=== PATIENT | female | born 1955 | race Caucasian/White ===

== ENCOUNTER → 2016-07-29 | Outpatient (CLI) | payer OTHER ==
[~2016-07-29] MED LIST: ALBU17IN INH; AMAN100T PO; AMAN10CA PO; ASPI81TA60 PO; AZEL0.055; BREO1INH INH; BREO1INH3 INH; CETI10TA PO; DEXI60CA PO; FERR325T PO; FLUTISP; GABA600T PO; LAMO200T PO; LISI-538 PO; LISI20TA PO; LORA10TA2 PO; MECL-68 PO; MIRA3350 PO; MONT10TA2 PO; OMEP40CA2 PO; PRAZ2CAP PO; REXU1TAB2 PO; SERT-141 PO; TYLE500T78 PO; VITMTA PO
[2016-07-29 16:30] LABS: BASO # 0.1 K/mm3 (0.0-0.2); BASO % 0.9 % (0.0-1.0); EOS # 0.2 K/mm3 (0.0-0.50); EOS % 2.1 % (0.0-3.0); LARGE UNSTAINED CELL # 0.1 K/mm3 (0.0-0.4); LARGE UNSTAINED CELL % 1.5 % (0.0-4.0); LYMPH # 1.4 K/mm3 (1.5-4.5); LYMPH % 17.5 % (24.0-44.0); MEAN CORPUSCULAR HEMOGLOBIN 29.1 pg (27.0-33.0); MEAN CORPUSCULAR HGB CONC 31.3 g/dl (32.0-36.5); MEAN CORPUSCULAR VOLUME 93.1 fl (80.0-96.0); MONO # 0.4 K/mm3 (0.0-0.8); MONO % 4.8 % (0.0-5.0); NEUTROPHILS # 5.5 K/mm3 (1.8-7.7); NEUTROPHILS % 73.1 % (36.0-66.0); PLATELET COUNT, AUTOMATED 216 k/mm3 (150-450); RED CELL DISTRIBUTION WIDTH 14.7 % (11.5-14.5); WHITE BLOOD COUNT 7.5 K/mm3 (4.0-10.0)
== END ==
LOC: M LAB 15:54
PROVIDERS: ATTEND Psychiatry & Neurology Psychiatry
DX: Z79.899 Other long term (current) drug therapy (principal)

== ENCOUNTER → 2016-08-07 | Outpatient (CLI) | payer OTHER ==
[2016-08-07 16:06] LABS: BASO # 0.1 K/mm3 (0.0-0.2); BASO % 0.9 % (0.0-1.0); EOS # 0.1 K/mm3 (0.0-0.50); EOS % 2.1 % (0.0-3.0); LYMPH % 12.5 % (24.0-44.0); MEAN CORPUSCULAR VOLUME 90.8 fl (80.0-96.0); MONO # 0.4 K/mm3 (0.0-0.8); MONO % 5.4 % (0.0-5.0); NEUTROPHILS # 5.3 K/mm3 (1.8-7.7); NEUTROPHILS % 77.5 % (36.0-66.0); RED CELL DISTRIBUTION WIDTH 15.3 % (11.5-14.5); WHITE BLOOD COUNT 6.9 K/mm3 (4.0-10.0)
== END ==
LOC: M LAB 15:19
PROVIDERS: ATTEND Psychiatry & Neurology Psychiatry
DX: Z51.81 Encounter for therapeutic drug level monitoring (principal); Z79.899 Other long term (current) drug therapy

== ENCOUNTER → 2016-08-08 | Outpatient (CLI) | payer OTHER ==
--- NOTE | 2016-08-21 00:58 | ECWPNPC ---
PATIENT NAME: DIYA QUINONEZ : 1955 GENDER: FEMALE VISIT DATE: 08/08/2016 DISCHARGE DATE: 08/08/16 1357 VISIT LOCKED DATE TIME: PHYSICIAN: LAURA ROGERS RESOURCE: LAURA ROGERS REASON FOR APPOINTMENT 1. POST TPI HISTORY OF PRESENT ILLNESS HISTORY OF PRESENT ILLNESS: HERE FOR POST PROCEDURE F/U .HAD TPI ON 07-18 OF LEFT THORACIC AND LEFT SHOULDER.REPORTS DECREASE IN PAIN POST PROCEDURE IN THAT AREA WHICH CONTINUES TODAY.RATING PAIN VAS 4/10 UPPER BACK.CHIEF AREA PAIN TODAY IS LBP R>L.HAD BILATERAL SIJ INJECTIONS 07-08-16 AND HAD IMPROVEMENT IN PAIN UP TO ABOUT 2 DAYS AGO. PAIN THE PATIENT DESCRIBES THE PAIN... FALL RISK SCREENING: SCREENING :NO FALLS IN THE PAST YEAR CURRENT MEDICATIONS TAKING TIZANIDINE HCL 2 MG TABLET 1 TABLET NEEDED ORALLY BEFORE BEDTIME MAY REPEAT IN 4 HRS MDD 2, NOTES: 07/17/2016 2100 TAKING MULTIVITAMINS TABLET 1 TAB ORALLY DAILY, NOTES: 0900 TAKING VENTOLIN HFA 108 (90 BASE) MCG/ACT AEROSOL SOLUTION 2 PUFFS INHALATION PRN, NOTES: DR. HAYDEN NONE RECENTY TAKING CALCIUM 600 + D 600-400 MG-UNIT TABLET 1 TABLET ORALLY ONCE A DAY, NOTES: 07/17/2016 0900 TAKING ASPIRIN EC LOW DOSE 81 MG TABLET DELAYED RELEASE 1 TABLET ORALLY ONCE A DAY, NOTES: 07/17/2016 0900 TAKING FLUTICASONE PROPIONATE 50 MCG/ACT SUSPENSION 1 SPRAY IN EACH NOSTRIL NASALLY ONCE A DAY NEEDED, NOTES: DR. HAYDEN 07/07/16 1000 TAKING DEXILANT 60 MG CAPSULE DELAYED RELEASE 1 CAPSULE ORALLY ONCE A DAY, NOTES: DR. OSCAR 07/17/2016 0900 TAKING BREO ELLIPTA 100-25 MCG/INH AEROSOL POWDER BREATH ACTIVATED 1 PUFF INHALATION ONCE A DAY, NOTES: 07/17/2016 0900 TAKING AZELASTINE HCL 0.1 % SOLUTION 1 SPRAY IN EACH NOSTRIL NASALLY ONCE A DAY, NOTES: DR. HAYDEN 07/08/16 0700 TAKING LITHIUM CARBONATE 150 MG CAPSULE 3 CAPSULES ORALLY AT BEDTIME, NOTES: 07/17/2016 2100 TAKING CLOZAPINE 100 MG TABLET 1 TABLET ORALLY ONCE A DAY AT BEDTIME, NOTES: DR. MILLER 07/17/2016 2100 TAKING LAMOTRIGINE 200 MG TABLET 1.5 TABLET ORALLY ONCE A DAY IN THE MORNING, NOTES: DR. MILLER 07/07/16 0930 TAKING AMANTADINE HCL 100 MG CAPSULE 2 CAPSULES ORALLY 2 CAPS IN THE AM, 1 IN THE EVENING, NOTES: 07/17/2016 0900 TAKING FERROUS SULFATE 325 MG CAPSULE 1 TABLET ORALLY TWICE DAILY, NOTES: PCP 07/17/2016 09 TAKING MECLIZINE HCL 25 MG TABLET 1 TABLET NEEDED ORALLY ONCE A DAY, NOTES: PCP 07/17/2016 09 TAKING CETIRIZINE HCL 10 MG TABLET 1 TABLET ORALLY ONCE A DAY, NOTES: DR. HAYDEN 07/17/16 0230 TAKING MONTELUKAST SODIUM 10 MG TABLET 1 TABLET IN THE EVENING ORALLY ONCE A DAY, NOTES: 07/17/2016 09 TAKING GABAPENTIN 300 MG CAPSULE 3 CAPSULE ORALLY ONCE A DAY AT HS, NOTES: 07/17/2016 2100 TAKING REXULTI 4 MG TABLET 1 TABLET ORALLY ONCE A DAY, NOTES: 07/17/2016 2100 TAKING LISINOPRIL-HYDROCHLOROTHIAZIDE 20-12.5 MG TABLET 1 TABLET ORALLY ONCE A DAY, NOTES: PCP 07/17/2016 09 MEDICATION LIST REVIEWED AND RECONCILED WITH THE PATIENT PAST MEDICAL HISTORY 2002 CHRONIC HEPATITIS C GENOTYPE 2A, VL 2.7MILLION , RVR ON TREATMENT UNDETECTABLE VL 4, END OF TX 03/03/2010 BIPOLAR DISORDER GERD GASTRITIS OBESITY CHOLELITHIASIS ASTHMA INSOMNIA SCOLIOSIS BREAST LUMPECTOMY/RIGHT BREAST 2009 DDD CERVICAL SPINE SPINAL FUSION 1973 SPINAL EXPLORATORY 1975 ANEMIA COLONOSCOPY 2016 EGD 2016 HIATAL HERNIA ALLERGIES N.K.D.A. SOCIAL HISTORY GENERAL: TOBACCO USE ARE YOU A:NONSMOKER LEARNING BARRIERS / SPECIAL NEEDS ORIENTED TO PLAN OF CARE: PATIENT, PAIN MANAGEMENT PATIENT, ORIENTED TO PLAN OF CARE: PATIENT, PAIN MANAGEMENT PATIENT. NEW PATIENT PAIN DIARY TODAY'S VISITNOTES FROM 0-10, WHAT LEVEL IS YOUR PAIN TODAY?0 PAIN CLINIC PFS, CLERGY, PUBLIC HEALTH REFERRALS PFS REFERRAL NEEDED?NO CLERGY REFERRAL NEEDED?NO PUBLIC HEALTH REFERRAL NEEDED?NO WAS THE PROVIDER NOTIFIED OF ANY PERTINENT INFO?NO PFS REFERRAL NEEDED?NO CLERGY REFERRAL NEEDED?NO PUBLIC HEALTH REFERRAL NEEDED?NO WAS THE PROVIDER NOTIFIED OF ANY PERTINENT INFO?NO REVIEW OF SYSTEMS CONSTITUTIONAL: ANY CHANGE IN YOUR MEDICAL CONDITION? NO . RECENT ILLNESS DENIES . CHILLS NO . FEVER NO . WEIGHT LOSS DENIES . INFECTION: DO YOU HAVE NEW INFECTIONS? NO . DO YOU HAVE HISTORY OF MRSA? NO . MUSCULOSKELETAL: ANY NEW PATTERNS OF PAIN OR NUMBNESS? YES NOTICED PAIN IN RIGHT SHOULDER AFTER TPI DONE ON 12/ PAIN HAS RETURNED IN LOW BACK . GASTROENTEROLOGY: ANY NEW CHANGE IN BOWEL CONTROL? NO . GENITOURINARY: ANY NEW CHANGE IN BLADDER CONTROL? NO . IS THERE A CHANCE YOU COULD BE ? NO . HEMATOLOGY/LYMPH: DO YOU TAKE ANY BLOOD THINNERS? (FOR EXAMPLE- COUMADIN, PLAVIX, AGGRENOX, PLATEL, PRADAXA, OR XARELTO) NO . WHEN WAS YOUR LAST DOSE? DATE: TIME: . NEUROLOGY: HAVE YOU FALLEN IN THE PAST 6 MONTHS? NO . ANY NEW EXTREMITY NUMBNESS OR WEAKNESS? NO . CARDIOLOGY: DO YOU HAVE A PACEMAKER OR DEFIBRILLATOR? NO . CHEST PAIN DENIES . SHORTNESS OF BREATH DENIES . RESPIRATORY: HAVE YOU BEEN SICK IN THE PAST WEEK? NO . FEVER NO . FLU LIKE SYMPTOMS? NO . COUGH NO, DENIES . SHORTNESS OF BREATH DENIES . INTEGUMENTARY: DO YOU HAVE ANY RASHES OR OPEN SORES? NO . ALLERGIC/IMMUNO: ARE YOU ALLERGIC TO SHELLFISH OR IV DYE? NO . ANY NEW ALLERGIES? NO . PSYCHIATRIC: DO YOU HAVE THOUGHTS OF HURTING YOURSELF OR SOMEONE ELSE? NO . ARE YOU ABUSED, NEGLECTED, OR IN AN UNSAFE ENVIRONMENT? NO . ENDOCRINOLOGY: ARE YOU DIABETIC? NO . OTHER: DO YOU NEED ANY PRESCRIPTIONS? NO . IF YES, PLEASE LIST: ____ . ANY NEW PROBLEMS WITH YOUR MEDICATIONS? NO . WHEN DID YOU LAST EAT? ____ . WHEN DID YOU LAST DRINK? ____ . WHAT DID YOU LAST DRINK? ____ . NAME OF PERSON DRIVING YOU HOME? ____ . DO YOU HAVE ANY OTHER QUESTIONS OR CONCERNS NO . REVIEWED BY: PROVIDER: LAURA EM . VITAL SIGNS WT 250 LBS, HT 64 IN, BMI 42.91 INDEX, BP 160/83 MM HG, HR 86 /MIN, RR 16 /MIN, TEMP 97.7 F, OXYGEN SAT % 97%, NA INITIALS SC13:19, REVIEWED BY: AD. EXAMINATION GENERAL EXAMINATION: LUNGS:LUNG SOUNDS ARE CLEAR. HEART:HEART RATE REGULAR. MUSCULOSKELETAL:*, MUSCLE STRENGTH TESTING 5/5 BILATERAL LOWER EXTREMITIES., PALPATION: POSITIVE FOR PAIN OVER L/S SPINE. POSITIVE FOR PAIN OVER L/S PARASPINALS.SPECIFIC POINT TENDERNESS OVER BILAT. SIJ.. DIAGNOSTIC: . ASSESSMENTS SACROILIITIS, NOT ELSEWHERE CLASSIFIED - M46.1 (PRIMARY) MYALGIA - M79.1 TREATMENT SACROILIITIS, NOT ELSEWHERE CLASSIFIED INJECTION ANESTHETIC SACROILIAC JOINT PREVENTIVE MEDICINE PAIN CLINIC TEACHING: PROCEDURE TEACHING PRINTED MATERIAL GIVEN TO AND EXPLAINED TO PATIENT ON SIJ INJECTION. PT VERBALIZED UNDERSTANDING. PROCEDURE CODES FA211 ESTABILISHED PATIENT [facility] FACILITY CHARGE FOLLOW UP 2WK POST (REASON: BILAT. SIJ) ELECTRONICALLY SIGNED BY MARIA ANTONIA BEAR ON 08/20/2016 AT 04:03 PM EST DISCLAIMER : THIS IS A VISIT SUMMARY EXTRACTED FROM THE [employer] CHART. IT IS NOT A COPY OF THE [employer] PROGRESS NOTE. PIERCE
== END ==
LOC: M PAIN 13:20
PROVIDERS: ATTEND Nurse Practitioner Family
DX: Z09 Encounter for follow-up examination after completed treatment for conditions other than malignant neoplasm (principal); M79.1 Myalgia; M54.5 Low back pain; B18.2 Chronic viral hepatitis C; F31.9 Bipolar disorder, unspecified; K21.9 Gastro-esophageal reflux disease without esophagitis; E66.9 Obesity, unspecified; Z68.41 Body mass index [BMI] 40.0-44.9, adult; K80.20 Calculus of gallbladder without cholecystitis without obstruction; J45.909 Unspecified asthma, uncomplicated; G47.00 Insomnia, unspecified; M41.9 Scoliosis, unspecified; M50.30 Other cervical disc degeneration, unspecified cervical region; D64.9 Anemia, unspecified; K44.9 Diaphragmatic hernia without obstruction or gangrene; Z98.1 Arthrodesis status; Z90.11 Acquired absence of right breast and nipple; Z79.82 Long term (current) use of aspirin

== ENCOUNTER 2016-08-17 16:10 | Emergency (ER) | payer OTHER ==
[2016-08-17] MEDS ORDERED: NORCO, ANEXSIA 5/325MG TABLET (HYDROcodone/ACETAMINOPHEN) As Ordered ONE (19:50)
--- NOTE | 2016-08-17 20:44 | EDDOCDS ---
Nurse's Notes [facility] Name: Cristina Marsh Age: 61 yrs Sex: Female : 1955 Arrival Date: 08/17/2016 Time: 16:10 Bed PD Private MD: Ayesha Jackman M. Diagnosis: Contusion of right front wall of thorax Presentation: 08/17 16:45 Presenting complaint: Patient states: fell during the night about three days ago, now a [facility] lot of pain underneath right breast with large black and blue bruise present which is so painful I can't even get a bra on, makes it hard to sleep. Adult Sepsis Screening: The patient does not have new or worsening altered mentation. Patient's respiratory rate is less than 22. Systolic blood pressure is greater than 100. Patient has a qSOFA score of 0- Negative Sepsis Screen. Suicide/Homicide risk assessment- The patient reports that he/she has a prior history of suicide attempt and/or organized plan. Status: Patient is not a clinical services consultant or dependent. Transition of care: patient was not received from another setting of care. 16:45 Acuity: GIOVANI Level 4 [facility] 16:45 Method Of Arrival: Walkin/Carried/Asstd [facility] Triage Assessment: 16:49 General: Appears in no apparent distress, uncomfortable, Behavior is appropriate for [facility] age, cooperative. Pain: Denies pain. Pain: Location: right lateral posterior chest and right lateral anterior chest Pain currently is 9 out of 10 on a pain scale. HIV screening NA for this visit Offered previously. Respiratory: Airway is patent Respiratory effort is even, unlabored, Respiratory pattern is regular, symmetrical. Derm: Skin is pink, warm & dry. Musculoskeletal: Range of motion intact in all extremities. Historical: - Allergies: no known allergies; - Home Meds: 1. amantadine HCl 100 mg Oral cap 1 cap once daily 2. aspirin 81 mg Oral tab 1 tab once daily 3. azelastine 137 mcg (0.1 %) nasal spra 2 sprays 2 times per day 4. Breo Ellipta 200-25 mcg/dose inhalation dsdv 1 puff once daily 5. cetirizine 10 mg oral tab 1 tab once daily 6. fluticasone 50 mcg/actuation nasal spsn 1 spray 2 times per day 7. gabapentin 300 mg Oral tab 4 cap nightly 8. lamotrigine 200 mg Oral tr24 1 tab twice a day 9. lisinopril 20 mg Oral tab 1 tab once daily 10. lisinopril-hydrochlorothiazide 20-12.5 mg oral tab 1 tab once daily 11. montelukast 10 mg oral tab 1 tab nightly 12. multivitamin Oral cap 1 tab daily 13. prazosin 2 mg Oral cap 1 cap nightly - PMHx: Anxiety; Bipolar disorder; Hypertension; Seasonal Allergies; Asthma; - PSHx: Tubal ligation; Sinus Surgery; Lumpectomy- Right; back surgery x2; right wrist surgery; - Social history: Smoking status: Patient states former smoker of tobacco. No barriers to communication noted. - Family history: Not pertinent. - : The pt / caregiver states he / she is not on anticoagulants. Home medication list is obtained from the patient. - Exposure Risk Screening:: None identified. Screenin:42 Screening information is obtained from the patient. Fall risk: No risks identified. cz Assistance ADL's: requires no assistance with activities of daily living. Abuse/DV Screen: The patient / caregiver reports he/she is:. Nutritional screening: No deficits noted. home support is adequate. Assessment: 20:42 Reassessment: Patient states feeling better. Patient states symptoms have improved. Vital Signs: 16:13 BP 144 / 72 RA Sitting (auto/lg); Pulse 95; Resp 18; Temp 97.6(O); Pulse Ox 97% ; vt4 Weight 113.4 kg (R); Height 5 ft. 4 in. (162.56 cm) (R); Pain 8/10; 20:42 BP 175 / 81; Pulse 76; Resp 16; Temp 99.3(TE); Pulse Ox 95% on R/A; Pain 7/10; sew 16:13 Body Mass Index 42.91 (113.40 kg, 162.56 cm) [facility] Vitals: 16:13 Log In Time: August 17, 2016 at 16:10. [facility] ED Course: 16:13 Patient visited by Orly Laurent. [facility] 16:13 Ayesha Jackman is Private Physician. mt4 16:13 Patient moved to Waiting [facility] 16:16 Patient moved to Pre E [facility] 16:47 Triage Initiated [facility] 19:28 Patient moved to Triage 3 3 19:34 Tommy Colon PA is PHCP. mo1 19:34 Saul Mcdowell DO is Attending Physician. mo1 19:36 Patient visited by Tommy Colon PA. mo1 19:51 Patient moved to TR4 sew 19:55 Patient moved to TR2 cz 20:27 Patient moved to PR1 / 25 sew 20:28 Patient moved to PD2 / 27 kb5 20:33 Ayesha Jackman is Referral Physician. mo1 20:42 Patient visited by Mone Roberts. sew 20:42 The patient / caregiver is instructed regarding the plan of care and ED course. cz 20:42 No IV's were initiated during this patient's visit. No procedures done that require cz assistance. 20:44 [facility] Payment Agreement was scanned into [employer] and attached to record. gjb Administered Medications: 19:52 Drug: HYDROcodone-acetaminophen 1 tabs [hydrocodone 5 mg-acetaminophen 325 mg tablet (1 cz tabs)] Route: PO; Order Results: There are currently no results for this order. Outcome: 20:33 Discharge ordered by Provider. mo1 20:42 Discharge Assessment: Patient awake, alert and oriented x 3. No cognitive and/or cz functional deficits noted. Patient verbalized understanding of disposition instructions. patient administered narcotics - yes. Pt provided with safe discharge. The following High Risk Discharge criteria are identified: None. Discharged to home ambulatory, with family. Condition: stable. Discharge instructions given to patient, Instructed on discharge instructions, follow up and referral plans. medication usage, Demonstrated understanding of instructions, medications, Pt was receptive of discharge instructions/ teaching. Prescriptions given X 1. No special radiology studies were completed. Property :Personal belongings accompany Pt. 20:44 Patient left the ED. cz Signatures: Edward Buckley, RN RN Kaiden Coombs, STOPE MINER STOPE MINER kb5 Orly Laurent mt4 Esme FloresRN RN [facility] Mone Roberts Michael, PA PA mo1 Alli Dewitt,RN RN Arlin Cuevas MTDD
--- NOTE | 2016-08-17 20:44 | EDDOCDS ---
Physician Documentation [facility] Name: Cristina Marsh Age: 61 yrs Sex: Female : 1955 Arrival Date: 08/17/2016 Time: 16:10 Bed PD Private MD: Ayesha Jackman M. Disposition: 08/17/16 20:33 Discharged to Home/Self Care. Impression: Contusion of right front wall of thorax. - Condition is Stable. - Discharge Instructions: Rib Contusion, Chest Wall Pain. - Prescriptions for [place] 5- 325 mg Oral Tablet - take 1 tablet by ORAL route every 6 hours As needed MDD: 4 tabs; 20 tablet. - Medication Reconciliation, Local Pharmacy Hours form. - Follow up: Ayesha Jackman; When: Call to arrange an appointment; Reason: Recheck today's complaints, Continuance of care. - Problem is new. - Symptoms are unchanged. Historical: - Allergies: no known allergies; - Home Meds: 1. amantadine HCl 100 mg Oral cap 1 cap once daily 2. aspirin 81 mg Oral tab 1 tab once daily 3. azelastine 137 mcg (0.1 %) nasal spra 2 sprays 2 times per day 4. Breo Ellipta 200-25 mcg/dose inhalation dsdv 1 puff once daily 5. cetirizine 10 mg oral tab 1 tab once daily 6. fluticasone 50 mcg/actuation nasal spsn 1 spray 2 times per day 7. gabapentin 300 mg Oral tab 4 cap nightly 8. lamotrigine 200 mg Oral tr24 1 tab twice a day 9. lisinopril 20 mg Oral tab 1 tab once daily 10. lisinopril-hydrochlorothiazide 20-12.5 mg oral tab 1 tab once daily 11. montelukast 10 mg oral tab 1 tab nightly 12. multivitamin Oral cap 1 tab daily 13. prazosin 2 mg Oral cap 1 cap nightly - PMHx: Anxiety; Bipolar disorder; Hypertension; Seasonal Allergies; Asthma; - PSHx: Tubal ligation; Sinus Surgery; Lumpectomy- Right; back surgery x2; right wrist surgery; - Social history: Smoking status: Patient states former smoker of tobacco. No barriers to communication noted. - Family history: Not pertinent. - : The pt / caregiver states he / she is not on anticoagulants. Home medication list is obtained from the patient. - Exposure Risk Screening:: None identified. Vital Signs: 08/17 16:13 BP 144 / 72 RA Sitting (auto/lg); Pulse 95; Resp 18; Temp 97.6(O); Pulse Ox 97% ; mt4 Weight 113.4 kg / 250 lbs (R); Height 5 ft. 4 in. (162.56 cm) (R); Pain 8/10; 20:42 BP 175 / 81; Pulse 76; Resp 16; Temp 99.3(TE); Pulse Ox 95% on R/A; Pain 7/10; sew 16:13 Body Mass Index 42.91 (113.40 kg, 162.56 cm) mt4 MDM: 19:45 HYDROcodone-acetaminophen 5 mg-325 mg 1 tabs PO once ordered. mo1 19:46 Rib Unilat W/PA Chest Only Ordered. EDMS 20:09 Financial registration complete. gjrodney 20:44 [facility] Payment Agreement was scanned into [employer] and attached to record. wil Administered Medications: 19:52 Drug: HYDROcodone-acetaminophen 1 tabs [hydrocodone 5 mg-acetaminophen 325 mg tablet (1 cz tabs)] Route: PO; Signatures: Dispatcher [employer] EDMS Edward Buckley RN RN cz Hafner, Jane, RN RN [facility] Tommy Colon PA PA mo1 Arlin Nieves The chart was reviewed and I authenticate all verbal orders and agree with the evaluation and treatment provided.Attachments: 20:44 [facility] Payment Agreement gjrodney MTDD
--- NOTE | 2016-08-18 20:59 | REP ---
PA chest with right rib series 08/17/2016 Indication: Trauma Comparison: PA and lateral chest 11/28 15 Findings: Cardiac silhouette is mildly enlarged. There is ectasia and tortuosity of thoracic aorta. There is small amount of atelectasis noted within the medial basilar segment of the right lower lobe. There is a moderate retrocardiac hiatal hernia containing small amount of air. Thoracic fixation rods are again identified for thoracic dextroscoliotic deformity. There is mild residual dextroscoliosis of thoracic spine again noted. There is no visualized acute right rib fracture. Old healed nondisplaced fracture is identified within the right 5th lateral rib, best seen on image 3 Impression: Mild cardiomegaly, tortuous thoracic aorta, not significantly changed Moderate retrocardiac hiatal hernia Atelectasis in medial basilar segment right lower lobe No acute right rib fracture. Mild deformity of the right fifth lateral rib consistent with old healed fracture Signed by Brittani Salinas MD 08/18/2016 08:51 P
--- NOTE | 2016-08-19 21:45 | EDDOCDS ---
Nurse's Notes [facility] Name: Cristina Marsh Age: 61 yrs Sex: Female : 1955 Arrival Date: 08/17/2016 Time: 16:10 Bed PD Private MD: Ayesha Jackman M. Diagnosis: Contusion of right front wall of thorax Presentation: 08/17 16:45 Presenting complaint: Patient states: fell during the night about three days ago, now a [facility] lot of pain underneath right breast with large black and blue bruise present which is so painful I can't even get a bra on, makes it hard to sleep. Adult Sepsis Screening: The patient does not have new or worsening altered mentation. Patient's respiratory rate is less than 22. Systolic blood pressure is greater than 100. Patient has a qSOFA score of 0- Negative Sepsis Screen. Suicide/Homicide risk assessment- The patient reports that he/she has a prior history of suicide attempt and/or organized plan. Status: Patient is not a media services director or dependent. Transition of care: patient was not received from another setting of care. 16:45 Acuity: GIOVANI Level 4 [facility] 16:45 Method Of Arrival: Walkin/Carried/Asstd [facility] Triage Assessment: 16:49 General: Appears in no apparent distress, uncomfortable, Behavior is appropriate for [facility] age, cooperative. Pain: Denies pain. Pain: Location: right lateral posterior chest and right lateral anterior chest Pain currently is 9 out of 10 on a pain scale. HIV screening NA for this visit Offered previously. Respiratory: Airway is patent Respiratory effort is even, unlabored, Respiratory pattern is regular, symmetrical. Derm: Skin is pink, warm & dry. Musculoskeletal: Range of motion intact in all extremities. Historical: - Allergies: no known allergies; - Home Meds: 1. amantadine HCl 100 mg Oral cap 1 cap once daily 2. aspirin 81 mg Oral tab 1 tab once daily 3. azelastine 137 mcg (0.1 %) nasal spra 2 sprays 2 times per day 4. Breo Ellipta 200-25 mcg/dose inhalation dsdv 1 puff once daily 5. cetirizine 10 mg oral tab 1 tab once daily 6. fluticasone 50 mcg/actuation nasal spsn 1 spray 2 times per day 7. gabapentin 300 mg Oral tab 4 cap nightly 8. lamotrigine 200 mg Oral tr24 1 tab twice a day 9. lisinopril 20 mg Oral tab 1 tab once daily 10. lisinopril-hydrochlorothiazide 20-12.5 mg oral tab 1 tab once daily 11. montelukast 10 mg oral tab 1 tab nightly 12. multivitamin Oral cap 1 tab daily 13. prazosin 2 mg Oral cap 1 cap nightly - PMHx: Anxiety; Bipolar disorder; Hypertension; Seasonal Allergies; Asthma; - PSHx: Tubal ligation; Sinus Surgery; Lumpectomy- Right; back surgery x2; right wrist surgery; - Social history: Smoking status: Patient states former smoker of tobacco. No barriers to communication noted. - Family history: Not pertinent. - : The pt / caregiver states he / she is not on anticoagulants. Home medication list is obtained from the patient. - Exposure Risk Screening:: None identified. Screenin:42 Screening information is obtained from the patient. Fall risk: No risks identified. cz Assistance ADL's: requires no assistance with activities of daily living. Abuse/DV Screen: The patient / caregiver reports he/she is:. Nutritional screening: No deficits noted. home support is adequate. Assessment: 20:42 Reassessment: Patient states feeling better. Patient states symptoms have improved. Vital Signs: 16:13 BP 144 / 72 RA Sitting (auto/lg); Pulse 95; Resp 18; Temp 97.6(O); Pulse Ox 97% ; mn4 Weight 113.4 kg (R); Height 5 ft. 4 in. (162.56 cm) (R); Pain 8/10; 20:42 BP 175 / 81; Pulse 76; Resp 16; Temp 99.3(TE); Pulse Ox 95% on R/A; Pain 7/10; sew 16:13 Body Mass Index 42.91 (113.40 kg, 162.56 cm) [facility] Vitals: 16:13 Log In Time: August 17, 2016 at 16:10. [facility] ED Course: 16:13 Patient visited by Orly Laurent. [facility] 16:13 Ayesha Jackman is Private Physician. mt4 16:13 Patient moved to Waiting [facility] 16:16 Patient moved to Pre E [facility] 16:47 Triage Initiated [facility] 19:28 Patient moved to Triage 3 3 19:34 Tommy Colon PA is PHCP. mo1 19:34 Saul Mcdowell DO is Attending Physician. mo1 19:36 Patient visited by Tommy Colon PA. mo1 19:51 Patient moved to TR4 sew 19:55 Patient moved to TR2 cz 20:27 Patient moved to PR1 / 25 sew 20:28 Patient moved to PD2 / 27 kb5 20:33 Ayesha Jackman is Referral Physician. mo1 20:42 Patient visited by Mone Roberts. sew 20:42 The patient / caregiver is instructed regarding the plan of care and ED course. cz 20:42 No IV's were initiated during this patient's visit. No procedures done that require cz assistance. 20:44 [facility] Payment Agreement was scanned into [employer] and attached to record. gjb 22:20 Patient name changed from Cristina\S\Shannan\S\Duenisch\S\ to Cristina\S\L\S\Duenisch. EDMS 08/18 16:09 T-Sheet-- Draft Copy was scanned into [employer] and attached to record. klr 21:42 Rib Unilat W/PA Chest Only Returned. EDMS Administered Medications: 08/17 19:52 Drug: HYDROcodone-acetaminophen 1 tabs [hydrocodone 5 mg-acetaminophen 325 mg tablet (1 cz tabs)] Route: PO; Order Results: Radiology Order: Rib Unilat W/PA Chest Only Test: Rib Unilat W/PA Chest Only REASON FOR EXAMINATION: Trauma; PA chest with right rib series 08/17/2016; ; Indication: Trauma; ; Comparison: PA and lateral chest 11/27 16; ; Findings: Cardiac silhouette is mildly enlarged. There is ectasia and; tortuosity of thoracic aorta. There is small amount of atelectasis noted within; the medial basilar segment of the right lower lobe. There is a moderate; retrocardiac hiatal hernia containing small amount of air.; ; ; ; Thoracic fixation rods are again identified for thoracic dextroscoliotic; deformity. There is mild residual dextroscoliosis of thoracic spine again; noted.; ; There is no visualized acute right rib fracture. Old healed nondisplaced; fracture is identified within the right 5th lateral rib, best seen on image 3; ; Impression:; ; Mild cardiomegaly, tortuous thoracic aorta, not significantly changed; Moderate retrocardiac hiatal hernia; ; Atelectasis in medial basilar segment right lower lobe; ; No acute right rib fracture. Mild deformity of the right fifth lateral rib; consistent with old healed fracture; ; ; Signed by; Brittani Salinas MD 08/18/2016 08:51 P; Outcome: 20:33 Discharge ordered by Provider. mo1 20:42 Discharge Assessment: Patient awake, alert and oriented x 3. No cognitive and/or cz functional deficits noted. Patient verbalized understanding of disposition instructions. patient administered narcotics - yes. Pt provided with safe discharge. The following High Risk Discharge criteria are identified: None. Discharged to home ambulatory, with family. Condition: stable. Discharge instructions given to patient, Instructed on discharge instructions, follow up and referral plans. medication usage, Demonstrated understanding of instructions, medications, Pt was receptive of discharge instructions/ teaching. Prescriptions given X 1. No special radiology studies were completed. Property :Personal belongings accompany Pt. 20:44 Patient left the ED. cz Signatures: Dispatcher [employer] EDMS Edward Buckley, RN RN cz Kaiden Stubbs, CIVIL ENGINEER CIVIL ENGINEER kb5 Mehran, Orly mt4 Esme FloresRN RN Mone Sanchez Michael, PA PA mo1 Alli Dewitt,RN RN [email or web address] Arlin Nieves Kathie klr Chart Complete MTDD
--- NOTE | 2016-08-19 21:45 | EDDOCDS ---
Physician Documentation [facility] Name: Cristina Marsh Age: 61 yrs Sex: Female : 1955 Arrival Date: 08/17/2016 Time: 16:10 Bed PD Private MD: Ayesha Jackman M. Disposition: 08/17/16 20:33 Discharged to Home/Self Care. Impression: Contusion of right front wall of thorax. - Condition is Stable. - Discharge Instructions: Rib Contusion, Chest Wall Pain. - Prescriptions for [place] 5- 325 mg Oral Tablet - take 1 tablet by ORAL route every 6 hours As needed MDD: 4 tabs; 20 tablet. - Medication Reconciliation, Local Pharmacy Hours form. - Follow up: Ayesha Jackman; When: Call to arrange an appointment; Reason: Recheck today's complaints, Continuance of care. - Problem is new. - Symptoms are unchanged. Historical: - Allergies: no known allergies; - Home Meds: 1. amantadine HCl 100 mg Oral cap 1 cap once daily 2. aspirin 81 mg Oral tab 1 tab once daily 3. azelastine 137 mcg (0.1 %) nasal spra 2 sprays 2 times per day 4. Breo Ellipta 200-25 mcg/dose inhalation dsdv 1 puff once daily 5. cetirizine 10 mg oral tab 1 tab once daily 6. fluticasone 50 mcg/actuation nasal spsn 1 spray 2 times per day 7. gabapentin 300 mg Oral tab 4 cap nightly 8. lamotrigine 200 mg Oral tr24 1 tab twice a day 9. lisinopril 20 mg Oral tab 1 tab once daily 10. lisinopril-hydrochlorothiazide 20-12.5 mg oral tab 1 tab once daily 11. montelukast 10 mg oral tab 1 tab nightly 12. multivitamin Oral cap 1 tab daily 13. prazosin 2 mg Oral cap 1 cap nightly - PMHx: Anxiety; Bipolar disorder; Hypertension; Seasonal Allergies; Asthma; - PSHx: Tubal ligation; Sinus Surgery; Lumpectomy- Right; back surgery x2; right wrist surgery; - Social history: Smoking status: Patient states former smoker of tobacco. No barriers to communication noted. - Family history: Not pertinent. - : The pt / caregiver states he / she is not on anticoagulants. Home medication list is obtained from the patient. - Exposure Risk Screening:: None identified. Vital Signs: 08/17 16:13 BP 144 / 72 RA Sitting (auto/lg); Pulse 95; Resp 18; Temp 97.6(O); Pulse Ox 97% ; mt4 Weight 113.4 kg / 250 lbs (R); Height 5 ft. 4 in. (162.56 cm) (R); Pain 8/10; 20:42 BP 175 / 81; Pulse 76; Resp 16; Temp 99.3(TE); Pulse Ox 95% on R/A; Pain 7/10; sew 16:13 Body Mass Index 42.91 (113.40 kg, 162.56 cm) mt4 MDM: 19:45 HYDROcodone-acetaminophen 5 mg-325 mg 1 tabs PO once ordered. mo1 19:46 Rib Unilat W/PA Chest Only Ordered. EDCT 20:09 Financial registration complete. [facility] :44 [facility] Payment Agreement was scanned into [employer] and attached to record. [facility] 08/18 16:09 T-Sheet-- Draft Copy was scanned into [employer] and attached to record. klr Administered Medications: 08/17 19:52 Drug: HYDROcodone-acetaminophen 1 tabs [hydrocodone 5 mg-acetaminophen 325 mg tablet (1 cz tabs)] Route: PO; Signatures: Dispatcher [employer] EDCT Edward Buckley RN RN cz Hafner, Jane, RN RN cj Tommy Colon PA PA mo1 Arlin Nieves Kathie klr The chart was reviewed and I authenticate all verbal orders and agree with the evaluation and treatment provided.Attachments: 20:44 [facility] Payment Agreement [facility] 08/18 16:09 T-Sheet-- Draft Copy klr Chart Complete MTDD
--- NOTE | 2016-08-19 21:45 | EDDOCDS ---
Physician Documentation [facility] Name: Cristina Marsh Age: 61 yrs Sex: Female : 1955 Arrival Date: 08/17/2016 Time: 16:10 Bed PD Private MD: Ayesha Jackman M. Disposition: 08/17/16 20:33 Discharged to Home/Self Care. Impression: Contusion of right front wall of thorax. - Condition is Stable. - Discharge Instructions: Rib Contusion, Chest Wall Pain. - Prescriptions for Bartlett 5- 325 mg Oral Tablet - take 1 tablet by ORAL route every 6 hours As needed MDD: 4 tabs; 20 tablet. - Medication Reconciliation, Local Pharmacy Hours form. - Follow up: Ayesha Jackman; When: Call to arrange an appointment; Reason: Recheck today's complaints, Continuance of care. - Problem is new. - Symptoms are unchanged. Historical: - Allergies: no known allergies; - Home Meds: 1. amantadine HCl 100 mg Oral cap 1 cap once daily 2. aspirin 81 mg Oral tab 1 tab once daily 3. azelastine 137 mcg (0.1 %) nasal spra 2 sprays 2 times per day 4. Breo Ellipta 200-25 mcg/dose inhalation dsdv 1 puff once daily 5. cetirizine 10 mg oral tab 1 tab once daily 6. fluticasone 50 mcg/actuation nasal spsn 1 spray 2 times per day 7. gabapentin 300 mg Oral tab 4 cap nightly 8. lamotrigine 200 mg Oral tr24 1 tab twice a day 9. lisinopril 20 mg Oral tab 1 tab once daily 10. lisinopril-hydrochlorothiazide 20-12.5 mg oral tab 1 tab once daily 11. montelukast 10 mg oral tab 1 tab nightly 12. multivitamin Oral cap 1 tab daily 13. prazosin 2 mg Oral cap 1 cap nightly - PMHx: Anxiety; Bipolar disorder; Hypertension; Seasonal Allergies; Asthma; - PSHx: Tubal ligation; Sinus Surgery; Lumpectomy- Right; back surgery x2; right wrist surgery; - Social history: Smoking status: Patient states former smoker of tobacco. No barriers to communication noted. - Family history: Not pertinent. - : The pt / caregiver states he / she is not on anticoagulants. Home medication list is obtained from the patient. - Exposure Risk Screening:: None identified. Vital Signs: 08/17 16:13 BP 144 / 72 RA Sitting (auto/lg); Pulse 95; Resp 18; Temp 97.6(O); Pulse Ox 97% ; mt4 Weight 113.4 kg / 250 lbs (R); Height 5 ft. 4 in. (162.56 cm) (R); Pain 8/10; 20:42 BP 175 / 81; Pulse 76; Resp 16; Temp 99.3(TE); Pulse Ox 95% on R/A; Pain 7/10; sew 16:13 Body Mass Index 42.91 (113.40 kg, 162.56 cm) mt4 MDM: 19:45 HYDROcodone-acetaminophen 5 mg-325 mg 1 tabs PO once ordered. mo1 19:46 Rib Unilat W/PA Chest Only Ordered. EDIL 20:09 Financial registration complete. [facility] :44 [facility] Payment Agreement was scanned into [employer] and attached to record. [facility] 08/18 16:09 T-Sheet-- Draft Copy was scanned into [employer] and attached to record. klr Administered Medications: 08/17 19:52 Drug: HYDROcodone-acetaminophen 1 tabs [hydrocodone 5 mg-acetaminophen 325 mg tablet (1 cz tabs)] Route: PO; Signatures: Dispatcher [employer] EDIL Edward Buckley RN RN cz Hafner, Jane, RN RN cj Tommy Colon PA PA mo1 Arlin Nieves Kathie klr The chart was reviewed and I authenticate all verbal orders and agree with the evaluation and treatment provided.Attachments: 20:44 [facility] Payment Agreement [facility] 08/18 16:09 T-Sheet-- Draft Copy klr Chart Complete MTDD
== END 2016-08-17 20:44 | disposition home or self-care (01) ==
LOC: M ED 16:10
DX: S20.219A Contusion of unspecified front wall of thorax, initial encounter (principal); R07.89 Other chest pain; W01.190A Fall on same level from slipping, tripping and stumbling with subsequent striking against furniture, initial encounter; Y92.013 Bedroom of single-family (private) house as the place of occurrence of the external cause; Y93.89 Activity, other specified; Y99.8 Other external cause status; I10 Essential (primary) hypertension; J45.909 Unspecified asthma, uncomplicated; F31.9 Bipolar disorder, unspecified; F41.9 Anxiety disorder, unspecified; Z79.899 Other long term (current) drug therapy; Z79.82 Long term (current) use of aspirin; Z79.51 Long term (current) use of inhaled steroids

== ENCOUNTER → 2016-08-20 | Outpatient (CLI) | payer OTHER ==
[2016-08-20 18:47] LABS: BASO % 0.4 % (0.0-1.0); EOS # 0.1 K/mm3 (0.0-0.50); EOS % 1.8 % (0.0-3.0); LARGE UNSTAINED CELL # 0.1 K/mm3 (0.0-0.4); LARGE UNSTAINED CELL % 1.5 % (0.0-4.0); LYMPH # 1.1 K/mm3 (1.5-4.5); LYMPH % 12.8 % (24.0-44.0); MEAN CORPUSCULAR HEMOGLOBIN 29.7 pg (27.0-33.0); MEAN CORPUSCULAR VOLUME 92.8 fl (80.0-96.0); MONO # 0.3 K/mm3 (0.0-0.8); MONO % 4.3 % (0.0-5.0); NEUTROPHILS # 6.1 K/mm3 (1.8-7.7); NEUTROPHILS % 79.2 % (36.0-66.0); PLATELET COUNT, AUTOMATED 255 k/mm3 (150-450); RED CELL DISTRIBUTION WIDTH 14.8 % (11.5-14.5); WHITE BLOOD COUNT 7.6 K/mm3 (4.0-10.0)
== END ==
LOC: M LAB 17:15
PROVIDERS: ATTEND Psychiatry & Neurology Psychiatry
DX: Z51.81 Encounter for therapeutic drug level monitoring (principal); Z79.899 Other long term (current) drug therapy

== ENCOUNTER → 2016-08-29 | Outpatient (CLI) | payer OTHER ==
[2016-08-29 17:20] LABS: BASO % 0.2 % (0.0-1.0); EOS # 0.3 K/mm3 (0.0-0.50); EOS % 3.7 % (0.0-3.0); LARGE UNSTAINED CELL # 0.1 K/mm3 (0.0-0.4); LARGE UNSTAINED CELL % 1.4 % (0.0-4.0); LYMPH # 1.1 K/mm3 (1.5-4.5); MEAN CORPUSCULAR HEMOGLOBIN 29.2 pg (27.0-33.0); MEAN CORPUSCULAR HGB CONC 31.8 g/dl (32.0-36.5); MEAN CORPUSCULAR VOLUME 91.7 fl (80.0-96.0); MONO # 0.3 K/mm3 (0.0-0.8); MONO % 4.1 % (0.0-5.0); NEUTROPHILS # 5.8 K/mm3 (1.8-7.7); NEUTROPHILS % 76.6 % (36.0-66.0); PLATELET COUNT, AUTOMATED 294 k/mm3 (150-450); RED CELL DISTRIBUTION WIDTH 13.4 % (11.5-14.5); WHITE BLOOD COUNT 7.6 K/mm3 (4.0-10.0)
== END ==
LOC: M LAB 16:19
PROVIDERS: ATTEND Psychiatry & Neurology Psychiatry
DX: Z51.81 Encounter for therapeutic drug level monitoring (principal); Z79.899 Other long term (current) drug therapy

== ENCOUNTER → 2016-09-06 | Outpatient (CLI) | payer OTHER ==
[2016-09-06 11:03] LABS: BASO % 0.5 % (0.0-1.0); EOS # 0.5 K/mm3 (0.0-0.50); EOS % 8.6 % (0.0-3.0); LARGE UNSTAINED CELL # 0.1 K/mm3 (0.0-0.4); LARGE UNSTAINED CELL % 1.9 % (0.0-4.0); LYMPH # 1.3 K/mm3 (1.5-4.5); LYMPH % 21.1 % (24.0-44.0); MEAN CORPUSCULAR HEMOGLOBIN 29.6 pg (27.0-33.0); MEAN CORPUSCULAR HGB CONC 32.1 g/dl (32.0-36.5); MEAN CORPUSCULAR VOLUME 92.3 fl (80.0-96.0); MONO # 0.4 K/mm3 (0.0-0.8); MONO % 6.9 % (0.0-5.0); NEUTROPHILS # 3.4 K/mm3 (1.8-7.7); PLATELET COUNT, AUTOMATED 252 k/mm3 (150-450); RED CELL DISTRIBUTION WIDTH 13.7 % (11.5-14.5); WHITE BLOOD COUNT 5.6 K/mm3 (4.0-10.0)
== END ==
LOC: M LAB 10:34
PROVIDERS: ATTEND Psychiatry & Neurology Psychiatry
DX: Z51.81 Encounter for therapeutic drug level monitoring (principal); Z79.899 Other long term (current) drug therapy

== ENCOUNTER 2016-09-16 19:07 | Emergency (ER) | payer OTHER ==
[2016-09-16 21:46] LABS: BASO % 0.3 % (0.0-1.0); EOS # 0.2 K/mm3 (0.0-0.50); LARGE UNSTAINED CELL # 0.1 K/mm3 (0.0-0.4); LARGE UNSTAINED CELL % 1.6 % (0.0-4.0); LYMPH # 1.1 K/mm3 (1.5-4.5); LYMPH % 13.8 % (24.0-44.0); MEAN CORPUSCULAR HEMOGLOBIN 30.2 pg (27.0-33.0); MEAN CORPUSCULAR HGB CONC 32.9 g/dl (32.0-36.5); MEAN CORPUSCULAR VOLUME 91.8 fl (80.0-96.0); MONO # 0.4 K/mm3 (0.0-0.8); MONO % 5.5 % (0.0-5.0); NEUTROPHILS # 5.6 K/mm3 (1.8-7.7); NEUTROPHILS % 76.8 % (36.0-66.0); PLATELET COUNT, AUTOMATED 293 k/mm3 (150-450); RED CELL DISTRIBUTION WIDTH 13.7 % (11.5-14.5); WHITE BLOOD COUNT 7.2 K/mm3 (4.0-10.0)
[2016-09-16 21:57] LABS: ALBUMIN/GLOBULIN RATIO 1.21 (1.00-1.93); ALKALINE PHOSPHATASE 88 U/L (45-117); ALT/SGPT 17 U/L (12-78); ANION GAP 9 MEQ/L (8-16); AST/SGOT 12 U/L (15-37); BILIRUBIN,DIRECT < 0.1 MG/DL (0.0-0.2); BILIRUBIN,TOTAL 0.3 MG/DL (0.2-1.0); BLOOD UREA NITROGEN 14 MG/DL (7-18); CALCIUM LEVEL 9.4 MG/DL (8.8-10.2); CARBON DIOXIDE LEVEL 27 MEQ/L (21-32); CHLORIDE LEVEL 106 MEQ/L (98-107); CREATININE FOR GFR 0.81 MG/DL (0.55-1.02); GLOMERULAR FILTRATION RATE > 60.0 (>45); GLUCOSE, FASTING 98 MG/DL (80-110); POTASSIUM SERUM 4.3 MEQ/L (3.5-5.1); SODIUM LEVEL 142 MEQ/L (136-145); TOTAL PROTEIN 7.3 GM/DL (6.4-8.2)
--- NOTE | 2016-09-16 22:10 | REPUSA ---
Clinical history: Cough. Comparison: None. Findings: Frontal and lateral views of the chest were obtained. The mediastinum and cardiac silhouett e are within normal limits. The lungs are clear. No pleural effusion or pneumothorax is seen. The oss eous structures and soft tissues are unremarkable. Spinal rods are in place. Impression: No acute disease.
[2016-09-16] MEDS ORDERED: LORazepam 1 MG TAB As Ordered ONE (23:08)
--- NOTE | 2016-09-16 23:14 | EDDOCDS ---
Physician Documentation [facility] Name: Cristina Marsh Age: 61 yrs Sex: Female : 1955 Arrival Date: 09/16/2016 Time: 19:07 Bed 30 Private MD: Ayesha Jackman M. Disposition: 09/16/16 22:52 Discharged to Home/Self Care. Impression: Insomnia. - Condition is Stable. - Discharge Instructions: Insomnia, Generalized Anxiety Disorder. - Prescriptions for Ativan 0.5 mg Oral Tablet - take 1 tablet by ORAL route every 8 hours As needed; 3 tablet. - Medication Reconciliation, Local Pharmacy Hours form. - Follow up: Ayesha Jackman; When: 1 - 2 days; Reason: Recheck today's complaints. - Problem is new. - Symptoms are unchanged. - Notes: You were seen in the ED for anxiety and insomnia. Bloodwork along with chest Xray and EKG of the heart showed no other acute findings. You may take the Ativan as needed for anxiety. No driving or operating machinery while on this medicine. Call your primary doctor and your mental health provider in the morning to arrange ongoing management of the anxiety and insomnia. Return to the ED for any chest pain, trouble breathing, lightheadedness, loss of consciousness or any other concerns. Historical: - Allergies: No known drug Allergies; - Home Meds: 1. amantadine HCl 100 mg Oral cap 1 cap once daily 2. aspirin 81 mg Oral tab 1 tab once daily 3. azelastine 137 mcg (0.1 %) nasal spra 2 sprays 2 times per day 4. Breo Ellipta 200-25 mcg/dose inhalation dsdv 1 puff once daily 5. cetirizine 10 mg oral tab 1 tab once daily 6. fluticasone 50 mcg/actuation nasal spsn 1 spray 2 times per day 7. gabapentin 300 mg Oral tab 4 cap nightly 8. lamotrigine 200 mg Oral tr24 1 tab twice a day 9. lisinopril 20 mg Oral tab 1 tab once daily 10. lisinopril-hydrochlorothiazide 20-12.5 mg oral tab 1 tab once daily 11. montelukast 10 mg oral tab 1 tab nightly 12. multivitamin Oral cap 1 tab daily 13. prazosin 2 mg Oral cap 1 cap nightly - PMHx: Anxiety; Asthma; Bipolar disorder; Hypertension; Seasonal Allergies; - PSHx: Tubal ligation; Sinus Surgery; Lumpectomy- Right; back surgery x2; right wrist surgery; - Social history: Smoking status: Patient states was never smoker of tobacco. No barriers to communication noted, The patient speaks fluent Slovak, Speaks appropriately for age. - Family history: Not pertinent. - : The pt / caregiver states he / she is not on anticoagulants. Home medication list is obtained from the patient. - Exposure Risk Screening:: None identified. Vital Signs: 09/16 19:09 BP 159 / 82; Pulse 84; Resp 18; Temp 98.0(O); Pulse Ox 99% on R/A; Weight 108.86 kg / jrd 240 lbs (R); Height 5 ft. 4 in. (162.56 cm) (R); Pain 6/10; 22:57 BP 140 / 91; Pulse 73; Resp 18; Temp 98.1; Pulse Ox 96% on R/A; Pain 0/10; slm 19:09 Body Mass Index 41.20 (108.86 kg, 162.56 cm) jrd MDM: 21:14 Consult PFS/PSA/Home Health Care Coordinator ordered. br1 21:15 Chest, 2 View (pa\E\lat) Ordered. EDMS 21:15 ECG WITH READING ER PHYS+CARDIAG ordered. EDMS 21:15 CBC with Diff Ordered. EDMS 21:15 BMP Ordered. EDMS 21:15 Liver Profile Ordered. EDMS 21:15 Troponin Ordered. EDMS 21:15 BNP Ordered. EDMS 21:55 Consult PFS/PSA/Home Health Care Coordinator complete. cl 21:58 CBC with Diff Reviewed. br1 21:58 BNP Reviewed. br1 22:00 Liver Profile Reviewed. br1 22:00 BMP Reviewed. br1 22:00 Troponin Reviewed. br1 22:44 Financial registration complete. zo 23:05 LORazepam 0.5 mg PO once; prn anxiety ordered. br1 23:13 [facility] Payment Agreement was scanned into [employer] and attached to record. zo Administered Medications: 23:13 Drug: LORazepam 0.5 mg [lorazepam 1 mg tablet (0.5 tabs)] Route: PO; slm Signatures: Dispatcher [employer] EDMS Antelmo Clifton, PSA PSA cl [place], MD MD br1 Zenon BarreraRN RN sarayb Emily Cook LPN LPN slm The chart was reviewed and I authenticate all verbal orders and agree with the evaluation and treatment provided.Attachments: 23:13 [facility] Payment Agreement zo PIER[place]
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
--- NOTE | 2016-09-18 08:20 | ECGEPIP ---
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
--- NOTE | 2016-09-19 00:14 | EDDOCDS ---
Physician Documentation [facility] Name: Cristina Marsh Age: 61 yrs Sex: Female : 1955 Arrival Date: 09/16/2016 Time: 19:07 Bed 30 Private MD: Ayesha Jackman M. Disposition: 09/16/16 22:52 Discharged to Home/Self Care. Impression: Insomnia. - Condition is Stable. - Discharge Instructions: Insomnia, Generalized Anxiety Disorder. - Prescriptions for Ativan 0.5 mg Oral Tablet - take 1 tablet by ORAL route every 8 hours As needed; 3 tablet. - Medication Reconciliation, Local Pharmacy Hours form. - Follow up: Ayesha Jackman; When: 1 - 2 days; Reason: Recheck today's complaints. - Problem is new. - Symptoms are unchanged. - Notes: You were seen in the ED for anxiety and insomnia. Bloodwork along with chest Xray and EKG of the heart showed no other acute findings. You may take the Ativan as needed for anxiety. No driving or operating machinery while on this medicine. Call your primary doctor and your mental health provider in the morning to arrange ongoing management of the anxiety and insomnia. Return to the ED for any chest pain, trouble breathing, lightheadedness, loss of consciousness or any other concerns. Historical: - Allergies: No known drug Allergies; - Home Meds: 1. amantadine HCl 100 mg Oral cap 1 cap once daily 2. aspirin 81 mg Oral tab 1 tab once daily 3. azelastine 137 mcg (0.1 %) nasal spra 2 sprays 2 times per day 4. Breo Ellipta 200-25 mcg/dose inhalation dsdv 1 puff once daily 5. cetirizine 10 mg oral tab 1 tab once daily 6. fluticasone 50 mcg/actuation nasal spsn 1 spray 2 times per day 7. gabapentin 300 mg Oral tab 4 cap nightly 8. lamotrigine 200 mg Oral tr24 1 tab twice a day 9. lisinopril 20 mg Oral tab 1 tab once daily 10. lisinopril-hydrochlorothiazide 20-12.5 mg oral tab 1 tab once daily 11. montelukast 10 mg oral tab 1 tab nightly 12. multivitamin Oral cap 1 tab daily 13. prazosin 2 mg Oral cap 1 cap nightly - PMHx: Anxiety; Asthma; Bipolar disorder; Hypertension; Seasonal Allergies; - PSHx: Tubal ligation; Sinus Surgery; Lumpectomy- Right; back surgery x2; right wrist surgery; - Social history: Smoking status: Patient states was never smoker of tobacco. No barriers to communication noted, The patient speaks fluent Setswana, Speaks appropriately for age. - Family history: Not pertinent. - : The pt / caregiver states he / she is not on anticoagulants. Home medication list is obtained from the patient. - Exposure Risk Screening:: None identified. Vital Signs: 09/16 19:09 BP 159 / 82; Pulse 84; Resp 18; Temp 98.0(O); Pulse Ox 99% on R/A; Weight 108.86 kg / jrd 240 lbs (R); Height 5 ft. 4 in. (162.56 cm) (R); Pain 6/10; 22:57 BP 140 / 91; Pulse 73; Resp 18; Temp 98.1; Pulse Ox 96% on R/A; Pain 0/10; slm 19:09 Body Mass Index 41.20 (108.86 kg, 162.56 cm) jrd MDM: 21:14 Consult PFS/PSA/Industrial Maintenance [employer] ordered. br1 21:15 Chest, 2 View (pa\E\lat) Ordered. EDMS 21:15 ECG WITH READING ER PHYS+CARDIAG ordered. EDMS 21:15 CBC with Diff Ordered. EDMS 21:15 BMP Ordered. EDMS 21:15 Liver Profile Ordered. EDMS 21:15 Troponin Ordered. EDMS 21:15 BNP Ordered. EDMS 21:55 Consult PFS/PSA/Industrial Maintenance Mill[employer] complete. cl 21:58 CBC with Diff Reviewed. br1 21:58 BNP Reviewed. br1 22:00 Liver Profile Reviewed. br1 22:00 BMP Reviewed. br1 22:00 Troponin Reviewed. br1 22:44 Financial registration complete. zo 23:05 LORazepam 0.5 mg PO once; prn anxiety ordered. br1 23:13 [facility] Payment Agreement was scanned into [employer] and attached to record. zo 09/17 09:59 T-Sheet-- Draft Copy was scanned into [employer] and attached to record. gb 10:00 ECG/EKG was scanned into [employer] and attached to record. gb 10:00 Radiology Report was scanned into [employer] and attached to record. gb Administered Medications: 09/16 23:13 Drug: LORazepam 0.5 mg [lorazepam 1 mg tablet (0.5 tabs)] Route: PO; slm Signatures: Dispatcher [employer] EDMS Antelmo Clifton, PSA PSA cl Bora, Kamala, Reg Reg gb Ilene Bhatt Brian, MD MD br1 Zenon Barrera, SIMÓN RN Emily Luo,MEDICAL PHOTOGRAPHER MEDICAL PHOTOGRAPHER slm The chart was reviewed and I authenticate all verbal orders and agree with the evaluation and treatment provided.Attachments: 23:13 [facility] Payment Agreement zo 09/17 09:59 T-Sheet-- Draft Copy gb 10:00 ECG/EKG Chart Complete MTDD
--- NOTE | 2016-09-19 00:14 | EDDOCDS ---
Physician Documentation [facility] Name: Cristina Marsh Age: 61 yrs Sex: Female : 1955 Arrival Date: 09/16/2016 Time: 19:07 Bed 30 Private MD: Ayesha Jackman M. Disposition: 09/16/16 22:52 Discharged to Home/Self Care. Impression: Insomnia. - Condition is Stable. - Discharge Instructions: Insomnia, Generalized Anxiety Disorder. - Prescriptions for Ativan 0.5 mg Oral Tablet - take 1 tablet by ORAL route every 8 hours As needed; 3 tablet. - Medication Reconciliation, Local Pharmacy Hours form. - Follow up: Ayesha Jackman; When: 1 - 2 days; Reason: Recheck today's complaints. - Problem is new. - Symptoms are unchanged. - Notes: You were seen in the ED for anxiety and insomnia. Bloodwork along with chest Xray and EKG of the heart showed no other acute findings. You may take the Ativan as needed for anxiety. No driving or operating machinery while on this medicine. Call your primary doctor and your mental health provider in the morning to arrange ongoing management of the anxiety and insomnia. Return to the ED for any chest pain, trouble breathing, lightheadedness, loss of consciousness or any other concerns. Historical: - Allergies: No known drug Allergies; - Home Meds: 1. amantadine HCl 100 mg Oral cap 1 cap once daily 2. aspirin 81 mg Oral tab 1 tab once daily 3. azelastine 137 mcg (0.1 %) nasal spra 2 sprays 2 times per day 4. Breo Ellipta 200-25 mcg/dose inhalation dsdv 1 puff once daily 5. cetirizine 10 mg oral tab 1 tab once daily 6. fluticasone 50 mcg/actuation nasal spsn 1 spray 2 times per day 7. gabapentin 300 mg Oral tab 4 cap nightly 8. lamotrigine 200 mg Oral tr24 1 tab twice a day 9. lisinopril 20 mg Oral tab 1 tab once daily 10. lisinopril-hydrochlorothiazide 20-12.5 mg oral tab 1 tab once daily 11. montelukast 10 mg oral tab 1 tab nightly 12. multivitamin Oral cap 1 tab daily 13. prazosin 2 mg Oral cap 1 cap nightly - PMHx: Anxiety; Asthma; Bipolar disorder; Hypertension; Seasonal Allergies; - PSHx: Tubal ligation; Sinus Surgery; Lumpectomy- Right; back surgery x2; right wrist surgery; - Social history: Smoking status: Patient states was never smoker of tobacco. No barriers to communication noted, The patient speaks fluent Luxembourgish, Speaks appropriately for age. - Family history: Not pertinent. - : The pt / caregiver states he / she is not on anticoagulants. Home medication list is obtained from the patient. - Exposure Risk Screening:: None identified. Vital Signs: 09/16 19:09 BP 159 / 82; Pulse 84; Resp 18; Temp 98.0(O); Pulse Ox 99% on R/A; Weight 108.86 kg / jrd 240 lbs (R); Height 5 ft. 4 in. (162.56 cm) (R); Pain 6/10; 22:57 BP 140 / 91; Pulse 73; Resp 18; Temp 98.1; Pulse Ox 96% on R/A; Pain 0/10; slm 19:09 Body Mass Index 41.20 (108.86 kg, 162.56 cm) jrd MDM: 21:14 Consult PFS/PSA/Relief Cook ordered. br1 21:15 Chest, 2 View (pa\E\lat) Ordered. EDMS 21:15 ECG WITH READING ER PHYS+CARDIAG ordered. EDMS 21:15 CBC with Diff Ordered. EDMS 21:15 BMP Ordered. EDMS 21:15 Liver Profile Ordered. EDMS 21:15 Troponin Ordered. EDMS 21:15 BNP Ordered. EDMS 21:55 Consult PFS/PSA/Relief Cook complete. cl 21:58 CBC with Diff Reviewed. br1 21:58 BNP Reviewed. br1 22:00 Liver Profile Reviewed. br1 22:00 BMP Reviewed. br1 22:00 Troponin Reviewed. br1 22:44 Financial registration complete. zo 23:05 LORazepam 0.5 mg PO once; prn anxiety ordered. br1 23:13 [facility] [place] Payment Agreement was scanned into [employer] and attached to record. zo 09/17 09:59 T-Sheet-- Draft Copy was scanned into [employer] and attached to record. gb 10:00 ECG/EKG was scanned into [employer] and attached to record. gb 10:00 Radiology Report was scanned into [employer] and attached to record. gb Administered Medications: 09/16 23:13 Drug: LORazepam 0.5 mg [lorazepam 1 mg tablet (0.5 tabs)] Route: PO; slm Signatures: Dispatcher [employer] EDMS Antelmo Clifton, PSA PSA cl Bora, Kamala, Reg Reg gb Ilene Bhatt Brian, MD MD br1 Zenon Barrera, SIMÓN RN Emily Luo,MINE INSPECTOR FEDERAL MINE INSPECTOR FEDERAL slm The chart was reviewed and I authenticate all verbal orders and agree with the evaluation and treatment provided.Attachments: 23:13 [facility] Payment Agreement zo 09/17 09:59 T-Sheet-- Draft Copy gb 10:00 ECG/EKG Chart Complete MTDD
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
== END 2016-09-16 23:14 | disposition home or self-care (01) ==
LOC: M ED 19:07
DX: G47.00 Insomnia, unspecified (principal); F41.9 Anxiety disorder, unspecified; J45.909 Unspecified asthma, uncomplicated; F31.9 Bipolar disorder, unspecified; I10 Essential (primary) hypertension; J30.2 Other seasonal allergic rhinitis; Z79.82 Long term (current) use of aspirin; Z79.899 Other long term (current) drug therapy

== ENCOUNTER → 2016-09-20 | Outpatient (CLI) | payer OTHER ==
[2016-09-20 14:16] LABS: BASO % 0.2 % (0.0-1.0); EOS # 0.2 K/mm3 (0.0-0.50); EOS % 3.1 % (0.0-3.0); LARGE UNSTAINED CELL # 0.1 K/mm3 (0.0-0.4); LARGE UNSTAINED CELL % 1.7 % (0.0-4.0); LYMPH # 0.9 K/mm3 (1.5-4.5); LYMPH % 15.5 % (24.0-44.0); MEAN CORPUSCULAR HEMOGLOBIN 29.3 pg (27.0-33.0); MEAN CORPUSCULAR HGB CONC 32.4 g/dl (32.0-36.5); MEAN CORPUSCULAR VOLUME 90.3 fl (80.0-96.0); MONO # 0.3 K/mm3 (0.0-0.8); MONO % 5.8 % (0.0-5.0); NEUTROPHILS # 4.4 K/mm3 (1.8-7.7); NEUTROPHILS % 73.8 % (36.0-66.0); PLATELET COUNT, AUTOMATED 257 k/mm3 (150-450); RED CELL DISTRIBUTION WIDTH 13.7 % (11.5-14.5); WHITE BLOOD COUNT 5.9 K/mm3 (4.0-10.0)
== END ==
LOC: M LAB 13:13
PROVIDERS: ATTEND Psychiatry & Neurology Psychiatry
DX: Z79.899 Other long term (current) drug therapy (principal)

== ENCOUNTER → 2016-09-26 | Outpatient (CLI) | payer OTHER ==
[~2016-09-26] MED LIST changes: +BUPIVACAINE HCL 0.25% 30 ML VIAL As Ordered ONE; +ISOVUE-M 300 61% 15ML VIAL (Q9967) As Ordered ONE; +LIDOCAINE 1% SDV INJ 30 ML VIAL As Ordered ONE; -SERT-141 PO; +SERT50TA PO; +TRIAMCINOLONE ACETONIDE SUSP 40 MG/ML VIAL (J3301) As Ordered ONE; +diazePAM 5 MG TAB As Ordered ONE; +oxyCODONE 5MG TAB As Ordered ONE
--- NOTE | 2016-09-26 12:14 | REP ---
SI joint series: Limited study, seven views. History: Bilateral SI joint injection for pain. 21 seconds of fluoroscopy time is reported. Findings: A sequence of seven fluoroscopically obtained last minute hold spot images of the SI joints document various needle positions and contrast injections associated with bilateral SI joint injection procedures. Signed by Toño Euceda MD 09/26/2016 01:31 P
--- NOTE | 2016-09-28 23:21 | ECWPNPC ---
PATIENT NAME: DIYA QUINONEZ : 1955 GENDER: FEMALE VISIT DATE: 09/26/2016 DISCHARGE DATE: 09/26/16 1210 VISIT LOCKED DATE TIME: PHYSICIAN: AMADOU RASHID RESOURCE: AMADOU RASHID REASON FOR APPOINTMENT 1. BILAT. SIJ HISTORY OF PRESENT ILLNESS HISTORY OF PRESENT ILLNESS: PAIN THE PATIENT DESCRIBES THE PAIN... FALL RISK SCREENING: SCREENING :NO FALLS IN THE PAST YEAR CURRENT MEDICATIONS TAKING TIZANIDINE HCL 2 MG TABLET 1 TABLET NEEDED ORALLY BEFORE BEDTIME MAY REPEAT IN 4 HRS MDD 2, NOTES: 09-25-162099 TAKING MULTIVITAMINS TABLET 1 TAB ORALLY DAILY, NOTES: 09-25-16799 TAKING VENTOLIN HFA 108 (90 BASE) MCG/ACT AEROSOL SOLUTION 2 PUFFS INHALATION PRN, NOTES: 09-25-16 TAKING CALCIUM 600 + D 600-400 MG-UNIT TABLET 1 TABLET ORALLY ONCE A DAY, NOTES: 09-25-16799 TAKING ASPIRIN EC LOW DOSE 81 MG TABLET DELAYED RELEASE 1 TABLET ORALLY ONCE A DAY, NOTES: 09-25-16799 TAKING FLUTICASONE PROPIONATE 50 MCG/ACT SUSPENSION 1 SPRAY IN EACH NOSTRIL NASALLY ONCE A DAY NEEDED, NOTES: 09-25-16799 TAKING DEXILANT 60 MG CAPSULE DELAYED RELEASE 1 CAPSULE ORALLY ONCE A DAY, NOTES: 09-25-16799 TAKING BREO ELLIPTA 100-25 MCG/INH AEROSOL POWDER BREATH ACTIVATED 1 PUFF INHALATION ONCE A DAY, NOTES: 09-25-16799 TAKING AZELASTINE HCL 0.1 % SOLUTION 1 SPRAY IN EACH NOSTRIL NASALLY ONCE A DAY, NOTES: 09-25-162099 TAKING LITHIUM CARBONATE 150 MG CAPSULE 3 CAPSULES ORALLY AT BEDTIME, NOTES: 09-25-162099 TAKING CLOZAPINE 100 MG TABLET 1 TABLET ORALLY ONCE A DAY AT BEDTIME, NOTES: 09-25-162099 TAKING LAMOTRIGINE 200 MG TABLET 1.5 TABLET ORALLY ONCE A DAY IN THE MORNING, NOTES: 09-25-16 08 TAKING AMANTADINE HCL 100 MG CAPSULE 2 CAPSULES ORALLY 2 CAPS IN THE AM, 1 IN THE EVENING, NOTES: 09-25-16 1400 TAKING FERROUS SULFATE 325 MG CAPSULE 1 TABLET ORALLY TWICE DAILY, NOTES: 09-25-16 08 TAKING MECLIZINE HCL 25 MG TABLET 1 TABLET NEEDED ORALLY ONCE A DAY, NOTES: 09-25-16799 TAKING CETIRIZINE HCL 10 MG TABLET 1 TABLET ORALLY ONCE A DAY, NOTES: 09-25-16799 TAKING MONTELUKAST SODIUM 10 MG TABLET 1 TABLET IN THE EVENING ORALLY ONCE A DAY, NOTES: 09-25-16799 TAKING GABAPENTIN 300 MG CAPSULE 3 CAPSULE ORALLY ONCE A DAY AT HS, NOTES: 09-25-16 2100 TAKING REXULTI 4 MG TABLET 1 TABLET ORALLY ONCE A DAY, NOTES: 09-25-16799 TAKING LISINOPRIL-HYDROCHLOROTHIAZIDE 20-12.5 MG TABLET 1 TABLET ORALLY ONCE A DAY, NOTES: 09-25-16799 DISCONTINUED NORCO 5-325 MG TABLET 1 TABLET ORALLY EVERY 6 HRS NEEDED MDD=4 MEDICATION LIST REVIEWED AND RECONCILED WITH THE PATIENT PAST MEDICAL HISTORY 2001 CHRONIC HEPATITIS C GENOTYPE 2A, VL 2.7MILLION , RVR ON TREATMENT UNDETECTABLE VL 4/, END OF TX 03/03/2010 BIPOLAR DISORDER GERD GASTRITIS OBESITY CHOLELITHIASIS ASTHMA INSOMNIA SCOLIOSIS BREAST LUMPECTOMY/RIGHT BREAST 2009 DDD CERVICAL SPINE SPINAL FUSION 1973 SPINAL EXPLORATORY 1975 ANEMIA COLONOSCOPY 2016 EGD 2016 HIATAL HERNIA ALLERGIES N.K.D.A. SOCIAL HISTORY GENERAL: TOBACCO USE ARE YOU A:NONSMOKER LEARNING BARRIERS / SPECIAL NEEDS ORIENTED TO PLAN OF CARE: PATIENT, PAIN MANAGEMENT PATIENT, ORIENTED TO PLAN OF CARE: PATIENT, PAIN MANAGEMENT PATIENT. NEW PATIENT PAIN DIARY TODAY'S VISITNOTES FROM 0-10, WHAT LEVEL IS YOUR PAIN TODAY?0 PAIN CLINIC PFS, CLERGY, PUBLIC HEALTH REFERRALS PFS REFERRAL NEEDED?NO CLERGY REFERRAL NEEDED?NO PUBLIC HEALTH REFERRAL NEEDED?NO WAS THE PROVIDER NOTIFIED OF ANY PERTINENT INFO?NO PFS REFERRAL NEEDED?NO CLERGY REFERRAL NEEDED?NO PUBLIC HEALTH REFERRAL NEEDED?NO WAS THE PROVIDER NOTIFIED OF ANY PERTINENT INFO?NO REVIEW OF SYSTEMS CONSTITUTIONAL: ANY CHANGE IN YOUR MEDICAL CONDITION? NO . CHILLS NO . FEVER NO . INFECTION: DO YOU HAVE NEW INFECTIONS? NO . DO YOU HAVE HISTORY OF MRSA? NO . MUSCULOSKELETAL: ANY NEW PATTERNS OF PAIN OR NUMBNESS? NO . GASTROENTEROLOGY: ANY NEW CHANGE IN BOWEL CONTROL? NO . GENITOURINARY: ANY NEW CHANGE IN BLADDER CONTROL? NO . IS THERE A CHANCE YOU COULD BE ? NO . HEMATOLOGY/LYMPH: DO YOU TAKE ANY BLOOD THINNERS? (FOR EXAMPLE- COUMADIN, PLAVIX, AGGRENOX, PLATEL, PRADAXA, OR XARELTO) NO . WHEN WAS YOUR LAST DOSE? DATE: TIME: . NEUROLOGY: HAVE YOU FALLEN IN THE PAST 6 MONTHS? NO . ANY NEW EXTREMITY NUMBNESS OR WEAKNESS? NO . CARDIOLOGY: DO YOU HAVE A PACEMAKER OR DEFIBRILLATOR? NO . RESPIRATORY: HAVE YOU BEEN SICK IN THE PAST WEEK? NO . FEVER NO . FLU LIKE SYMPTOMS? NO . COUGH NO . INTEGUMENTARY: DO YOU HAVE ANY RASHES OR OPEN SORES? NO . ALLERGIC/IMMUNO: ARE YOU ALLERGIC TO SHELLFISH OR IV DYE? NO . ANY NEW ALLERGIES? NO . PSYCHIATRIC: DO YOU HAVE THOUGHTS OF HURTING YOURSELF OR SOMEONE ELSE? NO . ARE YOU ABUSED, NEGLECTED, OR IN AN UNSAFE ENVIRONMENT? NO . ENDOCRINOLOGY: ARE YOU DIABETIC? NO . OTHER: DO YOU NEED ANY PRESCRIPTIONS? NO . IF YES, PLEASE LIST: ____ . ANY NEW PROBLEMS WITH YOUR MEDICATIONS? NO . WHEN DID YOU LAST EAT? 09-25-16 1900 . WHEN DID YOU LAST DRINK? 09-26-16 0730 . WHAT DID YOU LAST DRINK? WATER . NAME OF PERSON DRIVING YOU HOME? FABRICIO . DO YOU HAVE ANY OTHER QUESTIONS OR CONCERNS NO . REVIEWED BY: PROVIDER: . VITAL SIGNS WT 240.0 LBS, HT 64 IN, BMI 41.19 INDEX, BP 146/74 MM HG, HR 69 /MIN, RR 18 /MIN, TEMP 96.4 F, OXYGEN SAT % 94, NA INITIALS TL 1034, REVIEWED BY: CM. ASSESSMENTS SACROILIITIS, NOT ELSEWHERE CLASSIFIED - M46.1 (PRIMARY) PROCEDURES PN SI PRE PROCEDURE DIAGNOSIS SACROILIITIS, SACROILIAC JOINT DYSFUNCTION POST PROCEDURE DIAGNOSIS SACROILIITIS, SACROILIAC JOINT DYSFUNCTION PROCEDURE ., BILATERAL SACROILIAC JOINT BLOCK SURGEON DR. AMADOU RASHID GLOBAL CONSUMER SECTOR VICE PRESIDENT NONE ANESTHESIA LOCAL PRE PROCEDURE NOTE PATIENT WITH HISTORY OF CHRONIC LOW BACK PAIN. I EVALUATED THE PATIENT AND REVIEWED THE CHART. I WENT OVER THE RISKS, ALTERNATIVES, AND BENEFITS ASSOCIATED WITH THIS PROCEDURE. THE PATIENT WOULD LIKE TO PROCEED AND GAVE CONSENT TO PERFORM THE PROCEDURE. THE PATIENT DENIES UNEXPLAINABLE WEIGHT LOSS, FEVER, CHILLS, OR NEW CHANGES IN URINARY OR BOWEL CONTROL. DESCRIPTION OF PROCEDURE THE PATIENT WAS BROUGHT TO THE PROCEDURE ROOM AND PLACED IN THE PRONE POSITION. THE LUMBOSACRAL AREA WAS CLEANED WITH CHLORAPREP SOLUTION AND DRAPED ASEPTICALLY. THE PROCEDURE WAS DONE UNDER STERILE CONDITIONS. I CHECKED LATERALITY AND THE LEVEL WHERE THE PROCEDURE WAS GOING TO BE PERFORMED WITH THE PATIENT AND THE SUPPORTING STAFF AT THE MOMENT OF THE TIME OUT IN THE PROCEDURE ROOM. UNDER FLUOROSCOPIC GUIDANCE, TARGET POINT WAS SELECTED AT THE LOWER BORDER OF THE RIGHT AND LEFT SACROILIAC JOINT. TARGET POINT WAS SELECTED AFTER MEDIAL ROTATION AND TILT OF THE MAGNIFIER OF THE C-ARM. LIDOCAINE WAS USED TO NUMB THE SKIN AND SUBCUTANEOUS TISSUE BELOW IT. A SPINAL NEEDLE, 22-GAUGE, WAS ADVANCED UNDER FLUOROSCOPIC GUIDANCE AND FOLLOWING PATIENT FEEDBACK UNTIL THE TARGET AREA WAS TOUCHED. THE POSITION OF THE NEEDLE WAS VERIFIED WITH AP AND LATERAL VIEWS. AFTER PROPER POSITION OF THE NEEDLE WAS ACHIEVED, ISOVUE M DYE 30%, 0.25 ML, WAS INJECTED SHOWING SPREAD OF THE DYE. THEN, A SOLUTION OF 20 MG OF KENALOG WAS INJECTED IN RIGHT JOINT WITH 3 ML OF BUPIVACAINE 0.125%. THERE WAS NO EVIDENCE OF BLOOD, PARESTHESIA OR CEREBROSPINAL FLUID DURING THE PROCEDURE. THE PATIENT WAS SENT TO THE RECOVERY ROOM. THE PATIENT WAS MOVING THE EXTREMITIES AND DOING WELL. THERE WAS NO COMPLICATION DURING THE PROCEDURE. FLUOROSCOPY TIME WAS 21 SECONDS POST PROCEDURE NOTE THE PATIENT WILL BE SEEN IN A FOLLOW UP IN THE NEXT FEW WEEKS. INSTRUCTIONS WERE GIVEN, QUESTIONS WERE ANSWERED, AND THE PATIENT EXPRESSED UNDERSTANDING AND AGREED WITH THE PLAN. INSTRUCTIONS WERE GIVEN, QUESTIONS WERE ANSWERED, PATIENT REPORTS UNDERSTANDING AND AGREES WITH THE PLAN. I, BRITTNY CHANCE, DOCUMENTED THE ABOVE INFORMATION ACTING A SCRIBE FOR DR. RASHID. I HAVE REVIEWED THE ABOVE DOCUMENT, WRITTEN BY BRITTNY CHANCE SCRIBE AND I VERIFY THAT IT IS ACCURATE. DIAGNOSTIC IMAGING [facility] FLUORO GUIDANCE (PAIN)[id number] PROCEDURE CODES 01155 INJECT SACROILIAC JOINT 6045F RADXPS IN END [id number] PXD DISPOSITION & COMMUNICATION FOLLOW UP 3 WEEKS ELECTRONICALLY SIGNED BY AMADOU RASHID MD ON 09/28/2016 AT 04:12 PM EST DISCLAIMER : THIS IS A VISIT SUMMARY EXTRACTED FROM THE [employer] CHART. IT IS NOT A COPY OF THE [employer] PROGRESS NOTE. MTDD
== END ==
LOC: M PAIN 10:10
PROVIDERS: ATTEND Anesthesiology
DX: G89.29 Other chronic pain (principal); M46.1 Sacroiliitis, not elsewhere classified; M53.88 Other specified dorsopathies, sacral and sacrococcygeal region; F31.9 Bipolar disorder, unspecified; K21.9 Gastro-esophageal reflux disease without esophagitis; E66.9 Obesity, unspecified; Z68.41 Body mass index [BMI] 40.0-44.9, adult; J45.909 Unspecified asthma, uncomplicated; M41.9 Scoliosis, unspecified; D64.9 Anemia, unspecified; Z79.82 Long term (current) use of aspirin; Z79.51 Long term (current) use of inhaled steroids; Z79.899 Other long term (current) drug therapy; Z85.3 Personal history of malignant neoplasm of breast; Z86.19 Personal history of other infectious and parasitic diseases; Z98.1 Arthrodesis status
CPT/HCPCS: G0260; J3301; Q9967

== ENCOUNTER → 2016-09-27 | Outpatient (CLI) | payer OTHER ==
[~2016-09-27] MED LIST changes: -BUPIVACAINE HCL 0.25% 30 ML VIAL As Ordered ONE; -ISOVUE-M 300 61% 15ML VIAL (Q9967) As Ordered ONE; -LIDOCAINE 1% SDV INJ 30 ML VIAL As Ordered ONE; +SERT-141 PO; -SERT50TA PO; -TRIAMCINOLONE ACETONIDE SUSP 40 MG/ML VIAL (J3301) As Ordered ONE; -diazePAM 5 MG TAB As Ordered ONE; -oxyCODONE 5MG TAB As Ordered ONE
[2016-09-27 17:48] LABS: BASO % 0.1 % (0.0-1.0); EOS % 0.3 % (0.0-3.0); LARGE UNSTAINED CELL # 0.1 K/mm3 (0.0-0.4); LARGE UNSTAINED CELL % 1.2 % (0.0-4.0); LYMPH # 0.6 K/mm3 (1.5-4.5); LYMPH % 8.2 % (24.0-44.0); MEAN CORPUSCULAR HEMOGLOBIN 29.6 pg (27.0-33.0); MEAN CORPUSCULAR HGB CONC 32.5 g/dl (32.0-36.5); MEAN CORPUSCULAR VOLUME 91.1 fl (80.0-96.0); MONO # 0.4 K/mm3 (0.0-0.8); NEUTROPHILS # 5.9 K/mm3 (1.8-7.7); NEUTROPHILS % 85.3 % (36.0-66.0); PLATELET COUNT, AUTOMATED 258 k/mm3 (150-450); RED CELL DISTRIBUTION WIDTH 12.8 % (11.5-14.5); WHITE BLOOD COUNT 6.9 K/mm3 (4.0-10.0)
== END ==
LOC: M LAB 17:11
PROVIDERS: ATTEND Psychiatry & Neurology Psychiatry
DX: Z79.899 Other long term (current) drug therapy (principal)

== ENCOUNTER → 2016-10-03 | Outpatient (CLI) | payer OTHER ==
[~2016-10-03] MED LIST changes: -SERT-141 PO; +SERT50TA PO
[2016-10-03 16:20] LABS: BASO % 0.2 % (0.0-1.0); EOS # 0.1 K/mm3 (0.0-0.50); EOS % 1.4 % (0.0-3.0); LARGE UNSTAINED CELL # 0.1 K/mm3 (0.0-0.4); LARGE UNSTAINED CELL % 1.6 % (0.0-4.0); LYMPH # 1.3 K/mm3 (1.5-4.5); MEAN CORPUSCULAR HEMOGLOBIN 29.6 pg (27.0-33.0); MEAN CORPUSCULAR HGB CONC 32.7 g/dl (32.0-36.5); MEAN CORPUSCULAR VOLUME 90.7 fl (80.0-96.0); MONO # 0.4 K/mm3 (0.0-0.8); MONO % 5.4 % (0.0-5.0); NEUTROPHILS # 6.1 K/mm3 (1.8-7.7); NEUTROPHILS % 76.5 % (36.0-66.0); PLATELET COUNT, AUTOMATED 285 k/mm3 (150-450)
== END ==
LOC: M LAB 15:53
PROVIDERS: ATTEND Psychiatry & Neurology Psychiatry
DX: Z79.899 Other long term (current) drug therapy (principal)

== ENCOUNTER → 2016-10-14 | Outpatient (CLI) | payer OTHER ==
--- NOTE | 2016-10-14 14:23 | REP ---
PARTIAL LUMBAR SPINE, TWO VIEWS: HISTORY: Back pain. The patient is status post thoracolumbar posterior spinal fusion. The metal hardware is incompletely seen in the present examination. There is no acute fracture. The intervertebral discs are decreased in height consistent with disc degeneration. There are 4 mm of grade 1 spondylolisthesis of L5 on S1. There is scoliosis convex to the left. IMPRESSION: Degenerative change as described above. Signed by Kendrick Henry MD 10/14/2016 02:31 P
== END ==
LOC: M RAD 12:44
PROVIDERS: ATTEND Anesthesiology
DX: M43.16 Spondylolisthesis, lumbar region (principal); M51.37 Other intervertebral disc degeneration, lumbosacral region

== ENCOUNTER → 2016-10-14 | Outpatient (CLI) | payer OTHER ==
[2016-10-14 13:28] LABS: BASO % 0.2 % (0.0-1.0); EOS # 0.1 K/mm3 (0.0-0.50); EOS % 1.6 % (0.0-3.0); LARGE UNSTAINED CELL # 0.1 K/mm3 (0.0-0.4); LARGE UNSTAINED CELL % 1.3 % (0.0-4.0); LYMPH % 12.3 % (24.0-44.0); MEAN CORPUSCULAR HGB CONC 31.6 g/dl (32.0-36.5); MEAN CORPUSCULAR VOLUME 91.6 fl (80.0-96.0); MONO # 0.4 K/mm3 (0.0-0.8); MONO % 4.6 % (0.0-5.0); NEUTROPHILS # 6.6 K/mm3 (1.8-7.7); NEUTROPHILS % 80.1 % (36.0-66.0); PLATELET COUNT, AUTOMATED 257 k/mm3 (150-450); WHITE BLOOD COUNT 8.2 K/mm3 (4.0-10.0)
== END ==
LOC: M LAB 12:37
PROVIDERS: ATTEND Psychiatry & Neurology Psychiatry
DX: Z79.899 Other long term (current) drug therapy (principal)

== ENCOUNTER → 2016-10-23 | Outpatient (CLI) | payer OTHER ==
[2016-10-23 17:02] LABS: BASO % 0.2 % (0.0-1.0); EOS # 0.1 K/mm3 (0.0-0.50); EOS % 1.7 % (0.0-3.0); LARGE UNSTAINED CELL # 0.1 K/mm3 (0.0-0.4); LARGE UNSTAINED CELL % 1.8 % (0.0-4.0); LYMPH # 0.8 K/mm3 (1.5-4.5); MEAN CORPUSCULAR HGB CONC 31.7 g/dl (32.0-36.5); MEAN CORPUSCULAR VOLUME 91.6 fl (80.0-96.0); MONO # 0.3 K/mm3 (0.0-0.8); MONO % 5.7 % (0.0-5.0); NEUTROPHILS # 3.6 K/mm3 (1.8-7.7); NEUTROPHILS % 73.5 % (36.0-66.0); PLATELET COUNT, AUTOMATED 223 k/mm3 (150-450); RED CELL DISTRIBUTION WIDTH 13.6 % (11.5-14.5); WHITE BLOOD COUNT 4.9 K/mm3 (4.0-10.0)
== END ==
LOC: M LAB 15:16
PROVIDERS: ATTEND Psychiatry & Neurology Psychiatry
DX: Z79.899 Other long term (current) drug therapy (principal)

== ENCOUNTER → 2016-10-23 | Outpatient (CLI) | payer OTHER ==
--- NOTE | 2016-10-30 01:19 | ECWPNPC ---
PATIENT NAME: DIYA QUINONEZ : 1955 GENDER: FEMALE VISIT DATE: 10/23/2016 DISCHARGE DATE: 10/23/16 1501 VISIT LOCKED DATE TIME: PHYSICIAN: LAURA ROGERS RESOURCE: LAURA ROEGRS REASON FOR APPOINTMENT 1. POST SIJ HISTORY OF PRESENT ILLNESS HISTORY OF PRESENT ILLNESS: HERE FOR POST PROC. F/U.HAD BILAT. SIJ ON 09-26-16.REPORTS ABOUT 2 WEEKS IMPROVEMENT IN PAIN >50% FOR 2 WEEKS THEN PAIN HAS RETURNED TO BASELINE.PAIN IS AT BASELINE 7/10 VAS.PAIN IS LOCATED IN LOW BACK AND RADIATES INTO BILAT. POSTERIOR THIGH.DESCRIBES PAIN CONSTANT ACHING AND THROBBING.FEELS LIKE SHE HAS VERY HEAVY LEGS.ALSO BEING REFERRED TO NEUROLOGY FOR 2 WEEK HX OF SLURRED SPEECH AND DIFFICULTY REMEMBERING.HISTORY OF 4 MINI STROKES APROX. 4 YEARS AGO.FOLLOWING CLOSELY WITH PRIMARY CARE ADELIA DAVENPORT. PAIN THE PATIENT DESCRIBES THE PAIN... FALL RISK SCREENING: SCREENING :TWO OR MORE FALLS WITH INJURY IN THE PAST YEAR CURRENT MEDICATIONS TAKING TIZANIDINE HCL 2 MG TABLET 1 TABLET NEEDED ORALLY BEFORE BEDTIME MAY REPEAT IN 4 HRS MDD 2 TAKING MULTIVITAMINS TABLET 1 TAB ORALLY DAILY TAKING VENTOLIN HFA 108 (90 BASE) MCG/ACT AEROSOL SOLUTION 2 PUFFS INHALATION PRN TAKING CALCIUM 600 + D 600-400 MG-UNIT TABLET 1 TABLET ORALLY ONCE A DAY TAKING ASPIRIN EC LOW DOSE 81 MG TABLET DELAYED RELEASE 1 TABLET ORALLY ONCE A DAY TAKING FLUTICASONE PROPIONATE 50 MCG/ACT SUSPENSION 1 SPRAY IN EACH NOSTRIL NASALLY ONCE A DAY NEEDED TAKING DEXILANT 60 MG CAPSULE DELAYED RELEASE 1 CAPSULE ORALLY ONCE A DAY TAKING BREO ELLIPTA 100-25 MCG/INH AEROSOL POWDER BREATH ACTIVATED 1 PUFF INHALATION ONCE A DAY TAKING AZELASTINE HCL 0.1 % SOLUTION 1 SPRAY IN EACH NOSTRIL NASALLY ONCE A DAY TAKING LITHIUM CARBONATE 150 MG CAPSULE 3 CAPSULES ORALLY AT BEDTIME TAKING CLOZAPINE 100 MG TABLET 1 TABLET ORALLY ONCE A DAY AT BEDTIME TAKING LAMOTRIGINE 200 MG TABLET 1.5 TABLET ORALLY ONCE A DAY IN THE MORNING TAKING AMANTADINE HCL 100 MG CAPSULE 2 CAPSULES ORALLY 2 CAPS IN THE AM, 1 IN THE EVENING TAKING FERROUS SULFATE 325 MG CAPSULE 1 TABLET ORALLY TWICE DAILY TAKING MECLIZINE HCL 25 MG TABLET 1 TABLET NEEDED ORALLY ONCE A DAY TAKING CETIRIZINE HCL 10 MG TABLET 1 TABLET ORALLY ONCE A DAY TAKING MONTELUKAST SODIUM 10 MG TABLET 1 TABLET IN THE EVENING ORALLY ONCE A DAY TAKING GABAPENTIN 300 MG CAPSULE 3 CAPSULE ORALLY ONCE A DAY AT HS TAKING REXULTI 1 MG TABLET 1 TABLET ORALLY ONCE A DAY TAKING LISINOPRIL-HYDROCHLOROTHIAZIDE 20-12.5 MG TABLET 1 TABLET ORALLY ONCE A DAY NOT-TAKING TOBRAMYCIN 0.3 % SOLUTION 1 DROP INTO AFFECTED EYE OPHTHALMIC EVERY 4 HRS MEDICATION LIST REVIEWED AND RECONCILED WITH THE PATIENT PAST MEDICAL HISTORY 2001 CHRONIC HEPATITIS C GENOTYPE 2A, VL 2.7MILLION , RVR ON TREATMENT UNDETECTABLE VL 11/04, END OF TX 03/03/2010 BIPOLAR DISORDER GERD GASTRITIS OBESITY CHOLELITHIASIS ASTHMA INSOMNIA SCOLIOSIS BREAST LUMPECTOMY/RIGHT BREAST 2009 DDD CERVICAL SPINE SPINAL FUSION 1973 SPINAL EXPLORATORY 1975 ANEMIA COLONOSCOPY 2016 EGD 2016 HIATAL HERNIA ALLERGIES N.K.D.A. SURGICAL HISTORY FRACTURE RADIUS BREAST BIOPSY BENIGN DR OLMOS/ RIGHT BREAST/BENIGN 2009 EGD GASTRITIS 2007 BACK SURGERY FOR SCOLIOSIS/ ROWELL ZENAIDA , BLOOD TRANSFUSION 1975 PLACENTA PREVIA BLOOD TRANSFUSION COLONOSCOPY 05/04 DEVIATED SEPTUM REPAIR 09/07 CARDIAC CATHETERIZATION 2007 SOCIAL HISTORY GENERAL: TOBACCO USE ARE YOU A:NONSMOKER [employer]. LANGUAGE [place]. 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 NEW PATIENT PAIN DIARY TODAY'S VISITNOTES FROM 0-10, WHAT LEVEL IS YOUR PAIN TODAY?0 PAIN CLINIC PFS, CLERGY, PUBLIC HEALTH REFERRALS PFS REFERRAL NEEDED?NO CLERGY REFERRAL NEEDED?NO PUBLIC HEALTH REFERRAL NEEDED?NO WAS THE PROVIDER NOTIFIED OF ANY PERTINENT INFO?NO PFS REFERRAL NEEDED?NO CLERGY REFERRAL NEEDED?NO PUBLIC HEALTH REFERRAL NEEDED?NO WAS THE PROVIDER NOTIFIED OF ANY PERTINENT INFO?NO ADVANCED DIRECTIVES HEALTH CARE PROXY?NO INFORMATION GIVEN. HOSPITALIZATION/MAJOR DIAGNOSTIC PROCEDURE HOSPITALIZED X 2 FOR ANEMIA 2016 REVIEW OF SYSTEMS CONSTITUTIONAL: ANY CHANGE IN YOUR MEDICAL CONDITION? YES.SEE HPI . CHILLS NO . FEVER NO . INFECTION: DO YOU HAVE NEW INFECTIONS? NO . DO YOU HAVE HISTORY OF MRSA? NO . MUSCULOSKELETAL: ANY NEW PATTERNS OF PAIN OR NUMBNESS? YES . GASTROENTEROLOGY: ANY NEW CHANGE IN BOWEL CONTROL? NO . GENITOURINARY: ANY NEW CHANGE IN BLADDER CONTROL? NO . IS THERE A CHANCE YOU COULD BE ? NO . HEMATOLOGY/LYMPH: DO YOU TAKE ANY BLOOD THINNERS? (FOR EXAMPLE- COUMADIN, PLAVIX, AGGRENOX, PLATEL, PRADAXA, OR XARELTO) NO . WHEN WAS YOUR LAST DOSE? DATE: TIME: . NEUROLOGY: HAVE YOU FALLEN IN THE PAST 6 MONTHS? YES . ANY NEW EXTREMITY NUMBNESS OR WEAKNESS? NO . CARDIOLOGY: DO YOU HAVE A PACEMAKER OR DEFIBRILLATOR? NO . RESPIRATORY: HAVE YOU BEEN SICK IN THE PAST WEEK? NO . FEVER NO . FLU LIKE SYMPTOMS? NO . COUGH NO . INTEGUMENTARY: DO YOU HAVE ANY RASHES OR OPEN SORES? NO . ALLERGIC/IMMUNO: ARE YOU ALLERGIC TO SHELLFISH OR IV DYE? NO . ANY NEW ALLERGIES? NO . PSYCHIATRIC: DO YOU HAVE THOUGHTS OF HURTING YOURSELF OR SOMEONE ELSE? NO . ARE YOU ABUSED, NEGLECTED, OR IN AN UNSAFE ENVIRONMENT? NO . ENDOCRINOLOGY: ARE YOU DIABETIC? NO . OTHER: DO YOU NEED ANY PRESCRIPTIONS? YES, TIZANIDINE . IF YES, PLEASE LIST: ____ . ANY NEW PROBLEMS WITH YOUR MEDICATIONS? NO . WHEN DID YOU LAST EAT? ____ . WHEN DID YOU LAST DRINK? ____ . WHAT DID YOU LAST DRINK? ____ . NAME OF PERSON DRIVING YOU HOME? ____ . DO YOU HAVE ANY OTHER QUESTIONS OR CONCERNS NO . REVIEWED BY: PROVIDER: LARUA EM . VITAL SIGNS WT 254.0 LBS, HT 64 IN, BMI 43.59 INDEX, BP 166/83 MM HG, HR 85 /MIN, RR 18 /MIN, TEMP 98.6 F, OXYGEN SAT % 95%, NA INITIALS TL 1424, REVIEWED BY: LSPT WEIGHED ON [facility] WEUGHT SCALE- TL. EXAMINATION GENERAL EXAMINATION: LUNGS:LUNG SOUNDS ARE CLEAR. HEART:HEART RATE REGULAR. MUSCULOSKELETAL:*, MUSCLE STRENGTH TESTING 5/5 BILATERAL LOWER EXTREMITIES., PALPATION: POSITIVE FOR PAIN OVER L/S SPINE. POSITIVE FOR PAIN OVER L/S PARASPINALS.SPECIFIC POINT TENDERNESS OVER BILAT. SIJ.. DIAGNOSTIC: . ASSESSMENTS SACROILIITIS, NOT ELSEWHERE CLASSIFIED - M46.1 (PRIMARY) MYALGIA - M79.1 TREATMENT SACROILIITIS, NOT ELSEWHERE CLASSIFIED REFILL TIZANIDINE HCL TABLET, 2 MG, 1 TABLET NEEDED, ORALLY, BEFORE BEDTIME MAY REPEAT IN 4 HRS MDD 2, 30 DAY(S), 30, REFILLS 2 PROCEDURE CODES FA211 ESTABILISHED PATIENT [facility] CHARGE DISPOSITION & COMMUNICATION FOLLOW UP 2 MONTHS ELECTRONICALLY SIGNED BY MARIA ANTONIA BEAR ON 10/29/2016 AT 02:34 PM EDT DISCLAIMER : THIS IS A VISIT SUMMARY EXTRACTED FROM THE [employer] CHART. IT IS NOT A COPY OF THE [employer] PROGRESS NOTE. SUDARSHAND
== END | disposition home or self-care (01) ==
LOC: M PAIN 14:20
PROVIDERS: ATTEND Nurse Practitioner Family
DX: Z09 Encounter for follow-up examination after completed treatment for conditions other than malignant neoplasm (principal); G89.29 Other chronic pain; M46.1 Sacroiliitis, not elsewhere classified; M79.1 Myalgia; J45.909 Unspecified asthma, uncomplicated; B19.20 Unspecified viral hepatitis C without hepatic coma; F31.9 Bipolar disorder, unspecified; K21.9 Gastro-esophageal reflux disease without esophagitis; E66.9 Obesity, unspecified; D64.9 Anemia, unspecified; Z79.899 Other long term (current) drug therapy; Z79.82 Long term (current) use of aspirin

== ENCOUNTER → 2016-11-05 | Outpatient (CLI) | payer OTHER ==
[2016-11-05 14:55] LABS: BASO % 0.2 % (0.0-1.0); EOS # 0.1 K/mm3 (0.0-0.50); LARGE UNSTAINED CELL # 0.1 K/mm3 (0.0-0.4); LARGE UNSTAINED CELL % 1.4 % (0.0-4.0); LYMPH # 0.9 K/mm3 (1.5-4.5); LYMPH % 13.3 % (24.0-44.0); MEAN CORPUSCULAR HEMOGLOBIN 28.2 pg (27.0-33.0); MEAN CORPUSCULAR HGB CONC 31.2 g/dl (32.0-36.5); MEAN CORPUSCULAR VOLUME 90.5 fl (80.0-96.0); MONO # 0.3 K/mm3 (0.0-0.8); MONO % 4.8 % (0.0-5.0); NEUTROPHILS # 5.3 K/mm3 (1.8-7.7); NEUTROPHILS % 79.3 % (36.0-66.0); PLATELET COUNT, AUTOMATED 261 k/mm3 (150-450); RED CELL DISTRIBUTION WIDTH 13.5 % (11.5-14.5); WHITE BLOOD COUNT 6.6 K/mm3 (4.0-10.0)
== END ==
LOC: M LAB 14:19
PROVIDERS: ATTEND Psychiatry & Neurology Psychiatry
DX: Z79.899 Other long term (current) drug therapy (principal)

== ENCOUNTER → 2016-11-13 | Outpatient (CLI) | payer OTHER ==
[2016-11-13 16:17] LABS: BASO % 0.2 % (0.0-1.0); EOS # 0.2 K/mm3 (0.0-0.50); EOS % 2.3 % (0.0-3.0); LARGE UNSTAINED CELL # 0.1 K/mm3 (0.0-0.4); LARGE UNSTAINED CELL % 1.1 % (0.0-4.0); LYMPH # 1.2 K/mm3 (1.5-4.5); LYMPH % 16.3 % (24.0-44.0); MEAN CORPUSCULAR HEMOGLOBIN 28.7 pg (27.0-33.0); MEAN CORPUSCULAR VOLUME 89.5 fl (80.0-96.0); MONO # 0.4 K/mm3 (0.0-0.8); MONO % 5.4 % (0.0-5.0); NEUTROPHILS # 5.3 K/mm3 (1.8-7.7); NEUTROPHILS % 74.7 % (36.0-66.0); PLATELET COUNT, AUTOMATED 260 k/mm3 (150-450); RED CELL DISTRIBUTION WIDTH 13.9 % (11.5-14.5)
== END ==
LOC: M LAB 15:55
PROVIDERS: ATTEND Psychiatry & Neurology Psychiatry
DX: Z79.899 Other long term (current) drug therapy (principal)

== ENCOUNTER → 2016-11-19 | Outpatient (CLI) | payer OTHER ==
[2016-11-19 20:18] LABS: BASO % 0.2 % (0.0-1.0); EOS # 0.1 K/mm3 (0.0-0.50); EOS % 1.4 % (0.0-3.0); LARGE UNSTAINED CELL # 0.1 K/mm3 (0.0-0.4); LYMPH # 1.2 K/mm3 (1.5-4.5); LYMPH % 16.9 % (24.0-44.0); MEAN CORPUSCULAR HEMOGLOBIN 28.5 pg (27.0-33.0); MEAN CORPUSCULAR HGB CONC 31.3 g/dl (32.0-36.5); MEAN CORPUSCULAR VOLUME 91.1 fl (80.0-96.0); MONO # 0.3 K/mm3 (0.0-0.8); MONO % 4.7 % (0.0-5.0); NEUTROPHILS # 5.1 K/mm3 (1.8-7.7); NEUTROPHILS % 75.8 % (36.0-66.0); PLATELET COUNT, AUTOMATED 219 k/mm3 (150-450); RED CELL DISTRIBUTION WIDTH 14.1 % (11.5-14.5); WHITE BLOOD COUNT 6.7 K/mm3 (4.0-10.0)
== END ==
LOC: M LAB 17:34
PROVIDERS: ATTEND Psychiatry & Neurology Psychiatry
DX: Z79.899 Other long term (current) drug therapy (principal)

== ENCOUNTER → 2016-11-29 | Outpatient (CLI) | payer OTHER ==
[2016-11-29 15:33] LABS: BASO % 0.3 % (0.0-1.0); EOS # 0.1 K/mm3 (0.0-0.50); EOS % 2.1 % (0.0-3.0); LARGE UNSTAINED CELL # 0.1 K/mm3 (0.0-0.4); LYMPH # 0.9 K/mm3 (1.5-4.5); LYMPH % 13.5 % (24.0-44.0); MEAN CORPUSCULAR HEMOGLOBIN 28.8 pg (27.0-33.0); MEAN CORPUSCULAR HGB CONC 31.9 g/dl (32.0-36.5); MEAN CORPUSCULAR VOLUME 90.1 fl (80.0-96.0); MONO # 0.4 K/mm3 (0.0-0.8); MONO % 6.2 % (0.0-5.0); NEUTROPHILS # 4.7 K/mm3 (1.8-7.7); NEUTROPHILS % 76.9 % (36.0-66.0); PLATELET COUNT, AUTOMATED 232 k/mm3 (150-450); RED CELL DISTRIBUTION WIDTH 14.2 % (11.5-14.5); WHITE BLOOD COUNT 6.1 K/mm3 (4.0-10.0)
== END ==
LOC: M LAB 14:58
PROVIDERS: ATTEND Psychiatry & Neurology Psychiatry
DX: Z79.899 Other long term (current) drug therapy (principal)

== ENCOUNTER → 2016-12-02 | Outpatient (CLI) | payer OTHER ==
[~2016-12-02] MED LIST changes: +E-Z-GAS II EFFERVESCENT PACKET (SODIUM BICARB./CITRIC ACID/SIMETHICONE) As Ordered ONE; +E-Z-HD 98% w/w 340GM SUSP BTL As Ordered ONE; +E-Z-PAQUE 96% w/w SUSP 176GM BTL As Ordered ONE
--- NOTE | 2016-12-03 08:01 | REP ---
ESOPHAGRAM, AIR CONTRAST: The procedure was performed under the direct supervision of Dr. Boothe. The images were reviewed with Dr. Boothe. A single view PA chest x-ray submitted as a oil scout film. There is no change compared to a previous chest x-ray performed on 09/16/2016. Liquid barium and gas producing granules were given in the erect position as well as liquid barium in the prone oblique positions in order to perform a double contrast esophagram examination. The oral and pharyngeal stages of deglutition are unremarkable. Esophageal transport is prompt and efficient and there is no esophagitis, stricture or mucosal ring. There is a large fixed hiatal hernia present. There is gastroesophageal reflux demonstrated to the level of the thoracic inlet. IMPRESSION: There is a large fixed hiatal hernia present. There is gastroesophageal reflux demonstrated to the level of the thoracic inlet. 1 minute and 14 seconds of fluoroscopy time was utilized for this procedure. Reviewed by KATHRINE Vieira 12/04/2016 03:21 PEdited and Signed by Madi Boothe MD 12/04/2016 04:48 P
== END ==
LOC: M RAD 10:56
PROVIDERS: ATTEND Physician Assistant Medical
DX: K44.0 Diaphragmatic hernia with obstruction, without gangrene (principal); K21.0 Gastro-esophageal reflux disease with esophagitis; R13.10 Dysphagia, unspecified; R12 Heartburn

== ENCOUNTER → 2016-12-03 | Outpatient (CLI) | payer OTHER ==
[~2016-12-03] MED LIST changes: -E-Z-GAS II EFFERVESCENT PACKET (SODIUM BICARB./CITRIC ACID/SIMETHICONE) As Ordered ONE; -E-Z-HD 98% w/w 340GM SUSP BTL As Ordered ONE; -E-Z-PAQUE 96% w/w SUSP 176GM BTL As Ordered ONE
[2016-12-03 13:31] LABS: BASO % 0.4 % (0.0-1.0); EOS # 0.1 K/mm3 (0.0-0.50); EOS % 1.3 % (0.0-3.0); LARGE UNSTAINED CELL # 0.1 K/mm3 (0.0-0.4); LARGE UNSTAINED CELL % 1.3 % (0.0-4.0); LYMPH % 15.2 % (24.0-44.0); MEAN CORPUSCULAR HEMOGLOBIN 28.3 pg (27.0-33.0); MEAN CORPUSCULAR HGB CONC 30.8 g/dl (32.0-36.5); MONO # 0.3 K/mm3 (0.0-0.8); MONO % 5.2 % (0.0-5.0); NEUTROPHILS # 4.9 K/mm3 (1.8-7.7); NEUTROPHILS % 76.6 % (36.0-66.0); PLATELET COUNT, AUTOMATED 243 k/mm3 (150-450); RED CELL DISTRIBUTION WIDTH 14.5 % (11.5-14.5); WHITE BLOOD COUNT 6.4 K/mm3 (4.0-10.0)
== END ==
LOC: M LAB 12:11
PROVIDERS: ATTEND Psychiatry & Neurology Psychiatry
DX: Z79.899 Other long term (current) drug therapy (principal)

== ENCOUNTER → 2016-12-09 | Outpatient (CLI) | payer OTHER ==
--- NOTE | 2016-12-09 15:31 | REP ---
MRI BRAIN WITHOUT CONTRAST: 12/09/2016. 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 COMPARISON: CT 09/03/2015, MRI 05/13/2013, MRA 08/13/2013. TECHNIQUE: Standard noncontrast technique protocol with sagittal T1, axial T1, T2, FLAIR, gradient echo, diffusion-weighted images and ADC mapping sequences provided. FINDINGS: Pedicles are midline symmetric and not abnormally dilated. There are some punctate periventricular and subcortical white matter changes in both frontal lobes anteriorly and posteriorly and some on the periventricular changes about the atria of the lateral ventricles on both sides. There is no vascular territory infarct, hemorrhage, mass or mass effect. Diffusion weighted images and the ADC mapping sequence show no evidence of acute ischemia. Brainstem and cerebellum grossly intact. The seventh/eighth cranial nerve complexes are symmetric and normal. Some minor mucosal thickening in posterior inferior mastoid air cells on the left, a few on the right. This is unchanged. Brainstem and cerebellum grossly intact. No cerebellar atrophy. No posterior fossa hemorrhage of the cerebral hemispheres. There is only mild atrophy in the temporal lobes. Orbits and contents symmetric and normal. The corpus callosum, optic chiasm and pituitary are grossly intact. No cerebellar tonsillar ectopia. IMPRESSION: 1. There is no intracranial hemorrhage, acute infarct, mass, or edema. 2. Mild atrophy of the temporal lobes with some scattered small vessel white matter ischemic changes in the frontal lobes and posterior parietal lobes, all stable. 3. No hemorrhage, mass, edema or mass effect in the cerebral hemispheres, posterior fossa or midline structures. Signed by Kris Kulkarni MD 12/09/2016 05:24 P
--- NOTE | 2016-12-09 15:37 | REP ---
MRA BRAIN WITHOUT CONTRAST: 12/09/2016. Comparison: MRI brain today, MRA brain 08/13/2013, MRI brain 05/13/2013. 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 Technique: 3D oznq-cj-atxncy gradient echo images with MIP reformatting and rotational display of the reconstructed volume acquisitions with MIP techniques rotated about the longitudinal and horizontal axis of the brain. There is a fairly symmetric appearance of posterior cerebral arteries arising from the basilar tip. No basilar tip aneurysm or basilar artery aneurysm. Slightly dominant left vertebral artery contribution of the basilar artery. The right internal carotid through the skull base to the carotid siphon without stenosis or aneurysm. The intracavernous portion and supraclinoid carotid unremarkable. The A1 and M1 segments without stenosis or aneurysm. The vertebral artery branches grossly symmetric and intact. There is a posterior communicating artery arising from the internal carotid with junction of the posterior cerebral artery as anatomic variation. This is not a true origin as most of the blood supply of the PAN SHAKER on the right side is from the posterior cerebral. The left internal carotid from the neck through skull base to the cavernous sinus intact without stenosis or aneurysm. The cavernous portion supraclinoid, A1, M1 segment and the anterior and middle cerebral branches grossly intact. Impression: 1. Negative MRA brain for any aneurysm, vessel cutoff, stenosis or other acute finding. Stable examination. Nothing acute. Signed by Kris Kulkarni MD 12/09/2016 05:24 P
--- NOTE | 2016-12-09 15:52 | REP ---
MRA CAROTID WITHOUT CONTRAST: 12/09/2016. Technique: 2-D bozf-ro-rrtudd gradient echo images with MIP reformatting and rotational display of the volume reconstructions about the longitudinal axis of the spine. All source images are reviewed. Clinical history: Cerebral infarction due to thrombosis of right carotid suspected. Findings: Posterior circulation shows asymmetrically larger left than right vertebral artery contribution to the basilar artery. That portion of basilar artery included shows no stenosis. There is some stenosis of the distal right greater than left vertebral artery. Image artifact of the common carotid in the neck, but the distal common carotid and bulb into the proximal ICA on the right side showed no significant stenosis. There were a few scattered plaques in the mid portion of the internal carotid on the right without significant stenosis. The distal internal carotid to the carotid siphon shows scattered plaques. Skull base to intercavernous portion intact. Left internal carotid images are difficult to evaluate because of reconstruction issues related to motion. The proximal left ICA without significant stenosis. There is motion artifact in its proximal and midcourse and the mid to distal course was intact without stenosis or aneurysm. The skull base to intracavernous portion visible was unremarkable. Impression: 1. The motion artifact limits evaluation of the left internal carotid in its proximal to mid transition and in the right internal carotid in its mid course. I do not see significant stenosis at the origin of either vessel. 2. Asymmetrically slightly greater contribution left than right vertebral artery to the basilar artery without stenosis or aneurysm in the basilar artery with bilateral distal vertebral stenoses right greater than left. Remainder of the vertebral arteries intact. Signed by Kris Kulkarni MD 12/09/2016 05:27 P
== END ==
LOC: M RAD 13:13
PROVIDERS: ATTEND Psychiatry & Neurology Neurology
DX: I63.031 Cerebral infarction due to thrombosis of right carotid artery (principal); Z86.73 Personal history of transient ischemic attack (TIA), and cerebral infarction without residual deficits

== ENCOUNTER → 2016-12-12 | Outpatient (CLI) | payer OTHER ==
[2016-12-12 13:46] LABS: BASO % 0.3 % (0.0-1.0); EOS # 0.1 K/mm3 (0.0-0.50); EOS % 1.5 % (0.0-3.0); LARGE UNSTAINED CELL # 0.1 K/mm3 (0.0-0.4); LARGE UNSTAINED CELL % 1.4 % (0.0-4.0); LYMPH # 1.1 K/mm3 (1.5-4.5); MEAN CORPUSCULAR HEMOGLOBIN 28.1 pg (27.0-33.0); MEAN CORPUSCULAR HGB CONC 31.4 g/dl (32.0-36.5); MEAN CORPUSCULAR VOLUME 89.2 fl (80.0-96.0); MONO # 0.3 K/mm3 (0.0-0.8); MONO % 4.4 % (0.0-5.0); NEUTROPHILS # 5.3 K/mm3 (1.8-7.7); NEUTROPHILS % 77.3 % (36.0-66.0); PLATELET COUNT, AUTOMATED 285 k/mm3 (150-450); RED CELL DISTRIBUTION WIDTH 14.9 % (11.5-14.5); WHITE BLOOD COUNT 6.8 K/mm3 (4.0-10.0)
== END ==
LOC: M LAB 13:10
PROVIDERS: ATTEND Psychiatry & Neurology Psychiatry
DX: Z79.899 Other long term (current) drug therapy (principal)

== ENCOUNTER → 2016-12-19 | Outpatient (CLI) | payer OTHER ==
[2016-12-19 17:14] LABS: BASO % 0.2 % (0.0-1.0); EOS % 1.8 % (0.0-3.0); LARGE UNSTAINED CELL % 0.1 % (0.0-4.0); LYMPH # 0.1 K/mm3 (1.5-4.5); LYMPH % 4.7 % (24.0-44.0); MEAN CORPUSCULAR HEMOGLOBIN 28.4 pg (27.0-33.0); MEAN CORPUSCULAR HGB CONC 32.4 g/dl (32.0-36.5); MEAN CORPUSCULAR VOLUME 87.7 fl (80.0-96.0); MONO # 0.4 K/mm3 (0.0-0.8); MONO % 21.4 % (0.0-5.0); NEUTROPHILS # 1.3 K/mm3 (1.8-7.7); NEUTROPHILS % 71.6 % (36.0-66.0); PLATELET COUNT, AUTOMATED 264 k/mm3 (150-450); RED CELL DISTRIBUTION WIDTH 14.5 % (11.5-14.5)
== END ==
LOC: M LAB 15:54
PROVIDERS: ATTEND Psychiatry & Neurology Psychiatry
DX: Z79.899 Other long term (current) drug therapy (principal)

== ENCOUNTER → 2016-12-26 | Outpatient (CLI) | payer OTHER ==
[2016-12-26 15:18] LABS: BASO % 0.4 % (0.0-1.0); EOS # 0.2 K/mm3 (0.0-0.50); EOS % 2.1 % (0.0-3.0); LARGE UNSTAINED CELL # 0.1 K/mm3 (0.0-0.4); LARGE UNSTAINED CELL % 1.8 % (0.0-4.0); LYMPH # 1.2 K/mm3 (1.5-4.5); LYMPH % 16.4 % (24.0-44.0); MEAN CORPUSCULAR HEMOGLOBIN 27.9 pg (27.0-33.0); MEAN CORPUSCULAR HGB CONC 31.7 g/dl (32.0-36.5); MONO # 0.3 K/mm3 (0.0-0.8); MONO % 4.5 % (0.0-5.0); NEUTROPHILS # 5.4 K/mm3 (1.8-7.7); NEUTROPHILS % 74.8 % (36.0-66.0); PLATELET COUNT, AUTOMATED 269 k/mm3 (150-450); RED CELL DISTRIBUTION WIDTH 14.7 % (11.5-14.5); WHITE BLOOD COUNT 7.2 K/mm3 (4.0-10.0)
== END ==
LOC: M LAB 14:55
PROVIDERS: ATTEND Psychiatry & Neurology Psychiatry
DX: Z79.899 Other long term (current) drug therapy (principal)

== ENCOUNTER → 2016-12-27 | Outpatient (CLI) | payer OTHER ==
[2016-12-27 15:08] LABS: BASO % 0.5 % (0.0-1.0); EOS # 0.2 K/mm3 (0.0-0.50); LARGE UNSTAINED CELL # 0.1 K/mm3 (0.0-0.4); LARGE UNSTAINED CELL % 1.6 % (0.0-4.0); LYMPH # 1.7 K/mm3 (1.5-4.5); LYMPH % 21.6 % (24.0-44.0); MEAN CORPUSCULAR HEMOGLOBIN 27.8 pg (27.0-33.0); MEAN CORPUSCULAR HGB CONC 31.4 g/dl (32.0-36.5); MEAN CORPUSCULAR VOLUME 88.6 fl (80.0-96.0); MONO # 0.4 K/mm3 (0.0-0.8); MONO % 5.3 % (0.0-5.0); NEUTROPHILS # 5.3 K/mm3 (1.8-7.7); PLATELET COUNT, AUTOMATED 292 k/mm3 (150-450); RED CELL DISTRIBUTION WIDTH 14.8 % (11.5-14.5); WHITE BLOOD COUNT 7.7 K/mm3 (4.0-10.0)
== END ==
LOC: M LAB 14:29
PROVIDERS: ATTEND Psychiatry & Neurology Psychiatry
DX: Z79.899 Other long term (current) drug therapy (principal)

== ENCOUNTER → 2017-01-02 | Outpatient (CLI) | payer OTHER ==
[2017-01-02 15:30] LABS: BASO % 0.2 % (0.0-1.0); LARGE UNSTAINED CELL # 0.1 K/mm3 (0.0-0.4); LARGE UNSTAINED CELL % 0.9 % (0.0-4.0); LYMPH # 0.7 K/mm3 (1.5-4.5); LYMPH % 12.4 % (24.0-44.0); MEAN CORPUSCULAR HEMOGLOBIN 27.8 pg (27.0-33.0); MEAN CORPUSCULAR HGB CONC 31.6 g/dl (32.0-36.5); MEAN CORPUSCULAR VOLUME 88.2 fl (80.0-96.0); MONO # 0.2 K/mm3 (0.0-0.8); MONO % 4.4 % (0.0-5.0); NEUTROPHILS # 4.4 K/mm3 (1.8-7.7); PLATELET COUNT, AUTOMATED 253 k/mm3 (150-450); WHITE BLOOD COUNT 5.5 K/mm3 (4.0-10.0)
== END ==
LOC: M LAB 14:56
PROVIDERS: ATTEND Psychiatry & Neurology Psychiatry
DX: Z79.899 Other long term (current) drug therapy (principal)

== ENCOUNTER → 2017-01-08 | Outpatient (CLI) | payer OTHER ==
[2017-01-08 12:09] LABS: BASO % 0.4 % (0.0-1.0); EOS # 0.1 K/mm3 (0.0-0.50); EOS % 2.2 % (0.0-3.0); LARGE UNSTAINED CELL # 0.1 K/mm3 (0.0-0.4); LARGE UNSTAINED CELL % 2.2 % (0.0-4.0); LYMPH # 0.9 K/mm3 (1.5-4.5); LYMPH % 15.9 % (24.0-44.0); MEAN CORPUSCULAR HEMOGLOBIN 28.1 pg (27.0-33.0); MEAN CORPUSCULAR HGB CONC 31.4 g/dl (32.0-36.5); MEAN CORPUSCULAR VOLUME 89.4 fl (80.0-96.0); MONO # 0.4 K/mm3 (0.0-0.8); MONO % 5.9 % (0.0-5.0); NEUTROPHILS # 4.3 K/mm3 (1.8-7.7); NEUTROPHILS % 73.4 % (36.0-66.0); PLATELET COUNT, AUTOMATED 257 k/mm3 (150-450); RED CELL DISTRIBUTION WIDTH 14.8 % (11.5-14.5); WHITE BLOOD COUNT 5.8 K/mm3 (4.0-10.0)
== END ==
LOC: M LAB 11:25
PROVIDERS: ATTEND Psychiatry & Neurology Psychiatry
DX: Z79.899 Other long term (current) drug therapy (principal)

== ENCOUNTER → 2017-01-15 | Outpatient (CLI) | payer OTHER ==
[2017-01-15 15:42] LABS: BASO % 0.4 % (0.0-1.0); EOS # 0.1 K/mm3 (0.0-0.50); EOS % 2.6 % (0.0-3.0); LARGE UNSTAINED CELL % 0.7 % (0.0-4.0); LYMPH % 18.1 % (24.0-44.0); MEAN CORPUSCULAR HEMOGLOBIN 27.8 pg (27.0-33.0); MEAN CORPUSCULAR HGB CONC 31.5 g/dl (32.0-36.5); MEAN CORPUSCULAR VOLUME 88.3 fl (80.0-96.0); MONO # 0.2 K/mm3 (0.0-0.8); MONO % 4.3 % (0.0-5.0); NEUTROPHILS # 3.9 K/mm3 (1.8-7.7); NEUTROPHILS % 73.9 % (36.0-66.0); PLATELET COUNT, AUTOMATED 238 k/mm3 (150-450); RED CELL DISTRIBUTION WIDTH 14.6 % (11.5-14.5); WHITE BLOOD COUNT 5.3 K/mm3 (4.0-10.0)
== END ==
LOC: M LAB 15:11
PROVIDERS: ATTEND Psychiatry & Neurology Psychiatry
DX: Z79.899 Other long term (current) drug therapy (principal)

== ENCOUNTER → 2017-01-29 | Outpatient (CLI) | payer OTHER ==
[~2017-01-29] MED LIST changes: +CALC600T60 PO; +CLOZ100T2; -DEXI60CA PO; +DEXI60CA2 PO; +FERR1TAB8 PO; -FERR325T PO; +FLON1SPR; +GABA-283 PO; +LITH150C PO; +MAGN400C PO; +RANI150T PO; +TRAZ-136 PO
[2017-01-29 17:12] LABS: BASO % 0.5 % (0.0-1.0); EOS # 0.2 K/mm3 (0.0-0.50); EOS % 2.7 % (0.0-3.0); LARGE UNSTAINED CELL # 0.1 K/mm3 (0.0-0.4); LYMPH # 1.2 K/mm3 (1.5-4.5); LYMPH % 22.1 % (24.0-44.0); MEAN CORPUSCULAR HEMOGLOBIN 27.4 pg (27.0-33.0); MEAN CORPUSCULAR HGB CONC 30.6 g/dl (32.0-36.5); MEAN CORPUSCULAR VOLUME 89.5 fl (80.0-96.0); MONO # 0.3 K/mm3 (0.0-0.8); MONO % 5.2 % (0.0-5.0); NEUTROPHILS # 3.7 K/mm3 (1.8-7.7); NEUTROPHILS % 67.5 % (36.0-66.0); PLATELET COUNT, AUTOMATED 264 k/mm3 (150-450); WHITE BLOOD COUNT 5.5 K/mm3 (4.0-10.0)
== END ==
LOC: M LAB 16:04
PROVIDERS: ATTEND Psychiatry & Neurology Psychiatry
DX: Z79.899 Other long term (current) drug therapy (principal)

== ENCOUNTER → 2017-02-06 | Outpatient (CLI) | payer OTHER ==
[2017-02-06 17:07] LABS: BASO % 0.3 % (0.0-1.0); EOS # 0.1 K/mm3 (0.0-0.50); EOS % 1.5 % (0.0-3.0); LARGE UNSTAINED CELL # 0.1 K/mm3 (0.0-0.4); LARGE UNSTAINED CELL % 1.3 % (0.0-4.0); LYMPH # 0.9 K/mm3 (1.5-4.5); LYMPH % 16.2 % (24.0-44.0); MEAN CORPUSCULAR HEMOGLOBIN 27.6 pg (27.0-33.0); MEAN CORPUSCULAR HGB CONC 31.2 g/dl (32.0-36.5); MEAN CORPUSCULAR VOLUME 88.6 fl (80.0-96.0); MONO # 0.3 K/mm3 (0.0-0.8); MONO % 5.6 % (0.0-5.0); NEUTROPHILS # 3.7 K/mm3 (1.8-7.7); PLATELET COUNT, AUTOMATED 233 k/mm3 (150-450); RED CELL DISTRIBUTION WIDTH 14.8 % (11.5-14.5); WHITE BLOOD COUNT 4.9 K/mm3 (4.0-10.0)
== END ==
LOC: M LAB 16:11
PROVIDERS: ATTEND Psychiatry & Neurology Psychiatry
DX: Z79.899 Other long term (current) drug therapy (principal)

== ENCOUNTER → 2017-02-12 | Outpatient (CLI) | payer OTHER ==
[2017-02-12 14:39] LABS: BASO % 0.4 % (0.0-1.0); EOS # 0.1 K/mm3 (0.0-0.50); LARGE UNSTAINED CELL # 0.1 K/mm3 (0.0-0.4); LARGE UNSTAINED CELL % 1.9 % (0.0-4.0); MEAN CORPUSCULAR HEMOGLOBIN 27.5 pg (27.0-33.0); MEAN CORPUSCULAR HGB CONC 31.3 g/dl (32.0-36.5); MEAN CORPUSCULAR VOLUME 87.9 fl (80.0-96.0); MONO # 0.3 K/mm3 (0.0-0.8); MONO % 4.9 % (0.0-5.0); NEUTROPHILS # 3.8 K/mm3 (1.8-7.7); NEUTROPHILS % 72.9 % (36.0-66.0); PLATELET COUNT, AUTOMATED 238 k/mm3 (150-450); RED CELL DISTRIBUTION WIDTH 14.9 % (11.5-14.5); WHITE BLOOD COUNT 5.3 K/mm3 (4.0-10.0)
== END ==
LOC: M LAB 13:30
PROVIDERS: ATTEND Psychiatry & Neurology Psychiatry
DX: Z79.899 Other long term (current) drug therapy (principal)

== ENCOUNTER → 2017-02-20 | Outpatient (CLI) | payer OTHER ==
[2017-02-20 15:20] LABS: BASO % 0.2 % (0.0-1.0); EOS # 0.1 K/mm3 (0.0-0.50); EOS % 0.9 % (0.0-3.0); LARGE UNSTAINED CELL # 0.1 K/mm3 (0.0-0.4); LARGE UNSTAINED CELL % 1.1 % (0.0-4.0); LYMPH # 1.2 K/mm3 (1.5-4.5); LYMPH % 9.9 % (24.0-44.0); MEAN CORPUSCULAR HGB CONC 31.1 g/dl (32.0-36.5); MEAN CORPUSCULAR VOLUME 86.9 fl (80.0-96.0); MONO # 0.4 K/mm3 (0.0-0.8); MONO % 4.1 % (0.0-5.0); NEUTROPHILS # 8.8 K/mm3 (1.8-7.7); NEUTROPHILS % 83.8 % (36.0-66.0); PLATELET COUNT, AUTOMATED 283 k/mm3 (150-450); WHITE BLOOD COUNT 10.5 K/mm3 (4.0-10.0)
== END ==
LOC: M LAB 14:29
PROVIDERS: ATTEND Psychiatry & Neurology Psychiatry
DX: Z79.899 Other long term (current) drug therapy (principal)

== ENCOUNTER → 2017-02-27 | Outpatient (CLI) | payer OTHER ==
[2017-02-27 12:41] LABS: BASO % 0.3 % (0.0-1.0); EOS # 0.1 K/mm3 (0.0-0.50); EOS % 1.7 % (0.0-3.0); LYMPH # 1.2 K/mm3 (1.5-4.5); LYMPH % 15.4 % (24.0-44.0); MEAN CORPUSCULAR HEMOGLOBIN 28.3 pg (27.0-33.0); MEAN CORPUSCULAR HGB CONC 32.6 g/dl (32.0-36.5); MEAN CORPUSCULAR VOLUME 86.9 fl (80.0-96.0); MONO # 0.3 K/mm3 (0.0-0.8); NEUTROPHILS # 5.5 K/mm3 (1.8-7.7); NEUTROPHILS % 77.8 % (36.0-66.0); RED CELL DISTRIBUTION WIDTH 14.8 % (11.5-14.5); WHITE BLOOD COUNT 7.1 K/mm3 (4.0-10.0)
== END ==
LOC: M LAB 12:07
PROVIDERS: ATTEND Psychiatry & Neurology Psychiatry
DX: Z79.899 Other long term (current) drug therapy (principal)

== ENCOUNTER → 2017-03-11 | Outpatient (CLI) | payer OTHER ==
[2017-03-11 18:44] LABS: ALBUMIN 3.9 GM/DL (3.2-5.2); ALBUMIN/GLOBULIN RATIO 1.26 (1.00-1.93); ALKALINE PHOSPHATASE 72 U/L (45-117); ALT/SGPT 19 U/L (12-78); ANION GAP 7 MEQ/L (8-16); AST/SGOT 11 U/L (15-37); BILIRUBIN,TOTAL 0.3 MG/DL (0.2-1.0); BLOOD UREA NITROGEN 10 MG/DL (7-18); CALCIUM LEVEL 9.1 MG/DL (8.8-10.2); CARBON DIOXIDE LEVEL 28 MEQ/L (21-32); CHLORIDE LEVEL 108 MEQ/L (98-107); CREATININE FOR GFR 0.95 MG/DL (0.55-1.02); GLOMERULAR FILTRATION RATE > 60.0 (>45); GLUCOSE, FASTING 98 MG/DL (80-110); POTASSIUM SERUM 4.6 MEQ/L (3.5-5.1); SODIUM LEVEL 143 MEQ/L (136-145)
[2017-03-11 18:45] LABS: LITHIUM LEVEL 0.33 MEQ/L (0.60-1.20)
[2017-03-11 19:34] LABS: BASO % 0.5 % (0.0-1.0); LYMPH # 0.9 K/mm3 (1.5-4.5); LYMPH % 16.7 % (24.0-44.0); MEAN CORPUSCULAR HEMOGLOBIN 27.6 pg (27.0-33.0); MEAN CORPUSCULAR HGB CONC 31.4 g/dl (32.0-36.5); MEAN CORPUSCULAR VOLUME 87.8 fl (80.0-96.0); MONO # 0.2 K/mm3 (0.0-0.8); MONO % 4.6 % (0.0-5.0); NEUTROPHILS # 3.9 K/mm3 (1.8-7.7); NEUTROPHILS % 75.8 % (36.0-66.0); RED CELL DISTRIBUTION WIDTH 14.8 % (11.5-14.5); WHITE BLOOD COUNT 5.1 K/mm3 (4.0-10.0)
== END ==
LOC: M LAB 16:41
PROVIDERS: ATTEND Psychiatry & Neurology Psychiatry
DX: Z79.899 Other long term (current) drug therapy (principal)

== ENCOUNTER → 2017-03-19 | Outpatient (CLI) | payer OTHER ==
[2017-03-19 14:41] LABS: BASO % 0.3 % (0.0-1.0); EOS # 0.1 K/mm3 (0.0-0.50); LYMPH # 0.7 K/mm3 (1.5-4.5); LYMPH % 14.3 % (24.0-44.0); MEAN CORPUSCULAR HGB CONC 31.2 g/dl (32.0-36.5); MEAN CORPUSCULAR VOLUME 86.5 fl (80.0-96.0); MONO # 0.2 K/mm3 (0.0-0.8); MONO % 5.2 % (0.0-5.0); NEUTROPHILS # 3.5 K/mm3 (1.8-7.7); NEUTROPHILS % 77.2 % (36.0-66.0); RED CELL DISTRIBUTION WIDTH 14.5 % (11.5-14.5); WHITE BLOOD COUNT 4.5 K/mm3 (4.0-10.0)
== END ==
LOC: M LAB 13:40
PROVIDERS: ATTEND Psychiatry & Neurology Psychiatry
DX: Z79.899 Other long term (current) drug therapy (principal)

== ENCOUNTER → 2017-03-24 | Outpatient (CLI) | payer OTHER ==
[2017-03-24 14:59] LABS: BASO % 0.3 % (0.0-1.0); EOS # 0.1 K/mm3 (0.0-0.50); EOS % 2.1 % (0.0-3.0); LYMPH # 0.9 K/mm3 (1.5-4.5); LYMPH % 16.7 % (24.0-44.0); MEAN CORPUSCULAR HEMOGLOBIN 27.1 pg (27.0-33.0); MEAN CORPUSCULAR HGB CONC 31.7 g/dl (32.0-36.5); MEAN CORPUSCULAR VOLUME 85.4 fl (80.0-96.0); MONO # 0.3 K/mm3 (0.0-0.8); MONO % 5.5 % (0.0-5.0); NEUTROPHILS # 4.2 K/mm3 (1.8-7.7); NEUTROPHILS % 73.7 % (36.0-66.0); RED CELL DISTRIBUTION WIDTH 14.5 % (11.5-14.5); WHITE BLOOD COUNT 5.6 K/mm3 (4.0-10.0)
== END ==
LOC: M LAB 13:55
PROVIDERS: ATTEND Psychiatry & Neurology Psychiatry
DX: Z79.899 Other long term (current) drug therapy (principal)

== ENCOUNTER → 2017-04-03 | Outpatient (CLI) | payer OTHER ==
[2017-04-03 18:12] LABS: BASO % 0.4 % (0.0-1.0); EOS # 0.1 K/mm3 (0.0-0.50); EOS % 1.3 % (0.0-3.0); LYMPH % 18.3 % (24.0-44.0); MEAN CORPUSCULAR HEMOGLOBIN 26.8 pg (27.0-33.0); MEAN CORPUSCULAR HGB CONC 31.3 g/dl (32.0-36.5); MEAN CORPUSCULAR VOLUME 85.7 fl (80.0-96.0); MONO # 0.3 K/mm3 (0.0-0.8); MONO % 5.3 % (0.0-5.0); NEUTROPHILS # 3.9 K/mm3 (1.8-7.7); NEUTROPHILS % 72.7 % (36.0-66.0); RED CELL DISTRIBUTION WIDTH 14.8 % (11.5-14.5); WHITE BLOOD COUNT 5.4 K/mm3 (4.0-10.0)
== END ==
LOC: M LAB 16:27
PROVIDERS: ATTEND Psychiatry & Neurology Psychiatry
DX: Z79.899 Other long term (current) drug therapy (principal)

== ENCOUNTER → 2017-04-15 | Outpatient (CLI) | payer OTHER ==
[2017-04-15 14:31] LABS: BASO % 0.5 % (0.0-1.0); EOS # 0.1 K/mm3 (0.0-0.50); EOS % 2.6 % (0.0-3.0); LARGE UNSTAINED CELL # 0.1 K/mm3 (0.0-0.4); LARGE UNSTAINED CELL % 1.8 % (0.0-4.0); LYMPH % 24.7 % (24.0-44.0); MEAN CORPUSCULAR HEMOGLOBIN 26.1 pg (27.0-33.0); MEAN CORPUSCULAR HGB CONC 30.5 g/dl (32.0-36.5); MEAN CORPUSCULAR VOLUME 85.5 fl (80.0-96.0); MONO # 0.3 K/mm3 (0.0-0.8); MONO % 6.3 % (0.0-5.0); NEUTROPHILS # 2.6 K/mm3 (1.8-7.7); NEUTROPHILS % 64.1 % (36.0-66.0); PLATELET COUNT, AUTOMATED 220 k/mm3 (150-450); RED CELL DISTRIBUTION WIDTH 15.3 % (11.5-14.5)
== END ==
LOC: M LAB 13:57
PROVIDERS: ATTEND Psychiatry & Neurology Psychiatry
DX: Z79.899 Other long term (current) drug therapy (principal)

== ENCOUNTER 2017-04-22 20:20 | Emergency (ER) | payer OTHER ==
[~2017-04-22] VITALS: Ht 162.6 cm; Wt 109.1 kg
[~2017-04-22 20:20] MED LIST changes: -CALC600T60 PO; -CLOZ100T2; -FLON1SPR; -GABA-283 PO; -LITH150C PO; -MAGN400C PO; -RANI150T PO; -TRAZ-136 PO
[2017-04-22] MEDS ORDERED: CLOZ100T2 (20:31)
[2017-04-22] MEDS ORDERED: TRAZ-136 PO (20:31)
[2017-04-22] MEDS ORDERED: LITH150C PO (20:31)
--- NOTE | 2017-04-22 22:20 | REPUSA ---
CT of the head Clinical history: slurred speech. Comparison: 09/03/2015. Technique: Multiple axial CT images were obtained through the head without administration of contrast . Findings: The ventricles and sulci are symmetric bilaterally. There is no evidence of acute hemorrhag e or infarct. There is no midline shift, mass effect, or extra-axial fluid collection. The osseous st ructures are unremarkable. The visualized paranasal sinuses and mastoid air cells are clear. Impression: Negative study.
[2017-04-22 22:46] LABS: MEAN CORPUSCULAR HEMOGLOBIN 26.2 pg (27.0-33.0); MEAN CORPUSCULAR HGB CONC 30.3 g/dl (32.0-36.5); MEAN CORPUSCULAR VOLUME 86.5 fl (80.0-96.0); RED CELL DISTRIBUTION WIDTH 15.6 % (11.5-14.5); WHITE BLOOD COUNT 6.2 10^3/uL (4.0-10.0)
[2017-04-22 23:26] LABS: METHADONE URINE NEGATIVE (NEGATIVE)
[2017-04-22 23:29] LABS: ALBUMIN 3.7 GM/DL (3.2-5.2); ALBUMIN/GLOBULIN RATIO 1.16 (1.00-1.93); ALKALINE PHOSPHATASE 71 U/L (45-117); ALT/SGPT 20 U/L (12-78); ANION GAP 8 MEQ/L (8-16); AST/SGOT 18 U/L (15-37); BILIRUBIN,DIRECT < 0.1 MG/DL (0.0-0.2); BILIRUBIN,TOTAL 0.1 MG/DL (0.2-1.0); BLOOD UREA NITROGEN 12 MG/DL (7-18); CALCIUM LEVEL 9.2 MG/DL (8.8-10.2); CARBON DIOXIDE LEVEL 26 MEQ/L (21-32); CHLORIDE LEVEL 111 MEQ/L (98-107); CREATININE FOR GFR 0.68 MG/DL (0.55-1.02); GLOMERULAR FILTRATION RATE > 60.0 (>45); GLUCOSE, FASTING 107 MG/DL (80-110); POTASSIUM SERUM 4.1 MEQ/L (3.5-5.1); SODIUM LEVEL 145 MEQ/L (136-145); TOTAL PROTEIN 6.9 GM/DL (6.4-8.2)
[2017-04-22 23:31] LABS: LITHIUM LEVEL 0.31 MEQ/L (0.60-1.20)
[2017-04-22 23:43] VITALS: BP 137/71
--- NOTE | 2017-04-23 09:32 | ECGEPIP ---
Stationary ECG Study 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
[2017-05-28] MEDS ORDERED: MAGN400C PO (11:48)
[2017-05-28] MEDS ORDERED: CALC600T60 PO (11:48)
[2017-05-28] MEDS ORDERED: GABA-283 PO (11:48)
[2017-05-28] MEDS ORDERED: RANI150T PO (11:48)
== END 2017-04-22 23:58 | disposition home or self-care (01) ==
LOC: M ED 20:20
DX: R53.81 Other malaise (principal); R53.83 Other fatigue; B19.20 Unspecified viral hepatitis C without hepatic coma; Z79.51 Long term (current) use of inhaled steroids; Z79.899 Other long term (current) drug therapy; J30.89 Other allergic rhinitis; Z86.73 Personal history of transient ischemic attack (TIA), and cerebral infarction without residual deficits

== ENCOUNTER → 2017-04-25 | Outpatient (REF) | payer OTHER ==
[~2017-04-25] MED LIST changes: +CALC600T60 PO; +CLOZ100T2; +FLON1SPR; +GABA-283 PO; +LITH150C PO; +MAGN400C PO; +RANI150T PO; +TRAZ-136 PO
[2017-04-25 14:09] LABS: BASO % 0.3 % (0.0-1.0); EOS # 0.1 10^3/uL (0.0-0.50); EOS % 1.1 % (0.0-3.0); IMMATURE GRANULOCYTE % 0.2 % (0-0); LYMPH # 0.9 10^3/uL (1.5-4.5); LYMPH % 14.4 % (24.0-44.0); MEAN CORPUSCULAR HEMOGLOBIN 26.3 pg (27.0-33.0); MEAN CORPUSCULAR HGB CONC 30.6 g/dl (32.0-36.5); MEAN CORPUSCULAR VOLUME 86.1 fl (80.0-96.0); MONO # 0.5 10^3/uL (0.0-0.8); MONO % 8.3 % (0.0-5.0); NEUTROPHILS # 4.9 10^3/uL (1.8-7.7); NEUTROPHILS % 75.7 % (36.0-66.0); PLATELET COUNT, AUTOMATED 238 10^3/uL (150-450); RED CELL DISTRIBUTION WIDTH 15.9 % (11.5-14.5); WHITE BLOOD COUNT 6.5 10^3/uL (4.0-10.0)
== END ==
LOC: M SFHCPLAZ 12:34
PROVIDERS: ATTEND Nurse Practitioner Family
DX: D64.9 Anemia, unspecified (principal)

== ENCOUNTER → 2017-04-28 | Outpatient (CLI) | payer OTHER ==
[2017-04-28 18:32] LABS: BASO % 0.6 % (0.0-1.0); EOS # 0.1 10^3/uL (0.0-0.50); EOS % 2.1 % (0.0-3.0); IMMATURE GRANULOCYTE % 0.2 % (0-0); LYMPH # 1.2 10^3/uL (1.5-4.5); LYMPH % 24.2 % (24.0-44.0); MEAN CORPUSCULAR HEMOGLOBIN 25.8 pg (27.0-33.0); MEAN CORPUSCULAR HGB CONC 30.1 g/dl (32.0-36.5); MEAN CORPUSCULAR VOLUME 85.8 fl (80.0-96.0); MONO # 0.4 10^3/uL (0.0-0.8); MONO % 7.8 % (0.0-5.0); NEUTROPHILS # 3.3 10^3/uL (1.8-7.7); NEUTROPHILS % 65.1 % (36.0-66.0); PLATELET COUNT, AUTOMATED 274 10^3/uL (150-450); RED CELL DISTRIBUTION WIDTH 15.3 % (11.5-14.5); WHITE BLOOD COUNT 5.1 10^3/uL (4.0-10.0)
[2017-04-28 21:45] LABS: BASOPHILS 1 % (0-4); EOSINOPHILS 1 % (0-5)
== END ==
LOC: M LAB 17:33
PROVIDERS: ATTEND Psychiatry & Neurology Psychiatry
DX: Z79.899 Other long term (current) drug therapy (principal)

== ENCOUNTER 2017-05-05 15:45 | Emergency (ER) | payer OTHER ==
[~2017-05-05] VITALS: Ht 162.6 cm; Wt 109.1 kg
[~2017-05-05 15:45] MED LIST changes: -CALC600T60 PO; -FLON1SPR; -GABA-283 PO; -MAGN400C PO; -RANI150T PO
[2017-05-05] MEDS ORDERED: ASPIRIN 81 MG CHEW TABLET PO ONE (16:15)
--- NOTE | 2017-05-05 16:17 | ECGEPIP ---
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
[2017-05-05 16:39] LABS: BASO % 0.3 % (0.0-1.0); EOS # 0.2 10^3/uL (0.0-0.50); EOS % 1.9 % (0.0-3.0); IMMATURE GRANULOCYTE % 0.3 % (0-0); LYMPH # 0.5 10^3/uL (1.5-4.5); LYMPH % 6.5 % (24.0-44.0); MEAN CORPUSCULAR HEMOGLOBIN 25.5 pg (27.0-33.0); MEAN CORPUSCULAR HGB CONC 30.2 g/dl (32.0-36.5); MEAN CORPUSCULAR VOLUME 84.6 fl (80.0-96.0); MONO # 0.6 10^3/uL (0.0-0.8); MONO % 7.7 % (0.0-5.0); NEUTROPHILS # 6.6 10^3/uL (1.8-7.7); NEUTROPHILS % 83.3 % (36.0-66.0); PLATELET COUNT, AUTOMATED 269 10^3/uL (150-450); RED CELL DISTRIBUTION WIDTH 15.2 % (11.5-14.5); VENOUS BASE EXCESS 0.3 (-2.0-2.0); VENOUS O2 SATURATION 97.7 % (60.0-80.0); VENOUS PARTIAL PRESSURE CO2 35.7 mmHg (38.0-50.0); VENOUS PARTIAL PRESSURE O2 97.7 mmHg (30.0-50.0); VENOUS STANDARD HCO3 24.8 MEQ/L; VENOUS TOTAL CO2 25.2 MEQ/L (24.0-28.0); WHITE BLOOD COUNT 7.9 10^3/uL (4.0-10.0)
--- NOTE | 2017-05-05 16:59 | REP ---
Chest x-ray: Two views. History: Chest pain. Comparison study: September 16, 2016. Findings: Glover distraction rods are seen in the scoliotic thoracic spine as before. A large hiatal hernia is noted. The lungs are well inflated and otherwise clear. Pleural angles are sharp. No infiltrate is seen. Heart is not felt to be enlarged. Pulmonary vasculature is not increased. Impression: Scoliosis with operative fixation rods. Large hiatal hernia. Otherwise no acute disease. Signed by Toño Euceda MD 05/05/2017 07:48 P
[2017-05-05 17:07] LABS: ALBUMIN 3.7 GM/DL (3.2-5.2); ALBUMIN/GLOBULIN RATIO 1.16 (1.00-1.93); ALKALINE PHOSPHATASE 69 U/L (45-117); ALT/SGPT 17 U/L (12-78); ANION GAP 7 MEQ/L (8-16); AST/SGOT 9 U/L (15-37); BILIRUBIN,DIRECT 0.1 MG/DL (0.0-0.2); BILIRUBIN,TOTAL 0.3 MG/DL (0.2-1.0); BLOOD UREA NITROGEN 8 MG/DL (7-18); CALCIUM LEVEL 9.3 MG/DL (8.8-10.2); CARBON DIOXIDE LEVEL 28 MEQ/L (21-32); CHLORIDE LEVEL 106 MEQ/L (98-107); CREATININE FOR GFR 0.75 MG/DL (0.55-1.02); FREE T4 1.16 NG/DL (0.76-1.46); GLOMERULAR FILTRATION RATE > 60.0 (>45); GLUCOSE, FASTING 135 MG/DL (80-110); POTASSIUM SERUM 3.8 MEQ/L (3.5-5.1); SODIUM LEVEL 141 MEQ/L (136-145); TOTAL PROTEIN 6.9 GM/DL (6.4-8.2)
[2017-05-05 17:14] LABS: LITHIUM LEVEL 0.35 MEQ/L (0.60-1.20)
[2017-05-05] MEDS ORDERED: FLON1SPR (17:49)
[2017-05-05 17:56] VITALS: BP 154/72
[2017-05-28] MEDS ORDERED: GABA-283 PO (11:48)
[2017-05-28] MEDS ORDERED: CALC600T60 PO (11:48)
[2017-05-28] MEDS ORDERED: MAGN400C PO (11:48)
[2017-05-28] MEDS ORDERED: RANI150T PO (11:48)
== END 2017-05-05 18:02 | disposition home or self-care (01) ==
LOC: M ED 15:45
DX: J06.9 Acute upper respiratory infection, unspecified (principal); I10 Essential (primary) hypertension; J45.909 Unspecified asthma, uncomplicated; G47.33 Obstructive sleep apnea (adult) (pediatric); B19.20 Unspecified viral hepatitis C without hepatic coma; E78.5 Hyperlipidemia, unspecified; K22.2 Esophageal obstruction; F31.9 Bipolar disorder, unspecified; F41.9 Anxiety disorder, unspecified; Z79.899 Other long term (current) drug therapy; Z79.51 Long term (current) use of inhaled steroids; J30.89 Other allergic rhinitis; Z86.73 Personal history of transient ischemic attack (TIA), and cerebral infarction without residual deficits

== ENCOUNTER → 2017-05-09 | Outpatient (REF) | payer OTHER ==
[~2017-05-09] MED LIST changes: +CALC600T60 PO; +FLON1SPR; +GABA-283 PO; +MAGN400C PO; +RANI150T PO
[2017-05-09 14:25] LABS: BASO % 0.3 % (0.0-1.0); EOS # 0.1 10^3/uL (0.0-0.50); EOS % 1.6 % (0.0-3.0); IMMATURE GRANULOCYTE % 0.3 % (0-0); LYMPH # 1.2 10^3/uL (1.5-4.5); LYMPH % 17.4 % (24.0-44.0); MEAN CORPUSCULAR HEMOGLOBIN 25.6 pg (27.0-33.0); MEAN CORPUSCULAR HGB CONC 29.9 g/dl (32.0-36.5); MEAN CORPUSCULAR VOLUME 85.6 fl (80.0-96.0); MONO # 0.6 10^3/uL (0.0-0.8); MONO % 9.1 % (0.0-5.0); NEUTROPHILS # 4.8 10^3/uL (1.8-7.7); NEUTROPHILS % 71.3 % (36.0-66.0); PLATELET COUNT, AUTOMATED 301 10^3/uL (150-450); RED CELL DISTRIBUTION WIDTH 15.7 % (11.5-14.5); RETICULOCYTE % 2.1 % (0.5-1.5); WHITE BLOOD COUNT 6.8 10^3/uL (4.0-10.0)
[2017-05-09 14:47] LABS: FREE T4 1.69 NG/DL (0.76-1.46); PERCENT SATURATION 3.8 % (13.2-45.0)
== END ==
LOC: M SFHCPLAZ 10:37
PROVIDERS: ATTEND Nurse Practitioner Family
DX: D50.9 Iron deficiency anemia, unspecified (principal)

== ENCOUNTER 2017-05-14 10:37 | Emergency (ER) | payer OTHER ==
[~2017-05-14] VITALS: Ht 162.6 cm; Wt 104.1 kg
[~2017-05-14 10:37] MED LIST changes: -CALC600T60 PO; -GABA-283 PO; -MAGN400C PO; -RANI150T PO
[2017-05-14 11:46] LABS: BASO % 0.4 % (0.0-1.0); EOS # 0.2 10^3/uL (0.0-0.50); EOS % 1.8 % (0.0-3.0); IMMATURE GRANULOCYTE % 0.2 % (0-0); LYMPH # 1.4 10^3/uL (1.5-4.5); LYMPH % 17.1 % (24.0-44.0); MEAN CORPUSCULAR HEMOGLOBIN 25.2 pg (27.0-33.0); MEAN CORPUSCULAR HGB CONC 30.2 g/dl (32.0-36.5); MEAN CORPUSCULAR VOLUME 83.3 fl (80.0-96.0); MONO # 0.6 10^3/uL (0.0-0.8); MONO % 7.4 % (0.0-5.0); NEUTROPHILS % 73.1 % (36.0-66.0); PLATELET COUNT, AUTOMATED 362 10^3/uL (150-450); RED CELL DISTRIBUTION WIDTH 15.2 % (11.5-14.5); WHITE BLOOD COUNT 8.2 10^3/uL (4.0-10.0)
[2017-05-14 12:28] LABS: ALBUMIN 4.1 GM/DL (3.2-5.2); ALBUMIN/GLOBULIN RATIO 1.11 (1.00-1.93); ALKALINE PHOSPHATASE 67 U/L (45-117); ALT/SGPT 21 U/L (12-78); ANION GAP 5 MEQ/L (8-16); AST/SGOT 10 U/L (15-37); BILIRUBIN,DIRECT < 0.1 MG/DL (0.0-0.2); BILIRUBIN,TOTAL 0.4 MG/DL (0.2-1.0); BLOOD UREA NITROGEN 8 MG/DL (7-18); CALCIUM LEVEL 9.6 MG/DL (8.8-10.2); CARBON DIOXIDE LEVEL 30 MEQ/L (21-32); CHLORIDE LEVEL 102 MEQ/L (98-107); CREATININE FOR GFR 0.85 MG/DL (0.55-1.02); GLOMERULAR FILTRATION RATE > 60.0 (>45); GLUCOSE, FASTING 113 MG/DL (80-110); POTASSIUM SERUM 3.4 MEQ/L (3.5-5.1); SODIUM LEVEL 137 MEQ/L (136-145); TOTAL PROTEIN 7.8 GM/DL (6.4-8.2)
--- NOTE | 2017-05-14 12:30 | REP ---
Acute abdominal series series including PA chest and supine upright abdomen: PA chest: Comparison is 05/05/2017. There is scoliosis with Glover rods, unchanged. Lung ortiz are clear. Cardiac size is upper normal. There is a large fixed hiatal hernia. No free subdiaphragmatic air. Impression: No acute cardiopulmonary findings. No free subdiaphragmatic air. Hiatal hernia and scoliosis. Abdomen, supine upright views: The bowel gas pattern is normal. There is a pelvic calcification, likely a phlebolith. Skeletal structures and soft tissues otherwise unremarkable except for lumbar scoliosis convex left. Impression: Normal bowel gas pattern. Signed by Madi Hutchinson MD 05/14/2017 12:22 P
--- NOTE | 2017-05-14 12:36 | REP ---
LUMBAR SPINE, FIVE VIEWS: HISTORY: Back pain. COMPARISON: 10/14/2016. The patient is status post thoracolumbar posterior spinal fusion. Metal hardware is incompletely seen in the present examination. There is no acute fracture. The intervertebral discs are decreased in height consistent with disc degeneration. There is narrowing of the right L4-5 and L5-S1 facet joints. There are 4 mm of grade 1 spondylolisthesis of L5 on S1. There is scoliosis convex to the left. IMPRESSION: Degenerative change as described above. Signed by Kendrick Henry MD 05/14/2017 12:39 P
[2017-05-14 13:12] VITALS: BP 147/80
--- NOTE | 2017-05-14 13:31 | ECGEPIP ---
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
[2017-05-28] MEDS ORDERED: CALC600T60 PO (11:48)
[2017-05-28] MEDS ORDERED: MAGN400C PO (11:48)
[2017-05-28] MEDS ORDERED: RANI150T PO (11:48)
[2017-05-28] MEDS ORDERED: GABA-283 PO (11:48)
== END 2017-05-14 13:15 | disposition home or self-care (01) ==
LOC: M ED 10:37
DX: K21.9 Gastro-esophageal reflux disease without esophagitis (principal); K44.9 Diaphragmatic hernia without obstruction or gangrene; I10 Essential (primary) hypertension; E78.5 Hyperlipidemia, unspecified; B18.2 Chronic viral hepatitis C; Z79.51 Long term (current) use of inhaled steroids; Z79.899 Other long term (current) drug therapy; J30.89 Other allergic rhinitis; Z86.73 Personal history of transient ischemic attack (TIA), and cerebral infarction without residual deficits; Z87.891 Personal history of nicotine dependence

== ENCOUNTER → 2017-08-07 | Outpatient (CLI) | payer OTHER ==
[~2017-08-07] MED LIST changes: -ALBU17IN INH; -AMAN100T PO; -AMAN10CA PO; -ASPI81TA60 PO; -AZEL0.055; -BREO1INH INH; -BREO1INH3 INH; -CETI10TA PO; -CLOZ100T2; -DEXI60CA2 PO; -FERR1TAB8 PO; -FLON1SPR; -FLUTISP; -GABA600T PO; +GLUCAGON FOR INJ 1 MG VIAL (J1610) As Ordered; +ISOVUE-370 76% 100ML VIAL (Q9967) As Ordered; -LAMO200T PO; -LISI-538 PO; -LISI20TA PO; -LITH150C PO; -LORA10TA2 PO; -MECL-68 PO; -MIRA3350 PO; -MONT10TA2 PO; -OMEP40CA2 PO; -PRAZ2CAP PO; -REXU1TAB2 PO; -SERT50TA PO; -TRAZ-136 PO; -TYLE500T78 PO; -VITMTA PO; +VoLumen 0.1% SUSPENSION 450ML BOTTLE As Ordered
== END ==
LOC: M RAD 08:49
DX: D50.9 Iron deficiency anemia, unspecified (principal); K44.9 Diaphragmatic hernia without obstruction or gangrene; K57.30 Diverticulosis of large intestine without perforation or abscess without bleeding
CPT/HCPCS: Q9967

== ENCOUNTER → 2017-08-11 | Outpatient (REF) | payer OTHER ==
[2017-08-11 14:42] LABS: MALB URINE SIEMENS 13.6 MG/L; MAU/CREAT RATIO 9.7 MCG/MG (0.0-30.0)
[2017-08-11 15:46] LABS: ALBUMIN/GLOBULIN RATIO 1.54 (1.00-1.93); ALKALINE PHOSPHATASE 62 U/L (45-117); ALT/SGPT 18 U/L (12-78); ANION GAP 6 MEQ/L (8-16); AST/SGOT 13 U/L (7-37); BILIRUBIN,TOTAL 0.5 MG/DL (0.2-1.0); BLOOD UREA NITROGEN 7 MG/DL (7-18); CARBON DIOXIDE LEVEL 29 MEQ/L (21-32); CHLORIDE LEVEL 108 MEQ/L (98-107); CHOLESTEROL LEVEL 136 MG/DL (<200); CHOLESTEROL RISK RATIO 2.428 (<5); CREATININE FOR GFR 0.82 MG/DL (0.55-1.02); GLOMERULAR FILTRATION RATE > 60.0 (>45); GLUCOSE, FASTING 91 MG/DL (80-110); HDL CHOLESTEROL 56 MG/DL (>40); LDL CHOLESTEROL 54.6 MG/DL (<100); NON-HDL-C 80 MG/DL; POTASSIUM SERUM 4.4 MEQ/L (3.5-5.1); SODIUM LEVEL 143 MEQ/L (136-145); TOTAL PROTEIN 6.6 GM/DL (6.4-8.2); TRIGLYCERIDES LEVEL 127 MG/DL (<150)
[2017-08-11 15:56] LABS: LITHIUM LEVEL 0.68 MEQ/L (0.60-1.20)
== END ==
LOC: M SFHCPLAZ 10:31
DX: Z13.220 Encounter for screening for lipoid disorders (principal); G25.5 Other chorea; I10 Essential (primary) hypertension

== ENCOUNTER → 2017-09-01 | Outpatient (CLI) | payer OTHER ==
[2017-09-01 12:58] LABS: RHEUMATOID FACTOR QUANT < 10.0 IU/ML (0-15.0); TOTAL PROTEIN 7.2 GM/DL (6.4-8.2)
[2017-09-01 12:58] LABS: CPK CREATINE PHOSPHOKINASE 50 U/L (26-192)
[2017-09-01 13:00] LABS: FOLATE 9.1 NG/ML; VITAMIN B12 LEVEL 585 PG/ML
[2017-09-01 13:21] LABS: ERYTHROCYTE SEDIMENTATION RATE 12 mm/hr (0-30)
[2017-09-02 11:12] LABS: ALBUMIN % 60.4 % (55.8-66.1); ALPHA-1-GLOBULIN % 4.3 % (2.9-4.9); ALPHA-2-GLOBULINS % 11.3 % (7.1-11.8); BETA-1-GLOBULINS % 7.3 % (4.7-7.2)
[2017-09-02 11:13] LABS: ALBUMIN 4.35 GM/DL (3.29-5.55); ALPHA-1-GLOBULINS 0.31 GM/DL (0.17-0.41); ALPHA-2-GLOBULINS 0.81 GM/DL (0.42-0.99); BETA-1-GLOBULINS 0.53 GM/DL (0.28-0.60); BETA-2-GLOBULINS 0.32 GM/DL (0.19-0.55); BETA-2-GLOBULINS % 4.5 % (3.2-6.5); GAMMA GLOBULIN % 12.2 % (11.1-18.8); GAMMA GLOBULINS 0.88 GM/DL (0.65-1.58)
[2017-09-04 08:06] LABS: ANTINUCLEAR ANTIBODIES DIRECT Negative (Negative); CERULOPLASMIN 24.9 mg/dL (19.0-39.0); COPPER PLASMA 102 ug/dL (72-166); LEAD BLOOD ADULT <1 ug/dL (0-19); MERCURY LEVEL None Detected ug/L (0.0-14.9)
== END ==
LOC: M LAB 11:26
DX: G62.9 Polyneuropathy, unspecified (principal); G72.9 Myopathy, unspecified
CPT/HCPCS: 82525

== ENCOUNTER → 2017-09-22 | Outpatient (CLI) | payer OTHER | LOC: M PLARAD 07:33 | DX: M47.812 Spondylosis without myelopathy or radiculopathy, cervical region (principal); M47.813 Spondylosis without myelopathy or radiculopathy, cervicothoracic region | CPT/HCPCS: 72141 ==

== ENCOUNTER → 2017-09-24 | Outpatient (REF) | payer OTHER ==
[2017-09-24 16:04] LABS: HEMATOCRIT 26.8 % (36.0-47.0); HEMOGLOBIN 7.9 g/dl (12.0-16.0); MEAN CORPUSCULAR HEMOGLOBIN 24.6 pg (27.0-33.0); MEAN CORPUSCULAR HGB CONC 29.5 g/dl (32.0-36.5); MEAN CORPUSCULAR VOLUME 83.5 fl (80.0-96.0); PLATELET COUNT, AUTOMATED 313 10^3/uL (150-450); RED BLOOD COUNT 3.21 10^6/uL (4.00-5.40); RED CELL DISTRIBUTION WIDTH 15.8 % (11.5-14.5)
[2017-09-24 16:45] LABS: ALBUMIN 3.7 GM/DL (3.2-5.2); ALBUMIN/GLOBULIN RATIO 1.19 (1.00-1.93); ALKALINE PHOSPHATASE 60 U/L (45-117); ALT/SGPT 17 U/L (12-78); ANION GAP 6 MEQ/L (8-16); AST/SGOT 14 U/L (7-37); BILIRUBIN,TOTAL 0.3 MG/DL (0.2-1.0); BLOOD UREA NITROGEN 9 MG/DL (7-18); CALCIUM LEVEL 8.6 MG/DL (8.8-10.2); CARBON DIOXIDE LEVEL 30 MEQ/L (21-32); CHLORIDE LEVEL 108 MEQ/L (98-107); CREATININE FOR GFR 0.86 MG/DL (0.55-1.30); FREE T4 0.99 NG/DL (0.76-1.46); GLOMERULAR FILTRATION RATE > 60.0 (>45); GLUCOSE, FASTING 105 MG/DL (70-100); IRON (FE) 18 UG/DL (50-170); POTASSIUM SERUM 4.5 MEQ/L (3.5-5.1); SODIUM LEVEL 144 MEQ/L (136-145); THYROID STIMULATING HORMONE 0.928 uIU/ML (0.358-3.740); TOTAL PROTEIN 6.8 GM/DL (6.4-8.2)
== END ==
LOC: M SFHCPLAZ 14:10
DX: D50.9 Iron deficiency anemia, unspecified (principal); I10 Essential (primary) hypertension; Z86.19 Personal history of other infectious and parasitic diseases; L67.8 Other hair color and hair shaft abnormalities; L85.3 Xerosis cutis

== ENCOUNTER 2017-10-10 05:51 | Inpatient (IN) | payer OTHER ==
[2017-10-10] MEDS ORDERED: LIDOCAINE 1% MDV 20ML VIAL SQ (06:00)
[2017-10-10] MEDS: LR 1,000 ML IV ×3 (06:24→15:16)
[2017-10-10] MEDS ORDERED: LIDOCAINE 2% INJ 100 MG/5 ML SDV (FOR ANES.) As Ordered (07:02)
[2017-10-10] MEDS ORDERED: PROPOFOL 200 MG/20 ML VIAL As Ordered (07:02)
[2017-10-10] MEDS ORDERED: NEOSTIGMINE 10 MG/10 ML VIAL (J2710) As Ordered (07:02)
[2017-10-10] MEDS ORDERED: dexameTHASONE 4 MG/ML 1ML VIAL (J1100) As Ordered (07:02)
[2017-10-10] MEDS ORDERED: PHENYLephrine HCL 500 MCG/5 ML (100MCG/ML) SYRINGE (J2370) As Ordered (07:02)
[2017-10-10] MEDS ORDERED: fentaNYL 100 MCG/2 ML INJECTION (J3010) As Ordered (07:02)
[2017-10-10] MEDS ORDERED: HYDROmorphone HCL 2 MG/ML 1ML VIAL (J1170) As Ordered (07:02)
[2017-10-10] MEDS ORDERED: ONDANSETRON 4MG/2ML VIAL (J2405) As Ordered (07:02)
[2017-10-10] MEDS ORDERED: GLYCOPYRROLATE INJ 0.2 MG/ML 2 ML VIAL As Ordered (07:02)
[2017-10-10] MEDS ORDERED: ROCURONIUM BROMIDE 50 MG/5 ML VIAL As Ordered ×3 (07:02→10:50)
[2017-10-10] MEDS ORDERED: KETOROLAC 60 MG/2 ML VIAL (J1885) As Ordered (07:02)
[2017-10-10] MEDS ORDERED: MIDAZOLAM INJ 2 MG/2 ML VIAL (J2250) As Ordered (07:03)
[2017-10-10 07:46] LABS: HEMATOCRIT 25.4 % (36.0-47.0); HEMOGLOBIN 7.3 g/dl (12.0-16.0); MEAN CORPUSCULAR HGB CONC 28.7 g/dl (32.0-36.5); MEAN CORPUSCULAR VOLUME 79.9 fl (80.0-96.0); PLATELET COUNT, AUTOMATED 271 10^3/uL (150-450); RED BLOOD COUNT 3.18 10^6/uL (4.00-5.40); RED CELL DISTRIBUTION WIDTH 15.9 % (11.5-14.5); WHITE BLOOD COUNT 6.3 10^3/uL (4.0-10.0)
[2017-10-10] MEDS: BUPIVACAINE HCL 0.25% 30 ML VIAL As Ordered (08:21)
[2017-10-10] MEDS: AMANTADINE 100 MG CAP PO (09:00)
[2017-10-10] MEDS: lamoTRIgine 100MG TAB PO (09:00)
[2017-10-10] MEDS ORDERED: MEPERIDINE INJ 25 MG/ML VIAL (J2175) IV (12:15)
[2017-10-10] MEDS ORDERED: ONDANSETRON 4MG/2ML VIAL (J2405) IV (12:15)
[2017-10-10] MEDS ORDERED: ALBUTEROL 90 MCG/ACT 8GM HFA INHALER INH (12:15)
[2017-10-10] MEDS ORDERED: METOCLOPRAMIDE INJ 10MG/2ML VIAL (J2765) IV (12:15)
[2017-10-10] MEDS ORDERED: PERCOCET 5MG/325MG TAB PO (12:15)
[2017-10-10] MEDS: HYDROmorphone HCL 1 MG/ML SYRINGE (J1170) IV ×5 (12:19→13:09)
[2017-10-10] MEDS: METOCLOPRAMIDE INJ 10MG/2ML VIAL (J2765) IV (12:20)
[2017-10-10] MEDS: fentaNYL 100 MCG/2 ML INJECTION (J3010) IV ×4 (12:30→15:39)
[2017-10-10] MEDS ORDERED: HYDROmorphone HCL 1 MG/ML SYRINGE (J1170) As Ordered (12:34)
[2017-10-10] MEDS: PANTOPRAZOLE 40MG INJ (PROTONIX) (C9113) IV (15:16)
[2017-10-10] MEDS: KETOROLAC 30 MG/ML VIAL (J1885) IV ×2 (15:32→21:25)
[2017-10-10] MEDS: ONDANSETRON 4MG/2ML VIAL (J2405) IV (19:07)
[2017-10-10] MEDS ORDERED: LITHIUM CARBONATE 150 MG CAP PO (21:00)
[2017-10-10] MEDS: ENOXAPARIN 40 MG/0.4 ML SYRINGE (J1650) SC (21:25)
[2017-10-10] MEDS: GABAPENTIN 400 MG CAP PO (21:26)
[2017-10-10] MEDS: LITHIUM CARBONATE 300 MG **CR** TAB PO (21:26)
[2017-10-10] MEDS: traZODone 100 MG TAB PO (21:26)
[2017-10-11] MEDS: MORPHINE 4 MG/ML 1ML VIAL (J2270) IV ×2 (01:48→15:44)
[2017-10-11] MEDS: LR 1,000 ML IV ×2 (02:20→09:12)
[2017-10-11] MEDS: KETOROLAC 30 MG/ML VIAL (J1885) IV ×3 (04:55→20:17)
[2017-10-11 06:41] LABS: BASO % 0.1 % (0.0-1.0); EOS % 0.1 % (0.0-3.0); HEMATOCRIT 21.4 % (36.0-47.0); IMMATURE GRANULOCYTE % 1.1 % (0-3.0); LYMPH # 0.7 10^3/uL (1.5-4.5); LYMPH % 6.2 % (24.0-44.0); MEAN CORPUSCULAR HEMOGLOBIN 22.9 pg (27.0-33.0); MEAN CORPUSCULAR HGB CONC 28.5 g/dl (32.0-36.5); MEAN CORPUSCULAR VOLUME 80.5 fl (80.0-96.0); MONO # 0.9 10^3/uL (0.0-0.8); MONO % 7.7 % (0.0-5.0); NEUTROPHILS # 9.8 10^3/uL (1.8-7.7); NEUTROPHILS % 84.8 % (36.0-66.0); PLATELET COUNT, AUTOMATED 231 10^3/uL (150-450); RED BLOOD COUNT 2.66 10^6/uL (4.00-5.40); WHITE BLOOD COUNT 11.6 10^3/uL (4.0-10.0)
[2017-10-11 06:49] LABS: HEMOGLOBIN 6.1 g/dl (12.0-16.0)
[2017-10-11 07:02] LABS: ANION GAP 8 MEQ/L (8-16); BLOOD UREA NITROGEN 18 MG/DL (7-18); CALCIUM LEVEL 8.3 MG/DL (8.8-10.2); CARBON DIOXIDE LEVEL 27 MEQ/L (21-32); CHLORIDE LEVEL 105 MEQ/L (98-107); GLOMERULAR FILTRATION RATE > 60.0 (>45); GLUCOSE, FASTING 107 MG/DL (70-100); POTASSIUM SERUM 4.2 MEQ/L (3.5-5.1); SODIUM LEVEL 140 MEQ/L (136-145)
[2017-10-11] MEDS: lamoTRIgine 100MG TAB PO (09:12)
[2017-10-11] MEDS: AMANTADINE 100 MG CAP PO (09:12)
[2017-10-11] MEDS: PANTOPRAZOLE 40MG INJ (PROTONIX) (C9113) IV (09:12)
[2017-10-11] MEDS: SIMETHICONE 80 MG CHEW TAB PO ×4 (11:16→21:40)
[2017-10-11 14:18] LABS: IMMEDIATE SPIN CROSSMATCH 1 2
[2017-10-11] MEDS: ONDANSETRON 4MG/2ML VIAL (J2405) IV ×2 (14:52→20:17)
[2017-10-11] MEDS: traZODone 100 MG TAB PO (21:40)
[2017-10-11] MEDS: LITHIUM CARBONATE 300 MG **CR** TAB PO (21:40)
[2017-10-11] MEDS: GABAPENTIN 400 MG CAP PO (21:40)
[2017-10-11] MEDS: ENOXAPARIN 40 MG/0.4 ML SYRINGE (J1650) SC (21:41)
[2017-10-12] MEDS: MORPHINE 4 MG/ML 1ML VIAL (J2270) IV ×4 (00:17→17:17)
[2017-10-12 01:38] LABS: HEMATOCRIT 24.4 % (36.0-47.0); HEMOGLOBIN 7.5 g/dl (12.0-16.0); MEAN CORPUSCULAR HEMOGLOBIN 24.8 pg (27.0-33.0); MEAN CORPUSCULAR HGB CONC 30.7 g/dl (32.0-36.5); MEAN CORPUSCULAR VOLUME 80.8 fl (80.0-96.0); PLATELET COUNT, AUTOMATED 219 10^3/uL (150-450); RED BLOOD COUNT 3.02 10^6/uL (4.00-5.40); RED CELL DISTRIBUTION WIDTH 15.5 % (11.5-14.5); WHITE BLOOD COUNT 11.6 10^3/uL (4.0-10.0)
[2017-10-12 02:27] LABS: ALBUMIN/GLOBULIN RATIO 0.91 (1.00-1.93); ALKALINE PHOSPHATASE 48 U/L (45-117); ALT/SGPT 52 U/L (12-78); ANION GAP 5 MEQ/L (8-16); AST/SGOT 54 U/L (7-37); BILIRUBIN,TOTAL 0.5 MG/DL (0.2-1.0); BLOOD UREA NITROGEN 19 MG/DL (7-18); CALCIUM LEVEL 8.3 MG/DL (8.8-10.2); CARBON DIOXIDE LEVEL 29 MEQ/L (21-32); CHLORIDE LEVEL 101 MEQ/L (98-107); CK-MB VALUE MASS 1.5 NG/ML (0.0-3.6); CPK CREATINE PHOSPHOKINASE 85 U/L (26-192); CREATININE FOR GFR 1.02 MG/DL (0.55-1.30); GLOMERULAR FILTRATION RATE 58.5 (>45); GLUCOSE, FASTING 102 MG/DL (70-100); MAGNESIUM LEVEL 1.7 MG/DL (1.8-2.4); MB/CK RELATIVE INDEX 1.76 (< OR =4); POTASSIUM SERUM 3.9 MEQ/L (3.5-5.1); SODIUM LEVEL 135 MEQ/L (136-145); TOTAL PROTEIN 6.3 GM/DL (6.4-8.2)
[2017-10-12] MEDS: FUROSEMIDE 40 MG/4 ML VIAL (J1940) IV ×3 (02:31→17:18)
[2017-10-12 02:52] LABS: NT-PRO BNP 1000 PG/ML (<125)
[2017-10-12 03:10] LABS: CK-MB VALUE MASS 1.4 NG/ML (0.0-3.6); CPK CREATINE PHOSPHOKINASE 90 U/L (26-192); MB/CK RELATIVE INDEX 1.55 (< OR =4); TROPONIN I 0.66 NG/ML (< 0.10)
[2017-10-12] MEDS: MAGNESIUM OXIDE 400 MG TAB (MAG-OX) PO (03:11)
[2017-10-12] MEDS: METOPROLOL 5 MG/5 ML VIAL IV ×2 (03:31→03:50)
[2017-10-12 04:08] LABS: HEMATOCRIT 26.2 % (36.0-47.0); HEMOGLOBIN 8.1 g/dl (12.0-16.0); MEAN CORPUSCULAR HEMOGLOBIN 24.9 pg (27.0-33.0); MEAN CORPUSCULAR HGB CONC 30.9 g/dl (32.0-36.5); MEAN CORPUSCULAR VOLUME 80.6 fl (80.0-96.0); PLATELET COUNT, AUTOMATED 263 10^3/uL (150-450); RED BLOOD COUNT 3.25 10^6/uL (4.00-5.40); RED CELL DISTRIBUTION WIDTH 15.6 % (11.5-14.5); WHITE BLOOD COUNT 13.9 10^3/uL (4.0-10.0)
[2017-10-12] MEDS: DIGOXIN INJ 0.5 MG/2 ML AMP (J1160) IV (04:33)
[2017-10-12] MEDS: VERAPAMIL HCL 5 MG/2 ML VIAL IV ×2 (06:08→06:30)
[2017-10-12] MEDS: ONDANSETRON 4MG/2ML VIAL (J2405) IV ×2 (06:29→17:16)
[2017-10-12] MEDS: LEVALBUTEROL 1.25 MG/0.5 ML CONCENTRATE NEB INH ×4 (07:40→20:04)
[2017-10-12] MEDS: AMANTADINE 100 MG CAP PO (09:26)
[2017-10-12] MEDS: lamoTRIgine 100MG TAB PO (09:26)
[2017-10-12] MEDS: SIMETHICONE 80 MG CHEW TAB PO ×4 (09:26→21:03)
[2017-10-12] MEDS: PANTOPRAZOLE 40MG INJ (PROTONIX) (C9113) IV (09:27)
[2017-10-12] MEDS: KETOROLAC 30 MG/ML VIAL (J1885) IV (09:39)
[2017-10-12 13:23] LABS: ALBUMIN 3.1 GM/DL (3.2-5.2); ANION GAP 8 MEQ/L (8-16); BLOOD UREA NITROGEN 16 MG/DL (7-18); CARBON DIOXIDE LEVEL 28 MEQ/L (21-32); CHLORIDE LEVEL 101 MEQ/L (98-107); CREATININE FOR GFR 1.04 MG/DL (0.55-1.30); GLOMERULAR FILTRATION RATE 57.2 (>45); GLUCOSE, FASTING 116 MG/DL (70-100); PHOSPHORUS LEVEL 2.8 MG/DL (2.5-4.9); SODIUM LEVEL 137 MEQ/L (136-145); TROPONIN I 0.39 NG/ML (< 0.10)
[2017-10-12 13:29] LABS: LITHIUM LEVEL 0.63 MEQ/L (0.60-1.20)
[2017-10-12] MEDS: traZODone 100 MG TAB PO (21:03)
[2017-10-12] MEDS: GABAPENTIN 400 MG CAP PO (21:03)
[2017-10-12] MEDS: LITHIUM CARBONATE 300 MG **CR** TAB PO (21:03)
[2017-10-12] MEDS: ENOXAPARIN 40 MG/0.4 ML SYRINGE (J1650) SC (21:03)
[2017-10-13 05:05] LABS: MEAN CORPUSCULAR HEMOGLOBIN 24.9 pg (27.0-33.0); MEAN CORPUSCULAR HGB CONC 30.4 g/dl (32.0-36.5); MEAN CORPUSCULAR VOLUME 81.9 fl (80.0-96.0); PLATELET COUNT, AUTOMATED 234 10^3/uL (150-450); RED BLOOD COUNT 2.81 10^6/uL (4.00-5.40); RED CELL DISTRIBUTION WIDTH 15.8 % (11.5-14.5); WHITE BLOOD COUNT 7.8 10^3/uL (4.0-10.0)
[2017-10-13 05:34] LABS: ALBUMIN 2.7 GM/DL (3.2-5.2); ALBUMIN/GLOBULIN RATIO 0.77 (1.00-1.93); ALKALINE PHOSPHATASE 47 U/L (45-117); ALT/SGPT 56 U/L (12-78); ANION GAP 6 MEQ/L (8-16); AST/SGOT 43 U/L (7-37); BILIRUBIN,TOTAL 0.4 MG/DL (0.2-1.0); BLOOD UREA NITROGEN 11 MG/DL (7-18); CALCIUM LEVEL 8.3 MG/DL (8.8-10.2); CARBON DIOXIDE LEVEL 33 MEQ/L (21-32); CHLORIDE LEVEL 98 MEQ/L (98-107); CREATININE FOR GFR 0.78 MG/DL (0.55-1.30); GLOMERULAR FILTRATION RATE > 60.0 (>45); GLUCOSE, FASTING 108 MG/DL (70-100); POTASSIUM SERUM 3.5 MEQ/L (3.5-5.1); SODIUM LEVEL 137 MEQ/L (136-145); TOTAL PROTEIN 6.2 GM/DL (6.4-8.2); TROPONIN I 0.29 NG/ML (< 0.10)
[2017-10-13 05:44] LABS: DIGOXIN LEVEL 0.8 NG/ML (0.5-2.0)
[2017-10-13] MEDS: LEVALBUTEROL 1.25 MG/0.5 ML CONCENTRATE NEB INH ×4 (07:12→20:27)
[2017-10-13] MEDS: lamoTRIgine 100MG TAB PO (08:31)
[2017-10-13] MEDS: SIMETHICONE 80 MG CHEW TAB PO (08:31)
[2017-10-13] MEDS: FUROSEMIDE 40 MG/4 ML VIAL (J1940) IV ×2 (08:32→17:07)
[2017-10-13] MEDS: AMANTADINE 100 MG CAP PO (08:32)
[2017-10-13] MEDS: PANTOPRAZOLE 40MG INJ (PROTONIX) (C9113) IV (08:32)
[2017-10-13] MEDS ORDERED: ACETAMINOPHEN 325 MG/10.15 ML UDC PO (08:45)
[2017-10-13] MEDS: METOPROLOL TART 25 MG TABLET PO ×3 (11:08→23:58)
[2017-10-13] MEDS ORDERED: SLF 3 ML SYR IV (11:30)
[2017-10-13] MEDS: SLF 3 ML SYR IV ×2 (13:05→21:37)
[2017-10-13] MEDS: MORPHINE 4 MG/ML 1ML VIAL (J2270) IV (21:36)
[2017-10-13] MEDS: traZODone 100 MG TAB PO (21:36)
[2017-10-13] MEDS: GABAPENTIN 400 MG CAP PO (21:37)
[2017-10-13] MEDS: LITHIUM CARBONATE 300 MG **CR** TAB PO (21:37)
[2017-10-13] MEDS: ENOXAPARIN 40 MG/0.4 ML SYRINGE (J1650) SC (21:37)
[2017-10-14] MEDS: LEVALBUTEROL 1.25 MG/0.5 ML CONCENTRATE NEB INH ×6 (04:49→19:22)
[2017-10-14] MEDS: METOPROLOL TART 25 MG TABLET PO ×2 (04:54→12:31)
[2017-10-14] MEDS: SLF 3 ML SYR IV ×3 (04:55→21:52)
[2017-10-14 07:22] LABS: BASO % 0.3 % (0.0-1.0); EOS # 0.2 10^3/uL (0.0-0.50); EOS % 2.3 % (0.0-3.0); HEMATOCRIT 23.5 % (36.0-47.0); HEMOGLOBIN 7.1 g/dl (12.0-16.0); IMMATURE GRANULOCYTE % 0.5 % (0-3.0); LYMPH # 0.7 10^3/uL (1.5-4.5); LYMPH % 10.1 % (24.0-44.0); MEAN CORPUSCULAR HEMOGLOBIN 24.6 pg (27.0-33.0); MEAN CORPUSCULAR HGB CONC 30.2 g/dl (32.0-36.5); MEAN CORPUSCULAR VOLUME 81.3 fl (80.0-96.0); MONO # 0.6 10^3/uL (0.0-0.8); MONO % 8.6 % (0.0-5.0); NEUTROPHILS # 5.2 10^3/uL (1.8-7.7); NEUTROPHILS % 78.2 % (36.0-66.0); PLATELET COUNT, AUTOMATED 294 10^3/uL (150-450); RED BLOOD COUNT 2.89 10^6/uL (4.00-5.40); RED CELL DISTRIBUTION WIDTH 15.7 % (11.5-14.5); WHITE BLOOD COUNT 6.7 10^3/uL (4.0-10.0)
[2017-10-14 07:38] LABS: ANION GAP 4 MEQ/L (8-16); BLOOD UREA NITROGEN 8 MG/DL (7-18); CALCIUM LEVEL 8.7 MG/DL (8.8-10.2); CARBON DIOXIDE LEVEL 37 MEQ/L (21-32); CHLORIDE LEVEL 99 MEQ/L (98-107); CREATININE FOR GFR 0.65 MG/DL (0.55-1.30); GLOMERULAR FILTRATION RATE > 60.0 (>45); GLUCOSE, FASTING 92 MG/DL (70-100); POTASSIUM SERUM 3.6 MEQ/L (3.5-5.1); SODIUM LEVEL 140 MEQ/L (136-145)
[2017-10-14] MEDS: PANTOPRAZOLE 40MG TAB (PROTONIX) PO (08:06)
[2017-10-14] MEDS: AMANTADINE 100 MG CAP PO (08:06)
[2017-10-14] MEDS: FUROSEMIDE 40 MG/4 ML VIAL (J1940) IV ×2 (08:06→17:06)
[2017-10-14] MEDS: lamoTRIgine 100MG TAB PO (08:07)
[2017-10-14] MEDS: predniSONE 20 MG TAB PO (09:47)
[2017-10-14] MEDS: ONDANSETRON 4MG/2ML VIAL (J2405) IV (09:50)
[2017-10-14] MEDS: traZODone 100 MG TAB PO (21:52)
[2017-10-14] MEDS: LITHIUM CARBONATE 300 MG **CR** TAB PO (21:52)
[2017-10-14] MEDS: GABAPENTIN 400 MG CAP PO (21:52)
[2017-10-14] MEDS: ENOXAPARIN 40 MG/0.4 ML SYRINGE (J1650) SC (21:52)
[2017-10-14] MEDS: MORPHINE 4 MG/ML 1ML VIAL (J2270) IV (21:53)
[2017-10-15] MEDS: MORPHINE 4 MG/ML 1ML VIAL (J2270) IV ×2 (01:53→21:35)
[2017-10-15 05:46] LABS: EOS # 0.1 10^3/uL (0.0-0.50); EOS % 0.8 % (0.0-3.0); HEMATOCRIT 23.9 % (36.0-47.0); HEMOGLOBIN 7.1 g/dl (12.0-16.0); IMMATURE GRANULOCYTE % 0.4 % (0-3.0); LYMPH # 0.8 10^3/uL (1.5-4.5); LYMPH % 10.5 % (24.0-44.0); MEAN CORPUSCULAR HEMOGLOBIN 24.1 pg (27.0-33.0); MEAN CORPUSCULAR HGB CONC 29.7 g/dl (32.0-36.5); MONO # 0.8 10^3/uL (0.0-0.8); NEUTROPHILS % 78.3 % (36.0-66.0); PLATELET COUNT, AUTOMATED 347 10^3/uL (150-450); RED BLOOD COUNT 2.95 10^6/uL (4.00-5.40); RED CELL DISTRIBUTION WIDTH 15.7 % (11.5-14.5); WHITE BLOOD COUNT 7.6 10^3/uL (4.0-10.0)
[2017-10-15] MEDS: SLF 3 ML SYR IV ×3 (05:53→21:35)
[2017-10-15 06:07] LABS: ALBUMIN 2.7 GM/DL (3.2-5.2); ALBUMIN/GLOBULIN RATIO 0.75 (1.00-1.93); ALKALINE PHOSPHATASE 73 U/L (45-117); ALT/SGPT 38 U/L (12-78); ANION GAP 3 MEQ/L (8-16); AST/SGOT 18 U/L (7-37); BILIRUBIN,TOTAL 0.3 MG/DL (0.2-1.0); BLOOD UREA NITROGEN 8 MG/DL (7-18); CALCIUM LEVEL 8.6 MG/DL (8.8-10.2); CARBON DIOXIDE LEVEL 40 MEQ/L (21-32); CHLORIDE LEVEL 98 MEQ/L (98-107); CREATININE FOR GFR 0.67 MG/DL (0.55-1.30); GLOMERULAR FILTRATION RATE > 60.0 (>45); GLUCOSE, FASTING 111 MG/DL (70-100); POTASSIUM SERUM 3.4 MEQ/L (3.5-5.1); SODIUM LEVEL 141 MEQ/L (136-145); TOTAL PROTEIN 6.3 GM/DL (6.4-8.2)
[2017-10-15] MEDS: LEVALBUTEROL 1.25 MG/0.5 ML CONCENTRATE NEB INH ×4 (08:52→21:38)
[2017-10-15] MEDS: PANTOPRAZOLE 40MG TAB (PROTONIX) PO (09:29)
[2017-10-15] MEDS: lamoTRIgine 100MG TAB PO (09:29)
[2017-10-15] MEDS: AMANTADINE 100 MG CAP PO (09:30)
[2017-10-15] MEDS: predniSONE 20 MG TAB PO ×2 (09:30→17:05)
[2017-10-15] MEDS: FUROSEMIDE 40 MG/4 ML VIAL (J1940) IV (09:55)
[2017-10-15] MEDS ORDERED: VERAPAMIL HCL 5 MG/2 ML VIAL IV (10:55)
[2017-10-15] MEDS: METOPROLOL 5 MG/5 ML VIAL IV (11:04)
[2017-10-15] MEDS: KCL 10MEQ/100ML SWI (KRUN) 10 MEQ in APPROPRIATE DILUENT 1 EA IV ×2 (11:05→12:37)
[2017-10-15 11:27] LABS: CPK CREATINE PHOSPHOKINASE 60 U/L (26-192); MAGNESIUM LEVEL 2.1 MG/DL (1.8-2.4); TROPONIN I 0.09 NG/ML (< 0.10)
[2017-10-15 11:28] LABS: MB/CK RELATIVE INDEX 1.66 (< OR =4)
[2017-10-15] MEDS: POTASSIUM CHLORIDE 10 MEQ SR TABLET PO ×2 (12:59→17:05)
[2017-10-15] MEDS: VERAPAMIL 40 MG TAB PO ×2 (13:00→18:26)
[2017-10-15 14:52] LABS: CPK CREATINE PHOSPHOKINASE 63 U/L (26-192); MB/CK RELATIVE INDEX 1.58 (< OR =4); TROPONIN I 0.06 NG/ML (< 0.10)
[2017-10-15] MEDS ORDERED: VERAPAMIL 40 MG TAB PO (18:00)
[2017-10-15 19:17] LABS: TROPONIN I 0.04 NG/ML (< 0.10)
[2017-10-15] MEDS: traZODone 100 MG TAB PO (21:34)
[2017-10-15] MEDS: LITHIUM CARBONATE 300 MG **CR** TAB PO (21:34)
[2017-10-15] MEDS: GABAPENTIN 400 MG CAP PO (21:34)
[2017-10-15] MEDS: ENOXAPARIN 40 MG/0.4 ML SYRINGE (J1650) SC (21:35)
[2017-10-16] MEDS: VERAPAMIL 40 MG TAB PO ×5 (00:20→23:55)
[2017-10-16] MEDS: MORPHINE 4 MG/ML 1ML VIAL (J2270) IV ×2 (00:21→22:13)
[2017-10-16 05:42] LABS: HEMATOCRIT 24.6 % (36.0-47.0); HEMOGLOBIN 7.3 g/dl (12.0-16.0); IMMATURE GRANULOCYTE % 0.4 % (0-3.0); LYMPH # 0.6 10^3/uL (1.5-4.5); LYMPH % 7.4 % (24.0-44.0); MEAN CORPUSCULAR HEMOGLOBIN 24.1 pg (27.0-33.0); MEAN CORPUSCULAR HGB CONC 29.7 g/dl (32.0-36.5); MEAN CORPUSCULAR VOLUME 81.2 fl (80.0-96.0); MONO # 0.5 10^3/uL (0.0-0.8); MONO % 6.6 % (0.0-5.0); NEUTROPHILS # 6.4 10^3/uL (1.8-7.7); NEUTROPHILS % 85.6 % (36.0-66.0); PLATELET COUNT, AUTOMATED 400 10^3/uL (150-450); RED BLOOD COUNT 3.03 10^6/uL (4.00-5.40); RED CELL DISTRIBUTION WIDTH 15.9 % (11.5-14.5); WHITE BLOOD COUNT 7.5 10^3/uL (4.0-10.0)
[2017-10-16] MEDS: SLF 3 ML SYR IV ×3 (05:42→21:45)
[2017-10-16 06:02] LABS: ALBUMIN 2.8 GM/DL (3.2-5.2); ALBUMIN/GLOBULIN RATIO 0.78 (1.00-1.93); ALKALINE PHOSPHATASE 60 U/L (45-117); ALT/SGPT 33 U/L (12-78); ANION GAP 2 MEQ/L (8-16); AST/SGOT 12 U/L (7-37); BILIRUBIN,TOTAL 0.3 MG/DL (0.2-1.0); BLOOD UREA NITROGEN 13 MG/DL (7-18); CALCIUM LEVEL 9.1 MG/DL (8.8-10.2); CARBON DIOXIDE LEVEL 38 MEQ/L (21-32); CHLORIDE LEVEL 100 MEQ/L (98-107); CREATININE FOR GFR 0.68 MG/DL (0.55-1.30); GLOMERULAR FILTRATION RATE > 60.0 (>45); GLUCOSE, FASTING 113 MG/DL (70-100); POTASSIUM SERUM 4.8 MEQ/L (3.5-5.1); SODIUM LEVEL 140 MEQ/L (136-145); TOTAL PROTEIN 6.4 GM/DL (6.4-8.2)
[2017-10-16] MEDS: LEVALBUTEROL 1.25 MG/0.5 ML CONCENTRATE NEB INH ×4 (08:56→20:39)
[2017-10-16] MEDS: PANTOPRAZOLE 40MG TAB (PROTONIX) PO (09:45)
[2017-10-16] MEDS: predniSONE 20 MG TAB PO (09:46)
[2017-10-16] MEDS: lamoTRIgine 100MG TAB PO (09:46)
[2017-10-16] MEDS: AMANTADINE 100 MG CAP PO (09:47)
[2017-10-16] MEDS: LITHIUM CARBONATE 300 MG **CR** TAB PO (21:44)
[2017-10-16] MEDS: traZODone 100 MG TAB PO (21:44)
[2017-10-16] MEDS: GABAPENTIN 400 MG CAP PO (21:44)
[2017-10-16] MEDS: ENOXAPARIN 40 MG/0.4 ML SYRINGE (J1650) SC (21:45)
[2017-10-17] MEDS: MORPHINE 4 MG/ML 1ML VIAL (J2270) IV (00:35)
[2017-10-17] MEDS: VERAPAMIL 40 MG TAB PO ×3 (05:56→18:11)
[2017-10-17] MEDS: SLF 3 ML SYR IV ×3 (05:56→21:30)
[2017-10-17 06:22] LABS: BASO % 0.1 % (0.0-1.0); EOS # 0.1 10^3/uL (0.0-0.50); EOS % 0.9 % (0.0-3.0); HEMATOCRIT 24.2 % (36.0-47.0); HEMOGLOBIN 7.2 g/dl (12.0-16.0); IMMATURE GRANULOCYTE % 0.3 % (0-3.0); LYMPH # 1.1 10^3/uL (1.5-4.5); LYMPH % 12.7 % (24.0-44.0); MEAN CORPUSCULAR HEMOGLOBIN 24.4 pg (27.0-33.0); MEAN CORPUSCULAR HGB CONC 29.8 g/dl (32.0-36.5); MONO # 0.9 10^3/uL (0.0-0.8); MONO % 9.9 % (0.0-5.0); NEUTROPHILS # 6.8 10^3/uL (1.8-7.7); NEUTROPHILS % 76.1 % (36.0-66.0); PLATELET COUNT, AUTOMATED 387 10^3/uL (150-450); RED BLOOD COUNT 2.95 10^6/uL (4.00-5.40); RED CELL DISTRIBUTION WIDTH 16.3 % (11.5-14.5); WHITE BLOOD COUNT 8.9 10^3/uL (4.0-10.0)
[2017-10-17 06:42] LABS: ALBUMIN 2.8 GM/DL (3.2-5.2); ALBUMIN/GLOBULIN RATIO 0.88 (1.00-1.93); ALKALINE PHOSPHATASE 54 U/L (45-117); ALT/SGPT 27 U/L (12-78); ANION GAP 5 MEQ/L (8-16); AST/SGOT 12 U/L (7-37); BILIRUBIN,TOTAL 0.3 MG/DL (0.2-1.0); BLOOD UREA NITROGEN 15 MG/DL (7-18); CALCIUM LEVEL 8.6 MG/DL (8.8-10.2); CARBON DIOXIDE LEVEL 35 MEQ/L (21-32); CHLORIDE LEVEL 100 MEQ/L (98-107); CREATININE FOR GFR 0.72 MG/DL (0.55-1.30); GLOMERULAR FILTRATION RATE > 60.0 (>45); GLUCOSE, FASTING 96 MG/DL (70-100); POTASSIUM SERUM 3.8 MEQ/L (3.5-5.1); SODIUM LEVEL 140 MEQ/L (136-145)
[2017-10-17] MEDS: LEVALBUTEROL 1.25 MG/0.5 ML CONCENTRATE NEB INH ×4 (08:22→20:00)
[2017-10-17] MEDS: AMANTADINE 100 MG CAP PO (09:28)
[2017-10-17] MEDS: PANTOPRAZOLE 40MG TAB (PROTONIX) PO (09:28)
[2017-10-17] MEDS: lamoTRIgine 100MG TAB PO (09:28)
[2017-10-17] MEDS: predniSONE 20 MG TAB PO (09:28)
[2017-10-17] MEDS: GABAPENTIN 400 MG CAP PO (20:50)
[2017-10-17] MEDS: traZODone 100 MG TAB PO (20:50)
[2017-10-17] MEDS: LITHIUM CARBONATE 300 MG **CR** TAB PO (20:50)
[2017-10-17] MEDS: ENOXAPARIN 40 MG/0.4 ML SYRINGE (J1650) SC (20:51)
[2017-10-17] MEDS: ACETAMINOPHEN/CODEINE 12.5 ML UDC PO (20:51)
[2017-10-18] MEDS: VERAPAMIL 40 MG TAB PO ×2 (00:54→05:15)
[2017-10-18] MEDS: ACETAMINOPHEN/CODEINE 12.5 ML UDC PO ×2 (00:55→05:16)
[2017-10-18] MEDS: SLF 3 ML SYR IV ×2 (06:01→14:00)
[2017-10-18 06:27] LABS: BASO % 0.1 % (0.0-1.0); EOS # 0.1 10^3/uL (0.0-0.50); EOS % 0.9 % (0.0-3.0); HEMATOCRIT 25.7 % (36.0-47.0); HEMOGLOBIN 7.5 g/dl (12.0-16.0); IMMATURE GRANULOCYTE % 0.3 % (0-3.0); LYMPH # 1.4 10^3/uL (1.5-4.5); LYMPH % 15.5 % (24.0-44.0); MEAN CORPUSCULAR HGB CONC 29.2 g/dl (32.0-36.5); MEAN CORPUSCULAR VOLUME 82.4 fl (80.0-96.0); MONO # 0.8 10^3/uL (0.0-0.8); MONO % 9.1 % (0.0-5.0); NEUTROPHILS # 6.8 10^3/uL (1.8-7.7); NEUTROPHILS % 74.1 % (36.0-66.0); PLATELET COUNT, AUTOMATED 428 10^3/uL (150-450); RED BLOOD COUNT 3.12 10^6/uL (4.00-5.40); RED CELL DISTRIBUTION WIDTH 16.3 % (11.5-14.5); WHITE BLOOD COUNT 9.2 10^3/uL (4.0-10.0)
[2017-10-18 06:45] LABS: ALBUMIN 2.9 GM/DL (3.2-5.2); ALBUMIN/GLOBULIN RATIO 0.88 (1.00-1.93); ALKALINE PHOSPHATASE 46 U/L (45-117); ALT/SGPT 23 U/L (12-78); ANION GAP 5 MEQ/L (8-16); AST/SGOT 13 U/L (7-37); BILIRUBIN,TOTAL 0.3 MG/DL (0.2-1.0); BLOOD UREA NITROGEN 13 MG/DL (7-18); CALCIUM LEVEL 8.6 MG/DL (8.8-10.2); CARBON DIOXIDE LEVEL 36 MEQ/L (21-32); CHLORIDE LEVEL 101 MEQ/L (98-107); CREATININE FOR GFR 0.75 MG/DL (0.55-1.30); GLOMERULAR FILTRATION RATE > 60.0 (>45); GLUCOSE, FASTING 96 MG/DL (70-100); POTASSIUM SERUM 3.7 MEQ/L (3.5-5.1); SODIUM LEVEL 142 MEQ/L (136-145); TOTAL PROTEIN 6.2 GM/DL (6.4-8.2)
[2017-10-18] MEDS: LEVALBUTEROL 1.25 MG/0.5 ML CONCENTRATE NEB INH ×3 (07:32→15:12)
[2017-10-18] MEDS: AMANTADINE 100 MG CAP PO (09:23)
[2017-10-18] MEDS: PANTOPRAZOLE 40MG TAB (PROTONIX) PO (09:23)
[2017-10-18] MEDS: lamoTRIgine 100MG TAB PO (09:23)
[2017-10-18] MEDS: predniSONE 20 MG TAB PO (09:23)
[2017-10-18] MEDS: methylPREDNISolone 80MG/ML SUSP 1ML VIAL (J1040) IM (11:53)
[2017-10-18] MEDS: VERAPAMIL 120 MG SR TAB PO (11:54)
== END 2017-10-18 16:55 | disposition home or self-care (01) | DRG 222 ==
LOC: M OR 05:51 → M PCU 10-12 02:53 → M MS5PR 13:53
PROC: 0WUF4JZ Supplement Abdominal Wall with Synthetic Substitute, Percutaneous Endoscopic Approach (ICD-10-PCS; principal; 2017-10-10 07:30)
PROC: 0DV44ZZ Restriction of Esophagogastric Junction, Percutaneous Endoscopic Approach (ICD-10-PCS; 2017-10-10 07:30)
DX: K44.0 Diaphragmatic hernia with obstruction, without gangrene (principal); E66.9 Obesity, unspecified; I48.0 Paroxysmal atrial fibrillation; J45.901 Unspecified asthma with (acute) exacerbation; K21.9 Gastro-esophageal reflux disease without esophagitis; I10 Essential (primary) hypertension; R13.10 Dysphagia, unspecified; D62 Acute posthemorrhagic anemia; F31.9 Bipolar disorder, unspecified; F41.9 Anxiety disorder, unspecified; M54.40 Lumbago with sciatica, unspecified side; D50.9 Iron deficiency anemia, unspecified; Z98.1 Arthrodesis status; Z87.891 Personal history of nicotine dependence; Z79.82 Long term (current) use of aspirin; Z79.899 Other long term (current) drug therapy; Z86.73 Personal history of transient ischemic attack (TIA), and cerebral infarction without residual deficits; J98.11 Atelectasis

== ENCOUNTER → 2017-11-10 | Outpatient (REF) | payer OTHER | LOC: M SFHCPLAZ 15:31 | DX: D64.9 Anemia, unspecified (principal); I10 Essential (primary) hypertension ==

== ENCOUNTER → 2017-11-17 | Outpatient (CLI) | payer OTHER | LOC: M SMT 08:45 | DX: I31.3 Pericardial effusion (noninflammatory) (principal) | CPT/HCPCS: 71046 ==

== ENCOUNTER → 2017-11-28 | Outpatient (CLI) | payer OTHER ==
[2017-11-28 15:08] LABS: BASO % 0.6 % (0.0-1.0); EOS # 0.2 10^3/uL (0.0-0.50); HEMATOCRIT 42.2 % (36.0-47.0); HEMOGLOBIN 13.6 g/dl (12.0-15.5); IMMATURE GRANULOCYTE % 0.2 % (0-3.0); LYMPH # 1.3 10^3/uL (1.5-4.5); LYMPH % 20.1 % (24.0-44.0); MEAN CORPUSCULAR HGB CONC 32.2 g/dl (32.0-36.5); MEAN CORPUSCULAR VOLUME 83.7 fl (80.0-96.0); MONO # 0.5 10^3/uL (0.0-0.8); MONO % 7.2 % (0.0-5.0); NEUTROPHILS # 4.3 10^3/uL (1.8-7.7); NEUTROPHILS % 68.9 % (36.0-66.0); PLATELET COUNT, AUTOMATED 257 10^3/uL (150-450); RED BLOOD COUNT 5.04 10^6/uL (4.00-5.40); RED CELL DISTRIBUTION WIDTH 17.8 % (11.5-14.5); WHITE BLOOD COUNT 6.3 10^3/uL (4.0-10.0)
[2017-11-28 15:33] LABS: ALT/SGPT 16 U/L (12-78); ANION GAP 6 MEQ/L (8-16); AST/SGOT 14 U/L (7-37); BLOOD UREA NITROGEN 8 MG/DL (7-18); CALCIUM LEVEL 9.7 MG/DL (8.8-10.2); CARBON DIOXIDE LEVEL 32 MEQ/L (21-32); CHLORIDE LEVEL 105 MEQ/L (98-107); CREATININE FOR GFR 0.78 MG/DL (0.55-1.30); GLOMERULAR FILTRATION RATE > 60.0 (>45); GLUCOSE, FASTING 103 MG/DL (70-100); POTASSIUM SERUM 4.3 MEQ/L (3.5-5.1); SODIUM LEVEL 143 MEQ/L (136-145)
[2017-11-28 15:34] LABS: ALBUMIN 4.1 GM/DL (3.2-5.2); ALBUMIN/GLOBULIN RATIO 1.03 (1.00-1.93); ALKALINE PHOSPHATASE 69 U/L (45-117); BILIRUBIN,TOTAL 0.4 MG/DL (0.2-1.0); MAGNESIUM LEVEL 2.2 MG/DL (1.8-2.4); TOTAL PROTEIN 8.1 GM/DL (6.4-8.2)
== END ==
LOC: M LAB 14:42
DX: I48.0 Paroxysmal atrial fibrillation (principal)
CPT/HCPCS: 83735

== ENCOUNTER → 2017-11-28 | Outpatient (CLI) | payer OTHER ==
[2017-11-28 15:08] LABS: BASO % 0.5 % (0.0-1.0); EOS # 0.2 10^3/uL (0.0-0.50); EOS % 2.8 % (0.0-3.0); HEMATOCRIT 42.2 % (36.0-47.0); HEMOGLOBIN 13.4 g/dl (12.0-15.5); IMMATURE GRANULOCYTE % 0.2 % (0-3.0); LYMPH # 1.3 10^3/uL (1.5-4.5); LYMPH % 20.4 % (24.0-44.0); MEAN CORPUSCULAR HEMOGLOBIN 26.7 pg (27.0-33.0); MEAN CORPUSCULAR HGB CONC 31.8 g/dl (32.0-36.5); MEAN CORPUSCULAR VOLUME 84.1 fl (80.0-96.0); MONO # 0.5 10^3/uL (0.0-0.8); NEUTROPHILS # 4.4 10^3/uL (1.8-7.7); NEUTROPHILS % 69.1 % (36.0-66.0); PLATELET COUNT, AUTOMATED 251 10^3/uL (150-450); RED BLOOD COUNT 5.02 10^6/uL (4.00-5.40); RED CELL DISTRIBUTION WIDTH 17.9 % (11.5-14.5); RETIC HEMOGLOBIN EQUIVALENT 35.4 pg (24-36); RETICULOCYTE # 24.1 10^9/L (17-77); RETICULOCYTE % 0.5 % (0.5-1.5); WHITE BLOOD COUNT 6.4 10^3/uL (4.0-10.0)
[2017-11-28 15:44] LABS: ALBUMIN 4.1 GM/DL (3.2-5.2); ALBUMIN/GLOBULIN RATIO 1.11 (1.00-1.93); ALKALINE PHOSPHATASE 65 U/L (45-117); ALT/SGPT 16 U/L (12-78); ANION GAP 6 MEQ/L (8-16); AST/SGOT 14 U/L (7-37); BILIRUBIN,TOTAL 0.4 MG/DL (0.2-1.0); BLOOD UREA NITROGEN 9 MG/DL (7-18); CALCIUM LEVEL 9.6 MG/DL (8.8-10.2); CARBON DIOXIDE LEVEL 32 MEQ/L (21-32); CHLORIDE LEVEL 104 MEQ/L (98-107); DIGOXIN LEVEL 0.7 NG/ML (0.5-2.0); GLOMERULAR FILTRATION RATE > 60.0 (>45); GLUCOSE, FASTING 101 MG/DL (70-100); POTASSIUM SERUM 4.3 MEQ/L (3.5-5.1); SODIUM LEVEL 142 MEQ/L (136-145); TOTAL PROTEIN 7.8 GM/DL (6.4-8.2)
== END ==
LOC: M LAB 14:34
DX: D64.9 Anemia, unspecified (principal); I10 Essential (primary) hypertension; I48.0 Paroxysmal atrial fibrillation
CPT/HCPCS: 80162

== ENCOUNTER 2017-12-22 18:33 | Emergency (ER) | payer OTHER ==
[2017-12-22 21:57] LABS: BASO % 0.5 % (0.0-1.0); EOS # 0.1 10^3/uL (0.0-0.50); EOS % 1.9 % (0.0-3.0); HEMATOCRIT 40.3 % (36.0-47.0); HEMOGLOBIN 13.4 g/dl (12.0-15.5); LYMPH # 1.7 10^3/uL (1.5-4.5); LYMPH % 28.7 % (24.0-44.0); MEAN CORPUSCULAR HEMOGLOBIN 28.3 pg (27.0-33.0); MEAN CORPUSCULAR HGB CONC 33.3 g/dl (32.0-36.5); MEAN CORPUSCULAR VOLUME 85.2 fl (80.0-96.0); MONO # 0.5 10^3/uL (0.0-0.8); MONO % 8.8 % (0.0-5.0); NEUTROPHILS # 3.5 10^3/uL (1.8-7.7); NEUTROPHILS % 60.1 % (36.0-66.0); PLATELET COUNT, AUTOMATED 236 10^3/uL (150-450); RED BLOOD COUNT 4.73 10^6/uL (4.00-5.40); RED CELL DISTRIBUTION WIDTH 17.6 % (11.5-14.5); WHITE BLOOD COUNT 5.8 10^3/uL (4.0-10.0)
[2017-12-22] MEDS: NS 1,000 ML IV (21:59)
[2017-12-22] MEDS: KETOROLAC 30 MG/ML VIAL (J1885) IV (21:59)
[2017-12-22] MEDS: diphenhydrAMINE INJ 50MG/ML VIAL (J1200) IV (21:59)
[2017-12-22] MEDS: PROMETHAZINE 25 MG TAB PO (21:59)
[2017-12-22 22:11] LABS: ANION GAP 7 MEQ/L (8-16); BLOOD UREA NITROGEN 10 MG/DL (7-18); CALCIUM LEVEL 9.5 MG/DL (8.8-10.2); CARBON DIOXIDE LEVEL 32 MEQ/L (21-32); CHLORIDE LEVEL 101 MEQ/L (98-107); CREATININE FOR GFR 0.92 MG/DL (0.55-1.30); GLOMERULAR FILTRATION RATE > 60.0 (>45); GLUCOSE, FASTING 99 MG/DL (70-100); POTASSIUM SERUM 3.4 MEQ/L (3.5-5.1); SODIUM LEVEL 140 MEQ/L (136-145)
[2017-12-22] MEDS: dexameTHASONE 4 MG/ML 1ML VIAL (J1100) PO (23:08)
== END 2017-12-23 00:15 | disposition home or self-care (01) ==
LOC: M ED 12-23 00:15
DX: J06.9 Acute upper respiratory infection, unspecified (principal); R51 Headache; I48.91 Unspecified atrial fibrillation; I10 Essential (primary) hypertension; J45.909 Unspecified asthma, uncomplicated; B19.20 Unspecified viral hepatitis C without hepatic coma; G47.9 Sleep disorder, unspecified; Z86.73 Personal history of transient ischemic attack (TIA), and cerebral infarction without residual deficits; Z79.899 Other long term (current) drug therapy
CPT/HCPCS: J1200

== ENCOUNTER → 2017-12-24 | Outpatient (REF) | payer OTHER ==
[2017-12-25 11:00] LABS: ANION GAP 8 MEQ/L (8-16); BLOOD UREA NITROGEN 10 MG/DL (7-18); CALCIUM LEVEL 9.3 MG/DL (8.8-10.2); CARBON DIOXIDE LEVEL 33 MEQ/L (21-32); CHLORIDE LEVEL 100 MEQ/L (98-107); CREATININE FOR GFR 1.18 MG/DL (0.55-1.30); GLOMERULAR FILTRATION RATE 49.4 (>45); GLUCOSE, FASTING 97 MG/DL (70-100); POTASSIUM SERUM 3.7 MEQ/L (3.5-5.1); SODIUM LEVEL 141 MEQ/L (136-145)
== END ==
LOC: M LAB REF 15:47
DX: E87.6 Hypokalemia (principal)

== ENCOUNTER → 2018-02-02 | Outpatient (REF) | payer OTHER | LOC: M SFHCPLAZ 16:23 | DX: Z53.8 Procedure and treatment not carried out for other reasons (principal) ==

== ENCOUNTER 2018-04-05 13:29 | Inpatient (IN) | payer OTHER ==
[2018-04-05 14:01] LABS: BASO % 0.1 % (0.0-1.0); HEMATOCRIT 42.1 % (36.0-47.0); IMMATURE GRANULOCYTE % 0.5 % (0-3.0); LYMPH # 0.6 10^3/uL (1.5-4.5); LYMPH % 3.6 % (24.0-44.0); MEAN CORPUSCULAR HGB CONC 33.3 g/dl (32.0-36.5); MEAN CORPUSCULAR VOLUME 93.3 fl (80.0-96.0); MONO # 0.9 10^3/uL (0.0-0.8); MONO % 5.6 % (0.0-5.0); NEUTROPHILS # 14.4 10^3/uL (1.8-7.7); NEUTROPHILS % 90.2 % (36.0-66.0); PLATELET COUNT, AUTOMATED 198 10^3/uL (150-450); RED BLOOD COUNT 4.51 10^6/uL (4.00-5.40); RED CELL DISTRIBUTION WIDTH 13.2 % (11.5-14.5)
[2018-04-05 14:11] LABS: INR 0.93; PROTHROMBIN TIME 12.6 SECONDS (12.1-14.4)
[2018-04-05 14:12] LABS: PARTIAL THROMBOPLASTIN TIME 27.5 SECONDS (25.4-37.6)
[2018-04-05 14:14] LABS: OSMOLALITY SERUM 295 MOSM/KG (280-301)
[2018-04-05 14:18] LABS: ABG BASE EXCESS -0.7 (-2.0-2.0); ABG HCO3 24.7 MEQ/L (22.0-26.0); ABG O2 SATURATION 94.8 % (95.0-99.0); ABG PARTIAL PRESSURE CO2 43.3 mmHg (35.0-45.0); ABG PARTIAL PRESSURE O2 69.8 mmHg (75.0-100.0); ABG STANDARD HCO3 23.9 MEQ/L (22.0-26.0); ABG pH (ARTERIAL) 7.374 UNITS (7.350-7.450)
[2018-04-05 14:21] LABS: AMMONIA 18 uMOL/L (<32)
[2018-04-05 14:23] LABS: ALBUMIN 4.8 GM/DL (3.2-5.2); ALBUMIN/GLOBULIN RATIO 1.78 (1.00-1.93); ALKALINE PHOSPHATASE 70 U/L (45-117); ALT/SGPT 20 U/L (12-78); ANION GAP 13 MEQ/L (8-16); AST/SGOT 23 U/L (7-37); BILIRUBIN,DIRECT 0.2 MG/DL (0.0-0.2); BILIRUBIN,TOTAL 0.6 MG/DL (0.2-1.0); BLOOD UREA NITROGEN 13 MG/DL (7-18); CALCIUM LEVEL 8.8 MG/DL (8.8-10.2); CARBON DIOXIDE LEVEL 23 MEQ/L (21-32); CHLORIDE LEVEL 107 MEQ/L (98-107); CPK CREATINE PHOSPHOKINASE 375 U/L (26-192); CREATININE FOR GFR 0.72 MG/DL (0.55-1.30); ETHYL ALCOHOL (ETHANOL) 0.003 % (0.000-0.010); GLOMERULAR FILTRATION RATE > 60.0 (>45); GLUCOSE, FASTING 138 MG/DL (70-100); MAGNESIUM LEVEL 1.9 MG/DL (1.8-2.4); POTASSIUM SERUM 3.8 MEQ/L (3.5-5.1); SALICYLATE LEVEL < 1.7 MG/DL (5.0-30.0); SODIUM LEVEL 143 MEQ/L (136-145); TOTAL PROTEIN 7.5 GM/DL (6.4-8.2); TROPONIN I < 0.02 NG/ML (< 0.10)
[2018-04-05] MEDS: NS 1,000 ML IV ×4 (14:30→19:45)
[2018-04-05 14:32] LABS: LACTIC ACID SEPSIS PROTOCOL 4.5 MMOL/L (0.4-2.0)
[2018-04-05 14:37] LABS: CK-MB VALUE MASS 5.1 NG/ML (<3.6); DIGOXIN LEVEL 0.2 NG/ML (0.5-2.0); MB/CK RELATIVE INDEX 1.36 (< OR =4)
[2018-04-05 14:43] LABS: ACETAMINOPHEN LEVEL < 2.0 UG/ML (10.0-30.0)
[2018-04-05 15:06] LABS: AMORPHOUS SEDIMENT RFX SMALL (NEGATIVE); AMPHETAMINES LEVEL URINE NEGATIVE (NEGATIVE); BARBITURATES URINE NEGATIVE (NEGATIVE); BENZODIAZEPINES URINE NEGATIVE (NEGATIVE); CANNABINOIDS URINE NEGATIVE (NEGATIVE); COCAINE METABOLITE URINE NEGATIVE (NEGATIVE); KETONE, URINE AUTO RFX NEGATIVE (NEGATIVE); LEUKOCYTE ESTERASE UR AUTO RFX NEGATIVE (NEGATIVE); METHADONE URINE NEGATIVE (NEGATIVE); MUCUS, URINE RFX SMALL (NEGATIVE); NITRITE, URINE AUTO RFX NEGATIVE (NEGATIVE); OPIATES URINE NEGATIVE (NEGATIVE); PHENCYCLIDINE URINE NEGATIVE (NEGATIVE); RBC, URINE AUTO RFX 1 /HPF (0-3); SPECIFIC GRAVITY UR AUTO RFX 1.013 (1.002-1.035); SQUAM EPITHELIAL CELL UR AURFX 0 /HPF (0-6); WBC, URINE AUTO RFX 2 /HPF (0-3)
[2018-04-05] MEDS: PIPERACILLIN/TAZOBACTAM SOD 3.375 GM in D5W MINI-BAG PLUS 50 ML IV (16:52)
[2018-04-05] MEDS: VANCOMYCIN HCL 1,000 MG, VIAL MATE ADAPTER 1 EACH in D5W 250 ML IV ×3 (16:57→23:45)
[2018-04-05 18:13] LABS: LITHIUM LEVEL < 0.20 MEQ/L (0.60-1.20)
[2018-04-05 19:58] LABS: LACTIC ACID SEPSIS PROTOCOL 2.4 MMOL/L (0.4-2.0)
[2018-04-05] MEDS ORDERED: VANCOMYCIN HCL 1,000 MG in IV FLUID PLACE HOLDER 1 EA IV (20:30)
[2018-04-05] MEDS: PANTOPRAZOLE 40MG INJ (PROTONIX) (C9113) IV (21:54)
[2018-04-05 22:05] LABS: CPK CREATINE PHOSPHOKINASE 946 U/L (26-192)
[2018-04-06] MEDS: PIPERACILLIN/TAZOBACTAM SOD 3.375 GM in D5W MINI-BAG PLUS 50 ML IV ×3 (01:37→17:08)
[2018-04-06] MEDS: ONDANSETRON 4MG/2ML VIAL (J2405) IV (01:56)
[2018-04-06 04:45] LABS: BASO % 0.1 % (0.0-1.0); HEMATOCRIT 32.9 % (36.0-47.0); IMMATURE GRANULOCYTE % 0.7 % (0-3.0); LYMPH # 0.7 10^3/uL (1.5-4.5); LYMPH % 5.9 % (24.0-44.0); MEAN CORPUSCULAR HEMOGLOBIN 31.5 pg (27.0-33.0); MEAN CORPUSCULAR VOLUME 92.4 fl (80.0-96.0); MONO # 0.8 10^3/uL (0.0-0.8); MONO % 6.8 % (0.0-5.0); NEUTROPHILS # 10.6 10^3/uL (1.8-7.7); NEUTROPHILS % 86.5 % (36.0-66.0); PLATELET COUNT, AUTOMATED 194 10^3/uL (150-450); RED BLOOD COUNT 3.56 10^6/uL (4.00-5.40); RED CELL DISTRIBUTION WIDTH 13.4 % (11.5-14.5); WHITE BLOOD COUNT 12.3 10^3/uL (4.0-10.0)
[2018-04-06 04:57] LABS: ANION GAP 11 MEQ/L (8-16); BLOOD UREA NITROGEN 15 MG/DL (7-18); CALCIUM LEVEL 7.9 MG/DL (8.8-10.2); CARBON DIOXIDE LEVEL 21 MEQ/L (21-32); CHLORIDE LEVEL 111 MEQ/L (98-107); CREATININE FOR GFR 0.85 MG/DL (0.55-1.30); GLOMERULAR FILTRATION RATE > 60.0 (>45); GLUCOSE, FASTING 125 MG/DL (70-100); HEMOGLOBIN 11.2 g/dl (12.0-15.5); POTASSIUM SERUM 3.6 MEQ/L (3.5-5.1); SODIUM LEVEL 143 MEQ/L (136-145)
[2018-04-06] MEDS: NS 1,000 ML IV ×2 (04:59→09:55)
[2018-04-06] MEDS: PANTOPRAZOLE 40MG INJ (PROTONIX) (C9113) IV ×2 (09:24→21:00)
[2018-04-06] MEDS: VANCOMYCIN HCL 1,000 MG, VIAL MATE ADAPTER 1 EACH in D5W 250 ML IV (12:05)
[2018-04-06 17:38] LABS: KETONE, URINE AUTO RFX NEGATIVE (NEGATIVE); MUCUS, URINE RFX SMALL (NEGATIVE); NITRITE, URINE AUTO RFX NEGATIVE (NEGATIVE); RBC, URINE AUTO RFX 7 /HPF (0-3); SPECIFIC GRAVITY UR AUTO RFX 1.008 (1.002-1.035); SQUAM EPITHELIAL CELL UR AURFX 0 /HPF (0-6); WBC, URINE AUTO RFX 4 /HPF (0-3)
[2018-04-06 17:40] LABS: LEUKOCYTE ESTERASE UR AUTO RFX TRACE (NEGATIVE)
[2018-04-06] MEDS: KCL 20MEQ IN 0.45NS 1000ML 1,000 ML IV (18:30)
[2018-04-06] MEDS: ACETAMINOPHEN TAB 650MG DOSE (2X325MG) PO (21:07)
[2018-04-07 00:14] LABS: VANCOMYCIN LEVEL TROUGH 8.9 UG/ML (10.0-20.0)
[2018-04-07] MEDS: PIPERACILLIN/TAZOBACTAM SOD 3.375 GM in D5W MINI-BAG PLUS 50 ML IV ×3 (01:23→17:26)
[2018-04-07] MEDS: KCL 20MEQ IN 0.45NS 1000ML 1,000 ML IV ×2 (01:23→09:26)
[2018-04-07 05:23] LABS: BASO % 0.1 % (0.0-1.0); EOS % 0.5 % (0.0-3.0); HEMATOCRIT 31.1 % (36.0-47.0); HEMOGLOBIN 10.2 g/dl (12.0-15.5); IMMATURE GRANULOCYTE % 0.4 % (0-3.0); LYMPH # 0.7 10^3/uL (1.5-4.5); LYMPH % 9.1 % (24.0-44.0); MEAN CORPUSCULAR HEMOGLOBIN 31.3 pg (27.0-33.0); MEAN CORPUSCULAR HGB CONC 32.8 g/dl (32.0-36.5); MEAN CORPUSCULAR VOLUME 95.4 fl (80.0-96.0); MONO # 0.5 10^3/uL (0.0-0.8); MONO % 6.1 % (0.0-5.0); NEUTROPHILS # 6.2 10^3/uL (1.8-7.7); NEUTROPHILS % 83.8 % (36.0-66.0); PLATELET COUNT, AUTOMATED 124 10^3/uL (150-450); RED BLOOD COUNT 3.26 10^6/uL (4.00-5.40); RED CELL DISTRIBUTION WIDTH 13.8 % (11.5-14.5); WHITE BLOOD COUNT 7.4 10^3/uL (4.0-10.0)
[2018-04-07 06:02] LABS: ANION GAP 6 MEQ/L (8-16); BLOOD UREA NITROGEN 8 MG/DL (7-18); CARBON DIOXIDE LEVEL 25 MEQ/L (21-32); CHLORIDE LEVEL 112 MEQ/L (98-107); CPK CREATINE PHOSPHOKINASE 1224 U/L (26-192); CREATININE FOR GFR 0.63 MG/DL (0.55-1.30); GLOMERULAR FILTRATION RATE > 60.0 (>45); GLUCOSE, FASTING 102 MG/DL (70-100); POTASSIUM SERUM 3.9 MEQ/L (3.5-5.1); SODIUM LEVEL 143 MEQ/L (136-145)
[2018-04-07] MEDS: VANCOMYCIN HCL 1,000 MG, VIAL MATE ADAPTER 1 EACH in D5W 250 ML IV ×4 (08:03→23:51)
[2018-04-07] MEDS: LURASIDONE 20 MG TAB (LATUDA) PO (08:03)
[2018-04-07] MEDS: PANTOPRAZOLE 40MG INJ (PROTONIX) (C9113) IV ×2 (09:27→20:13)
[2018-04-07] MEDS: NS 0.45% 1,000 ML IV ×2 (12:21→20:14)
[2018-04-07] MEDS: ACETAMINOPHEN TAB 650MG DOSE (2X325MG) PO ×2 (12:22→20:14)
[2018-04-07] MEDS: MECLIZINE 12.5 MG TAB PO (12:22)
[2018-04-07 15:55] LABS: LITHIUM LEVEL < 0.20 MEQ/L (0.60-1.20)
[2018-04-07 20:06] LABS: VANCOMYCIN LEVEL TROUGH 6.3 UG/ML (10.0-20.0)
[2018-04-07] MEDS: ONDANSETRON 4MG/2ML VIAL (J2405) IV (20:13)
[2018-04-08] MEDS: PIPERACILLIN/TAZOBACTAM SOD 3.375 GM in D5W MINI-BAG PLUS 50 ML IV ×2 (01:00→09:15)
[2018-04-08] MEDS: NS 0.45% 1,000 ML IV ×4 (04:12→22:15)
[2018-04-08 04:55] LABS: BASO % 0.2 % (0.0-1.0); EOS # 0.2 10^3/uL (0.0-0.50); EOS % 3.2 % (0.0-3.0); HEMATOCRIT 30.4 % (36.0-47.0); IMMATURE GRANULOCYTE % 0.4 % (0-3.0); LYMPH # 0.8 10^3/uL (1.5-4.5); LYMPH % 16.5 % (24.0-44.0); MEAN CORPUSCULAR HEMOGLOBIN 31.2 pg (27.0-33.0); MEAN CORPUSCULAR HGB CONC 32.9 g/dl (32.0-36.5); MEAN CORPUSCULAR VOLUME 94.7 fl (80.0-96.0); MONO # 0.3 10^3/uL (0.0-0.8); MONO % 6.2 % (0.0-5.0); NEUTROPHILS # 3.7 10^3/uL (1.8-7.7); NEUTROPHILS % 73.5 % (36.0-66.0); PLATELET COUNT, AUTOMATED 133 10^3/uL (150-450); RED BLOOD COUNT 3.21 10^6/uL (4.00-5.40); RED CELL DISTRIBUTION WIDTH 13.1 % (11.5-14.5)
[2018-04-08] MEDS: ACETAMINOPHEN TAB 650MG DOSE (2X325MG) PO ×3 (04:59→21:00)
[2018-04-08 05:33] LABS: ANION GAP 6 MEQ/L (8-16); BLOOD UREA NITROGEN 8 MG/DL (7-18); CALCIUM LEVEL 8.4 MG/DL (8.8-10.2); CARBON DIOXIDE LEVEL 25 MEQ/L (21-32); CHLORIDE LEVEL 114 MEQ/L (98-107); CPK CREATINE PHOSPHOKINASE 2271 U/L (26-192); CREATININE FOR GFR 0.56 MG/DL (0.55-1.30); GLOMERULAR FILTRATION RATE > 60.0 (>45); GLUCOSE, FASTING 88 MG/DL (70-100); POTASSIUM SERUM 4.1 MEQ/L (3.5-5.1); SODIUM LEVEL 145 MEQ/L (136-145)
[2018-04-08] MEDS: LURASIDONE 20 MG TAB (LATUDA) PO (08:00)
[2018-04-08] MEDS: VANCOMYCIN HCL 1,000 MG, VIAL MATE ADAPTER 1 EACH in D5W 250 ML IV (08:13)
[2018-04-08] MEDS: PANTOPRAZOLE 40MG INJ (PROTONIX) (C9113) IV (09:14)
[2018-04-08] MEDS: MECLIZINE 12.5 MG TAB PO (09:14)
[2018-04-08] MEDS ORDERED: IPRATROPIUM 0.5MG/ALBUTEROL 2.5MG INH SOL UD 3ML (DUONEB)(J7620) NEB (09:45)
[2018-04-08] MEDS: ADVAIR HFA 115/21MCG INHALER INH ×2 (11:33→21:00)
[2018-04-08] MEDS: IPRATROPIUM 0.5MG/ALBUTEROL 2.5MG INH SOL UD 3ML (DUONEB)(J7620) NEB ×3 (11:33→21:32)
[2018-04-08] MEDS: AZELASTINE 137MCG NASAL SPY 30 ML (ASTELIN) (12:36)
[2018-04-08] MEDS: FUROSEMIDE 20 MG/2 ML VIAL (J1940) IV (13:31)
[2018-04-08] MEDS: AMPICILLIN SOD/SULBACTAM SOD 1.5 GM in D5W MINI-BAG PLUS 50 ML IV ×2 (13:37→20:58)
[2018-04-08] MEDS: LIDOCAINE 5% (LIDODERM) PATCH TD (14:52)
[2018-04-08] MEDS: **NOTE PATIENT COMMENT** MISC XX (21:00)
[2018-04-09] MEDS: AMPICILLIN SOD/SULBACTAM SOD 1.5 GM in D5W MINI-BAG PLUS 50 ML IV ×4 (02:48→20:26)
[2018-04-09] MEDS: ACETAMINOPHEN TAB 650MG DOSE (2X325MG) PO ×3 (02:49→21:48)
[2018-04-09] MEDS: NS 0.45% 1,000 ML IV ×2 (05:56→08:48)
[2018-04-09 06:35] LABS: BASO % 0.3 % (0.0-1.0); EOS # 0.2 10^3/uL (0.0-0.50); EOS % 4.5 % (0.0-3.0); HEMATOCRIT 28.9 % (36.0-47.0); HEMOGLOBIN 9.7 g/dl (12.0-15.5); IMMATURE GRANULOCYTE % 0.5 % (0-3.0); LYMPH # 0.7 10^3/uL (1.5-4.5); LYMPH % 19.5 % (24.0-44.0); MEAN CORPUSCULAR HEMOGLOBIN 31.2 pg (27.0-33.0); MEAN CORPUSCULAR HGB CONC 33.6 g/dl (32.0-36.5); MEAN CORPUSCULAR VOLUME 92.9 fl (80.0-96.0); MONO # 0.3 10^3/uL (0.0-0.8); MONO % 7.7 % (0.0-5.0); NEUTROPHILS # 2.5 10^3/uL (1.8-7.7); NEUTROPHILS % 67.5 % (36.0-66.0); PLATELET COUNT, AUTOMATED 161 10^3/uL (150-450); RED BLOOD COUNT 3.11 10^6/uL (4.00-5.40); WHITE BLOOD COUNT 3.8 10^3/uL (4.0-10.0)
[2018-04-09 07:25] LABS: ANION GAP 6 MEQ/L (8-16); BLOOD UREA NITROGEN 8 MG/DL (7-18); CALCIUM LEVEL 8.3 MG/DL (8.8-10.2); CARBON DIOXIDE LEVEL 28 MEQ/L (21-32); CHLORIDE LEVEL 110 MEQ/L (98-107); CPK CREATINE PHOSPHOKINASE 2549 U/L (26-192); CREATININE FOR GFR 0.51 MG/DL (0.55-1.30); GLOMERULAR FILTRATION RATE > 60.0 (>45); GLUCOSE, FASTING 83 MG/DL (70-100); POTASSIUM SERUM 3.6 MEQ/L (3.5-5.1); SODIUM LEVEL 144 MEQ/L (136-145)
[2018-04-09] MEDS: ADVAIR HFA 115/21MCG INHALER INH ×2 (07:33→20:32)
[2018-04-09] MEDS: IPRATROPIUM 0.5MG/ALBUTEROL 2.5MG INH SOL UD 3ML (DUONEB)(J7620) NEB ×4 (07:33→20:00)
[2018-04-09] MEDS: PANTOPRAZOLE 40MG TAB (PROTONIX) PO (08:47)
[2018-04-09] MEDS: AZELASTINE 137MCG NASAL SPY 30 ML (ASTELIN) (08:47)
[2018-04-09] MEDS: MECLIZINE 12.5 MG TAB PO (08:47)
[2018-04-09] MEDS: LIDOCAINE 5% (LIDODERM) PATCH TD (08:48)
[2018-04-09] MEDS: POTASSIUM CHLORIDE 10 MEQ SR TABLET PO ×2 (10:48→20:25)
[2018-04-09] MEDS: predniSONE 20 MG TAB PO (10:48)
[2018-04-09] MEDS: FUROSEMIDE 20 MG/2 ML VIAL (J1940) IV (10:49)
[2018-04-09] MEDS: **NOTE PATIENT COMMENT** MISC XX (21:00)
[2018-04-10] MEDS: AMPICILLIN SOD/SULBACTAM SOD 1.5 GM in D5W MINI-BAG PLUS 50 ML IV ×2 (02:23→08:09)
[2018-04-10] MEDS: ACETAMINOPHEN TAB 650MG DOSE (2X325MG) PO ×2 (03:23→21:05)
[2018-04-10 06:58] LABS: BASO % 0.2 % (0.0-1.0); EOS # 0.1 10^3/uL (0.0-0.50); EOS % 2.7 % (0.0-3.0); HEMATOCRIT 29.9 % (36.0-47.0); HEMOGLOBIN 10.1 g/dl (12.0-15.5); IMMATURE GRANULOCYTE % 0.4 % (0-3.0); LYMPH % 22.7 % (24.0-44.0); MEAN CORPUSCULAR HEMOGLOBIN 31.5 pg (27.0-33.0); MEAN CORPUSCULAR HGB CONC 33.8 g/dl (32.0-36.5); MEAN CORPUSCULAR VOLUME 93.1 fl (80.0-96.0); MONO # 0.4 10^3/uL (0.0-0.8); MONO % 8.8 % (0.0-5.0); NEUTROPHILS # 2.9 10^3/uL (1.8-7.7); NEUTROPHILS % 65.2 % (36.0-66.0); PLATELET COUNT, AUTOMATED 189 10^3/uL (150-450); RED BLOOD COUNT 3.21 10^6/uL (4.00-5.40); RED CELL DISTRIBUTION WIDTH 12.9 % (11.5-14.5); WHITE BLOOD COUNT 4.5 10^3/uL (4.0-10.0)
[2018-04-10 07:42] LABS: ANION GAP 4 MEQ/L (8-16); BLOOD UREA NITROGEN 11 MG/DL (7-18); CALCIUM LEVEL 8.7 MG/DL (8.8-10.2); CARBON DIOXIDE LEVEL 30 MEQ/L (21-32); CHLORIDE LEVEL 108 MEQ/L (98-107); CPK CREATINE PHOSPHOKINASE 1819 U/L (26-192); CREATININE FOR GFR 0.57 MG/DL (0.55-1.30); GLOMERULAR FILTRATION RATE > 60.0 (>45); GLUCOSE, FASTING 85 MG/DL (70-100); POTASSIUM SERUM 3.8 MEQ/L (3.5-5.1); SODIUM LEVEL 142 MEQ/L (136-145)
[2018-04-10] MEDS: IPRATROPIUM 0.5MG/ALBUTEROL 2.5MG INH SOL UD 3ML (DUONEB)(J7620) NEB ×4 (07:45→20:00)
[2018-04-10] MEDS: ADVAIR HFA 115/21MCG INHALER INH ×2 (07:45→20:28)
[2018-04-10] MEDS: predniSONE 20 MG TAB PO (08:09)
[2018-04-10] MEDS: MECLIZINE 12.5 MG TAB PO (08:09)
[2018-04-10] MEDS: PANTOPRAZOLE 40MG TAB (PROTONIX) PO (08:09)
[2018-04-10] MEDS: POTASSIUM CHLORIDE 10 MEQ SR TABLET PO ×2 (08:09→21:05)
[2018-04-10] MEDS: LIDOCAINE 5% (LIDODERM) PATCH TD ×2 (08:10→14:53)
[2018-04-10] MEDS: AZELASTINE 137MCG NASAL SPY 30 ML (ASTELIN) (08:10)
[2018-04-10] MEDS: AUGMENTIN 875 MG TAB PO (21:04)
[2018-04-10] MEDS: **NOTE PATIENT COMMENT** MISC XX (21:06)
[2018-04-11] MEDS: ACETAMINOPHEN TAB 650MG DOSE (2X325MG) PO ×2 (05:57→21:08)
[2018-04-11] MEDS: IPRATROPIUM 0.5MG/ALBUTEROL 2.5MG INH SOL UD 3ML (DUONEB)(J7620) NEB ×4 (08:00→20:00)
[2018-04-11] MEDS: ADVAIR HFA 115/21MCG INHALER INH ×2 (08:15→21:28)
[2018-04-11] MEDS: PANTOPRAZOLE 40MG TAB (PROTONIX) PO (09:39)
[2018-04-11] MEDS: POTASSIUM CHLORIDE 10 MEQ SR TABLET PO ×2 (09:39→21:09)
[2018-04-11] MEDS: AUGMENTIN 875 MG TAB PO ×2 (09:39→21:08)
[2018-04-11] MEDS: predniSONE 20 MG TAB PO (09:39)
[2018-04-11] MEDS: MECLIZINE 12.5 MG TAB PO (09:39)
[2018-04-11] MEDS: LIDOCAINE 5% (LIDODERM) PATCH TD (09:40)
[2018-04-11] MEDS: AZELASTINE 137MCG NASAL SPY 30 ML (ASTELIN) (09:40)
[2018-04-11] MEDS: **NOTE PATIENT COMMENT** MISC XX (21:09)
[2018-04-11] MEDS: rOPINIRole 0.25 MG TAB(REQUIP) PO (21:09)
[2018-04-12 06:17] LABS: BASO % 0.4 % (0.0-1.0); EOS # 0.2 10^3/uL (0.0-0.50); HEMATOCRIT 32.8 % (36.0-47.0); IMMATURE GRANULOCYTE % 0.8 % (0-3.0); LYMPH # 1.5 10^3/uL (1.5-4.5); LYMPH % 29.4 % (24.0-44.0); MEAN CORPUSCULAR HEMOGLOBIN 31.3 pg (27.0-33.0); MEAN CORPUSCULAR HGB CONC 33.5 g/dl (32.0-36.5); MEAN CORPUSCULAR VOLUME 93.2 fl (80.0-96.0); MONO # 0.6 10^3/uL (0.0-0.8); MONO % 11.7 % (0.0-5.0); NEUTROPHILS # 2.7 10^3/uL (1.8-7.7); NEUTROPHILS % 54.7 % (36.0-66.0); PLATELET COUNT, AUTOMATED 230 10^3/uL (150-450); RED BLOOD COUNT 3.52 10^6/uL (4.00-5.40)
[2018-04-12 06:45] LABS: ALBUMIN 3.2 GM/DL (3.2-5.2); ALBUMIN/GLOBULIN RATIO 1.07 (1.00-1.93); ALKALINE PHOSPHATASE 55 U/L (45-117); ALT/SGPT 39 U/L (12-78); ANION GAP 7 MEQ/L (8-16); AST/SGOT 34 U/L (7-37); BILIRUBIN,TOTAL 0.4 MG/DL (0.2-1.0); BLOOD UREA NITROGEN 16 MG/DL (7-18); CALCIUM LEVEL 8.8 MG/DL (8.8-10.2); CARBON DIOXIDE LEVEL 29 MEQ/L (21-32); CHLORIDE LEVEL 107 MEQ/L (98-107); CPK CREATINE PHOSPHOKINASE 215 U/L (26-192); CREATININE FOR GFR 0.57 MG/DL (0.55-1.30); GLOMERULAR FILTRATION RATE > 60.0 (>45); GLUCOSE, FASTING 81 MG/DL (70-100); POTASSIUM SERUM 4.3 MEQ/L (3.5-5.1); SODIUM LEVEL 143 MEQ/L (136-145); TOTAL PROTEIN 6.2 GM/DL (6.4-8.2)
[2018-04-12] MEDS: IPRATROPIUM 0.5MG/ALBUTEROL 2.5MG INH SOL UD 3ML (DUONEB)(J7620) NEB ×4 (08:00→21:04)
[2018-04-12] MEDS: AUGMENTIN 875 MG TAB PO ×2 (08:05→20:23)
[2018-04-12] MEDS: predniSONE 20 MG TAB PO (08:06)
[2018-04-12] MEDS: LIDOCAINE 5% (LIDODERM) PATCH TD (08:06)
[2018-04-12] MEDS: MECLIZINE 12.5 MG TAB PO (08:06)
[2018-04-12] MEDS: PANTOPRAZOLE 40MG TAB (PROTONIX) PO (08:06)
[2018-04-12] MEDS: AZELASTINE 137MCG NASAL SPY 30 ML (ASTELIN) (08:06)
[2018-04-12] MEDS: POTASSIUM CHLORIDE 10 MEQ SR TABLET PO ×2 (08:07→20:23)
[2018-04-12] MEDS: ADVAIR HFA 115/21MCG INHALER INH ×2 (09:00→21:05)
[2018-04-12] MEDS: rOPINIRole 0.25 MG TAB(REQUIP) PO (20:24)
[2018-04-12] MEDS: **NOTE PATIENT COMMENT** MISC XX (20:24)
[2018-04-12] MEDS: ACETAMINOPHEN TAB 650MG DOSE (2X325MG) PO (23:59)
[2018-04-13 06:26] LABS: BASO % 0.5 % (0.0-1.0); EOS # 0.1 10^3/uL (0.0-0.50); EOS % 2.3 % (0.0-3.0); HEMATOCRIT 33.3 % (36.0-47.0); HEMOGLOBIN 11.1 g/dl (12.0-15.5); IMMATURE GRANULOCYTE % 0.9 % (0-3.0); LYMPH # 1.8 10^3/uL (1.5-4.5); LYMPH % 31.3 % (24.0-44.0); MEAN CORPUSCULAR HEMOGLOBIN 30.9 pg (27.0-33.0); MEAN CORPUSCULAR HGB CONC 33.3 g/dl (32.0-36.5); MEAN CORPUSCULAR VOLUME 92.8 fl (80.0-96.0); MONO # 0.6 10^3/uL (0.0-0.8); MONO % 10.2 % (0.0-5.0); NEUTROPHILS # 3.1 10^3/uL (1.8-7.7); NEUTROPHILS % 54.8 % (36.0-66.0); PLATELET COUNT, AUTOMATED 267 10^3/uL (150-450); RED BLOOD COUNT 3.59 10^6/uL (4.00-5.40); RED CELL DISTRIBUTION WIDTH 13.3 % (11.5-14.5); WHITE BLOOD COUNT 5.7 10^3/uL (4.0-10.0)
[2018-04-13 06:48] LABS: ALBUMIN 3.1 GM/DL (3.2-5.2); ALBUMIN/GLOBULIN RATIO 0.89 (1.00-1.93); ALKALINE PHOSPHATASE 54 U/L (45-117); ALT/SGPT 43 U/L (12-78); ANION GAP 10 MEQ/L (8-16); AST/SGOT 28 U/L (7-37); BILIRUBIN,TOTAL 0.3 MG/DL (0.2-1.0); BLOOD UREA NITROGEN 17 MG/DL (7-18); CARBON DIOXIDE LEVEL 26 MEQ/L (21-32); CHLORIDE LEVEL 107 MEQ/L (98-107); CPK CREATINE PHOSPHOKINASE 96 U/L (26-192); GLOMERULAR FILTRATION RATE > 60.0 (>45); GLUCOSE, FASTING 77 MG/DL (70-100); POTASSIUM SERUM 4.2 MEQ/L (3.5-5.1); SODIUM LEVEL 143 MEQ/L (136-145); TOTAL PROTEIN 6.6 GM/DL (6.4-8.2)
[2018-04-13] MEDS: ADVAIR HFA 115/21MCG INHALER INH ×2 (07:24→19:59)
[2018-04-13] MEDS: IPRATROPIUM 0.5MG/ALBUTEROL 2.5MG INH SOL UD 3ML (DUONEB)(J7620) NEB ×4 (07:24→19:58)
[2018-04-13] MEDS: POTASSIUM CHLORIDE 10 MEQ SR TABLET PO ×2 (08:01→21:42)
[2018-04-13] MEDS: AUGMENTIN 875 MG TAB PO ×2 (08:01→21:41)
[2018-04-13] MEDS: predniSONE 20 MG TAB PO (08:01)
[2018-04-13] MEDS: LIDOCAINE 5% (LIDODERM) PATCH TD (08:01)
[2018-04-13] MEDS: AZELASTINE 137MCG NASAL SPY 30 ML (ASTELIN) (08:02)
[2018-04-13] MEDS: PANTOPRAZOLE 40MG TAB (PROTONIX) PO (08:02)
[2018-04-13] MEDS: MECLIZINE 12.5 MG TAB PO (08:02)
[2018-04-13] MEDS: ACETAMINOPHEN TAB 650MG DOSE (2X325MG) PO ×2 (08:02→22:41)
[2018-04-13] MEDS: rOPINIRole 0.25 MG TAB(REQUIP) PO (21:41)
[2018-04-13] MEDS: **NOTE PATIENT COMMENT** MISC XX (21:42)
[2018-04-14] MEDS: traMADol 50 MG TAB PO ×2 (00:07→23:33)
[2018-04-14 06:11] LABS: BASO % 0.4 % (0.0-1.0); EOS # 0.2 10^3/uL (0.0-0.50); EOS % 2.8 % (0.0-3.0); HEMATOCRIT 36.9 % (36.0-47.0); HEMOGLOBIN 11.6 g/dl (12.0-15.5); IMMATURE GRANULOCYTE % 0.8 % (0-3.0); LYMPH # 1.8 10^3/uL (1.5-4.5); LYMPH % 34.3 % (24.0-44.0); MEAN CORPUSCULAR HEMOGLOBIN 30.9 pg (27.0-33.0); MEAN CORPUSCULAR HGB CONC 31.4 g/dl (32.0-36.5); MEAN CORPUSCULAR VOLUME 98.1 fl (80.0-96.0); MONO # 0.6 10^3/uL (0.0-0.8); MONO % 11.1 % (0.0-5.0); NEUTROPHILS # 2.7 10^3/uL (1.8-7.7); NEUTROPHILS % 50.6 % (36.0-66.0); PLATELET COUNT, AUTOMATED 273 10^3/uL (150-450); RED BLOOD COUNT 3.76 10^6/uL (4.00-5.40); RED CELL DISTRIBUTION WIDTH 13.2 % (11.5-14.5); WHITE BLOOD COUNT 5.3 10^3/uL (4.0-10.0)
[2018-04-14 06:27] LABS: ALBUMIN 3.2 GM/DL (3.2-5.2); ALBUMIN/GLOBULIN RATIO 1.03 (1.00-1.93); ALKALINE PHOSPHATASE 60 U/L (45-117); ALT/SGPT 47 U/L (12-78); ANION GAP 5 MEQ/L (8-16); AST/SGOT 34 U/L (7-37); BILIRUBIN,TOTAL 0.4 MG/DL (0.2-1.0); BLOOD UREA NITROGEN 16 MG/DL (7-18); CALCIUM LEVEL 8.3 MG/DL (8.8-10.2); CARBON DIOXIDE LEVEL 29 MEQ/L (21-32); CHLORIDE LEVEL 106 MEQ/L (98-107); CPK CREATINE PHOSPHOKINASE 43 U/L (26-192); CREATININE FOR GFR 0.65 MG/DL (0.55-1.30); GLOMERULAR FILTRATION RATE > 60.0 (>45); GLUCOSE, FASTING 80 MG/DL (70-100); POTASSIUM SERUM 4.5 MEQ/L (3.5-5.1); SODIUM LEVEL 140 MEQ/L (136-145); TOTAL PROTEIN 6.3 GM/DL (6.4-8.2)
[2018-04-14] MEDS: IPRATROPIUM 0.5MG/ALBUTEROL 2.5MG INH SOL UD 3ML (DUONEB)(J7620) NEB ×4 (07:51→20:00)
[2018-04-14] MEDS: ADVAIR HFA 115/21MCG INHALER INH ×2 (07:51→20:10)
[2018-04-14] MEDS: POTASSIUM CHLORIDE 10 MEQ SR TABLET PO ×2 (08:06→20:52)
[2018-04-14] MEDS: LIDOCAINE 5% (LIDODERM) PATCH TD (08:06)
[2018-04-14] MEDS: PANTOPRAZOLE 40MG TAB (PROTONIX) PO (08:06)
[2018-04-14] MEDS: predniSONE 20 MG TAB PO (08:06)
[2018-04-14] MEDS: AUGMENTIN 875 MG TAB PO ×2 (08:06→20:52)
[2018-04-14] MEDS: MECLIZINE 12.5 MG TAB PO (08:06)
[2018-04-14] MEDS: ACETAMINOPHEN TAB 650MG DOSE (2X325MG) PO (08:07)
[2018-04-14] MEDS: AZELASTINE 137MCG NASAL SPY 30 ML (ASTELIN) (08:07)
[2018-04-14] MEDS: GABAPENTIN 300 MG CAP PO ×2 (10:00→20:52)
[2018-04-14] MEDS ORDERED: MIRALAX *UNIT DOSE* 17GM PACKET PO (10:15)
[2018-04-14] MEDS: DOCUSATE SODIUM 100 MG CAP PO ×2 (10:37→20:53)
[2018-04-14] MEDS: rOPINIRole 0.25 MG TAB(REQUIP) PO (20:52)
[2018-04-14] MEDS: **NOTE PATIENT COMMENT** MISC XX (20:53)
[2018-04-15] MEDS: IPRATROPIUM 0.5MG/ALBUTEROL 2.5MG INH SOL UD 3ML (DUONEB)(J7620) NEB ×2 (08:00→11:27)
[2018-04-15] MEDS: ADVAIR HFA 115/21MCG INHALER INH (08:13)
[2018-04-15] MEDS: POTASSIUM CHLORIDE 10 MEQ SR TABLET PO (09:00)
[2018-04-15] MEDS: GABAPENTIN 300 MG CAP PO (09:44)
[2018-04-15] MEDS: PANTOPRAZOLE 40MG TAB (PROTONIX) PO (09:44)
[2018-04-15] MEDS: predniSONE 20 MG TAB PO (09:44)
[2018-04-15] MEDS: MECLIZINE 12.5 MG TAB PO (09:44)
[2018-04-15] MEDS: AUGMENTIN 875 MG TAB PO (09:44)
[2018-04-15] MEDS: LIDOCAINE 5% (LIDODERM) PATCH TD (09:44)
[2018-04-15] MEDS: AZELASTINE 137MCG NASAL SPY 30 ML (ASTELIN) (09:44)
[2018-04-15] MEDS: DOCUSATE SODIUM 100 MG CAP PO (09:44)
== END 2018-04-15 15:30 | disposition home or self-care (01) | DRG 720 ==
LOC: M MSPAV 04-08 14:24 → M ED 13:29 → M ED INP 19:34 → M ICU 20:57
DX: A41.9 Sepsis, unspecified organism (principal); J69.0 Pneumonitis due to inhalation of food and vomit; G93.40 Encephalopathy, unspecified; E87.2 Acidosis; M62.82 Rhabdomyolysis; E66.01 Morbid (severe) obesity due to excess calories; F07.81 Postconcussional syndrome; I48.2 Chronic atrial fibrillation; J44.9 Chronic obstructive pulmonary disease, unspecified; F31.9 Bipolar disorder, unspecified; J30.9 Allergic rhinitis, unspecified; R68.0 Hypothermia, not associated with low environmental temperature; R41.82 Altered mental status, unspecified; B18.2 Chronic viral hepatitis C; Z86.73 Personal history of transient ischemic attack (TIA), and cerebral infarction without residual deficits; Z87.891 Personal history of nicotine dependence; J45.909 Unspecified asthma, uncomplicated; Z79.899 Other long term (current) drug therapy; D50.0 Iron deficiency anemia secondary to blood loss (chronic); R26.81 Unsteadiness on feet; S00.83XA Contusion of other part of head, initial encounter; W19.XXXA Unspecified fall, initial encounter; Y92.009 Unspecified place in unspecified non-institutional (private) residence as the place of occurrence of the external cause; Z68.35 Body mass index [BMI] 35.0-35.9, adult

== ENCOUNTER → 2018-05-05 | Outpatient (CLI) | payer OTHER | LOC: M RAD 07:59 | DX: E88.09 Other disorders of plasma-protein metabolism, not elsewhere classified (principal); K76.0 Fatty (change of) liver, not elsewhere classified | CPT/HCPCS: 76705 ==

== ENCOUNTER → 2018-05-21 | Outpatient (CLI) | payer OTHER | LOC: M RAD 15:17 | DX: J90 Pleural effusion, not elsewhere classified (principal) | CPT/HCPCS: 71046 ==

== ENCOUNTER → 2018-05-21 | Outpatient (REF) | payer OTHER ==
[2018-05-21 12:25] LABS: RETIC HEMOGLOBIN EQUIVALENT 36.2 pg (24-36); RETICULOCYTE # 42.4 10^9/L (17-77)
[2018-05-21 12:41] LABS: FERRITIN 22 NG/ML (8-252); IRON (FE) 77 UG/DL (50-170); PERCENT SATURATION 18.6 % (13.2-45.0); TOTAL IRON BINDING CAPACITY 414 UG/DL (250-450)
[2018-05-21 12:45] LABS: FOLATE 8.6 NG/ML
[2018-05-22 08:14] LABS: TRANSFERRIN 316 mg/dL (200-370)
== END ==
LOC: M SFHCPLAZ 09:28
DX: D53.9 Nutritional anemia, unspecified (principal)
CPT/HCPCS: 82746

== ENCOUNTER → 2018-05-21 | Outpatient (CLI) | payer OTHER ==
[2018-05-21 15:38] LABS: SLIDE REVIEW Report; SOURCE PERIPHERAL SMEAR
== END ==
LOC: M LAB 15:01
DX: J90 Pleural effusion, not elsewhere classified (principal); D72.821 Monocytosis (symptomatic)

== ENCOUNTER → 2018-07-09 | Outpatient (REF) | payer OTHER ==
[2018-07-09 12:05] LABS: HEMATOCRIT 40.2 % (36.0-47.0); HEMOGLOBIN 13.4 g/dl (12.0-15.5); MEAN CORPUSCULAR HEMOGLOBIN 29.8 pg (27.0-33.0); MEAN CORPUSCULAR HGB CONC 33.3 g/dl (32.0-36.5); MEAN CORPUSCULAR VOLUME 89.5 fl (80.0-96.0); PLATELET COUNT, AUTOMATED 304 10^3/uL (150-450); RED BLOOD COUNT 4.49 10^6/uL (4.00-5.40); RED CELL DISTRIBUTION WIDTH 12.5 % (11.5-14.5)
[2018-07-09 12:29] LABS: ALBUMIN 3.9 GM/DL (3.2-5.2); ALBUMIN/GLOBULIN RATIO 1.05 (1.00-1.93); ALKALINE PHOSPHATASE 86 U/L (45-117); ALT/SGPT 26 U/L (12-78); ANION GAP 5 MEQ/L (8-16); AST/SGOT 18 U/L (7-37); BILIRUBIN,TOTAL 0.4 MG/DL (0.2-1.0); BLOOD UREA NITROGEN 14 MG/DL (7-18); CALCIUM LEVEL 8.9 MG/DL (8.8-10.2); CARBON DIOXIDE LEVEL 32 MEQ/L (21-32); CHLORIDE LEVEL 102 MEQ/L (98-107); CREATININE FOR GFR 0.73 MG/DL (0.55-1.30); GLOMERULAR FILTRATION RATE > 60.0 (>45); GLUCOSE, FASTING 120 MG/DL (70-100); POTASSIUM SERUM 4.4 MEQ/L (3.5-5.1); SODIUM LEVEL 139 MEQ/L (136-145); TOTAL PROTEIN 7.6 GM/DL (6.4-8.2)
== END ==
LOC: M SFHCPLAZ 09:43
DX: D64.9 Anemia, unspecified (principal); I10 Essential (primary) hypertension; K76.0 Fatty (change of) liver, not elsewhere classified
CPT/HCPCS: 80053

== ENCOUNTER → 2018-09-07 | Outpatient (CLI) | payer OTHER ==
[~2018-09-07] MED LIST changes: +ALBU17IN INH; +AMAN100T PO; +AMAN10CA PO; +AMOX875T2 PO; +ASPI1TAB PO; +ASPI81TA60 PO; +AZEL0.055; +AZEL1SPR3; +BENA25CA4 PO; +BREO1INH INH; +BREO1INH3 INH; +CALC600T60 PO; +CALCTAB29 PO; +CETI10CH PO; +CETI10TA PO; +CLOZ100T2; +DEXI60CA2 PO; +DIGO0.12 PO; +ELIQ5TAB PO; +FERR1TAB8 PO; +FLON1SPR; +FLUTISP; +FURO20TA2 PO; +GABA-843 PO; +GABA-845 PO; +GABA600T4 PO; -GLUCAGON FOR INJ 1 MG VIAL (J1610) As Ordered; +IRON325T7 PO; -ISOVUE-370 76% 100ML VIAL (Q9967) As Ordered; +LAMO200T2 PO; +LAMO200T54 PO; +LATU20TA PO; +LISI-538 PO; +LISI10TA4 PO; +LISI20TA PO; +LITH150C PO; +LITH1TAB PO; +LORA-243 PO; +MAGN400C PO; +MAGN400T2 PO; +MECL-68 PO; +MELA3TAB24 PO; +METO1TAB87 PO; +METO25TA4 PO; +MIRA0.5T PO; +MIRA3350 PO; +MONT10TA2 PO; +MULT1TAB10 PO; +OMEP40CA2 PO; +PANT40TA3 PO; +PRAZ2CAP PO; +RANI150T PO; +REGL10TA6 PO; +REQU1TAB14 PO; +REXU1TAB2 PO; +SERT50TA PO; +SUCR10SS PO; +TRAZ-163 PO; +TYLE500T78 PO; +VENTAER INH; +VERA120C3 PO; +VERA12TASA PO; +VERA1TAB10 PO; +VITMTA PO; -VoLumen 0.1% SUSPENSION 450ML BOTTLE As Ordered; +ZOLP5TAB PO
--- NOTE | 2018-09-07 08:43 | REP ---
Abdominal right upper quadrant ultrasound including Doppler assessment of the portal vein: A recanalized umbilical vein was identified on a prior study of 05/05/2018, suggestive of portal hypertension. Portal vein Doppler assessment: Recanalization of the umbilical vein is again identified, as previously. The peak flow velocity in the main portal vein is 14, 0.8 millimeters per second. This is slightly above the maximal normal flow rate of 31.8 cm/sec. No vascular flow in the portal vein is antegrade. Abdominal right upper quadrant ultrasound: There is no cholelithiasis, gallbladder wall thickening or pericholecystic fluid. There is no intrahepatic or extrahepatic biliary duct dilatation. The common biliary duct measures 4.8 mm diameter. The hepatic parenchyma is slightly echogenic compatible with hepato steatosis. No hepatic masses or cysts are identified. The pancreas is obscured by bowel gas. The spleen measures at 10.7 x 7.0 x 10.8 cm and is normal size by splenic measurements. The splenic index is 590 (normal 120 - 480). No focal splenic lesions are identified. The right kidney measures 10.0 x 5.5 x 4.9 cm. Left kidney measures 829 x 5.7 x 4.8 cm. The left kidney is atrophic size. No solid or cystic renal masses are identified. There is no hydronephrosis. No renal calculi are identified. The abdominal aorta is unremarkable. Impression: Hepato steatosis. No focal hepatic masses. Spleen is normal size. Atrophic left kidney. Electronically Signed by Madi Hutchinson MD 09/07/2018 08:34 A
== END ==
LOC: M RAD 06:41
PROVIDERS: ATTEND Physician Assistant Medical
DX: R16.1 Splenomegaly, not elsewhere classified (principal); K76.1 Chronic passive congestion of liver; N26.1 Atrophy of kidney (terminal)

== ENCOUNTER 2018-09-11 12:22 | Day surgery (SDC) | payer OTHER ==
[~2018-09-11] VITALS: Ht 162.6 cm; Wt 102.0 kg
[2018-09-11] MEDS ORDERED: NS 1,000 ML IV ONE (13:45)
[2018-09-11] MEDS ORDERED: PROPOFOL 200 MG/20 ML VIAL As Ordered ONE ×3 (15:15→15:27)
[2018-09-11] MEDS ORDERED: LIDOCAINE 2% INJ 100 MG/5 ML SDV (FOR ANES.) As Ordered ONE (15:16)
--- NOTE | 2018-09-11 15:38 | ROOR ---
Patient Name: Cristina Marsh Procedure Date: 09/11/2018 3:14 PM Date of : 1955 Age: 63 Room: [facility] Gender: Female Note Status: Finalized Procedure: Upper GI endoscopy Indications: Abnormal CT of the GI tract Providers: Kamlesh CHOPRA MD Referring MD: Ayesha Jackman NP Requesting Provider: Medicines: Monitored Anesthesia Care Complications: No immediate complications. Procedure: Pre-Anesthesia Assessment: - The heart rate, respiratory rate, oxygen saturations, blood pressure, adequacy of pulmonary ventilation, and response to care were monitored throughout the procedure. The Endoscope was introduced through the mouth, and advanced to the second part of duodenum. The upper GI endoscopy was accomplished without difficulty. The patient tolerated the procedure well. Findings: The examined esophagus was normal. A medium-sized hiatal hernia was present. Evidence of a Phong fundoplication was found in the cardia. The wrap appeared loose with inflamed prolapsing fold. This was biopsied with a cold forceps for histology. The exam of the stomach was otherwise normal. The examined duodenum was normal. Impression: - Normal esophagus. - Medium-sized hiatal hernia. - A Phong fundoplication was found. The wrap appears loose and asymmetric with prolapsing inflamed mucosal fold up into the hiatal hernia. Biopsied. - Normal examined duodenum. Recommendation: - Continue present medications. - Telephone endoscopist for pathology results in 2 weeks. - Observe patient's clinical course. - If symptomatic with pain or severe reflux symptoms, consideration will be given to repair the Hiatal hernia/wrap. Kamlesh Chopra MD Kamlesh CHOPRA MD 09/11/2018 3:38:45 PM This report has been signed electronically. Number of Addenda: 0 Note Initiated On: 09/11/2018 3:14 PM Estimated Blood Loss: Estimated blood loss: none.
[2018-09-11 16:03] VITALS: BP 154/89
== END 2018-09-11 16:05 | disposition home or self-care (01) ==
LOC: M OPP 12:22
PROVIDERS: ATTEND Internal Medicine Gastroenterology
DX: K44.9 Diaphragmatic hernia without obstruction or gangrene (principal); Z98.890 Other specified postprocedural states; R93.3 Abnormal findings on diagnostic imaging of other parts of digestive tract; G47.30 Sleep apnea, unspecified; J45.909 Unspecified asthma, uncomplicated; I48.91 Unspecified atrial fibrillation; Z79.82 Long term (current) use of aspirin; Z79.899 Other long term (current) drug therapy; Z86.69 Personal history of other diseases of the nervous system and sense organs; Z86.19 Personal history of other infectious and parasitic diseases

== ENCOUNTER → 2018-12-10 | Outpatient (CLI) | payer OTHER ==
[~2018-12-10] MED LIST changes: +AMAN100C20 PO; -AMAN10CA PO; -ASPI1TAB PO; +ASPI81TA26 PO; +E-Z-GAS II EFFERVESCENT PACKET (SODIUM BICARB./CITRIC ACID/SIMETHICONE) As Ordered ONE; +E-Z-HD 98% w/w 340GM SUSP BTL As Ordered ONE; +E-Z-PAQUE 96% w/w SUSP 176GM BTL As Ordered ONE; +FERR325T82 PO; +FLUT50SP12; -FLUTISP; -IRON325T7 PO; +SERT-141 PO; -SERT50TA PO; +VERA120T4 PO; -VERA1TAB10 PO
--- NOTE | 2018-12-10 20:38 | REP ---
Examination Requested: Upper G.I. Series With KUB Reason For Exam: Diaphragmatic hernia without obstruction or gangrene Upper GI Air Contrast The procedure was performed by KATHRINE Haley, under the direct supervision of Dr. Euceda. The images were reviewed with Dr. Euceda. The rotor assembler film shows no organomegaly or pathological masses. The intestinal gas pattern appears normal. There is metal hardware noted, in the abdominal cavity, from a previous Glover alexey surgery. Liquid barium and gas producing crystals were given in the erect position as well as liquid barium in the prone oblique position in order to perform a double contrast upper GI examination. The oral and pharyngeal stages of deglutition demonstrated laryngeal penetration. Esophageal transport is efficient and there is no esophagitis, stricture, or mucosal ring noted. Tertiary contractions were noted throughout the course of the exam. There is a small fixed hiatal hernia. Gastroesophageal reflux was not noted throughout the course of this exam. The stomach whitlock are normally outlined. The rugal folds are smooth and regular. There is no gastritis, neoplasm, ulcer disease noted. The duodenal whitlock are normally outlined. The mucosal folds are smooth and regular. There is no duodenitis, peptic ulcer disease, or neoplasm noted. The visualized portion of the proximal small bowel appears normal in course and caliber. Impression; 1. Laryngeal penetration 2. Small fixed hiatal hernia is noted 3. Tertiary contractions 0.5 minutes of fluoroscopy time was utilized for this procedure. Reviewed by KATHRINE Puri 12/10/2018 03:38 P Electronically Signed by Toño Euceda MD 12/10/2018 08:29 P
== END ==
LOC: M RAD 09:13
PROVIDERS: ATTEND Surgery
DX: K44.9 Diaphragmatic hernia without obstruction or gangrene (principal); K22.9 Disease of esophagus, unspecified

== ENCOUNTER → 2018-12-14 | Outpatient (REF) | payer OTHER ==
[~2018-12-14] MED LIST changes: -E-Z-GAS II EFFERVESCENT PACKET (SODIUM BICARB./CITRIC ACID/SIMETHICONE) As Ordered ONE; -E-Z-HD 98% w/w 340GM SUSP BTL As Ordered ONE; -E-Z-PAQUE 96% w/w SUSP 176GM BTL As Ordered ONE
[2018-12-14 12:02] LABS: HEMATOCRIT 43.4 % (36.0-47.0); HEMOGLOBIN 14.1 g/dl (12.0-15.5); MEAN CORPUSCULAR HEMOGLOBIN 30.3 pg (27.0-33.0); MEAN CORPUSCULAR HGB CONC 32.5 g/dl (32.0-36.5); MEAN CORPUSCULAR VOLUME 93.3 fl (80.0-96.0); PLATELET COUNT, AUTOMATED 212 10^3/uL (150-450); RED BLOOD COUNT 4.65 10^6/uL (4.00-5.40); WHITE BLOOD COUNT 5.3 10^3/uL (4.0-10.0)
[2018-12-14 12:31] LABS: ALBUMIN 4.1 GM/DL (3.2-5.2); ALT/SGPT 17 U/L (12-78); BILIRUBIN,TOTAL 0.4 MG/DL (0.2-1.0); BLOOD UREA NITROGEN 16 MG/DL (7-18); CALCIUM LEVEL 9.4 MG/DL (8.8-10.2); CARBON DIOXIDE LEVEL 30 MEQ/L (21-32); CHLORIDE LEVEL 105 MEQ/L (98-107); CHOLESTEROL LEVEL 163 MG/DL (<200); CHOLESTEROL RISK RATIO 2.629 (<5); CREATININE FOR GFR 0.83 MG/DL (0.55-1.30); GLOMERULAR FILTRATION RATE > 60.0 (>45); GLUCOSE, FASTING 96 MG/DL (70-100); HDL CHOLESTEROL 62 MG/DL (>40); LDL CHOLESTEROL 83 MG/DL (<100); NON-HDL-C 101 MG/DL; POTASSIUM SERUM 5.1 MEQ/L (3.5-5.1); SODIUM LEVEL 140 MEQ/L (136-145); TOTAL PROTEIN 7.2 GM/DL (6.4-8.2); TRIGLYCERIDES LEVEL 89 MG/DL (<150)
[2018-12-14 12:53] LABS: CREATININE, URINE 29.2 MG/DL; MALB URINE SIEMENS < 5.0 MG/L; MAU/CREAT RATIO 17.1 MCG/MG (0.0-30.0)
== END ==
LOC: M SFHCPLAZ 08:17
PROVIDERS: ATTEND Nurse Practitioner Family
DX: Z13.220 Encounter for screening for lipoid disorders (principal); I10 Essential (primary) hypertension; K76.0 Fatty (change of) liver, not elsewhere classified; D64.9 Anemia, unspecified

== ENCOUNTER → 2019-01-15 | Outpatient (CLI) | payer OTHER ==
--- NOTE | 2019-01-15 16:09 | REP ---
MRI thoracic spine without contrast: History: Spinal fusion 1972. Post thoracic fusion. Back pain. Disc degeneration. No comparison thoracic spine study. Comparison chest x-ray May 21, 2018. Technique: Sagittal and axial T1 and T2-weighted scans are acquired in the usual fashion with and without fat saturation. Sequences include spin echo, turbo spin-echo, and STIR imaging sequences. MRI findings: There is metallic field susceptibility artifact emanating from posterior element fusion hardware throughout the thoracic spine from approximately T3 to the upper lumbar spine. There is no visible thoracic cord compression. There is some evidence of dorsal indentation of the spinal canal at the T1-2 level due to ligamentum flavum hypertrophy on the right. Normal cord signal intensity course and caliber are seen. There is substantial dextroconvex scoliotic curve noted in the thoracic spine. No thoracic disc protrusion is appreciated. There is mild bulging of the T1-2 and T2-3 discs. Impression: Dextroconvex thoracic scoliosis. Scoliosis fixation rods in the dorsal aspect of the thoracic spine. No cord compressive lesion. Diffuse disc bulging in the upper thoracic spine as above. Right-sided ligamentum flavum hypertrophy at T2-T3. Electronically Signed by Toño Euceda MD 01/15/2019 05:44 P
--- NOTE | 2019-01-15 16:12 | REP ---
MRI lumbar spine without contrast: History: Back pain. Disc degeneration. No comparison lumbar spine study. Technique: Sagittal and axial T1 and T2-weighted scans are acquired in the usual fashion with and without fat saturation. Sequences include spin echo, turbo spin-echo, and STIR imaging sequences. MRI findings: Magnetic field susceptibility artifact is seen in the dorsal extraspinal soft tissues from scoliosis fixation hardware. This extends down to the L1-2 region. There is a significant levoconvex curvature in the lumbar spine. No fracture or collapse is seen. There is degenerative disc disease at L1-2 with some reactive marrow edema at the superior endplate of L1. There is minimal diffuse disc bulging at L1-2. No canal stenosis is seen. No neural foraminal encroachment is appreciated. At L2-L3, there is degenerative disc narrowing and some reactive marrow changes. There is diffuse bulging of the posterior disc margin indenting the ventral margin of the thecal sac. Canal size is borderline. There is mild ligamentum flavum hypertrophy. No neural foraminal narrowing is appreciated. At L3-L4, there is diffuse disc bulging indenting the ventral margin of the thecal sac. Ligamentum flavum and facet hypertrophy are observed. Canal size is borderline. No neural foraminal encroachment. At L4-5, mild diffuse disc bulging is present. No neural foraminal encroachment is seen. There is ligamentum flavum hypertrophy. Mild central canal stenosis due to ligamentum flavum and facet hypertrophy is present at L4-5. At L5-S1, there is facet osteoarthritic hypertrophy bilaterally. No disc protrusion or foraminal narrowing is seen. Impression: Mild central canal stenosis at the L4-5 level. Degenerative disc and facet changes. Scoliosis surgery hardware in the upper lumbar and lower thoracic spine. Electronically Signed by Toño Euceda MD 01/15/2019 05:44 P
--- NOTE | 2019-01-15 16:20 | REP ---
MRI cervical spine without contrast: History: Disc degeneration. Back pain. Comparison MR cervical spine study September 22, 2017. Technique: Sagittal and axial T1 and T2-weighted scans are acquired in the usual fashion with and without fat saturation. Sequences include spin echo, turbo spin-echo, and STIR imaging sequences. MRI findings: Cervical vertebral body heights are preserved. There is a levoconvex curvature in the cervical spine. Alignment is otherwise normal. Cervical cord is normal in coarse, caliber and signal intensity on T1 and T2-weighted scans. Craniocervical junction is unremarkable. Axial and sagittal images at the C2-3 level show no abnormality. At C3-4, there is minimal left-sided uncovertebral spurring. No central canal stenosis or disc protrusion. At C4-5, there is mild central canal stenosis due to ligamentum flavum hypertrophy bilaterally and diffuse disc bulging ventrally effacing the subarachnoid space. No focal disc herniation is seen. Minimal uncovertebral spurring is present bilaterally. At C5-6, there is mild diffuse disc bulging. Minimal uncovertebral spurring is seen. No central canal stenosis is seen. At C6-7 there is diffuse disc bulging and mild uncovertebral spurring bilaterally. There is borderline canal size at C6-7. At C7-T1, there is bilateral uncovertebral spurring and minimal central disc bulging. No cord compression. Impression: Degenerative spondylosis changes as noted above. Central canal stenosis at the C4-5 due to diffuse disc bulging and bilateral dorsal lateral ligamentum flavum hypertrophy. Electronically Signed by Toño Euceda MD 01/15/2019 05:45 P
== END ==
LOC: M PLARAD 12:56
PROVIDERS: ATTEND Physician Assistant
DX: Z98.1 Arthrodesis status (principal); M41.04 Infantile idiopathic scoliosis, thoracic region; M51.24 Other intervertebral disc displacement, thoracic region; M25.78 Osteophyte, vertebrae; M50.221 Other cervical disc displacement at C4-C5 level; M51.36 Other intervertebral disc degeneration, lumbar region

== ENCOUNTER → 2019-02-11 | Outpatient (CLI) | payer OTHER ==
--- NOTE | 2019-02-11 16:00 | REPMRS ---
Patient History The patient states she has not had a clinical breast exam in over a year. Patient is postmenopausal. No known family history of cancer. Benign excisional biopsy of the right breast. No Hormone Replacement Therapy 3D TOMOSYNTHESIS WAS PERFORMED. [facility] lifetime risk for breast cancer is 6.9%. Digital Woman Screen Mammo: February 11, 2019 - Exam #: [id number] Bilateral CC and MLO view(s) were taken. Technologist: Trina Thorpe, Technologist Prior study comparison: June 12, 2016, digital woman screen mammo performed at [facility]. January 09, 2012, digital woman screen mammo performed at [facility]. FINDINGS: There are scattered fibroglandular densities. There has been no change in the appearance of the mammogram from the prior studies. There is a mild amount of residual fibroglandular tissue which is fairly symmetric. There is no interval development of dominant mass, architectural distortion, or clustered microcalcification suggestive of malignancy. Assessment: BI-RADS/ACR category 1 mammogram. Negative Mammogram. Recommendation Routine screening mammogram in 1 year (for women over age 40). This mammogram was interpreted with the aid of an FDA-approved computer-aided dectection system. Electronically Signed By: Madi Boothe MD 02/11/19 1600
== END ==
LOC: M WHC 13:37
PROVIDERS: ATTEND Nurse Practitioner Family
DX: Z12.31 Encounter for screening mammogram for malignant neoplasm of breast (principal); Z78.0 Asymptomatic menopausal state

== ENCOUNTER → 2019-02-19 | Outpatient (CLI) | payer OTHER ==
--- NOTE | 2019-02-19 12:35 | REPVR ---
EXAM: MR Head Without Contrast EXAM DATE/TIME: 02/19/2019 11:06 AM CLINICAL HISTORY: 63 years old, female; Altered mental status/memory loss; Confusion or disorientation; Patient HX: HX CVA, confusion slurred speech that has subsided; Additional info: Cerbral vascular disease TECHNIQUE: Imaging protocol: MR of the head without contrast. COMPARISON: MRI-Brain without Contrast 04/10/2018 11:39 AM FINDINGS: Brain: There are scattered nonspecific foci of high signal abnormality in the paz radiata and centrum semiovale. These are best seen on the flair images. These foci may represent areas of gliosis, demyelination, and/or chronic ischemic change. Ventricles: Normal. No ventriculomegaly. Bones/joints: Unremarkable. Soft tissues: Normal. Sinuses: Normal as visualized. No acute sinusitis. Mastoid air cells: There is mild bilateral mastoid disease. Orbits: Unremarkable. IMPRESSION: There are scattered nonspecific foci of high signal abnormality in the paz radiata and centrum semiovale, similar to prior study. These are best seen on the flair images. These foci may represent areas of gliosis, demyelination, and/or chronic ischemic change. Electronically signed by: Vickey Bruner On 02/19/2019 12:35:15 PM
== END ==
LOC: M PLARAD 08:55
PROVIDERS: ATTEND Physician Assistant Medical
DX: I67.89 Other cerebrovascular disease (principal); R51 Headache; R47.89 Other speech disturbances

== ENCOUNTER → 2019-04-19 | Outpatient (CLI) | payer OTHER ==
[~2019-04-19] MED LIST changes: -DIGO0.12 PO; +DIGO0.123 PO; -LAMO200T2 PO; +LAMO200T3 PO; -LISI20TA PO; +LISI20TA19 PO; -MECL-68 PO; +MECL1TAB31 PO; -OMEP40CA2 PO; +OMEP40CA97 PO; -TRAZ-163 PO; +TRAZ-257 PO
--- NOTE | 2019-05-02 23:59 | ECWPNPC ---
PATIENT NAME: DIYA QUINONEZ : 1955 GENDER: FEMALE VISIT DATE: 04/19/2019 DISCHARGE DATE: 04/19/19 1417 VISIT LOCKED DATE TIME: PHYSICIAN: AMADOU RASHID MD RESOURCE: AMADOU RASHID MD REASON FOR APPOINTMENT 1. LOW BACK AND LEG PAIN-PREVIOUS PATIENT 2015 HISTORY OF PRESENT ILLNESS PAIN SCREENING: PATIENT HAS A COMPLAINT OF ACUTE OR CHRONIC PAIN :YES 64 YEAR OLD FEMALE PATIENT WITH A HISTORY OF CHRONIC LOW BACK AND LEG PAIN. THE PATIENT DESCRIBES THE PAIN ACHING, BURNING, STABBING, THROBBING AND CONTINUOUS WITH A PAIN SCORE OF 7-10/10 DEPENDING ON PHYSICAL ACTIVITY. PATIENT STATES THE PAIN STARTS IN THE LOWER BACK AND RADIATES DOWN BOTH LEGS BUT MAINLY THE RIGHT LEG. THE PATIENT SAYS SHE HAS BEEN SUFFERING FROM THIS PAIN FOR SEVERAL YEARS. PATIENT USING ELIQUIS DUE TO A HEART CONDITION, BUT WAS INFORMED THAT THIS MEDICATION CAN BE STOPPED IF NEEDED. PATIENT DENIES UNEXPLAINABLE WEIGHT LOSS, FEVER, CHILLS, NEW CHANGES ON HER URINARY OR BOWEL CONTROL. FALL RISK SCREENING: SCREENING :NO FALLS REPORTED IN THE LAST YEAR CURRENT MEDICATIONS TAKING CALCIUM 600 + D 600-400 MG-UNIT TABLET 1 TABLET ORALLY ONCE A DAY TAKING MULTIVITAMINS TABLET 1 TAB ORALLY DAILY TAKING MIRALAX - PACKET 1 PACKET MIXED WITH 8 OUNCES OF FLUID ORALLY ONCE A DAY, NEEDED TAKING PRAMIPEXOLE DIHYDROCHLORIDE 0.25 MG TABLET 1 TABLET BEFORE BEDTIME ORALLY ONCE A DAY, NOTES: CAMILLA MARKSMICHELLESHARI TAKING ZOLPIDEM TARTRATE 10 MG TABLET 1 TABLET AT BEDTIME NEEDED ORALLY ONCE A DAY TAKING ELIQUIS 5 MG TABLET ORALLY BID, NOTES: CARDIOLOGY TAKING VERAPAMIL HCL 120 MG TABLET 1 TABLET ORALLY ONCE A DAY TAKING METOPROLOL TARTRATE 25 MG TABLET 1 TABLET WITH FOOD ORALLY TWICE A DAY TAKING DIGOXIN 125 MCG TABLET 1 TABLET ORALLY ONCE A DAY TAKING DEXILANT 60 MG CAPSULE DELAYED RELEASE 1 CAPSULE ORALLY ONCE A DAY TAKING LAMOTRIGINE 200 MG TABLET DISINTEGRATING 1 TABLET ON THE TONGUE AND ALLOW TO DISSOLVE ORALLY ONCE A DAY, NOTES: CAMILLAErik NELSON TAKING LATUDA 40 MG TABLET 1 TABLET ORALLY BID, NOTES: CAMILLA SANTYSHARI TAKING GABAPENTIN 300 MG CAPSULE 1 CAP ORALLY THREE TIMES DAILY TAKING REQUIP 0.25 MG TABLET 1 TABLET 1 TO 3 HOURS BEFORE BEDTIME ORALLY ONCE A DAY NOT-TAKING PANTOPRAZOLE SODIUM 40 MG TABLET DELAYED RELEASE 1 TABLET ORALLY TWICE DAILY NOT-TAKING SUCRALFATE 1 GM TABLET 1 TABLET AT BEDTIME ON AN EMPTY STOMACH BEFORE MEALS ORALLY BEFORE MEALS AND AT BEDTIME NOT-TAKING MECLIZINE HCL 25 MG TABLET 1 TABLET NEEDED ORALLY ONCE A DAY PRN, NOTES: CAMILLA NELSON NOT-TAKING CETIRIZINE HCL 10 MG TABLET 1 TABLET ORALLY ONCE A DAY NOT-TAKING MAGNESIUM OXIDE 400 MG TABLET 1 TABLET ORALLY ONCE A DAY MEDICATION LIST REVIEWED AND RECONCILED WITH THE PATIENT PAST MEDICAL HISTORY 2001 CHRONIC HEPATITIS C GENOTYPE 2A, VL 2.7MILLION , RVR ON TREATMENT UNDETECTABLE VL 11/04, END OF TX 03/03/2010 BIPOLAR DISORDER GERD GASTRITIS OBESITY ASTHMA INSOMNIA SCOLIOSIS BREAST LUMPECTOMY/RIGHT BREAST 2009 DDD CERVICAL SPINE SPINAL FUSION 1973 SPINAL EXPLORATORY 1975 ANEMIA COLONOSCOPY 2015 EGD 2015 HIATAL HERNIA PAROXYSMAL AFIB FATTY LIVER: BY U/S 05/05/2018 TRANSESOPHAGEAL ECHO 07/2018: TRICUSPID, MITRAL AND AORTIC VALVE NORMAL IN THICKNESS AND EXCURSION, MILD MITRAL INSUFFICIENCY, TRACE AORTIC INSUFFICIENCY, INTERATRIAL SEPTUM INTACT, EF NORMAL TRANSTHROACIC ECHO: NORMAL LV DIMENSION AND WALL THICKNESS. NORMAL LV WALL MOTION AND WALL THICKENING. NORMAL SYSTOLIC FUNCTION, EF 70%. NORMAL DIASTOLIC FUNCTION ALLERGIES ENVIRONMENTAL SURGICAL HISTORY FRACTURE RADIUS BREAST BIOPSY BENIGN DR OLMOS/ RIGHT BREAST/BENIGN 2008 EGD GASTRITIS 2007 BACK SURGERY FOR SCOLIOSIS/ ROWELL ZENAIDA , BLOOD TRANSFUSION 1974 PLACENTA PREVIA BLOOD TRANSFUSION COLONOSCOPY 05/04 DEVIATED SEPTUM REPAIR 09/07 CARDIAC CATHETERIZATION 2007 HERNIA SX- [facility] FAMILY HISTORY FATHER: , FATHER COMMITTED SUICIDE; MENTAL HEALTH PROBLEMS, HTN MOTHER: , MURDERED BY HER FATHER WHEN SHE WAS 18 SIBLINGS: BROTHER OF A PE; SISTER IN AN MVA 4 SON(S) , 1 DAUGHTER(S) - HEALTHY. DENIES KNOWN FAMILY HISTORY OF COLON OR BREAST CANCER.SISTER HAS HEART DISEASE. SOCIAL HISTORY GENERAL: TOBACCO USE ARE YOU A:FORMER SMOKER HOW LONG HAS IT BEEN SINCE YOU LAST SMOKED?> 10 YEARS HIV / HEP-C SCREENING HIV TEST OFFERED TO PATIENT:NO DENIED 06/19/2016 HEP-C TEST OFFERED TO PATIENT:YES HAD A HISTORY OF HEP. C DATE OFFERED:06/19/2016 TEST ACCEPTED:NO REASON:OTHER (DOCUMENT IN NOTE) OTHERS AT HOME: CHILD. EDUCATION LEVEL OF EDUCATION:FINISHED HIGH SCHOOL LANGUAGE LANGUAGES SPOKEN:[place]BE[place] DOMESTIC VIOLENCE DO YOU FEEL SAFE IN YOUR ENVIRONMENT?YES NEW PATIENT PAIN DIARY PATIENT DESCRIBES PAIN :ACHING, BURNING, HAVE IT ALL THE TIME, SHARP FROM 0-10, WHAT LEVEL IS YOUR PAIN TODAY?7 ALLEVIATING FACTORS SITTING, HEATING PAD, HOT SHOWER BMI CARE GOAL FOLLOW-UP ABOVE NORMAL BMI FOLLOW-UPDIETARY MANAGEMENT EDUCATION, GUIDANCE, AND COUNSELING, GIVING ENCOURAGEMENT TO EXERCISE RECREATIONAL DRUG USE DRUG USE?NO EXERCISE: NONE. LEARNING BARRIERS / SPECIAL NEEDS CHANGE FROM LAST VISIT?NO BARRIERS TO LEARNING?NO HEARING IMPAIRED?YES HEARING AIDES VISION IMPAIRED?YES COGNITIVELY IMPAIRED?NO :HEARING AIDES :CORRECTIVE LENSES READINESS TO LEARN?YES LEARNING PREFERENCES?YES :HANDOUTS LEARNING CAPABILITIES PRESENT?YES EMOTIONAL BARRIERS?NO SPECIAL DEVICES?NO BARGE ENGINEER NEEDED?NO PAIN CLINIC PFS, CLERGY, PUBLIC HEALTH REFERRALS HAS THE PATIENT BEEN EDUCATED REGARDING HIS/HER PLAN OF CARE?YES HAS THE PATIENT BEEN EDUCATED REGARDING PAIN, THE RISK FOR PAIN, THE IMPORTANCE OF EFFECTIVE PAIN MANAGEMENT, AND THE PAIN ASSESSMENT PROCESS?YES LATEX QUESTIONNAIRE LATEX ALLERGY : HAVE YOU EVER DEVELOPED ANY TYPE OF REACTION AFTER HANDLING LATEX PRODUCTS SUCH RUBBER GLOVES, CONDOMS, DIAPHRAGMS, BALLOONS, SOCKS, OR UNDERWEAR?NO LATEX ALLERGY : HAVE YOU EVER DEVELOPED ANY TYPE OF REACTION DURING OR AFTER DENTAL APPOINTMENT, VAGINAL/RECTAL EXAMINATION, SURGICAL PROCEDURE, OR ANY OTHER EXPOSURE?NO LATEX RISK : HAVE YOU EVER HAD ANY DIFFICULTY BREATHING OR HIVES AFTER EATING OR HANDLING ANY FRUITS, OR VEGETABLES; SUCH KIWI, BANANAS, STONE FRUITS, OR CHESTNUTSNO LATEX RISK : DO YOU HAVE A PREVIOUS PERSONAL HISTORY OF MORE THAN NINE SURGERIES, SPINA BIFIDA, OR REPEATED CATHERIZATIONS? YES - PLEASE INDICATE : > 9 SURGERIES LATEX RISK : ARE YOU FREQUENTLY EXPOSED TO LATEX PRODUCTS IN YOUR OCCUPATION?NO DATE ASKED : 12/14/2018 CAFFEINE CAFFEINE USE?YES HOW OFTEN AND HOW MUCH? DAILY CUP OF COFFEE ADVANCE DIRECTIVE ADVANCE DIRECTIVE DISCUSSED WITH PATIENT:YES PT HAS NO ADVANCED DIRECTIVES, GIVEN INFORMATION. 04/19/19 [facility]. MARITAL STATUS: , SINGLE. ALCOHOL SCREENING DID YOU HAVE A DRINK CONTAINING ALCOHOL IN THE PAST YEAR?YES HOW OFTEN DID YOU HAVE SIX OR MORE DRINKS ON ONE OCCASION IN THE PAST YEAR?NEVER (0 POINTS) HOW MANY DRINKS DID YOU HAVE ON A TYPICAL DAY WHEN YOU WERE DRINKING IN THE PAST YEAR?1 OR 2 (0 POINTS) HOW OFTEN DID YOU HAVE A DRINK CONTAINING ALCOHOL IN THE PAST YEAR?MONTHLY OR LESS (1 POINT) POINTS1 INTERPRETATIONNEGATIVE OCCUPATION: DISABLED. SEXUAL HX HAD SEX IN THE LAST 12 MONTHS (VAGINAL, ORAL, OR ANAL)?NO HAVE YOU EVER HAD AN STD?NO REVIEWED WITH PATIENT 04/19/19 LAS. HOSPITALIZATION/MAJOR DIAGNOSTIC PROCEDURE HOSPITALIZED X 2 FOR ANEMIA 2015 A-FIB 1 WEEK POST HERNIA SX 04-1 TILL 11/05/2017 REVIEW OF SYSTEMS REVIEWED BY: PROVIDER: AMADOU RASHID MD . CONSTITUTIONAL: ANY CHANGE IN YOUR MEDICAL CONDITION? NO . CHILLS NO . FEVER NO . INFECTION: DO YOU HAVE NEW INFECTIONS? NO . DO YOU HAVE HISTORY OF MRSA? NO . MUSCULOSKELETAL: ANY NEW PATTERNS OF PAIN OR NUMBNESS? NO . SYTEMIC LUPUS NO . GASTROENTEROLOGY: ANY NEW CHANGE IN BOWEL CONTROL? NO . BARRETTS ESOPHAGUS NO . CIRRHOSIS NO . HEPATITIS YES HISTORY OF HEPATITIS, TREATED WITH MEDICATION, NOW UNDETECTABLE . LIVER FAILURE NO . ACID REFLUX YES . UNEXPLAINED WEIGHT LOSS NO . GENITOURINARY: ANY NEW CHANGE IN BLADDER CONTROL? NO . IS THERE A CHANCE YOU COULD BE ? NO . HEMATOLOGY/LYMPH: DO YOU TAKE ANY BLOOD THINNERS? (FOR EXAMPLE- COUMADIN, PLAVIX, AGGRENOX, PLATEL, PRADAXA, OR XARELTO) YES, ELIQUIS . WHEN WAS YOUR LAST DOSE? DATE: TIME: . LOW PLATELET COUNT NO . SICKLE CELL DISEASE NO . VON WILLIEBRANDS NO . FACTOR V LEIDEN NO . THALLASEMIA NO . ANEMIA YES HISTORY OF ANEMIA, NOW RESOLVED . EASY BRUISING NO . NEUROLOGY: HAVE YOU FALLEN IN THE PAST 12 MONTHS? NO NO RECENT FALLS, SEES A NEUROLOGIST FOR DIZZINESS . ANY NEW EXTREMITY NUMBNESS OR WEAKNESS? NO . HEAD INJURY YES HAS HAD CONCUSSION . DEMENTIA NO . CEREBRAL PALSY NO . MULTIPLE SCLEROSIS NO . DIZZINESS WHEN WALKING AT TIMES, SENSATION OF IMBALANCE . HEADACHE NO . STROKES HAS HAD A TIA . VERTIGO NO . CARDIOLOGY: DO YOU HAVE A PACEMAKER OR DEFIBRILLATOR? NO . ANGINA NO . HEART ATTACK NO . HEART SURGERY NO . CONGESTIVE HEART FAILURE/FLUID OVERLOAD NO . CHEST PAIN NO . HIGH BLOOD PRESSURE ON MEDICATION(S) . IRREGULAR HEART BEAT DEVELOPED AFIB AFTER SURGERY . RESPIRATORY: HAVE YOU BEEN SICK IN THE PAST WEEK? NO . FEVER NO . FLU LIKE SYMPTOMS? NO . CPAP YES . BYPAP NO . ASTHMA YES . EMPHYSEMA NO . CHRONIC LUNG DISEASES NO . SHORTNESS OF BREATH ON EXERTION NO . COUGH NO . SNORING YES . INTEGUMENTARY: DO YOU HAVE ANY RASHES OR OPEN SORES? NO . ALLERGIC/IMMUNO: ARE YOU ALLERGIC TO IV DYE? NO . ANY NEW ALLERGIES? NO . PSYCHIATRIC: DO YOU HAVE THOUGHTS OF HURTING YOURSELF OR SOMEONE ELSE? NO . ARE YOU ABUSED, NEGLECTED, OR IN AN UNSAFE ENVIRONMENT? NO . ENDOCRINOLOGY: ARE YOU DIABETIC? NO . THYROID DISORDER NO . OTHER: DO YOU NEED ANY PRESCRIPTIONS? NO . IF YES, PLEASE LIST: ____ . ANY NEW PROBLEMS WITH YOUR MEDICATIONS? NO . WHEN DID YOU LAST EAT? ____ . WHEN DID YOU LAST DRINK? ____ . WHAT DID YOU LAST DRINK? ____ . NAME OF PERSON DRIVING YOU HOME? ____ . DO YOU HAVE ANY OTHER QUESTIONS OR CONCERNS PT WOULD LIKE TO DISCUSS POSSIBILITY OF DIFFERENT MEDICATIONS OR INJECTIONS, STATES HER PAIN IS CONSTANT AND INCREASING IN SEVERITY. . VITAL SIGNS WT 230.6 LBS, HT 64 IN, BMI 39.58 INDEX, BP 151/71 MM HG, HR 69 /MIN, RR 18 /MIN, TEMP 97.1 F, OXYGEN SAT % 95%, SAFE IN ENV? (Y/N) YES, NA INITIALS AW 1317, REVIEWED BY: DEBBY. EXAMINATION GENERAL EXAMINATION: PATIENT IS ALERT O X 3 AND COOPERATIVE. LUNGS CLEAR, TO AUSCULTATION. HEART: NO MURMURS OR GALLOPS; FACIAL CRANIAL NERVES ARE GROSSLY NORMAL. GOOD SYMMETRY OF FACIAL MUSCLE MOVEMENT. NORMAL VISUAL SCHAFER. ANTALGIC WALK. RIGHT LEG WEAKER AT EXTENSION AND FLEXION. STRAIGHT LEG RAISE OF THE RIGHT LEG IS POSITIVE AT 45 DEGREES FOR RADICULOPATHY. XRAY THORACIC SPINE DONE 05/31/2016 IS IN PATIENTS CHART. ASSESSMENTS LOW BACK PAIN - M54.5 (PRIMARY) OTHER CHRONIC PAIN - G89.29 INTERVERTEBRAL DISC DISORDERS WITH RADICULOPATHY, LUMBAR REGION - M51.16 TREATMENT LOW BACK PAIN CLINICAL NOTES: WE DISCUSSED SEVERAL ISSUES WITH MS. QUINONEZ'S PAIN MANAGEMENT CASE. PATIENT STATES SHE HAD AN MRI OF THE LUMBAR SPINE DONE 2018, WHICH WE WILL REQUEST A COPY FOR REVIEW. ONCE I RECEIVE MRI AND HAVE REVIEWED THE RESULTS, WE CAN CONSIDER INTERVENTIONS SUCH AN EPIDURALS, PATIENT HAS CLINICAL SIGNS OF RADICULOPATHY, BUT I WILL NEED TO SEE THE MRI COPY FIRST. I WILL REQUEST CLEARANCE FROM PRIMARY CARE PHYSICIAN TO STOP ELOQUIS FOR ANY FUTURE PROCEDURES THAT MAY BE DONE. PATIENT WILL FOLLOW UP WITH ME IN A FEW WEEKS TO REVIEW MRI AND DISCUSS OPTIONS. INSTRUCTIONS WERE GIVEN, QUESTIONS WERE ANSWERED, PATIENT REPORTS UNDERSTANDING AND AGREES WITH THE PLAN. I, MANNY CHANG, DOCUMENTED THE ABOVE INFORMATION ACTING A SCRIBE FOR DR. RASHID. I HAVE REVIEWED THE ABOVE DOCUMENT, WRITTEN BY MANNY CHANG SCRIBE AND I VERIFY THAT IT IS ACCURATE. [facility]-: THANK YOU FOR YOUR KIND REFERRAL OF MS. QUINONEZ. IF YOU WANT TO DISCUSS HER CASE WITH ME PLEASE CALL ME AT THE PAIN CENTER AT [phone]. SINCERELY, AMADOU RASHID MD PAIN MEDICINE . PROCEDURE CODES FA211 ESTABILISHED PATIENT [facility] FACILITY CHARGE [id number] CURRENT MEDS W/DOSAGES DOCUMENTED [id number] PAIN ASSESS POS TOOL F/U PLAN DOC DISPOSITION & COMMUNICATION FOLLOW UP REASON: AFTER RECEIVE COPY MRI ELECTRONICALLY SIGNED BY AMADOU RASHID MD, MD ON 05/02/2019 AT 04:35 PM EDT DISCLAIMER : THIS IS A VISIT SUMMARY EXTRACTED FROM THE [employer] CHART. IT IS NOT A COPY OF THE [employer] PROGRESS NOTE. PIERCE
== END ==
LOC: M PAIN 13:00
PROVIDERS: ATTEND Anesthesiology
DX: M54.5 Low back pain (principal); G89.29 Other chronic pain; M51.16 Intervertebral disc disorders with radiculopathy, lumbar region; Z86.59 Personal history of other mental and behavioral disorders; K21.9 Gastro-esophageal reflux disease without esophagitis; J45.909 Unspecified asthma, uncomplicated; G47.00 Insomnia, unspecified; Z87.891 Personal history of nicotine dependence; Z86.19 Personal history of other infectious and parasitic diseases; Z79.01 Long term (current) use of anticoagulants; Z79.899 Other long term (current) drug therapy

== ENCOUNTER → 2019-09-13 | Outpatient (CLI) | payer OTHER ==
[~2019-09-13] MED LIST changes: -MONT10TA2 PO; +MONT10TA4 PO; -SUCR10SS PO; +SUCR1ORA2 PO
[2019-09-13 15:38] LABS: HEMATOCRIT 42.6 % (36.0-47.0); MEAN CORPUSCULAR HEMOGLOBIN 31.3 pg (27.0-33.0); MEAN CORPUSCULAR HGB CONC 32.9 g/dl (32.0-36.5); MEAN CORPUSCULAR VOLUME 95.3 fl (80.0-96.0); PLATELET COUNT, AUTOMATED 258 10^3/uL (150-450); RED BLOOD COUNT 4.47 10^6/uL (4.00-5.40); WHITE BLOOD COUNT 8.4 10^3/uL (4.0-10.0)
[2019-09-13 15:49] LABS: INR 1.24; PROTHROMBIN TIME 15.3 SECONDS (11.8-14.0)
[2019-09-13 16:00] LABS: HEMOGLOBIN A1c 4.9 %
[2019-09-13 16:17] LABS: ALT/SGPT 19 U/L (12-78); BILIRUBIN,TOTAL 0.4 MG/DL (0.2-1.0); BLOOD UREA NITROGEN 10 MG/DL (7-18); CALCIUM LEVEL 9.3 MG/DL (8.8-10.2); CARBON DIOXIDE LEVEL 27 MEQ/L (21-32); CHLORIDE LEVEL 105 MEQ/L (98-107); CHOLESTEROL LEVEL 158 MG/DL (<200); CHOLESTEROL RISK RATIO 2.872 (<5); CREATININE FOR GFR 0.97 MG/DL (0.55-1.30); FERRITIN 29 NG/ML (8-252); FOLATE 9.9 NG/ML (>5.4); GLOMERULAR FILTRATION RATE > 60.0 (>45); GLUCOSE, FASTING 83 MG/DL (70-100); HDL CHOLESTEROL 55 MG/DL (>40); LDL CHOLESTEROL 73 MG/DL (<100); NON-HDL-C 103 MG/DL; POTASSIUM SERUM 4.7 MEQ/L (3.5-5.1); SODIUM LEVEL 138 MEQ/L (136-145); TOTAL 25(OH) VITAMIN D 30.2 NG/ML (30.0-100.0); TOTAL PROTEIN 7.4 GM/DL (6.4-8.2); TRIGLYCERIDES LEVEL 151 MG/DL (<150); VITAMIN B12 LEVEL 784 PG/ML (247-911)
== END ==
LOC: M LAB 13:40
PROVIDERS: ATTEND Surgery
DX: Z71.89 Other specified counseling (principal)

== ENCOUNTER → 2019-09-13 | Outpatient (CLI) | payer OTHER ==
[2019-09-13 15:38] LABS: HEMATOCRIT 42.1 % (36.0-47.0); MEAN CORPUSCULAR HEMOGLOBIN 31.8 pg (27.0-33.0); MEAN CORPUSCULAR HGB CONC 33.3 g/dl (32.0-36.5); MEAN CORPUSCULAR VOLUME 95.7 fl (80.0-96.0); PLATELET COUNT, AUTOMATED 252 10^3/uL (150-450); WHITE BLOOD COUNT 8.5 10^3/uL (4.0-10.0)
[2019-09-13 16:00] LABS: HEMOGLOBIN A1c 4.9 %
[2019-09-13 16:10] LABS: ALT/SGPT 20 U/L (12-78); BILIRUBIN,TOTAL 0.4 MG/DL (0.2-1.0); BLOOD UREA NITROGEN 10 MG/DL (7-18); CALCIUM LEVEL 9.1 MG/DL (8.8-10.2); CARBON DIOXIDE LEVEL 28 MEQ/L (21-32); CHLORIDE LEVEL 106 MEQ/L (98-107); CHOLESTEROL LEVEL 154 MG/DL (<200); CREATININE FOR GFR 0.94 MG/DL (0.55-1.30); GLOMERULAR FILTRATION RATE > 60.0 (>45); GLUCOSE, FASTING 85 MG/DL (70-100); HDL CHOLESTEROL 56 MG/DL (>40); LDL CHOLESTEROL 67 MG/DL (<100); LITHIUM LEVEL 0.88 MEQ/L (0.60-1.20); NON-HDL-C 98 MG/DL; PHOSPHORUS LEVEL 3.3 MG/DL (2.5-4.9); POTASSIUM SERUM 4.7 MEQ/L (3.5-5.1); SODIUM LEVEL 138 MEQ/L (136-145); TOTAL PROTEIN 7.5 GM/DL (6.4-8.2); TRIGLYCERIDES LEVEL 155 MG/DL (<150)
[2019-09-13 16:14] LABS: TOTAL 25(OH) VITAMIN D 32.3 NG/ML (30.0-100.0)
== END ==
LOC: M LAB 13:45
PROVIDERS: ATTEND Nurse Practitioner Psychiatric/Mental Health
DX: F31.9 Bipolar disorder, unspecified (principal)

== ENCOUNTER → 2019-09-14 | Outpatient (REF) | payer OTHER | LOC: M LAB 13:35 | PROVIDERS: ATTEND Surgery | DX: Z71.89 Other specified counseling (principal) ==

== ENCOUNTER → 2019-10-08 | Outpatient (CLI) | payer OTHER ==
--- NOTE | 2019-10-22 04:23 | ECWPNPC ---
PATIENT NAME: DIYA QUINONEZ : 1955 GENDER: FEMALE VISIT DATE: 10/08/2019 DISCHARGE DATE: 10/08/19 1259 VISIT LOCKED DATE TIME: PHYSICIAN: AMADOU RASHID MD RESOURCE: AMADOU RASHID MD REASON FOR APPOINTMENT 1. PER DR. Sims HISTORY OF PRESENT ILLNESS HISTORY OF PRESENT ILLNESS: PAIN THE PATIENT DESCRIBES THE PAIN... 64 YEAR OLD FEMALE PATIENT WITH A HISTORY OF CHRONIC LOW BACK AND BILATERAL LEG PAIN. THE PATIENT DESCRIBES THE PAIN ACHING, BURNING, SORE, SHARP, SHOOTING, NUMBNESS, AND CONTINUOUS WITH A PAIN SCORE OF 6-9/10 DEPENDING ON PHYSICAL ACTIVITY. THE PATIENT STATES HER PAIN BEGINS IN HER LOW BACK AND RADIATES DOWN MAINLY HER RIGHT LEG. THE PATIENT HAS BEEN SUFFERING FROM HER PAIN FOR MANY YEARS. THE PATIENT HAS A HISTORY OF BACK SURGERY FOR SCOLIOSIS, BUT HER PAIN PERSISTS. PATIENT DENIES UNEXPLAINABLE WEIGHT LOSS, FEVER, CHILLS, NEW CHANGES ON HER URINARY OR BOWEL CONTROL. FALL RISK SCREENING: SCREENING :NO FALLS REPORTED IN THE LAST YEAR CURRENT MEDICATIONS TAKING VERAPAMIL HCL 120 MG TABLET 1 TABLET ORALLY ONCE A DAY TAKING METOPROLOL TARTRATE 25 MG TABLET 1 TABLET WITH FOOD ORALLY TWICE A DAY TAKING DEXILANT 60 MG CAPSULE DELAYED RELEASE 1 CAPSULE ORALLY ONCE A DAY TAKING DIGOXIN 125 MCG TABLET 1 TABLET ORALLY ONCE A DAY TAKING ELIQUIS 5 MG TABLET ORALLY BID, NOTES: CARDIOLOGY TAKING CALCIUM 600 + D 600-400 MG-UNIT TABLET 1 TABLET ORALLY ONCE A DAY TAKING MULTIVITAMINS TABLET 1 TAB ORALLY DAILY TAKING MIRALAX - PACKET 1 PACKET MIXED WITH 8 OUNCES OF FLUID ORALLY ONCE A DAY, NEEDED TAKING LAMOTRIGINE 200 MG TABLET DISINTEGRATING 1 TABLET ON THE TONGUE AND ALLOW TO DISSOLVE ORALLY ONCE A DAY, NOTES: CAMILLA NELSON TAKING LATUDA 40 MG TABLET 1 TABLET ORALLY BID, NOTES: CAMILLA NELSON TAKING LITHIUM CARBONATE 300 MG CAPSULE TAKE ONE CAPSULE BY MOUTH EVERY MORNING 2 EVERY NIGHT ORAL TAKING REQUIP 0.25 MG TABLET 1 TABLET 1 TO 3 HOURS BEFORE BEDTIME ORALLY ONCE A DAY TAKING GABAPENTIN 300 MG CAPSULE 1 CAP ORALLY THREE TIMES DAILY NOT-TAKING REQUIP 0.25 MG TABLET 1 TABLET 1 TO 3 HOURS BEFORE BEDTIME ORALLY ONCE A DAY, NOTES: DUPLICATE NOT-TAKING PRAMIPEXOLE DIHYDROCHLORIDE 0.25 MG TABLET 1 TABLET BEFORE BEDTIME ORALLY ONCE A DAY, NOTES: CAMILLA NELSON MEDICATION LIST REVIEWED AND RECONCILED WITH THE PATIENT PAST MEDICAL HISTORY 2001 CHRONIC HEPATITIS C GENOTYPE 2A, VL 2.7MILLION , RVR ON TREATMENT UNDETECTABLE VL 11/04, END OF TX 03/03/2010 BIPOLAR DISORDER GERD GASTRITIS OBESITY ASTHMA INSOMNIA SCOLIOSIS BREAST LUMPECTOMY/RIGHT BREAST 2009 DDD CERVICAL SPINE SPINAL FUSION 1973 SPINAL EXPLORATORY 1975 ANEMIA COLONOSCOPY 2015 EGD 2016 HIATAL HERNIA PAROXYSMAL AFIB FATTY LIVER: BY U/S 05/05/2018 TRANSESOPHAGEAL ECHO 07/2018: TRICUSPID, MITRAL AND AORTIC VALVE NORMAL IN THICKNESS AND EXCURSION, MILD MITRAL INSUFFICIENCY, TRACE AORTIC INSUFFICIENCY, INTERATRIAL SEPTUM INTACT, EF NORMAL TRANSTHROACIC ECHO: NORMAL LV DIMENSION AND WALL THICKNESS. NORMAL LV WALL MOTION AND WALL THICKENING. NORMAL SYSTOLIC FUNCTION, EF 70%. NORMAL DIASTOLIC FUNCTION FIBROMYALGIA ALLERGIES ENVIRONMENTAL SURGICAL HISTORY FRACTURE RADIUS BREAST BIOPSY BENIGN DR OLMOS/ RIGHT BREAST/BENIGN 2009 EGD GASTRITIS 2007 BACK SURGERY FOR SCOLIOSIS/ ROWELL ZENAIDA , BLOOD TRANSFUSION 1974 PLACENTA PREVIA BLOOD TRANSFUSION COLONOSCOPY 05/04 DEVIATED SEPTUM REPAIR 09/07 CARDIAC CATHETERIZATION 2008 HERNIA SX- [facility] [place] FAMILY HISTORY FATHER: , FATHER COMMITTED SUICIDE; MENTAL HEALTH PROBLEMS, HTN MOTHER: , MURDERED BY HER FATHER WHEN SHE WAS 18 SIBLINGS: BROTHER OF A PE; SISTER IN AN MVA 4 SON(S) , 1 DAUGHTER(S) - HEALTHY. DENIES KNOWN FAMILY HISTORY OF COLON OR BREAST CANCER.SISTER HAS HEART DISEASE. SOCIAL HISTORY GENERAL: TOBACCO USE ARE YOU A:FORMER SMOKER HOW LONG HAS IT BEEN SINCE YOU LAST SMOKED?> 10 YEARS HIV / HEP-C SCREENING HIV TEST OFFERED TO PATIENT:NO DENIED 06/19/2016 HEP-C TEST OFFERED TO PATIENT:YES HAD A HISTORY OF HEP. C DATE OFFERED:06/19/2016 TEST ACCEPTED:NO REASON:OTHER (DOCUMENT IN NOTE) OTHERS AT HOME: CHILD. EDUCATION LEVEL OF EDUCATION:FINISHED HIGH SCHOOL LANGUAGE LANGUAGES SPOKEN:[place] DOMESTIC VIOLENCE DO YOU FEEL SAFE IN YOUR ENVIRONMENT?YES NEW PATIENT PAIN DIARY PATIENT DESCRIBES PAIN :ACHING, BURNING, HAVE IT ALL THE TIME, SHARP FROM 0-10, WHAT LEVEL IS YOUR PAIN TODAY?7 ALLEVIATING FACTORS SITTING, HEATING PAD, HOT SHOWER BMI CARE GOAL FOLLOW-UP ABOVE NORMAL BMI FOLLOW-UPDIETARY MANAGEMENT EDUCATION, GUIDANCE, AND COUNSELING, GIVING ENCOURAGEMENT TO EXERCISE RECREATIONAL DRUG USE DRUG USE?NO EXERCISE: NONE. LEARNING BARRIERS / SPECIAL NEEDS CHANGE FROM LAST VISIT?NO BARRIERS TO LEARNING?NO HEARING IMPAIRED?YES HEARING AIDES VISION IMPAIRED?YES COGNITIVELY IMPAIRED?NO :HEARING AIDES :CORRECTIVE LENSES READINESS TO LEARN?YES LEARNING PREFERENCES?YES :HANDOUTS LEARNING CAPABILITIES PRESENT?YES EMOTIONAL BARRIERS?NO SPECIAL DEVICES?NO VICE PRESIDENT PRECISION MARKET INSIGHTS NEEDED?NO PAIN CLINIC PFS, CLERGY, PUBLIC HEALTH REFERRALS HAS THE PATIENT BEEN EDUCATED REGARDING HIS/HER PLAN OF CARE?YES HAS THE PATIENT BEEN EDUCATED REGARDING PAIN, THE RISK FOR PAIN, THE IMPORTANCE OF EFFECTIVE PAIN MANAGEMENT, AND THE PAIN ASSESSMENT PROCESS?YES LATEX QUESTIONNAIRE LATEX ALLERGY : HAVE YOU EVER DEVELOPED ANY TYPE OF REACTION AFTER HANDLING LATEX PRODUCTS SUCH RUBBER GLOVES, CONDOMS, DIAPHRAGMS, BALLOONS, SOCKS, OR UNDERWEAR?NO LATEX ALLERGY : HAVE YOU EVER DEVELOPED ANY TYPE OF REACTION DURING OR AFTER DENTAL APPOINTMENT, VAGINAL/RECTAL EXAMINATION, SURGICAL PROCEDURE, OR ANY OTHER EXPOSURE?NO LATEX RISK : HAVE YOU EVER HAD ANY DIFFICULTY BREATHING OR HIVES AFTER EATING OR HANDLING ANY FRUITS, OR VEGETABLES; SUCH KIWI, BANANAS, STONE FRUITS, OR CHESTNUTSNO LATEX RISK : DO YOU HAVE A PREVIOUS PERSONAL HISTORY OF MORE THAN NINE SURGERIES, SPINA BIFIDA, OR REPEATED CATHERIZATIONS? YES - PLEASE INDICATE : > 9 SURGERIES LATEX RISK : ARE YOU FREQUENTLY EXPOSED TO LATEX PRODUCTS IN YOUR OCCUPATION?NO DATE ASKED : 12/14/2018 CAFFEINE CAFFEINE USE?YES HOW OFTEN AND HOW MUCH? DAILY CUP OF COFFEE ADVANCE DIRECTIVE ADVANCE DIRECTIVE DISCUSSED WITH PATIENT:YES PT HAS NO ADVANCED DIRECTIVES, GIVEN INFORMATION. MUSLIM YARSANI. MARITAL STATUS: , SINGLE. ALCOHOL SCREENING DID YOU HAVE A DRINK CONTAINING ALCOHOL IN THE PAST YEAR?YES HOW OFTEN DID YOU HAVE SIX OR MORE DRINKS ON ONE OCCASION IN THE PAST YEAR?NEVER (0 POINTS) HOW MANY DRINKS DID YOU HAVE ON A TYPICAL DAY WHEN YOU WERE DRINKING IN THE PAST YEAR?1 OR 2 (0 POINTS) HOW OFTEN DID YOU HAVE A DRINK CONTAINING ALCOHOL IN THE PAST YEAR?MONTHLY OR LESS (1 POINT) POINTS1 INTERPRETATIONNEGATIVE OCCUPATION: DISABLED. SEXUAL HX HAD SEX IN THE LAST 12 MONTHS (VAGINAL, ORAL, OR ANAL)?NO HAVE YOU EVER HAD AN STD?NO HOSPITALIZATION/MAJOR DIAGNOSTIC PROCEDURE HOSPITALIZED X 2 FOR ANEMIA 2015 A-FIB 1 WEEK POST HERNIA SX 04- TILL 11/05/2017 REVIEW OF SYSTEMS REVIEWED BY: PROVIDER: AMADOU RASHID MD . CONSTITUTIONAL: ANY CHANGE IN YOUR MEDICAL CONDITION? YES, FIBROMYALGIA . CHILLS NO . FEVER NO . INFECTION: DO YOU HAVE NEW INFECTIONS? NO . DO YOU HAVE HISTORY OF MRSA? NO . MUSCULOSKELETAL: ANY NEW PATTERNS OF PAIN OR NUMBNESS? NO . GASTROENTEROLOGY: ANY NEW CHANGE IN BOWEL CONTROL? NO . GENITOURINARY: ANY NEW CHANGE IN BLADDER CONTROL? NO . IS THERE A CHANCE YOU COULD BE ? NO . HEMATOLOGY/LYMPH: DO YOU TAKE ANY BLOOD THINNERS? (FOR EXAMPLE- COUMADIN, PLAVIX, AGGRENOX, PLATEL, PRADAXA, OR XARELTO) YES, ELIQUIS . WHEN WAS YOUR LAST DOSE? DATE: 10/04/2019TIME: 2129 . NEUROLOGY: HAVE YOU FALLEN IN THE PAST 12 MONTHS? NO . ANY NEW EXTREMITY NUMBNESS OR WEAKNESS? YES, STATES PAIN, NUMBNESS, AND WEAKNESS TO BILATERAL LEGS, FEET, AND TOES: RIGHT>LEFT . CARDIOLOGY: DO YOU HAVE A PACEMAKER OR DEFIBRILLATOR? NO . RESPIRATORY: HAVE YOU BEEN SICK IN THE PAST WEEK? NO . FEVER NO . FLU LIKE SYMPTOMS? NO . COUGH NO . INTEGUMENTARY: DO YOU HAVE ANY RASHES OR OPEN SORES? NO . ALLERGIC/IMMUNO: ARE YOU ALLERGIC TO IV DYE? NO . ANY NEW ALLERGIES? NO . PSYCHIATRIC: DO YOU HAVE THOUGHTS OF HURTING YOURSELF OR SOMEONE ELSE? NO . ARE YOU ABUSED, NEGLECTED, OR IN AN UNSAFE ENVIRONMENT? NO . ENDOCRINOLOGY: ARE YOU DIABETIC? NO . OTHER: DO YOU NEED ANY PRESCRIPTIONS? YES . IF YES, PLEASE LIST: ____WOULD LIKE SOMETHING FOR PAIN . ANY NEW PROBLEMS WITH YOUR MEDICATIONS? NO . WHEN DID YOU LAST EAT? ____ . WHEN DID YOU LAST DRINK? ____ . WHAT DID YOU LAST DRINK? ____ . NAME OF PERSON DRIVING YOU HOME? ____ . DO YOU HAVE ANY OTHER QUESTIONS OR CONCERNS NO . VITAL SIGNS WT 224.1 LBS, HT 64 IN, BMI 38.46 INDEX, BP 165/70 MM HG, HR 54 /MIN, RR 18 /MIN, TEMP 97.6 F, OXYGEN SAT % 94%, SAFE IN ENV? (Y/N) YES, NA INITIALS AW 1132, REVIEWED BY: JS. EXAMINATION GENERAL EXAMINATION: PATIENT IS ALERT O X 3 AND COOPERATIVE. ANTALGIC WALK. PATIENT IS LIMPING FROM THE RIGHT LEG, WHICH IS WEAKER AT EXTENSION AND FLEXION. TENDERNESS OVER THE PARASPINAL MUSCLE GROUP OF THE LOW BACK. STRAIGHT LEG RAISE OF THE RIGHT LEG IS POSITIVE AT 20 DEGREES FOR RADICULOPATHY. MRI OF THE LUMBAR SPINE DONE ON 01/15/2019 SHOWS SPINAL STENOSIS AND MULTIPLE BULGING DISC AT L4-L5 AND L5-S1. 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 TREATMENT SPINAL STENOSIS OF LUMBAR REGION, UNSPECIFIED WHETHER NEUROGENIC CLAUDICATION PRESENT CLINICAL NOTES: WE DISCUSSED SEVERAL ISSUES WITH MS. MALDONADO'S PAIN MANAGEMENT CASE. I WILL REQUEST FOR A MEDICATION CLEARANCE FROM THE PATIENT'S PRIMARY CARE PROVIDER FOR THE PATIENT TO STOP ELIQUIS RIGHT BEFORE THE PROCEDURE. WE HAVE SENT A REQUEST TO THE PATIENT'S PRIMARY CARE IN THE PAST, BUT HAVE YET TO RECEIVE A RESPONSE, THEREFORE I WILL SEND THE REQUEST AGAIN. THE PATIENT WILL FOLLOW UP WITH THE NURSE PRACTITIONER IN SEVERAL WEEKS. I ADVISED THE PATIENT TO CALL OUR CLINIC TO ENSURE WE RECEIVED A CLEARANCE FROM HER PRIMARY CARE BEFORE BEING SEEN AGAIN. ONCE WE RECEIVE THE CLEARANCE, I WILL REQUEST AUTHORIZATION FOR A CAUDAL EPIDURAL. INSTRUCTIONS WERE GIVEN, QUESTIONS WERE ANSWERED, PATIENT REPORTS UNDERSTANDING AND AGREES WITH THE PLAN. I, TAWANDA NIELSON, DOCUMENTED THE ABOVE INFORMATION ACTING A SCRIBE FOR DR. RASHID. I HAVE REVIEWED THE ABOVE DOCUMENT, WRITTEN BY TAWANDA CALZADA AND I VERIFY THAT IT IS ACCURATE. . PROCEDURE CODES G8427 CURRENT MEDS W/DOSAGES DOCUMENTED G8730 PAIN ASSESS POS TOOL F/U PLAN DOC DISPOSITION & COMMUNICATION ELECTRONICALLY SIGNED BY AMADOU RASHID MD, MD ON 10/21/2019 AT 10:02 AM EDT DISCLAIMER : THIS IS A VISIT SUMMARY EXTRACTED FROM THE Section 101 CHART. IT IS NOT A COPY OF THE Section 101 PROGRESS NOTE. MTDD
== END ==
LOC: M PAIN 11:30
PROVIDERS: ATTEND Anesthesiology
DX: M48.061 Spinal stenosis, lumbar region without neurogenic claudication (principal); M51.16 Intervertebral disc disorders with radiculopathy, lumbar region; M96.1 Postlaminectomy syndrome, not elsewhere classified

== ENCOUNTER → 2019-10-25 | Outpatient (CLI) | payer OTHER | LOC: M LAB 14:55 | PROVIDERS: ATTEND Surgery | DX: Z71.89 Other specified counseling (principal) ==

== ENCOUNTER → 2019-11-30 | Outpatient (CLI) | payer OTHER ==
--- NOTE | 2019-12-02 01:25 | ECWPNPC ---
PATIENT NAME: DIYA QUINONEZ : 1955 GENDER: FEMALE VISIT DATE: 11/30/2019 DISCHARGE DATE: 11/30/19 1142 VISIT LOCKED DATE TIME: PHYSICIAN: LAURA ROGERS RESOURCE: LAURA ROGERS REASON FOR APPOINTMENT 1. ELIQUIS CLEARANCE FOR INJECTIONS - PAT COMPLETED HISTORY OF PRESENT ILLNESS HISTORY OF PRESENT ILLNESS: PATIENT IS AGREEABLE TO TELEPHONE VISIT. THIS IS A FOLLOW-UP OF CHRONIC LOW BACK PAIN AND BILATERAL LEG PAIN. DESCRIBES LOW BACK PAIN ACHING AND BURNING. PAIN IS AGGRAVATED BY STANDING OR DOING ACTIVITIES. PAIN IS RELIEVED AT REST AND WITH HEAT. PATIENT WOULD LIKE TO MOVE FORWARD WITH PROCEDURE THAT WE PROJECTED AT LAST VISIT. SHE HAS BEEN GIVEN THE OKAY BY AND TO CALL TO STOP ELOQUIS 3 DAYS PREPROCEDURE. SHE IS AWARE OF THE POTENTIAL RISKS ASSOCIATED WITH LUMBAR EPIDURAL STEROID INJECTION. RATING PAIN VAS 7/10. PAIN THE PATIENT DESCRIBES THE PAIN... FALL RISK SCREENING: SCREENING :NO FALLS REPORTED IN THE LAST YEAR CURRENT MEDICATIONS TAKING METOPROLOL TARTRATE 25 MG TABLET 1 TABLET WITH FOOD ORALLY TWICE A DAY TAKING ELIQUIS 5 MG TABLET ORALLY BID, NOTES: CARDIOLOGY TAKING DIGOXIN 125 MCG TABLET 1 TABLET ORALLY ONCE A DAY TAKING DEXILANT 60 MG CAPSULE DELAYED RELEASE 1 CAPSULE ORALLY ONCE A DAY TAKING VERAPAMIL HCL 120 MG TABLET 1 TABLET ORALLY ONCE A DAY TAKING CALCIUM 600 + D 600-400 MG-UNIT TABLET 1 TABLET ORALLY ONCE A DAY TAKING MULTIVITAMINS TABLET 1 TAB ORALLY DAILY TAKING MIRALAX - PACKET 1 PACKET MIXED WITH 8 OUNCES OF FLUID ORALLY ONCE A DAY, NEEDED TAKING LAMOTRIGINE 200 MG TABLET DISINTEGRATING 1 TABLET ON THE TONGUE AND ALLOW TO DISSOLVE ORALLY ONCE A DAY, NOTES: CAMILLA NELSON TAKING LATUDA 40 MG TABLET 1 TABLET ORALLY ONCE A DAY, NOTES: CAMILLA NELSON TAKING LITHIUM CARBONATE 300 MG CAPSULE 2 EVERY NIGHT ORAL DAILY TAKING REQUIP 0.25 MG TABLET 1 TABLET ORALLY BID TAKING TRAZODONE HCL 50 MG TABLET 1 TABLET AT BEDTIME NEEDED ORALLY ONCE A DAY TAKING BENZTROPINE MESYLATE 0.5 MG TABLET 1 TABLET AT BEDTIME ORALLY TWICE A DAY NOT-TAKING PRAMIPEXOLE DIHYDROCHLORIDE 0.25 MG TABLET 1 TABLET BEFORE BEDTIME ORALLY ONCE A DAY, NOTES: CAMILLA NELSON MEDICATION LIST REVIEWED AND RECONCILED WITH THE PATIENT PAST MEDICAL HISTORY 2001 CHRONIC HEPATITIS C GENOTYPE 2A, VL 2.7MILLION , RVR ON TREATMENT UNDETECTABLE VL 11/04, END OF TX 03/03/2010 BIPOLAR DISORDER, INSOMNIA GERD GASTRITIS OBESITY ASTHMA SCOLIOSIS BREAST LUMPECTOMY/RIGHT BREAST 2009 DDD CERVICAL SPINE SPINAL FUSION 1973 SPINAL EXPLORATORY 1974 ANEMIA COLONOSCOPY 2015 EGD 2015 HIATAL HERNIA PAROXYSMAL AFIB - SATURNINO BERGER FATTY LIVER: BY U/S 05/05/2018 TRANSESOPHAGEAL ECHO 07/2018: TRICUSPID, MITRAL AND AORTIC VALVE NORMAL IN THICKNESS AND EXCURSION, MILD MITRAL INSUFFICIENCY, TRACE AORTIC INSUFFICIENCY, INTERATRIAL SEPTUM INTACT, EF NORMAL TRANSTHROACIC ECHO: NORMAL LV DIMENSION AND WALL THICKNESS. NORMAL LV WALL MOTION AND WALL THICKENING. NORMAL SYSTOLIC FUNCTION, EF 70%. NORMAL DIASTOLIC FUNCTION FIBROMYALGIA FORMER SMOKER, QUIT IN 1986 ALLERGIES ENVIRONMENTAL SURGICAL HISTORY FRACTURE RADIUS BREAST BIOPSY BENIGN DR OLMOS/ RIGHT BREAST/BENIGN 2009 EGD GASTRITIS 2007 BACK SURGERY FOR SCOLIOSIS/ ROWELL ZENAIDA , BLOOD TRANSFUSION 1974 PLACENTA PREVIA BLOOD TRANSFUSION COLONOSCOPY 05/04 DEVIATED SEPTUM REPAIR 09/07 CARDIAC CATHETERIZATION 2007 HIATAL HERNIA REPAIR 09/2017 TUBAL LIGATION FAMILY HISTORY FATHER: , FATHER COMMITTED SUICIDE; MENTAL HEALTH PROBLEMS, HTN MOTHER: , MURDERED BY HER FATHER WHEN SHE WAS 18 SIBLINGS: BROTHER OF A PE; SISTER IN AN MVA 4 SON(S) , 1 DAUGHTER(S) - HEALTHY. DENIES KNOWN FAMILY HISTORY OF COLON OR BREAST CANCER.SISTER HAS HEART DISEASE. SOCIAL HISTORY GENERAL: TOBACCO USE ARE YOU A:FORMER SMOKER HOW LONG HAS IT BEEN SINCE YOU LAST SMOKED?> 10 YEARS LATEX QUESTIONNAIRE LATEX ALLERGY : HAVE YOU EVER DEVELOPED ANY TYPE OF REACTION AFTER HANDLING LATEX PRODUCTS SUCH RUBBER GLOVES, CONDOMS, DIAPHRAGMS, BALLOONS, SOCKS, OR UNDERWEAR?NO LATEX ALLERGY : HAVE YOU EVER DEVELOPED ANY TYPE OF REACTION DURING OR AFTER DENTAL APPOINTMENT, VAGINAL/RECTAL EXAMINATION, SURGICAL PROCEDURE, OR ANY OTHER EXPOSURE?NO LATEX RISK : HAVE YOU EVER HAD ANY DIFFICULTY BREATHING OR HIVES AFTER EATING OR HANDLING ANY FRUITS, OR VEGETABLES; SUCH KIWI, BANANAS, STONE FRUITS, OR CHESTNUTSNO LATEX RISK : DO YOU HAVE A PREVIOUS PERSONAL HISTORY OF MORE THAN NINE SURGERIES, SPINA BIFIDA, OR REPEATED CATHERIZATIONS? YES - PLEASE INDICATE : > 9 SURGERIES LATEX RISK : ARE YOU FREQUENTLY EXPOSED TO LATEX PRODUCTS IN YOUR OCCUPATION?NO DATE ASKED : 11/29/2019 BMI CARE GOAL FOLLOW-UP ABOVE NORMAL BMI FOLLOW-UPDIETARY MANAGEMENT EDUCATION, GUIDANCE, AND COUNSELING, GIVING ENCOURAGEMENT TO EXERCISE ALCOHOL SCREENING DID YOU HAVE A DRINK CONTAINING ALCOHOL IN THE PAST YEAR?YES HOW OFTEN DID YOU HAVE SIX OR MORE DRINKS ON ONE OCCASION IN THE PAST YEAR?NEVER (0 POINTS) HOW MANY DRINKS DID YOU HAVE ON A TYPICAL DAY WHEN YOU WERE DRINKING IN THE PAST YEAR?1 OR 2 (0 POINTS) HOW OFTEN DID YOU HAVE A DRINK CONTAINING ALCOHOL IN THE PAST YEAR?MONTHLY OR LESS (1 POINT) POINTS1 INTERPRETATIONNEGATIVE RECREATIONAL DRUG USE DRUG USE?NO CAFFEINE CAFFEINE USE?YES HOW OFTEN AND HOW MUCH? DAILY CUP OF COFFEE SEXUAL HX HAD SEX IN THE LAST 12 MONTHS (VAGINAL, ORAL, OR ANAL)?NO HAVE YOU EVER HAD AN STD?NO HIV / HEP-C SCREENING HIV TEST OFFERED TO PATIENT:NO DENIED 06/19/2016 HEP-C TEST OFFERED TO PATIENT:YES HAD A HISTORY OF HEP. C DATE OFFERED:06/19/2016 TEST ACCEPTED:NO REASON:OTHER (DOCUMENT IN NOTE) HINDUISM YAZIDISM. LANGUAGE LANGUAGES SPOKEN:TAMAZIGHT EDUCATION LEVEL OF EDUCATION:FINISHED HIGH SCHOOL LEARNING BARRIERS / SPECIAL NEEDS CHANGE FROM LAST VISIT?NO BARRIERS TO LEARNING?NO HEARING IMPAIRED?YES HEARING AIDES VISION IMPAIRED?YES COGNITIVELY IMPAIRED?NO :HEARING AIDES :CORRECTIVE LENSES READINESS TO LEARN?YES LEARNING PREFERENCES?YES :HANDOUTS LEARNING CAPABILITIES PRESENT?YES EMOTIONAL BARRIERS?NO SPECIAL DEVICES?NO UPSETTER HELPER NEEDED?NO DOMESTIC VIOLENCE DO YOU FEEL SAFE IN YOUR ENVIRONMENT?YES OCCUPATION: DISABLED. DIET: REGULAR. EXERCISE: NONE. MARITAL STATUS: , SINGLE. OTHERS AT HOME: CHILD. NEW PATIENT PAIN DIARY TODAY'S VISITNOTES 11/29/2019 PATIENT DESCRIBES PAIN :ACHING, BURNING, HAVE IT ALL THE TIME, SHARP FROM 0-10, WHAT LEVEL IS YOUR PAIN TODAY?7 PRECIPITATING FACTORS STANDING, WALKING, ACTIVITY ALLEVIATING FACTORS SITTING, HEATING PAD, HOT SHOWER IMPACT ON FUNCTION DIFFICULTY WITH DAILY ACTIVITIES. PAIN CLINIC PFS, CLERGY, PUBLIC HEALTH REFERRALS HAS THE PATIENT BEEN EDUCATED REGARDING HIS/HER PLAN OF CARE?YES HAS THE PATIENT BEEN EDUCATED REGARDING PAIN, THE RISK FOR PAIN, THE IMPORTANCE OF EFFECTIVE PAIN MANAGEMENT, AND THE PAIN ASSESSMENT PROCESS?YES ADVANCE DIRECTIVE ADVANCE DIRECTIVE DISCUSSED WITH PATIENT:YES PT HAS NO ADVANCED DIRECTIVES, DECLINES INFORMATION ON HCP AT THIS TIME. HOSPITALIZATION/MAJOR DIAGNOSTIC PROCEDURE HOSPITALIZED X 2 FOR ANEMIA 2016 A-FIB 1 WEEK POST HERNIA SX 04-1 TILL 11/05/2017 REVIEW OF SYSTEMS REVIEWED BY: PROVIDER: LAURA EM . CONSTITUTIONAL: ANY CHANGE IN YOUR MEDICAL CONDITION? NO . CHILLS NO . FEVER NO . INFECTION: DO YOU HAVE NEW INFECTIONS? NO . DO YOU HAVE HISTORY OF MRSA? NO . MUSCULOSKELETAL: ANY NEW PATTERNS OF PAIN OR NUMBNESS? NO . GASTROENTEROLOGY: ANY NEW CHANGE IN BOWEL CONTROL? NO . GENITOURINARY: ANY NEW CHANGE IN BLADDER CONTROL? NO . IS THERE A CHANCE YOU COULD BE ? NO . HEMATOLOGY/LYMPH: DO YOU TAKE ANY BLOOD THINNERS? (FOR EXAMPLE- COUMADIN, PLAVIX, AGGRENOX, PLATEL, PRADAXA, OR XARELTO) YES, ELIQUIS . WHEN WAS YOUR LAST DOSE? DATE: 11/29/2019TIME: 0900 . NEUROLOGY: HAVE YOU FALLEN IN THE PAST 12 MONTHS? YES, STATES FALL RELATED TO DIZZINESS AND LOSING HER BALANCE AND FALLING FORWARD. STATES SHE HIT HEAD BUT DID NOT GO TO THE ED . ANY NEW EXTREMITY NUMBNESS OR WEAKNESS? NO . CARDIOLOGY: DO YOU HAVE A PACEMAKER OR DEFIBRILLATOR? NO . RESPIRATORY: HAVE YOU BEEN SICK IN THE PAST WEEK? NO . FEVER NO . FLU LIKE SYMPTOMS? NO . COUGH NO . INTEGUMENTARY: DO YOU HAVE ANY RASHES OR OPEN SORES? NO . ALLERGIC/IMMUNO: ARE YOU ALLERGIC TO IV DYE? NO . ANY NEW ALLERGIES? NO . PSYCHIATRIC: DO YOU HAVE THOUGHTS OF HURTING YOURSELF OR SOMEONE ELSE? NO . ARE YOU ABUSED, NEGLECTED, OR IN AN UNSAFE ENVIRONMENT? NO . ENDOCRINOLOGY: ARE YOU DIABETIC? NO . OTHER: DO YOU NEED ANY PRESCRIPTIONS? NO . IF YES, PLEASE LIST: ____ . ANY NEW PROBLEMS WITH YOUR MEDICATIONS? NO . WHEN DID YOU LAST EAT? ____ . WHEN DID YOU LAST DRINK? ____ . WHAT DID YOU LAST DRINK? ____ . NAME OF PERSON DRIVING YOU HOME? ____ . DO YOU HAVE ANY OTHER QUESTIONS OR CONCERNS YES, WOULD LIKE TO DISCUSS INJECTION THERAPY NOW THAT SHE HAS THE CLEARANCE TO HOLD HER ELIQUIS . 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 TREATMENT SPINAL STENOSIS OF LUMBAR REGION, UNSPECIFIED WHETHER NEUROGENIC CLAUDICATION PRESENT NOTES: NURSE WILL CALL WITH PRE TREATMENT INSTRUCTIONS-HOLD ELOQUIS X3 DAYS SCHEDULE PROCEDURE DAY 4 CAUDAL EPIDURAL,CAUDAL EPIDURAL STEROID INJECTION MATERIAL WAS PUBLISHED TO PORTAL TOTAL TIME SPENT DURING TELEPHONE VISIT WAS APPROXIMATELY 12 MINUTES. OTHERS NOTES: NO VITALS OBTAINED DUE TO PHONE VISIT. PRE-SCREENING COMPLETED 11/29/2019 1530 JS. PREVENTIVE MEDICINE PAIN CLINIC TEACHING: PROCEDURE TEACHING PRE-PROCEDURE INSTRUCTIONS REVIEWED WITH PT VIA PHONE AND MAILED TO PT. VERBALIZED UNDERSTANDING. DISPOSITION & COMMUNICATION FOLLOW UP POST (REASON: CAUDAL EPIDURAL) ELECTRONICALLY SIGNED BY MARIA ANTONIA GALEANA ON 12/01/2019 AT 02:21 PM EDT DISCLAIMER : THIS IS A VISIT SUMMARY EXTRACTED FROM THE [employer] CHART. IT IS NOT A COPY OF THE [employer] PROGRESS NOTE. PIERCE
== END ==
LOC: M PAIN 10:15
PROVIDERS: ATTEND Nurse Practitioner Family
DX: M48.061 Spinal stenosis, lumbar region without neurogenic claudication (principal); M51.16 Intervertebral disc disorders with radiculopathy, lumbar region; M96.1 Postlaminectomy syndrome, not elsewhere classified; Z79.899 Other long term (current) drug therapy; Z87.891 Personal history of nicotine dependence

== ENCOUNTER → 2020-03-30 | Outpatient (CLI) | payer MEDICARE, OTHER ==
[~2020-03-30] MED LIST changes: -LISI20TA19 PO; +LISI20TA35 PO; +PANT40TA29 PO; -PANT40TA3 PO
[2020-03-30 13:09] LABS: HEMOGLOBIN 13.4 g/dl (12.0-15.5); MEAN CORPUSCULAR HEMOGLOBIN 31.2 pg (27.0-33.0); MEAN CORPUSCULAR HGB CONC 31.9 g/dl (32.0-36.5); MEAN CORPUSCULAR VOLUME 97.7 fl (80.0-96.0); PLATELET COUNT, AUTOMATED 225 10^3/uL (150-450); WHITE BLOOD COUNT 6.3 10^3/uL (4.0-10.0)
[2020-03-30 13:26] LABS: ALBUMIN 3.7 GM/DL (3.2-5.2); ALT/SGPT 18 U/L (12-78); BILIRUBIN,TOTAL 0.4 MG/DL (0.2-1.0); BLOOD UREA NITROGEN 9 MG/DL (7-18); CALCIUM LEVEL 9.3 MG/DL (8.8-10.2); CARBON DIOXIDE LEVEL 32 MEQ/L (21-32); CHLORIDE LEVEL 105 MEQ/L (98-107); GLOMERULAR FILTRATION RATE > 60.0 (>45); GLUCOSE, FASTING 99 MG/DL (70-100); POTASSIUM SERUM 4.7 MEQ/L (3.5-5.1); RHEUMATOID FACTOR QUANT < 10.0 IU/ML (<15.0); SODIUM LEVEL 141 MEQ/L (136-145); TOTAL PROTEIN 7.1 GM/DL (6.4-8.2)
[2020-03-30 13:32] LABS: APPEARANCE, URINE CLEAR (CLEAR); BACTERIA, URINE AUTO 1+ (NEGATIVE); BILIRUBIN, URINE AUTO NEGATIVE (NEGATIVE); BLOOD, URINE BLOOD NEGATIVE (NEGATIVE); COLOR, URINE STRAW (YELLOW); GLUCOSE, URINE (UA) AUTO NEGATIVE (NEGATIVE); KETONE, URINE AUTO NEGATIVE (NEGATIVE); LEUKOCYTE ESTERASE, URINE AUTO 1+ (NEGATIVE); NITRITE, URINE AUTO NEGATIVE (NEGATIVE); PROTEIN, URINE AUTO NEGATIVE (NEGATIVE); RBC, URINE AUTO 2 /HPF (0-3); SPECIFIC GRAVITY URINE AUTO 1.002 (1.002-1.035); SQUAMOUS EPITHELIAL CELL UR AU 1 /HPF (0-6); UROBILINOGEN, URINE AUTO 0.2 mg/dL (0.0-2.0); WBC, URINE AUTO 3 /HPF (0-3)
[2020-03-30 13:54] LABS: ERYTHROCYTE SEDIMENTATION RATE 12 mm/hr (0-30)
== END ==
LOC: M PLALAB 09:05
PROVIDERS: ATTEND Family Medicine
DX: R35.0 Frequency of micturition (principal); M25.539 Pain in unspecified wrist; Z79.899 Other long term (current) drug therapy
CPT/HCPCS: 36415; 80053; 81001; 83036; 85027; 85652; 86140; 86200; 86431; 87086; G0463

== ENCOUNTER → 2020-07-06 | Outpatient (CLI) | payer MEDICARE ==
[~2020-07-06] MED LIST changes: +GABA-282 PO; -GABA-843 PO; -LISI-538 PO; +LISI10TA22 PO; -LISI10TA4 PO; +LISI20TA33 PO; +MONT10TA10 PO; -MONT10TA4 PO
[2020-07-06 13:23] LABS: BASO % 0.5 % (0.0-1.0); EOS # 0.1 10^3/uL (0.0-0.5); EOS % 1.5 % (0.0-3.0); HEMATOCRIT 43.7 % (36.0-47.0); HEMOGLOBIN 14.3 g/dl (12.0-15.5); LYMPH # 1.6 10^3/uL (1.5-5.0); LYMPH % 24.9 % (24.0-44.0); MEAN CORPUSCULAR HGB CONC 32.7 g/dl (32.0-36.5); MEAN CORPUSCULAR VOLUME 94.6 fl (80.0-96.0); MONO # 0.5 10^3/uL (0.0-0.8); MONO % 7.2 % (0.0-5.0); NEUTROPHILS # 4.3 10^3/uL (1.5-8.5); NEUTROPHILS % 65.6 % (36.0-66.0); PLATELET COUNT, AUTOMATED 219 10^3/uL (150-450); RED BLOOD COUNT 4.62 10^6/uL (4.00-5.40); WHITE BLOOD COUNT 6.5 10^3/uL (4.0-10.0)
[2020-07-06 14:02] LABS: HEMOGLOBIN A1c 4.9 %
[2020-07-06 14:03] LABS: CALCIUM LEVEL 9.5 MG/DL (8.8-10.2); CHOLESTEROL LEVEL 166 MG/DL (<200); CHOLESTEROL RISK RATIO 2.305 (<5); FREE T4 1.18 NG/DL (0.76-1.46); HDL CHOLESTEROL 72 MG/DL (>40); LDL CHOLESTEROL 76 MG/DL (<100); LITHIUM LEVEL 0.43 MEQ/L (0.60-1.20); NON-HDL-C 94 MG/DL; TRIGLYCERIDES LEVEL 90 MG/DL (<150)
[2020-07-06 14:05] LABS: FOLATE 12.6 NG/ML (>5.4)
== END ==
LOC: M LAB 12:24
PROVIDERS: ATTEND Psychiatry & Neurology Child & Adolescent Psychiatry
DX: F31.9 Bipolar disorder, unspecified (principal); R41.9 Unspecified symptoms and signs involving cognitive functions and awareness; Z79.899 Other long term (current) drug therapy

== ENCOUNTER → 2020-10-06 | Outpatient (REF) | payer MEDICARE | LOC: M SFHCPLAZ 13:47 | PROVIDERS: ATTEND Family Medicine | DX: Z12.4 Encounter for screening for malignant neoplasm of cervix (principal) | CPT/HCPCS: 87624; G0123 ==

== ENCOUNTER → 2021-01-18 | Outpatient (CLI) | payer MEDICARE ==
[~2021-01-18] MED LIST changes: +GABA-283 PO; -GABA-845 PO; +OMEP40CA4 PO; -OMEP40CA97 PO
--- NOTE | 2021-01-18 15:50 | REP ---
INDICATION: PAIN COMPARISON: None. TECHNIQUE: Six views right knee. FINDINGS: There is no evidence of acute fracture, dislocation, or intrinsic bone disease.There is mild medial joint space narrowing. There is mild chondrocalcinosis. There is mild spurring of the femoral condyles. There is mild to moderate suprapatellar effusion. There is mild patellofemoral compartment narrowing. IMPRESSION: No fracture or dislocation. Mild degenerative changes. Mild to moderate joint effusion. <Electronically signed by Madi Boothe > 01/18/21 1996
== END ==
LOC: M WUC 15:24
PROVIDERS: ATTEND Physician Assistant
DX: M25.561 Pain in right knee (principal); M17.11 Unilateral primary osteoarthritis, right knee

== ENCOUNTER → 2021-01-22 | Outpatient (CLI) | payer MEDICARE ==
--- NOTE | 2021-01-24 01:41 | ECWPNPC ---
PATIENT NAME: DIYA QUINONEZ : 1955 GENDER: FEMALE VISIT DATE: 01/22/2021 DISCHARGE DATE: 01/22/21924 VISIT LOCKED DATE TIME: PHYSICIAN: LAURA ROGERS PHYSICIAN PAGER NO: ACTIVE RESOURCE: LAURA ROGERS REASON FOR APPOINTMENT 1. NPC/LOW BACK PAIN HISTORY OF PRESENT ILLNESS GENERAL: 65-YEAR-OLD FEMALE KNOWN TO OUR PRACTICE RETURNS FOR FOLLOW-UP WITH LAST VISIT BEING IN SEPTEMBER 2019. HISTORY OF CHRONIC LOW BACK PAIN AND BILATERAL LEG PAIN AND PARESTHESIA RIGHT GREATER THAN LEFT. HISTORY OF ROWELL ZENAIDA PLACEMENT SEVERAL YEARS AGO FOR SCOLIOSIS. PAIN HAS PROGRESSED OVER THE PAST YEAR. FINDS IT VERY DIFFICULT TO WALK ANY DISTANCE WITHOUT HAVING SEVERE LOW BACK AND LEG PAIN. SHE IS ON A BLOOD THINNER. DENIES RECENT INJURY. DENIES RECENT ILLNESS OR SUDDEN WEIGHT LOSS. DENIES BOWEL OR BLADDER INCONTINENCE. DENIES SADDLE PARESTHESIAS. - - -. FALL RISK SCREENING: SCREENING FALL 2 TIMES THIS YEAR , PATIENT STATED THAT SHE DID NOT GO THE ER, NO MAJOR INJURIES. PAIN SCREENING: PATIENT HAS A COMPLAINT OF ACUTE OR CHRONIC PAIN :YES LOCATION OF PAIN:LOW BACK, LEG(S) INTENSITY OF PAIN (SCALE OF 1 TO 10):7 WHAT DOES YOUR PAIN FEEL LIKE:ACHING, BURNING, STABBING, TENDER, THROBBING, SORE, SHOOTING DURATION:CONTINOUS, CONSTANT, ALL DAY PAIN IS INCREASED BY:ACTIVITIES PAIN IS DECREASED BY:OTHERS " TIRED EVERYTHING " HEAT AND ICE NURSING NOTE: - - -. PAIN CENTER INTAKE QUESTIONS: DO YOU HAVE A HISTORY OF MRSA? :NO DO YOU TAKE A BLOOD THINNERS? :YES ELIQUIS 5 MG DO YOU HAVE ANY BLEEDING DISORDERS? :NO ANY NEW NUMBNESS OR WEAKNESS IN YOUR LEGS OR ARMS? :YES PAIN IN BOTH LEGS, BUT MOSTLY ON THE RIGTH LEG ANY PACEMAKER,DEFIBRILLATOR, OR DORSAL COLUMN STIMULATOR? :NO DO YOU HAVE ANY RASHES OR OPEN SORES? :NO ARE YOU ALLERGIC TO IV DYE? :NO ARE YOU DIABETIC? :NO ANY NEW PROBLEMS WITH YOUR MEDICATIONS? :NO HAVE YOU RECEIVED A VACCINE IN THE PAST 30 DAYS? :NO MODERNA 1ST : 10/06/2020, 2ND : DO YOU PLAN TO RECEIVE A VACCINE IN THE NEXT 21 DAYS? :NO DO YOU NEED ANY PRESCRIPTION? :NO DO YOU TAKE ANY IMMUNOSUPPRESSIVE MEDICATIONS? :NO IS THERE A CHANCE YOU COULD BE ? :NO ARE YOU BREAST FEEDING? :NO CURRENT MEDICATIONS TAKING LAMOTRIGINE 200 MG TABLET DISINTEGRATING 1 TABLET ON THE TONGUE AND ALLOW TO DISSOLVE ORALLY ONCE A DAY, NOTES: CAMILLA NELSON TAKING LATUDA 60 MG TABLET 1 TABLET ORALLY ONCE A DAY, NOTES: CAMILLA NELSON TAKING DEXILANT 60 MG CAPSULE DELAYED RELEASE 1 CAPSULE ORALLY ONCE A DAY TAKING METOPROLOL TARTRATE 25 MG TABLET 1 TABLET WITH FOOD ORALLY TWICE A DAY TAKING LITHIUM CARBONATE 300 MG CAPSULE 2 EVERY NIGHT ORAL DAILY TAKING ELIQUIS 5 MG TABLET ORALLY BID, NOTES: CARDIOLOGY TAKING ROPINIROLE HCL 1 MG TABLET 1 TABLET 1 TO 3 HOURS BEFORE BEDTIME ORALLY TWICE A DAY TAKING TRAZODONE HCL 100 MG TABLET 1 TABLET AT BEDTIME NEEDED ORALLY ONCE A DAY TAKING CALCIUM 600 + D 600-400 MG-UNIT TABLET 1 TABLET ORALLY ONCE A DAY TAKING MULTIVITAMINS TABLET 1 TAB ORALLY DAILY TAKING MIRALAX - PACKET 1 PACKET MIXED WITH 8 OUNCES OF FLUID ORALLY ONCE A DAY, NEEDED TAKING VENTOLIN HFA 108 (90 BASE) MCG/ACT AEROSOL SOLUTION 1 PUFF NEEDED INHALATION EVERY 4 HRS TAKING GABAPENTIN 400 MG CAPSULE 1 TABLET ORALLY THREE TIMES A DAY TAKING FAMOTIDINE 20 MG TABLET 1 TABLET AT BEDTIME NEEDED ORALLY ONCE A DAY TAKING BENZTROPINE MESYLATE 0.5 MG TABLET 1 TABLET AT BEDTIME ORALLY TWICE A DAY NOT-TAKING REQUIP 0.25 MG TABLET 1 TABLET ORALLY BID MEDICATION LIST REVIEWED AND RECONCILED WITH THE PATIENT PAST MEDICAL HISTORY 2001 CHRONIC HEPATITIS C GENOTYPE 2A, VL 2.7MILLION , RVR ON TREATMENT UNDETECTABLE VL 11/04, END OF TX 03/03/2010 BIPOLAR DISORDER, INSOMNIA - [facility] GERD, GASTRITIS, HIATAL HERNIA - DR. OSCAR OBESITY ASTHMA, ALLERGIC RHINITIS - ADVANCED ALLERGY SCOLIOSIS BREAST LUMPECTOMY/RIGHT BREAST 2009 DDD CERVICAL SPINE SPINAL FUSION 1973 SPINAL EXPLORATORY 1975 ANEMIA PAROXYSMAL AFIB - CANNY FATTY LIVER: BY U/S 05/05/2018 TRANSESOPHAGEAL ECHO 07/2018: TRICUSPID, MITRAL AND AORTIC VALVE NORMAL IN THICKNESS AND EXCURSION, MILD MITRAL INSUFFICIENCY, TRACE AORTIC INSUFFICIENCY, INTERATRIAL SEPTUM INTACT, EF NORMAL TRANSTHROACIC ECHO: NORMAL LV DIMENSION AND WALL THICKNESS. NORMAL LV WALL MOTION AND WALL THICKENING. NORMAL SYSTOLIC FUNCTION, EF 70%. NORMAL DIASTOLIC FUNCTION FIBROMYALGIA FORMER SMOKER, QUIT IN 1986 HX CONCUSSION 2018 AFTER A SEIZURE HX TIAS, BALANCE PROBLEMS, FREQUENT FALLS, MCI, RLS - [place] [facility] - ON CPAP, PER NEURO CHRONIC BACK PAIN LEG PAIN ALLERGIES ENVIRONMENTAL: RUNNING NOISE, WATERY EYES SURGICAL HISTORY BACK SURGERY FOR SCOLIOSIS/ ROWELL ZENAIDA , BLOOD TRANSFUSION 1974 TUBAL LIGATION EGD GASTRITIS 2007 CARDIAC CATHETERIZATION 2007 COLONOSCOPY 04/[address] OLMOS/ RIGHT BREAST/BENIGN 2008 DEVIATED SEPTUM REPAIR 08/2010 HIATAL HERNIA REPAIR 09/2017 COLONOSCOPY - DIVERTICULOSIS, IH, OTHERWISE NORMAL 05/2017 RIGHT WRIST REPAIR 2002 FAMILY HISTORY FATHER: 54 YRS, FATHER COMMITTED SUICIDE; MENTAL HEALTH PROBLEMS, HTN MOTHER: 41 YRS, MURDERED BY HER FATHER WHEN SHE WAS 18 SIBLINGS: ALIVE, BROTHER OF A PE; SISTER IN AN MVA SON(S): ALIVE 2 BROTHER(S) , 3 SISTER(S) - HEALTHY. 4 SON(S) , 1 DAUGHTER(S) - HEALTHY. DENIES KNOWN FAMILY HISTORY OF COLON OR BREAST CANCER.SISTER HAS HEART DISEASE-HEART ATTACK, ONE SISTER HAD CAR ACCIDENT. SOCIAL HISTORY GENERAL: TOBACCO USE ARE YOU A:FORMER SMOKER QUIT 1986 HOW LONG HAS IT BEEN SINCE YOU LAST SMOKED?> 10 YEARS LATEX QUESTIONNAIRE LATEX ALLERGY : HAVE YOU EVER DEVELOPED ANY TYPE OF REACTION AFTER HANDLING LATEX PRODUCTS SUCH RUBBER GLOVES, CONDOMS, DIAPHRAGMS, BALLOONS, SOCKS, OR UNDERWEAR?NO LATEX ALLERGY : HAVE YOU EVER DEVELOPED ANY TYPE OF REACTION DURING OR AFTER DENTAL APPOINTMENT, VAGINAL/RECTAL EXAMINATION, SURGICAL PROCEDURE, OR ANY OTHER EXPOSURE?NO LATEX RISK : HAVE YOU EVER HAD ANY DIFFICULTY BREATHING OR HIVES AFTER EATING OR HANDLING ANY FRUITS, OR VEGETABLES; SUCH KIWI, BANANAS, STONE FRUITS, OR CHESTNUTSNO LATEX RISK : DO YOU HAVE A PREVIOUS PERSONAL HISTORY OF MORE THAN NINE SURGERIES, SPINA BIFIDA, OR REPEATED CATHERIZATIONS? YES - PLEASE INDICATE : > 9 SURGERIES LATEX RISK : ARE YOU FREQUENTLY EXPOSED TO LATEX PRODUCTS IN YOUR OCCUPATION?NO DATE ASKED : 01/22/2021 ALCOHOL USE: YES, VERY RARELY. BMI CARE GOAL FOLLOW-UP ABOVE NORMAL BMI FOLLOW-UPDIETARY MANAGEMENT EDUCATION, GUIDANCE, AND COUNSELING, GIVING ENCOURAGEMENT TO EXERCISE ALCOHOL SCREENING DID YOU HAVE A DRINK CONTAINING ALCOHOL IN THE PAST YEAR?YES HOW OFTEN DID YOU HAVE SIX OR MORE DRINKS ON ONE OCCASION IN THE PAST YEAR?NEVER (0 POINTS) HOW MANY DRINKS DID YOU HAVE ON A TYPICAL DAY WHEN YOU WERE DRINKING IN THE PAST YEAR?1 OR 2 (0 POINTS) HOW OFTEN DID YOU HAVE A DRINK CONTAINING ALCOHOL IN THE PAST YEAR?MONTHLY OR LESS (1 POINT) POINTS1 INTERPRETATIONNEGATIVE RECREATIONAL DRUG USE DRUG USE?NO CAFFEINE CAFFEINE USE?YES HOW OFTEN AND HOW MUCH? DAILY CUP OF COFFEE SEXUAL HX HAD SEX IN THE LAST 12 MONTHS (VAGINAL, ORAL, OR ANAL)?NO HAVE YOU EVER HAD AN STD?NO HIV / HEP-C SCREENING HIV TEST OFFERED TO PATIENT:NO DENIED 06/19/2016 HEP-C TEST OFFERED TO PATIENT:YES HAD A HISTORY OF HEP. C DATE OFFERED:06/19/2016 TEST ACCEPTED:NO REASON:OTHER (DOCUMENT IN NOTE) MU-ISM JAIN. 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 DIET: REGULAR. EXERCISE: NONE. MARITAL STATUS: , SINGLE. OTHERS AT HOME: CHILD. TODAY'S VISITNOTES 11/29/2019 PATIENT DESCRIBES PAIN :ACHING, BURNING, HAVE IT ALL THE TIME, SHARP FROM 0-10, WHAT LEVEL IS YOUR PAIN TODAY?7 PRECIPITATING FACTORS STANDING, WALKING, ACTIVITY ALLEVIATING FACTORS SITTING, HEATING PAD, HOT SHOWER IMPACT ON FUNCTION DIFFICULTY WITH DAILY ACTIVITIES. - HAS THE PATIENT BEEN EDUCATED REGARDING HIS/HER PLAN OF CARE?YES HAS THE PATIENT BEEN EDUCATED REGARDING PAIN, THE RISK FOR PAIN, THE IMPORTANCE OF EFFECTIVE PAIN MANAGEMENT, AND THE PAIN ASSESSMENT PROCESS?YES ADVANCE DIRECTIVE ADVANCE DIRECTIVE DISCUSSED WITH PATIENT:YES PT HAS NO ADVANCED DIRECTIVES, DECLINES INFORMATION ON HCP AT THIS TIME. HOSPITALIZATION/MAJOR DIAGNOSTIC PROCEDURE HOSPITALIZED X 2 FOR ANEMIA 2015 A-FIB 1 WEEK POST HERNIA SX 04-1 TILL 11/05/2017 WENT TO [facility] CARE FOR RIGHT KNEE PAIN 01/19/2021 REVIEW OF SYSTEMS CONSTITUTIONAL: ANY RECENT FEVER NO . CHILLS NO . WEIGHT CHANGE OF UNKNOWN REASONS NO . GASTROENTEROLOGY: NEW UNEXPLAINABLE CHANGES IN BOWEL CONTROL NO . CONSTIPATION NO . GENITOURINARY: ANY NEW CHANGE IN BLADDER CONTROL? NO . NEUROLOGY: NEW ONSET DIZZINESS OR NEUROLOGICAL CHANGES NOT MENTIONED NO . NEW NUMBNESS OR PAIN PATTERNS NOT MENTIONED AND PERTINENT TO TODAY'S VISIT NO . CARDIOLOGY: NEW CHEST PRESSURE NO . PATIENT DENIES NO . RESPIRATORY: UNEXPLAINABLE COUGH NO . NEW SHORTNESS OF BREATH NO . VITAL SIGNS WT 268 LBS, HT 64 IN, BMI 46.00 INDEX, BP 167/70 MM HG, HR 73 /MIN, RR 18 /MIN, TEMP 98.2 F, OXYGEN SAT % 94%, SAFE IN ENV? (Y/N) YESTCHAPARRO BALDWIN. EXAMINATION GENERAL EXAMINATION: GENERALALERT, ORIENTED, NO ACUTE DISTRESS. WALKS WITH A SLIGHT ANTALGIC GAIT WITH ASSIST OF A CANE. PSYCHAPPROPRIATE MOOD AND AFFECT . FACE:UNREMARKABLE. NECK:NO LYMPHADENOPATHY, SUPPLE. LUNGS:CLEAR TO AUSCULTATION BILATERALLY, NO WHEEZES, RHONCHI, RALES. HEART:NO MURMURS, REGULAR RATE AND RHYTHM. MUSCULOSKELETAL:WEAKNESS NOTED OVER LOWER EXTREMITIES RIGHT GREATER THAN LEFT.. LUMBAR:WELL-HEALED SURGICAL SCAR LOWER THORACIC/LUMBOSACRAL. TENDERNESS NOTED WITH PALPATION OVER THE LS AXIS AND LUMBAR PARASPINALS. SPECIFIC POINT TENDERNESS NOTED OVER BILATERAL SACROILIAC JOINTS. NEUROLOGIC EXAM:PARESTHESIAS TO LIGHT TOUCH OVER LOWER EXTREMITIES RIGHT GREATER THAN LEFT.. DIAGNOSTIC TESTS REVIEWEDMRI L/S,THORACI,CERVICAL 2019. 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 INTERVERTEBRAL DISC DISORDERS WITH RADICULOPATHY, LUMBAR REGION MEDICATION: VALIUM TAB 5MG ORALLY (DIAZEPAM) (ORDERED FOR 02/05/2021) MEDICATION: OXYCODONE HCL TAB 5MG ORALLY (ORDERED FOR 02/05/2021) SALINE LOCK (ORDERED FOR 02/05/2021) NOTES: CAUDAL EPIDURAL STERIOD INJECTION/MED HOLD/ELIQUIS. PROCEDURE CODES FA211 ESTABILISHED PATIENT [facility] FACILITY CHARGE DISPOSITION & COMMUNICATION FOLLOW UP POST (REASON: CAUDAL EPIDURAL STERIOD INJECTION/MED HOLD/ELIQUIS) ELECTRONICALLY SIGNED BY MARIA ANTONIA GALEANA ON 01/23/2021 AT 10:06 AM EDT DISCLAIMER : THIS IS A VISIT SUMMARY EXTRACTED FROM THE [employer] CHART. IT IS NOT A COPY OF THE [employer] PROGRESS NOTE. PIERCE
== END ==
LOC: M PAIN 08:30
PROVIDERS: ATTEND Nurse Practitioner Family
DX: M96.1 Postlaminectomy syndrome, not elsewhere classified (principal); M51.16 Intervertebral disc disorders with radiculopathy, lumbar region; G62.9 Polyneuropathy, unspecified; F31.9 Bipolar disorder, unspecified; G47.00 Insomnia, unspecified; K21.9 Gastro-esophageal reflux disease without esophagitis; E66.9 Obesity, unspecified; J45.909 Unspecified asthma, uncomplicated; I48.0 Paroxysmal atrial fibrillation; K76.0 Fatty (change of) liver, not elsewhere classified; M79.7 Fibromyalgia; G47.33 Obstructive sleep apnea (adult) (pediatric); Z87.891 Personal history of nicotine dependence; Z79.899 Other long term (current) drug therapy

== ENCOUNTER → 2021-01-23 | Outpatient (CLI) | payer MEDICARE, MEDICAID ==
--- NOTE | 2021-01-23 11:10 | REP ---
INDICATION: TOMMY SCR MAMMO/Z12.31. COMPARISON: Multiple TECHNIQUE: Digital screening mammography was carried out bilaterally in the CC and MLO projections using both 2D and 3D modalities and compared to the prior exams. By history, the patient has no complaints of a palpable breast abnormality or other significant breast complaints. FINDINGS: The breasts are unchanged in size and shape. Scattered dense heterogenous fibroglandular elements are again seen bilaterally. In the right breast upper outer quadrant but close to the 10 o'clock position there is a potential tiny greg density. This is seen best on DBT imaging. There is no internal architectural distortion. There are no suspicious calcifications. There is no skin thickening or nipple retraction. No other suspicious features are seen in either breast. The Volpara volumetric breast density pattern is b. IMPRESSION: BIRADS/ACR category 0 mammogram. In the right breast, as described above, there is a potential greg density for which diagnostic digital magnified spot compression views are recommended in the CC and MLO projections. DBT spot views should be obtained. Diagnostic focused ultrasonography may also be necessary. This patient's Tyrer-Cuzick lifetime breast cancer risk assessment score is 6.4%. This mammogram was interpreted with the aid of an FDA-approved computer-aided detection system. The patient states she had a clinical breast exam in over a year. The patient letter being requested is M0. RECOMMENDATION: As above <Electronically signed by Bi Diaz > 01/23/21 1101
--- NOTE | 2021-01-23 13:15 | DEXAMM ---
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 COMPARISON: Comparison study April 21, 2009.. TECHNIQUE: Bone density was measured using dual-energy x-ray absorptionmetry (DEXA). FINDINGS: AP SPINE L1-L4 BMD 1.158 g/cm2 Young Adult T-Score -0.3 Age Matched Z-Score 1.3. LT FEMUR, TOTAL BMD 0.812 g/cm2 Young Adult T-Score -1.5 Age Matched Z-Score -0.3. LT NECK BMD 0.789 g/cm2 Young Adult T-Score -1.8 Age Matched Z-Score -0.3. RT FEMUR, TOTAL BMD 0.737 g/cm2 Young Adult T-Score -2.1 Age Matched Z-Score -0.9. RT NECK BMD 0.720 g/cm2 Young Adult T-Score -2.3 Age Matched Z-Score -0.8. There is a levoconvex curve in the lumbar spine. IMPRESSION: There is normal bone density of the spine. There is low bone density of the left hip. There is low bone density of the right hip. The density of the spine has increased 10.2% since the initial exam on April 21, 2009. The density of the left hip has decreased 12.9% since initial exam on April 21, 2009. The density of the right hip has decreased 18.4% since the initial exam on April 21, 2009. FOLLOW-UP: Recommendation for the next bone density exam: 2 years. <Electronically signed by Chavez Euceda > 01/23/21 6530
== END ==
LOC: M WHC 10:02
PROVIDERS: ATTEND Family Medicine
DX: Z12.31 Encounter for screening mammogram for malignant neoplasm of breast (principal); M81.0 Age-related osteoporosis without current pathological fracture

== ENCOUNTER → 2021-02-15 | Outpatient (CLI) | payer MEDICARE, MEDICAID | LOC: M LABSMTC 13:16 | PROVIDERS: ATTEND Anesthesiology | DX: Z20.822 Contact with and (suspected) exposure to COVID-19 (principal) ==

== ENCOUNTER → 2021-02-20 | Outpatient (CLI) | payer MEDICARE ==
[~2021-02-20] MED LIST changes: +ISOVUE-M 300 61% 15ML VIAL As Ordered ONE; +LIDOCAINE 1% SDV 30ML VIAL As Ordered ONE; +diazePAM 5MG TABLET As Ordered ONE; +methylPREDNISolone SUSP 40MG/ML 1ML VIAL (DEPO MEDROL) As Ordered ONE; +oxyCODONE 5MG TAB As Ordered ONE
--- NOTE | 2021-02-20 16:21 | REP ---
INDICATION: CAUDEAL OR LUMBER EPIDURAL. COMPARISON: None. TECHNIQUE: Three views. 40.4 seconds of fluoroscopy time is reported. FINDINGS: A sequence of 3 last image hold fluoroscopically obtained spot radiograph(s) of the lumbar spine document(s) needle position(s) and contrast injection associated with injection procedure. IMPRESSION: Procedural imaging. <Electronically signed by Chavez Euceda > 02/20/21 [id number]
--- NOTE | 2021-02-23 01:51 | ECWPNPC ---
PATIENT NAME: DIYA QUINONEZ : 1955 GENDER: FEMALE VISIT DATE: 02/20/2021 DISCHARGE DATE: 02/20/21 1524 VISIT LOCKED DATE TIME: PHYSICIAN: AMADOU RASHID MD PHYSICIAN PAGER NO: ACTIVE RESOURCE: AMADOU RSAHID MD REASON FOR APPOINTMENT 1. CAUDAL EPIDURAL STERIOD INJECTION HISTORY OF PRESENT ILLNESS GENERAL: -. FALL RISK SCREENING: SCREENING : ONE FALL REPORTED IN THE LAST YEAR WITHOUT INJURY. PAIN SCREENING: PATIENT HAS A COMPLAINT OF ACUTE OR CHRONIC PAIN :YES LOCATION OF PAIN:LOW BACK, LEG(S) INTENSITY OF PAIN (SCALE OF 1 TO 10):7 WHAT DOES YOUR PAIN FEEL LIKE:ACHING, BURNING, SHARP, STABBING, THROBBING, SORE, SHOOTING DURATION:CONTINOUS, CONSTANT PAIN IS INCREASED BY:ACTIVITIES PAIN IS DECREASED BY: NOTHING PLAN/GOALS/TREATMENT/INTERVENTION/FOLLOW UP:SEE PLAN NURSING NOTE: -. PAIN CENTER INTAKE QUESTIONS: DO YOU HAVE A HISTORY OF MRSA? :NO DO YOU TAKE A BLOOD THINNERS? :YES HANNAHQUTHOMAS LD: 02/17 DO YOU HAVE ANY BLEEDING DISORDERS? :NO ANY NEW NUMBNESS OR WEAKNESS IN YOUR LEGS OR ARMS? :NO ANY PACEMAKER,DEFIBRILLATOR, OR DORSAL COLUMN STIMULATOR? :NO DO YOU HAVE ANY RASHES OR OPEN SORES? :NO ARE YOU ALLERGIC TO IV DYE? :NO ARE YOU DIABETIC? :NO ANY NEW PROBLEMS WITH YOUR MEDICATIONS? :NO HAVE YOU RECEIVED A VACCINE IN THE PAST 30 DAYS? :NO DO YOU PLAN TO RECEIVE A VACCINE IN THE NEXT 21 DAYS? :NO DO YOU TAKE ANY IMMUNOSUPPRESSIVE MEDICATIONS? :NO ANY HISTORY OF SEIZURES? :NO ANY HISTORY OF CARDIAC ISSUES OR EVENTS? :YES A-FIB CARDIAC ABLATION DONE, ON ELEIQUIS DO YOU HAVE ANY KIDNEY OR LIVER DISEASE? :NO DO YOU HAVE SLEEP APNEA? :YES DO YOU WEAR A CPAP?YES ANY RECENT HEAD INJURY? :NO DO YOU HAVE ANY NEW INFECTIONS? :NO IS THERE A CHANCE YOU COULD BE ? :NO ARE YOU BREAST FEEDING? :NO WHEN DID YOU LAST EAT? : 02/19/21 2200 WHEN DID YOU LAST DRINK? : 02/20/21 0900 WHAT DID YOU LAST DRINK? : SIPS OF WATER NAME OF PERSON DRIVING YOU HOME? : FRIEND DO YOU HAVE ANY OTHER QUESTIONS OR CONCERNS? : NO CURRENT MEDICATIONS TAKING LAMOTRIGINE 200 MG TABLET DISINTEGRATING 1 TABLET ON THE TONGUE AND ALLOW TO DISSOLVE ORALLY ONCE A DAY, NOTES: CAMILLA NELSON TAKING LATUDA 60 MG TABLET 1 TABLET ORALLY ONCE A DAY, NOTES: CAMILLA NELSON TAKING DEXILANT 60 MG CAPSULE DELAYED RELEASE 1 CAPSULE ORALLY ONCE A DAY TAKING METOPROLOL TARTRATE 25 MG TABLET 1 TABLET WITH FOOD ORALLY TWICE A DAY, NOTES: 02/20/21829 TAKING LITHIUM CARBONATE 300 MG CAPSULE 2 EVERY NIGHT ORAL DAILY TAKING ELIQUIS 5 MG TABLET ORALLY BID, NOTES: CARDIOLOGY 02/17 TAKING ROPINIROLE HCL 1 MG TABLET 1 TABLET 1 TO 3 HOURS BEFORE BEDTIME ORALLY TWICE A DAY TAKING TRAZODONE HCL 100 MG TABLET 1 TABLET AT BEDTIME NEEDED ORALLY ONCE A DAY TAKING CALCIUM 600 + D 600-400 MG-UNIT TABLET 1 TABLET ORALLY ONCE A DAY TAKING MULTIVITAMINS TABLET 1 TAB ORALLY DAILY TAKING MIRALAX - PACKET 1 PACKET MIXED WITH 8 OUNCES OF FLUID ORALLY ONCE A DAY, NEEDED TAKING VENTOLIN HFA 108 (90 BASE) MCG/ACT AEROSOL SOLUTION 1 PUFF NEEDED INHALATION EVERY 4 HRS TAKING GABAPENTIN 400 MG CAPSULE 1 TABLET ORALLY THREE TIMES A DAY, NOTES: 02/20/21829 TAKING FAMOTIDINE 20 MG TABLET 1 TABLET AT BEDTIME NEEDED ORALLY ONCE A DAY TAKING BENZTROPINE MESYLATE 0.5 MG TABLET 1 TABLET AT BEDTIME ORALLY TWICE A DAY TAKING DONEPEZIL HCL 10 MG TABLET 1 TABLET ORALLY ONCE A DAY, NOTES: 02/20/21829 NOT-TAKING REQUIP 0.25 MG TABLET 1 TABLET ORALLY BID MEDICATION LIST REVIEWED AND RECONCILED WITH THE PATIENT PAST MEDICAL HISTORY 2001 CHRONIC HEPATITIS C GENOTYPE 2A, VL 2.7MILLION , RVR ON TREATMENT UNDETECTABLE VL 11/04, END OF TX 03/03/2010 BIPOLAR DISORDER, INSOMNIA - [facility] GERD, GASTRITIS, HIATAL HERNIA - DR. OSCAR OBESITY ASTHMA, ALLERGIC RHINITIS - ADVANCED ALLERGY SCOLIOSIS BREAST LUMPECTOMY/RIGHT BREAST 2009 DDD CERVICAL SPINE SPINAL FUSION 1973 SPINAL EXPLORATORY 1975 ANEMIA PAROXYSMAL AFIB - CANNY FATTY LIVER: BY U/S 05/05/2018 TRANSESOPHAGEAL ECHO 07/2018: TRICUSPID, MITRAL AND AORTIC VALVE NORMAL IN THICKNESS AND EXCURSION, MILD MITRAL INSUFFICIENCY, TRACE AORTIC INSUFFICIENCY, INTERATRIAL SEPTUM INTACT, EF NORMAL TRANSTHROACIC ECHO: NORMAL LV DIMENSION AND WALL THICKNESS. NORMAL LV WALL MOTION AND WALL THICKENING. NORMAL SYSTOLIC FUNCTION, EF 70%. NORMAL DIASTOLIC FUNCTION FIBROMYALGIA FORMER SMOKER, QUIT IN 1986 HX CONCUSSION 2018 AFTER A SEIZURE HX TIAS, BALANCE PROBLEMS, FREQUENT FALLS, MCI, RLS - [facility] NEURO ROXY - ON CPAP, PER NEURO CHRONIC BACK PAIN LEG PAIN OSTEOPENIA - DEXA 12/2020 FRAX 5.4/0.5% ALLERGIES ENVIRONMENTAL: RUNNING NOISE, WATERY EYES SOCIAL HISTORY GENERAL: TOBACCO USE ARE YOU A:FORMER SMOKER QUIT 1986 HOW LONG HAS IT BEEN SINCE YOU LAST SMOKED?> 10 YEARS LATEX QUESTIONNAIRE LATEX ALLERGY : HAVE YOU EVER DEVELOPED ANY TYPE OF REACTION AFTER HANDLING LATEX PRODUCTS SUCH RUBBER GLOVES, CONDOMS, DIAPHRAGMS, BALLOONS, SOCKS, OR UNDERWEAR?NO LATEX ALLERGY : HAVE YOU EVER DEVELOPED ANY TYPE OF REACTION DURING OR AFTER DENTAL APPOINTMENT, VAGINAL/RECTAL EXAMINATION, SURGICAL PROCEDURE, OR ANY OTHER EXPOSURE?NO DATE ASKED : 01/22/2021 LATEX RISK : HAVE YOU EVER HAD ANY DIFFICULTY BREATHING OR HIVES AFTER EATING OR HANDLING ANY FRUITS, OR VEGETABLES; SUCH KIWI, BANANAS, STONE FRUITS, OR CHESTNUTSNO LATEX RISK : DO YOU HAVE A PREVIOUS PERSONAL HISTORY OF MORE THAN NINE SURGERIES, SPINA BIFIDA, OR REPEATED CATHERIZATIONS? YES - PLEASE INDICATE : > 9 SURGERIES LATEX RISK : ARE YOU FREQUENTLY EXPOSED TO LATEX PRODUCTS IN YOUR OCCUPATION?NO ALCOHOL USE: YES, VERY RARELY. BMI CARE GOAL FOLLOW-UP ABOVE NORMAL BMI FOLLOW-UPDIETARY MANAGEMENT EDUCATION, GUIDANCE, AND COUNSELING, GIVING ENCOURAGEMENT TO EXERCISE ALCOHOL SCREENING DID YOU HAVE A DRINK CONTAINING ALCOHOL IN THE PAST YEAR?YES HOW OFTEN DID YOU HAVE SIX OR MORE DRINKS ON ONE OCCASION IN THE PAST YEAR?NEVER (0 POINTS) HOW MANY DRINKS DID YOU HAVE ON A TYPICAL DAY WHEN YOU WERE DRINKING IN THE PAST YEAR?1 OR 2 (0 POINTS) HOW OFTEN DID YOU HAVE A DRINK CONTAINING ALCOHOL IN THE PAST YEAR?MONTHLY OR LESS (1 POINT) POINTS1 INTERPRETATIONNEGATIVE RECREATIONAL DRUG USE DRUG USE?NO CAFFEINE CAFFEINE USE?YES HOW OFTEN AND HOW MUCH? DAILY CUP OF COFFEE SEXUAL HX HAD SEX IN THE LAST 12 MONTHS (VAGINAL, ORAL, OR ANAL)?NO HAVE YOU EVER HAD AN STD?NO HIV / HEP-C SCREENING HIV TEST OFFERED TO PATIENT:NO DENIED 06/19/2016 HEP-C TEST OFFERED TO PATIENT:YES HAD A HISTORY OF HEP. C DATE OFFERED:06/19/2016 TEST ACCEPTED:NO REASON:OTHER (DOCUMENT IN NOTE) SABIANIST EPISCOPALIAN. LANGUAGE LANGUAGES SPOKEN:BARBADIAN EDUCATION LEVEL OF EDUCATION:FINISHED HIGH SCHOOL LEARNING BARRIERS / SPECIAL NEEDS CHANGE FROM LAST VISIT?NO BARRIERS TO LEARNING?NO HEARING IMPAIRED?YES HEARING AIDES VISION IMPAIRED?YES COGNITIVELY IMPAIRED?NO :HEARING AIDES :CORRECTIVE LENSES READINESS TO LEARN?YES LEARNING PREFERENCES?YES :HANDOUTS LEARNING CAPABILITIES PRESENT?YES EMOTIONAL BARRIERS?NO SPECIAL DEVICES?YES C PAP :CANE ORACLE DEVELOPER NEEDED?NO DOMESTIC VIOLENCE DO YOU FEEL SAFE IN YOUR ENVIRONMENT?YES OCCUPATION: DISABLED. DIET: REGULAR. EXERCISE: NONE. MARITAL STATUS: , SINGLE. OTHERS AT HOME: CHILD. TODAY'S VISITNOTES 11/29/2019 PATIENT DESCRIBES PAIN :ACHING, BURNING, HAVE IT ALL THE TIME, SHARP FROM 0-10, WHAT LEVEL IS YOUR PAIN TODAY?7 PRECIPITATING FACTORS STANDING, WALKING, ACTIVITY ALLEVIATING FACTORS SITTING, HEATING PAD, HOT SHOWER IMPACT ON FUNCTION DIFFICULTY WITH DAILY ACTIVITIES. - HAS THE PATIENT BEEN EDUCATED REGARDING HIS/HER PLAN OF CARE?YES HAS THE PATIENT BEEN EDUCATED REGARDING PAIN, THE RISK FOR PAIN, THE IMPORTANCE OF EFFECTIVE PAIN MANAGEMENT, AND THE PAIN ASSESSMENT PROCESS?YES ADVANCE DIRECTIVE ADVANCE DIRECTIVE DISCUSSED WITH PATIENT:YES PT HAS NO ADVANCED DIRECTIVES, DECLINES INFORMATION ON HCP AT THIS TIME. VITAL SIGNS WT 266.6 LBS, HT 64 IN, BMI 45.76 INDEX, BP 141/77 MM HG, HR 65 /MIN, RR 18 /MIN, TEMP 96.0 F, OXYGEN SAT % 93%, NA INITIALS AW 1136, REVIEWED BY: Benigno CHONG WARP PICKER. EXAMINATION GENERAL: THE PATIENT IS ALERT, ORIENTED TIMES THREE AND COOPERATIVE. LUNGS ARE CLEAR TO AUSCULTATION. HEART SHOWS REGULAR RHYTHM, NO MURMURS AND NO GALLOPS. ASSESSMENTS LUMBAR POST-LAMINECTOMY SYNDROME - M96.1 (PRIMARY) TREATMENT LUMBAR POST-LAMINECTOMY SYNDROME COMPLETION OF PROCEDURAL VISIT WHEN MEETS CRITERIAALEXANDRE BRADY 02/20/2021 3:26:55 PM > CRITERIA MET OTHERS NOTES: PAT DONE 02/15/21 EM. PROCEDURES PAIN NURSING RECORD PROCEDURE IN ROOM 1426, PHYSICIAN IN ROOM 1432, START 1445, FINISH 1449, PHYSICIAN OUT OF ROOM 1451, OUT OF ROOM 1459, ECG NORMAL SINUS, PATIENT SHIELDED YES, SAFETY STRAP YES, PREP MARILUDINE E. ANDERSON RN, DRESSING TEGADERM LOC: 1. ALERT, ORIENTED ALEXANDRE BRADY 02/20/2021 2:29:21 PM > RESP: 1. REGULAR, NO DYSPNEA ALEXANDRE BRADY 02/20/2021 2:29:25 PM > COLOR: 1. PINK ALEXANDRE BRADY 02/20/2021 2:29:29 PM > SKIN: 1. WARM, DRY ALEXANDRE BRADY 02/20/2021 2:29:34 PM > POSITION: 1. PRONE ALEXANDRE BRADY 02/20/2021 2:29:40 PM > VITALS: 1355 P74 0298 BP 151/68 R18 AW 1405 [id number] 78 97% ON RA 18 RESP 1420 168/75 96% ON RA 18 RESP 1435 142/54 88 97% ON RA 18 RESP 1450 136/54 78 97% ON RA 18 RESP POST VITAL 1505 136/54 78 97% ON RA 18 RESP NOTES Thomas BRADY RN COMPLETION OF PROCEDURE APPOINTMENT: POST PAIN 6, DRESSING SITE DRY AND INTACT, IV DISCONTINUED, SITE CLEAR, CATHETER INTACT, GAIT STEADY, TEACHING COMPLETED, PATIENT ACKNOWLEDGES UNDERSTANDING YES, PROCEDURE APPOINTMENT COMPLETED AT 1527 PRE PROCEDURE DIAGNOSIS LUMBAR DISC DISORDER WITH RADICULOPATHY POST PROCEDURE DIAGNOSIS LUMBAR DISC DISORDER WITH RADICULOPATHY PROCEDURE LUMBAR EPIDURAL STEROID INJECTION UNDER FLUOROSCOPIC GUIDANCE SURGEON DR. AMADOU RASHID MARKETING PROJECT MANAGER NONE ANESTHESIA LOCAL PRE PROCEDURE NOTE THE PATIENT HAS A HISTORY OF CHRONIC LOW BACK PAIN. I EVALUATED THE PATIENT AND REVIEWED THE CHART. I WENT OVER THE RISKS, ALTERNATIVES, AND BENEFITS ASSOCIATED WITH THIS PROCEDURE. THE PATIENT WOULD LIKE TO PROCEED AND GIVE CONSENT TO PERFORMED THE PROCEDURE. THE PATIENT DENIES UNEXPLAINABLE WEIGHT LOSS, FEVER, CHILLS, OR NEW CHANGES IN URINARY OR BOWEL CONTROL. THE PATIENT IS COVID-19 NEGATIVE. THE PATIENT HAS A SACRALIZATION OF L5. COUNTING FROM THE TOP, I WILL DO L4-L5 DESCRIPTION OF PROCEDURE THE PATIENT WAS BROUGHT TO THE PROCEDURE ROOM AND PLACED IN THE PRONE POSITION. THE LUMBOSACRAL AREA WAS CLEANED WITH BETADINE SOLUTION AND DRAPED ASEPTICALLY. THE PROCEDURE WAS DONE UNDER STERILE CONDITIONS. A TIMEOUT WAS PERFORMED WHERE THE CONSENTED SITE WAS VERIFIED WITH EVERYONE IN THE ROOM. UNDER FLUOROSCOPIC GUIDANCE, THE TARGET POINT WAS SELECTED AT THE INTERLAMINAR LEVEL OF L4-L5. I CONFIRMED AGAIN THE SITE OF TARGET. LIDOCAINE WAS USED TO NUMB THE SKIN AND THE SUBCUTANEOUS TISSUE BELOW IT. EPIDURAL TUOHY NEEDLE, 17-GAUGE, WAS ADVANCED UNDER FLUOROSCOPIC GUIDANCE AND FOLLOWING PATIENT FEEDBACK UNTIL THE EPIDURAL SPACE WAS REACHED 9 CM DEEP INTO THE SKIN BY THE LOSS OF RESISTANCE TECHNIQUE. ISOVUE-M DYE 30%, 0.25 ML, WAS INJECTED SHOWING ADEQUATE SPREAD OF THE DYE. THEN, A SOLUTION OF 3 ML OF NORMAL SALINE WITH DEPO-MEDROL 40 MG WAS INJECTED SLOWLY FOLLOWING PATIENT FEEDBACK. THE MEDICATIONS WERE VERIFIED WITH THE NURSE. THERE WAS NO EVIDENCE OF BLOOD, PARESTHESIA OR CEREBROSPINAL FLUID DURING THE PROCEDURE. THE PATIENT WAS SENT TO THE RECOVERY ROOM. THE PATIENT WAS MOVING THE EXTREMITIES AND DOING WELL. THERE WERE NO COMPLICATIONS DURING THE PROCEDURE. ESTIMATED BLOOD LOSS WAS LESS THAN 5 ML. FLUOROSCOPY TIME WAS 40 SECONDS POST PROCEDURE NOTE DEPENDING ON THE RESULTS, CONSIDER A RIGHT L3-L4, L4-L5, L5-S1 TRANSFORAMINAL EPIDURAL STEROID INJECTION. THE PATIENT WILL BE SEEN IN A FOLLOW UP IN THE NEXT FEW WEEKS. I AM LOOKING FOR LONG LASTING RELIEF FOR THE PATIENT WITH THIS INTERVENTION. INSTRUCTIONS WERE GIVEN, QUESTIONS WERE ANSWERED, AND THE PATIENT EXPRESSED UNDERSTANDING AND AGREES WITH THE PLAN. I, FRANCIE DILLON, DOCUMENTED THE ABOVE INFORMATION ACTING A SCRIBE FOR DR. RASHID. I HAVE REVIEWED THE ABOVE DOCUMENT, WRITTEN BY FRANCIE DILLON, SUPERVISOR METAL FURNITURE FABRICATION, AND I VERIFY THAT IT IS [facility]NOST[facility] FLUORO GUIDE SPINE INJECTION (PAIN)[id number] PROCEDURE CODES 68382 LUMBAR/SACRAL W/ IMAGING DISPOSITION & COMMUNICATION FOLLOW UP FOLLOW UP WITH RESPIRATORY THERAPY AIDE (REASON: POST LUMBAR EPIDURAL STEROID INJECTION) ELECTRONICALLY SIGNED BY AMADOU RASHID MD, MD ON 02/22/2021 AT 11:20 AM EDT DISCLAIMER : THIS IS A VISIT SUMMARY EXTRACTED FROM THE [employer] CHART. IT IS NOT A COPY OF THE [employer] PROGRESS NOTE. PIERCE
== END ==
LOC: M PAIN 11:20
PROVIDERS: ATTEND Anesthesiology
DX: M96.1 Postlaminectomy syndrome, not elsewhere classified (principal); F31.9 Bipolar disorder, unspecified; K21.9 Gastro-esophageal reflux disease without esophagitis; K44.9 Diaphragmatic hernia without obstruction or gangrene; E66.9 Obesity, unspecified; J45.909 Unspecified asthma, uncomplicated; M50.30 Other cervical disc degeneration, unspecified cervical region; D64.9 Anemia, unspecified; I48.0 Paroxysmal atrial fibrillation; K76.0 Fatty (change of) liver, not elsewhere classified; M79.7 Fibromyalgia; G47.33 Obstructive sleep apnea (adult) (pediatric); Z87.891 Personal history of nicotine dependence; Z79.01 Long term (current) use of anticoagulants; Z79.899 Other long term (current) drug therapy
CPT/HCPCS: 62323; J1030; Q9967

== ENCOUNTER → 2021-02-22 | Outpatient (CLI) | payer MEDICARE, MEDICAID ==
[~2021-02-22] MED LIST changes: -ISOVUE-M 300 61% 15ML VIAL As Ordered ONE; -LIDOCAINE 1% SDV 30ML VIAL As Ordered ONE; -diazePAM 5MG TABLET As Ordered ONE; -methylPREDNISolone SUSP 40MG/ML 1ML VIAL (DEPO MEDROL) As Ordered ONE; -oxyCODONE 5MG TAB As Ordered ONE
--- NOTE | 2021-02-22 10:13 | REP ---
INDICATION: ADDITIONAL VIEW RT BREAST. COMPARISON: Multiple. Latest prior screening examination 01/23/2021 showed a tiny potential greg density in the right breast TECHNIQUE: Diagnostic digital magnified and DBT spot compression views of the right breast were obtained in the CC and MLO projections along with diagnostic ultrasonography. FINDINGS: The small nodular greg density seen on the screening examination near the 11 o'clock position persists on the diagnostic spot-compression views. Diagnostic ultrasonography of this region shows an 8 mm sized hypoechoic nodule. Shear wave elastography was performed on this and shows mid range kPa values. IMPRESSION: BIRADS/ACR category 4 mammogram and right breast ultrasound with solid-appearing greg nodular density in the upper outer quadrant as described above and for which biopsy is recommended. The patient letter being requested is M4. RECOMMENDATION: As above. <Electronically signed by Bi Diaz > 02/22/21 [id number]
== END ==
LOC: M WHC 08:10
PROVIDERS: ATTEND Family Medicine
DX: N63.11 Unspecified lump in the right breast, upper outer quadrant (principal)
CPT/HCPCS: 76642; 77065; G0279

== ENCOUNTER → 2021-04-03 | Outpatient (CLI) | payer MEDICAID, MEDICARE ==
[~2021-04-03] MED LIST changes: +TRAZ-252 PO
[2021-04-03 15:00] VITALS: BP 144/88
--- NOTE | 2021-04-03 17:03 | REP ---
INDICATION: ABNORMAL RIGHT MAMMOGRAM. COMPARISON: None. TECHNIQUE: The procedure was performed under the direct supervision of Dr. Boothe. The patient has a history of an 8 mm hypoechoic nodule in the 11 o'clock position of the right breast seen on a previous ultrasound dated 02/22/2021. The risks and benefits of the procedure were explained to the patient and informed consent was obtained. The right breast nodule was localized using ultrasound guidance. The skin was prepped and draped in a sterile fashion. Eight 1% Xylocaine was used as a local anesthetic. Using ultrasound guidance a 14-gauge coaxial needle biopsy system was inserted and6 core biopsy samples were obtained. A marker clip (HydroMARK shape 3) was placed at the biopsy site The patient tolerated the procedure well and there were no immediate complications. After the appropriate amount of monitored convalescence, the patient was discharged from the department. EBL: Less than 1 cc FINDINGS: None IMPRESSION: (HydroMARK shape 3) <Electronically signed by William Hammond > 04/03/21 9038 <Electronically signed by Madi Boothe > 04/03/21 [id number]
--- NOTE | 2021-04-04 15:57 | REP ---
INDICATION: ABNORMAL R MAMMOGRAM, FOR POST CLIP PLACEMENT. COMPARISON: 02/22/2021, 01/23/2021, 02/11/2019. TECHNIQUE: Cc, MLO and mL views of the right breast are performed status post ultrasound-guided biopsy of a subcentimeter hypoechoic nodule, as identified on the ultrasound of 02/22/2021. FINDINGS: The biopsy clip is approximately 3.5 cm behind the nipple. The nodule that was biopsied today using ultrasound guidance therefore does not correspond to the smoothly marginated subcentimeter nodule seen more laterally on the mammograms of 01/23/2021 and 02/22/2021. However, comparing to the prior study of 02/11/2019, that nodule has remained stable for 2 years and is considered benign. IMPRESSION: Ultrasound-guided biopsy of right breast nodule as discussed above. The biopsy clip is approximately 3.5 cm behind the nipple. The nodule that was biopsied today using ultrasound guidance therefore does not correspond to the smoothly marginated subcentimeter nodule seen more laterally on the mammograms of 01/23/2021 and 02/22/2021. However, comparing to the prior study of 02/11/2019, that nodule has remained stable for 2 years and is considered benign. RECOMMENDATION: Clinical follow-up. <Electronically signed by Madi Boothe > 04/03/21 2232
== END ==
LOC: M WHCPRO 06:48
PROVIDERS: ATTEND Surgery
DX: N63.12 Unspecified lump in the right breast, upper inner quadrant (principal); D24.1 Benign neoplasm of right breast

== ENCOUNTER → 2021-04-12 | Outpatient (CLI) | payer MEDICARE, MEDICAID ==
[~2021-04-12] MED LIST changes: -VERA120T4 PO; +VERA120T77 PO
[2021-04-12 14:39] VITALS: BP 142/88
--- NOTE | 2021-04-12 16:58 | REP ---
INDICATION: R92.8 ABN R BREAST MAMMO/STEREO BX CK CLIP PLACEMENT. COMPARISON: None. TECHNIQUE: This procedure is performed by Felicita Fischer [facility], under the direct supervision of Dr. Boothe. The risks and benefits of the procedure were explained to the patient and informed consent was obtained both verbally and written. Directly prior to the start of the procedure, a formal timeout was done in the procedure room. The cranial caudal approach was utilized on the prone table. The right breast nodule was localized using mammographic guidance. The skin was prepped and draped in a sterile fashion. Three ml of buffered lidocaine 1% lidocaine 10 mg/ml was used as a local anesthetic. FINDINGS: A 10 gauge vacuum assisted mammotome biopsy device was inserted and advanced into the breast lesion and 6 core biopsy samples were obtained. A shape 1 marker clip was placed at the biopsy site. The patient tolerated the procedure well and there were no immediate complications. After the appropriate amount of monitored convalescence the patient was discharged from the department. IMPRESSION: Stereotactic guided right breast biopsy with micro clip placement. <Electronically signed by Felicita Fischer > 04/12/21 1516 <Electronically signed by Madi Boothe > 04/12/21 [id number]
--- NOTE | 2021-04-12 17:00 | REP ---
INDICATION: R92.8 ABN R BREAST MAMMO/STEREO BX CK CLIP PLACEMENT. COMPARISON: 01/23/2021, 02/22/2021, 04/03/2021. TECHNIQUE: MLO, mL and CC views right breast following stereotactic biopsy of a subcentimeter nodule in the outer aspect. FINDINGS: Biopsy clip is seen at the site of the nodule in the outer right breast. IMPRESSION: Successful stereotactic biopsy of subcentimeter nodule lateral right breast. RECOMMENDATION: Clinical follow-up. <Electronically signed by Madi Boothe > 04/12/21 6721
== END ==
LOC: M WHCPRO 07:04
PROVIDERS: ATTEND Surgery
DX: D24.1 Benign neoplasm of right breast (principal)

== ENCOUNTER → 2021-09-05 | Outpatient (CLI) | payer MEDICAID, MEDICARE ==
[~2021-09-05] MED LIST changes: -MONT10TA10 PO; +MONT10TA97 PO; +VERA120T67 PO; +VERA120T71 PO; -VERA120T77 PO; -VERA12TASA PO
[2021-09-05 16:55] LABS: GLOMERULAR FILTRATION RATE 59.1 (>45); POTASSIUM SERUM 4.5 MEQ/L (3.5-5.1)
== END ==
LOC: M RAD 15:25
PROVIDERS: ATTEND Physician Assistant
DX: R06.02 Shortness of breath (principal)

== ENCOUNTER → 2021-09-27 | Outpatient (CLI) | payer MEDICARE | LOC: M PAIN 11:15 | PROVIDERS: ATTEND Anesthesiology | DX: M51.16 Intervertebral disc disorders with radiculopathy, lumbar region (principal); F31.9 Bipolar disorder, unspecified; K21.9 Gastro-esophageal reflux disease without esophagitis; K44.9 Diaphragmatic hernia without obstruction or gangrene; K29.70 Gastritis, unspecified, without bleeding; E66.9 Obesity, unspecified; J45.909 Unspecified asthma, uncomplicated; D64.9 Anemia, unspecified; I48.0 Paroxysmal atrial fibrillation; K76.0 Fatty (change of) liver, not elsewhere classified; M79.7 Fibromyalgia; G47.33 Obstructive sleep apnea (adult) (pediatric); M85.80 Other specified disorders of bone density and structure, unspecified site; Z86.73 Personal history of transient ischemic attack (TIA), and cerebral infarction without residual deficits; Z87.891 Personal history of nicotine dependence; Z79.01 Long term (current) use of anticoagulants; Z79.899 Other long term (current) drug therapy; Z98.1 Arthrodesis status; Z68.42 Body mass index [BMI] 45.0-49.9, adult ==

== ENCOUNTER → 2021-10-26 | Outpatient (CLI) | payer MEDICAID, MEDICARE | LOC: M WHC 08:44 | PROVIDERS: ATTEND Surgery | DX: R92.8 Other abnormal and inconclusive findings on diagnostic imaging of breast (principal) | CPT/HCPCS: 76642; 77065; G0279 ==

== ENCOUNTER → 2021-11-16 | Outpatient (CLI) | payer MEDICARE | LOC: M PLARAD 08:23 | PROVIDERS: ATTEND Anesthesiology | DX: M51.16 Intervertebral disc disorders with radiculopathy, lumbar region (principal) ==

== ENCOUNTER → 2022-02-28 | Outpatient (CLI) | payer MEDICARE | LOC: M LABSMTC 10:57 | PROVIDERS: ATTEND Anesthesiology | DX: Z20.822 Contact with and (suspected) exposure to COVID-19 (principal) ==

== ENCOUNTER → 2022-03-05 | Outpatient (CLI) | payer MEDICARE ==
[~2022-03-05] MED LIST changes: +BUPIVACAINE HCL 0.25% 30ML VIAL As Ordered ONE; +ISOVUE-M 300 61% 15ML VIAL As Ordered ONE; +LIDOCAINE 1% SDV 30ML VIAL As Ordered ONE; +dexameTHASONE 10MG/1ML VIAL PRES.FREE (J1100 PER 1MG) As Ordered ONE; +diazePAM 5MG TABLET As Ordered ONE; +oxyCODONE 5MG TAB As Ordered ONE
== END ==
LOC: M PAIN 12:30
PROVIDERS: ATTEND Anesthesiology
DX: M51.16 Intervertebral disc disorders with radiculopathy, lumbar region (principal); B18.2 Chronic viral hepatitis C; F31.9 Bipolar disorder, unspecified; G47.00 Insomnia, unspecified; K44.9 Diaphragmatic hernia without obstruction or gangrene; J45.909 Unspecified asthma, uncomplicated; K29.70 Gastritis, unspecified, without bleeding; K21.9 Gastro-esophageal reflux disease without esophagitis; E66.9 Obesity, unspecified; M41.9 Scoliosis, unspecified; M50.30 Other cervical disc degeneration, unspecified cervical region; Z98.1 Arthrodesis status; D64.9 Anemia, unspecified; I48.0 Paroxysmal atrial fibrillation; K76.0 Fatty (change of) liver, not elsewhere classified; M79.7 Fibromyalgia; Z86.73 Personal history of transient ischemic attack (TIA), and cerebral infarction without residual deficits; G47.33 Obstructive sleep apnea (adult) (pediatric); M85.80 Other specified disorders of bone density and structure, unspecified site; Z79.01 Long term (current) use of anticoagulants; Z79.899 Other long term (current) drug therapy; Z87.891 Personal history of nicotine dependence
CPT/HCPCS: 64483; 64484; J1100; Q9967

== ENCOUNTER → 2022-05-15 | Outpatient (CLI) | payer MEDICARE, OTHER ==
[~2022-05-15] MED LIST changes: -BUPIVACAINE HCL 0.25% 30ML VIAL As Ordered ONE; -CLOZ100T2; +CLOZ100T5; -ISOVUE-M 300 61% 15ML VIAL As Ordered ONE; -LIDOCAINE 1% SDV 30ML VIAL As Ordered ONE; -dexameTHASONE 10MG/1ML VIAL PRES.FREE (J1100 PER 1MG) As Ordered ONE; -diazePAM 5MG TABLET As Ordered ONE; -oxyCODONE 5MG TAB As Ordered ONE
== END ==
LOC: M PAIN 10:00
PROVIDERS: ATTEND Anesthesiology
DX: M51.16 Intervertebral disc disorders with radiculopathy, lumbar region (principal); M47.816 Spondylosis without myelopathy or radiculopathy, lumbar region; G89.29 Other chronic pain; K21.9 Gastro-esophageal reflux disease without esophagitis; J45.909 Unspecified asthma, uncomplicated; M79.7 Fibromyalgia; G47.33 Obstructive sleep apnea (adult) (pediatric); Z86.59 Personal history of other mental and behavioral disorders; Z87.891 Personal history of nicotine dependence; E66.01 Morbid (severe) obesity due to excess calories; Z68.42 Body mass index [BMI] 45.0-49.9, adult; Z79.01 Long term (current) use of anticoagulants; Z79.899 Other long term (current) drug therapy

== ENCOUNTER 2022-06-06 11:00 | Outpatient (RCR) | payer MEDICARE, OTHER | END 2022-06-26 23:59 | disposition home or self-care (01) | LOC: M PT 11:00 | PROVIDERS: ATTEND Anesthesiology | DX: M51.16 Intervertebral disc disorders with radiculopathy, lumbar region (principal) ==

== ENCOUNTER → 2022-07-02 | Outpatient (CLI) | payer MEDICARE, OTHER ==
[2022-07-02 12:26] LABS: HEMOGLOBIN A1c 4.6 % (4.0-6.0)
[2022-07-02 12:42] LABS: CHOLESTEROL RISK RATIO 2.94 (<5); FERRITIN 29.8 NG/ML (7.3-270.7); HDL CHOLESTEROL 56.3 MG/DL (>40); LDL CHOLESTEROL 86.7 MG/DL (<100); THYROID STIMULATING HORMONE 2.072 uIU/ML (0.55-4.78)
== END ==
LOC: M LAB 09:43
PROVIDERS: ATTEND Physician Assistant
DX: I10 Essential (primary) hypertension (principal)

== ENCOUNTER → 2022-07-02 | Outpatient (CLI) | payer MEDICARE, OTHER ==
[2022-07-02 12:10] LABS: BASO % 0.6 % (0.0-1.0); EOS # 0.1 10^3/uL (0.0-0.5); HEMATOCRIT 44.4 % (36.0-47.0); HEMOGLOBIN 14.9 g/dl (12.0-15.5); LYMPH # 1.3 10^3/uL (1.5-5.0); LYMPH % 19.9 % (24.0-44.0); MEAN CORPUSCULAR HEMOGLOBIN 31.4 pg (27.0-33.0); MEAN CORPUSCULAR HGB CONC 33.6 g/dl (32.0-36.5); MEAN CORPUSCULAR VOLUME 93.7 fl (80.0-96.0); MONO # 0.4 10^3/uL (0.0-0.8); MONO % 6.7 % (2.0-8.0); NEUTROPHILS # 4.6 10^3/uL (1.5-8.5); NEUTROPHILS % 70.5 % (36.0-66.0); PLATELET COUNT, AUTOMATED 228 10^3/uL (150-450); RED BLOOD COUNT 4.74 10^6/uL (4.00-5.40); WHITE BLOOD COUNT 6.5 10^3/uL (4.0-10.0)
[2022-07-02 12:44] LABS: FOLATE 8.8 NG/ML (>5.4)
[2022-07-02 12:45] LABS: VITAMIN B12 LEVEL 817 PG/ML (211-911)
[2022-07-02 12:47] LABS: ALBUMIN 3.8 G/DL (3.2-5.2); ALKALINE PHOSPHATASE 61 U/L (46-116); ALT/SGPT 16 U/L (7.0-40); AST/SGOT 16 U/L (<34); BILIRUBIN,TOTAL 0.5 MG/DL (0.3-1.2); BLOOD UREA NITROGEN 12 MG/DL (9-23); CALCIUM LEVEL 9.2 MG/DL (8.3-10.6); CARBON DIOXIDE LEVEL 27 MMOL/L (20-31); CHLORIDE LEVEL 105 MMOL/L (98-107); CREATININE FOR GFR 0.79 MG/DL (0.55-1.30); GLOMERULAR FILTRATION RATE > 60.0 (>45); GLUCOSE, FASTING 95 MG/DL (74-106); POTASSIUM SERUM 4.6 MMOL/L (3.5-5.1); SODIUM LEVEL 137 MMOL/L (136-145)
[2022-07-06 18:08] LABS: VITAMIN B1 LEVEL WHOLE BLOOD 151.1 nmol/L (66.5-200.0); VITAMIN B6,PYRIDOXAL PHOSPHATE 7.6 ug/L (3.4-65.2); VITAMIN E(ALPHA TOCOPHEROL) 11.4 mg/L (9.0-29.0); VITAMIN E(GAMMA TOCOPHEROL) 1.2 mg/L (0.5-4.9)
== END ==
LOC: M LAB 09:47
PROVIDERS: ATTEND Psychiatry & Neurology Neurology
DX: E53.8 Deficiency of other specified B group vitamins (principal); E07.9 Disorder of thyroid, unspecified; D50.9 Iron deficiency anemia, unspecified; E78.00 Pure hypercholesterolemia, unspecified

== ENCOUNTER → 2022-07-02 | Outpatient (CLI) | payer MEDICARE, OTHER | LOC: M LAB 09:40 | PROVIDERS: ATTEND Physician Assistant | DX: R06.02 Shortness of breath (principal) ==

== ENCOUNTER → 2022-09-10 | Outpatient (CLI) | payer MEDICARE ==
[2022-09-10 11:40] LABS: HEMATOCRIT 44.1 % (36.0-47.0); HEMOGLOBIN 14.7 g/dl (12.0-15.5); MEAN CORPUSCULAR HEMOGLOBIN 30.8 pg (27.0-33.0); MEAN CORPUSCULAR HGB CONC 33.3 g/dl (32.0-36.5); MEAN CORPUSCULAR VOLUME 92.5 fl (80.0-96.0); PLATELET COUNT, AUTOMATED 263 10^3/uL (150-450); RED BLOOD COUNT 4.77 10^6/uL (4.00-5.40); WHITE BLOOD COUNT 7.9 10^3/uL (4.0-10.0)
[2022-09-10 12:00] LABS: LIPASE 38 U/L (12-53)
[2022-09-10 12:01] LABS: TOTAL IRON BINDING CAPACITY 337 UG/DL (250-425)
[2022-09-10 12:02] LABS: AMYLASE 62 U/L (30-118); IRON (FE) 99 UG/DL (50-170); PERCENT SATURATION 29.4 % (13.2-45.0)
[2022-09-10 12:44] LABS: ALBUMIN 3.9 G/DL (3.2-5.2); ALKALINE PHOSPHATASE 59 U/L (46-116); ALT/SGPT 14 U/L (7.0-40); AST/SGOT 20 U/L (<34); BILIRUBIN,TOTAL 0.6 MG/DL (0.3-1.2); BLOOD UREA NITROGEN 13 MG/DL (9-23); CALCIUM LEVEL 9.6 MG/DL (8.3-10.6); CARBON DIOXIDE LEVEL 28 MMOL/L (20-31); CHLORIDE LEVEL 104 MMOL/L (98-107); CREATININE FOR GFR 0.88 MG/DL (0.55-1.30); GLOMERULAR FILTRATION RATE > 60.0 (>45); GLUCOSE, FASTING 96 MG/DL (74-106); POTASSIUM SERUM 4.6 MMOL/L (3.5-5.1); SODIUM LEVEL 136 MMOL/L (136-145); TOTAL PROTEIN 7.2 G/DL (5.7-8.2)
== END ==
LOC: M LAB 10:45
PROVIDERS: ATTEND Physician Assistant Medical
DX: D50.9 Iron deficiency anemia, unspecified (principal); R10.11 Right upper quadrant pain; R10.13 Epigastric pain

== ENCOUNTER → 2022-10-02 | Outpatient (CLI) | payer MEDICARE | LOC: M RAD 08:50 | PROVIDERS: ATTEND Physician Assistant Medical | DX: R10.11 Right upper quadrant pain (principal) ==

== ENCOUNTER → 2022-11-21 | Outpatient (CLI) | payer MEDICARE, OTHER | LOC: M PAIN 11:30 | PROVIDERS: ATTEND Nurse Practitioner Family | DX: M51.16 Intervertebral disc disorders with radiculopathy, lumbar region (principal); G89.29 Other chronic pain; K21.9 Gastro-esophageal reflux disease without esophagitis; E66.9 Obesity, unspecified; J45.909 Unspecified asthma, uncomplicated; M50.30 Other cervical disc degeneration, unspecified cervical region; I48.0 Paroxysmal atrial fibrillation; K76.0 Fatty (change of) liver, not elsewhere classified; M79.7 Fibromyalgia; Z87.891 Personal history of nicotine dependence; G47.33 Obstructive sleep apnea (adult) (pediatric); Z79.01 Long term (current) use of anticoagulants; Z79.899 Other long term (current) drug therapy; Z68.42 Body mass index [BMI] 45.0-49.9, adult ==

== ENCOUNTER → 2023-05-29 | Outpatient (CLI) | payer MEDICARE, MEDICAID ==
[~2023-05-29] MED LIST changes: -GABA-283 PO; +GABA-284 PO; +MECL-209 PO; -MECL1TAB31 PO
[2023-05-29 13:18] LABS: HEMATOCRIT 43.7 % (36.0-47.0); HEMOGLOBIN 14.5 g/dl (12.0-15.5); MEAN CORPUSCULAR HEMOGLOBIN 31.3 pg (27.0-33.0); MEAN CORPUSCULAR HGB CONC 33.2 g/dl (32.0-36.5); MEAN CORPUSCULAR VOLUME 94.4 fl (80.0-96.0); PLATELET COUNT, AUTOMATED 199 10^3/uL (150-450); RED BLOOD COUNT 4.63 10^6/uL (4.00-5.40); WHITE BLOOD COUNT 5.3 10^3/uL (4.0-10.0)
[2023-05-29 13:40] LABS: LITHIUM LEVEL 0.31 MMOL/L (1.0-1.20)
[2023-05-29 13:43] LABS: ALBUMIN 4.1 G/DL (3.2-5.2); ALKALINE PHOSPHATASE 57 U/L (46-116); ALT/SGPT 15 U/L (7.0-40); AST/SGOT 12 U/L (<34); BILIRUBIN,TOTAL 0.4 MG/DL (0.3-1.2); BLOOD UREA NITROGEN 11 MG/DL (9-23); CALCIUM LEVEL 9.7 MG/DL (8.3-10.6); CARBON DIOXIDE LEVEL 28 MMOL/L (20-31); CHLORIDE LEVEL 104 MMOL/L (98-107); CHOLESTEROL LEVEL 178 MG/DL (<200); CHOLESTEROL RISK RATIO 2.88 (<5); CREATININE FOR GFR 0.73 MG/DL (0.55-1.30); GLOMERULAR FILTRATION RATE > 60.0 (>45); GLUCOSE, FASTING 97 MG/DL (74-106); HDL CHOLESTEROL 61.7 MG/DL (>40); LDL CHOLESTEROL 96.9 MG/DL (<100); NON-HDL-C 116.3 MG/DL; POTASSIUM SERUM 4.3 MMOL/L (3.5-5.1); SODIUM LEVEL 138 MMOL/L (136-145); THYROID STIMULATING HORMONE 1.907 uIU/ML (0.55-4.78); TOTAL PROTEIN 7.4 G/DL (5.7-8.2); TRIGLYCERIDES LEVEL 97 MG/DL (<150)
== END ==
LOC: M LAB 12:02
PROVIDERS: ATTEND Nurse Practitioner Psychiatric/Mental Health
DX: F25.0 Schizoaffective disorder, bipolar type (principal)

== ENCOUNTER → 2023-05-29 | Outpatient (CLI) | payer MEDICARE, MEDICAID ==
[2023-05-29 13:18] LABS: BASO % 0.4 % (0.0-1.0); EOS # 0.1 10^3/uL (0.0-0.5); EOS % 1.7 % (0.0-3.0); HEMATOCRIT 43.6 % (36.0-47.0); HEMOGLOBIN 14.5 g/dl (12.0-15.5); LYMPH # 1.2 10^3/uL (1.5-5.0); LYMPH % 22.2 % (24.0-44.0); MEAN CORPUSCULAR HEMOGLOBIN 31.7 pg (27.0-33.0); MEAN CORPUSCULAR HGB CONC 33.3 g/dl (32.0-36.5); MEAN CORPUSCULAR VOLUME 95.2 fl (80.0-96.0); MONO # 0.4 10^3/uL (0.0-0.8); MONO % 7.2 % (2.0-8.0); NEUTROPHILS # 3.6 10^3/uL (1.5-8.5); NEUTROPHILS % 68.5 % (36.0-66.0); PLATELET COUNT, AUTOMATED 205 10^3/uL (150-450); RED BLOOD COUNT 4.58 10^6/uL (4.00-5.40); WHITE BLOOD COUNT 5.3 10^3/uL (4.0-10.0)
[2023-05-29 13:44] LABS: ALBUMIN 4.1 G/DL (3.2-5.2); ALKALINE PHOSPHATASE 58 U/L (46-116); ALT/SGPT 15 U/L (7.0-40); AST/SGOT 12 U/L (<34); BILIRUBIN,TOTAL 0.4 MG/DL (0.3-1.2); BLOOD UREA NITROGEN 11 MG/DL (9-23); CALCIUM LEVEL 9.8 MG/DL (8.3-10.6); CARBON DIOXIDE LEVEL 28 MMOL/L (20-31); CHLORIDE LEVEL 103 MMOL/L (98-107); CHOLESTEROL LEVEL 181 MG/DL (<200); CHOLESTEROL RISK RATIO 2.85 (<5); CREATININE FOR GFR 0.73 MG/DL (0.55-1.30); FERRITIN 20.7 NG/ML (7.3-270.7); FREE T4 1.13 NG/DL (0.89-1.76); GLOMERULAR FILTRATION RATE > 60.0 (>45); GLUCOSE, FASTING 96 MG/DL (74-106); HDL CHOLESTEROL 63.4 MG/DL (>40); NON-HDL-C 117.6 MG/DL; POTASSIUM SERUM 4.3 MMOL/L (3.5-5.1); SODIUM LEVEL 138 MMOL/L (136-145); THYROID STIMULATING HORMONE 2.036 uIU/ML (0.55-4.78); TOTAL PROTEIN 7.5 G/DL (5.7-8.2); TRIGLYCERIDES LEVEL 98 MG/DL (<150)
[2023-05-29 14:11] LABS: HEMOGLOBIN A1c 4.6 % (4.0-6.0)
== END ==
LOC: M LAB 11:59
PROVIDERS: ATTEND Physician Assistant
DX: E66.01 Morbid (severe) obesity due to excess calories (principal); I10 Essential (primary) hypertension; D50.9 Iron deficiency anemia, unspecified; F25.0 Schizoaffective disorder, bipolar type; Z79.899 Other long term (current) drug therapy; Z86.39 Personal history of other endocrine, nutritional and metabolic disease

== ENCOUNTER 2023-10-02 16:32 | Inpatient (IN) | payer MEDICARE, MEDICAID ==
[~2023-10-02] VITALS: Ht 162.6 cm; Wt 115.5 kg
[2023-10-02] MEDS ORDERED: ISOVUE-370 76% 100ML VIAL As Ordered ONE (17:25)
[2023-10-02] MEDS: NS 1,000 ML IV SCH (17:40)
[2023-10-02 17:45] LABS: VENOUS BASE EXCESS 0.2 (-2.0-2.0); VENOUS HCO3 26.1 MMOL/L (23.0-27.0); VENOUS O2 SATURATION 84.9 % (60.0-80.0); VENOUS PARTIAL PRESSURE CO2 46.9 mmHg (38.0-50.0); VENOUS PARTIAL PRESSURE O2 50.4 mmHg (30.0-50.0); VENOUS PH 7.363 UNITS (7.330-7.430); VENOUS STANDARD HCO3 24.3 MMOL/L; VENOUS TOTAL CO2 27.5 MMOL/L (24.0-28.0)
[2023-10-02 17:46] LABS: BASO % 0.1 % (0.0-1.0); EOS % 0.1 % (0.0-3.0); HEMOGLOBIN 14.3 g/dl (12.0-15.5); LYMPH # 0.5 10^3/uL (1.5-5.0); MEAN CORPUSCULAR HEMOGLOBIN 31.7 pg (27.0-33.0); MEAN CORPUSCULAR VOLUME 93.1 fl (80.0-96.0); MONO # 0.6 10^3/uL (0.0-0.8); MONO % 5.8 % (2.0-8.0); NEUTROPHILS # 9.5 10^3/uL (1.5-8.5); NEUTROPHILS % 88.7 % (36.0-66.0); PLATELET COUNT, AUTOMATED 194 10^3/uL (150-450); RED BLOOD COUNT 4.51 10^6/uL (4.00-5.40); WHITE BLOOD COUNT 10.7 10^3/uL (4.0-10.0)
[2023-10-02 17:57] LABS: INR 1.19; PROTHROMBIN TIME 14.7 SECONDS (12.5-14.5)
[2023-10-02 18:06] LABS: ALBUMIN 3.8 G/DL (3.2-5.2); CARBON DIOXIDE LEVEL 27 MMOL/L (20-31); CHLORIDE LEVEL 106 MMOL/L (98-107); POTASSIUM SERUM 4.3 MMOL/L (3.5-5.1); SODIUM LEVEL 140 MMOL/L (136-145)
[2023-10-02 18:09] LABS: DIGOXIN LEVEL 0.2 NG/ML (0.8-2.0)
[2023-10-02 18:11] LABS: LITHIUM LEVEL < 0.10 MMOL/L (1.0-1.20)
[2023-10-02 18:12] LABS: THYROID STIMULATING HORMONE 1.278 uIU/ML (0.55-4.78)
[2023-10-02 18:13] LABS: ALKALINE PHOSPHATASE 58 U/L (46-116); ALT/SGPT 16 U/L (7.0-40); AST/SGOT 34 U/L (<34); BILIRUBIN,DIRECT < 0.1 MG/DL (<0.4); BILIRUBIN,TOTAL 0.3 MG/DL (0.3-1.2); BLOOD UREA NITROGEN 11 MG/DL (9-23); CALCIUM LEVEL 9.2 MG/DL (8.3-10.6); CREATININE FOR GFR 0.73 MG/DL (0.55-1.30); GLOMERULAR FILTRATION RATE > 60.0 (>45); GLUCOSE, FASTING 91 MG/DL (74-106)
[2023-10-02] MEDS ORDERED: MOM 30ML SUSPENSION UDC PO PRN (19:40)
[2023-10-02 20:28] LABS: CHOLESTEROL LEVEL 161 MG/DL (<200); CHOLESTEROL RISK RATIO 2.83 (<5); HDL CHOLESTEROL 56.7 MG/DL (>40); LDL CHOLESTEROL 80.7 MG/DL (<100); NON-HDL-C 104.3 MG/DL; TRIGLYCERIDES LEVEL 118 MG/DL (<150)
[2023-10-02] MEDS: LR 1,000 ML IV SCH (20:50)
[2023-10-02 21:28] LABS: AMPHETAMINES LEVEL URINE NEGATIVE (NEGATIVE); BARBITURATES URINE NEGATIVE (NEGATIVE)
[2023-10-02 21:29] LABS: BENZODIAZEPINES URINE NEGATIVE (NEGATIVE); COCAINE METABOLITE URINE NEGATIVE (NEGATIVE); METHADONE URINE NEGATIVE (NEGATIVE); OPIATES URINE NEGATIVE (NEGATIVE); PHENCYCLIDINE URINE NEGATIVE (NEGATIVE)
[2023-10-02 21:43] LABS: CANNABINOIDS URINE POSITIVE (NEGATIVE)
[2023-10-02] MEDS: cefTRIAXone SOD 1 GM in D5W MINI-BAG PLUS 50 ML IV SCH (22:54)
[2023-10-03] VITALS (7 sets, daily range): BP systolic 131–151; BP diastolic 60–87; TEMP 97.8–98.8; O2SAT 93–96
[2023-10-03] MEDS: METOPROLOL TART 25 MG TABLET PO SCH (02:09)
[2023-10-03] MEDS: traZODone 50 MG TAB PO ONE (05:12)
[2023-10-03 06:04] LABS: HEMATOCRIT 38.7 % (36.0-47.0); MEAN CORPUSCULAR HEMOGLOBIN 31.9 pg (27.0-33.0); MEAN CORPUSCULAR HGB CONC 33.6 g/dl (32.0-36.5); MEAN CORPUSCULAR VOLUME 95.1 fl (80.0-96.0); PLATELET COUNT, AUTOMATED 173 10^3/uL (150-450); RED BLOOD COUNT 4.07 10^6/uL (4.00-5.40); WHITE BLOOD COUNT 7.2 10^3/uL (4.0-10.0)
[2023-10-03 06:36] LABS: ALBUMIN 3.4 G/DL (3.2-5.2); ALKALINE PHOSPHATASE 53 U/L (46-116); ALT/SGPT 16 U/L (7.0-40); AST/SGOT 20 U/L (<34); BILIRUBIN,TOTAL 0.4 MG/DL (0.3-1.2); BLOOD UREA NITROGEN 11 MG/DL (9-23); CALCIUM LEVEL 8.5 MG/DL (8.3-10.6); CARBON DIOXIDE LEVEL 29 MMOL/L (20-31); CHLORIDE LEVEL 106 MMOL/L (98-107); CREATININE FOR GFR 0.68 MG/DL (0.55-1.30); GLOMERULAR FILTRATION RATE > 60.0 (>45); GLUCOSE, FASTING 91 MG/DL (74-106); MAGNESIUM LEVEL 1.8 MG/DL (1.8-2.4); POTASSIUM SERUM 3.8 MMOL/L (3.5-5.1); SODIUM LEVEL 141 MMOL/L (136-145); TOTAL PROTEIN 6.3 G/DL (5.7-8.2)
[2023-10-03] MEDS: APIXABAN 5 MG TAB (ELIQUIS) PO SCH (08:08)
[2023-10-03] MEDS ORDERED: MEMA1TAB3 PO (13:34)
[2023-10-03] MEDS ORDERED: DONE10TA90 PO (13:34)
[2023-10-03] MEDS ORDERED: GABA-282 PO (13:34)
[2023-10-03] MEDS ORDERED: LITH150C PO (13:34)
[2023-10-03] MEDS ORDERED: ROPI1TAB73 PO (13:34)
[2023-10-03] MEDS ORDERED: BUPR300T92 PO (13:34)
[2023-10-03] MEDS ORDERED: INVE156I IM (13:34)
[2023-10-03] MEDS ORDERED: BENZ2TAB48 PO (13:34)
[2023-10-03] MEDS ORDERED: HOME MED LIST COMPLETE! XX SCH (15:25)
[2023-10-03] MEDS ORDERED: LAMO200T94 PO (15:36)
[2023-10-03] MEDS ORDERED: TREL1AER INH (15:36)
[2023-10-03] MEDS ORDERED: THERTAB52 PO (15:36)
[2023-10-03] MEDS ORDERED: FAMO20TA PO (15:36)
[2023-10-03] MEDS ORDERED: CALCCAP4 PO (15:36)
[2023-10-04] VITALS (9 sets, daily range): BP systolic 140–180; BP diastolic 56–102; TEMP 97.3–97.8; O2SAT 93–95
[2023-10-04] MEDS: amLODIPine 5 MG TAB PO ONE (03:32)
[2023-10-04 05:36] LABS: BASO % 0.3 % (0.0-1.0); EOS # 0.2 10^3/uL (0.0-0.5); HEMATOCRIT 37.4 % (36.0-47.0); HEMOGLOBIN 12.6 g/dl (12.0-15.5); LYMPH # 1.2 10^3/uL (1.5-5.0); LYMPH % 21.1 % (24.0-44.0); MEAN CORPUSCULAR HEMOGLOBIN 32.1 pg (27.0-33.0); MEAN CORPUSCULAR HGB CONC 33.7 g/dl (32.0-36.5); MEAN CORPUSCULAR VOLUME 95.4 fl (80.0-96.0); MONO # 0.5 10^3/uL (0.0-0.8); MONO % 9.1 % (2.0-8.0); NEUTROPHILS # 3.8 10^3/uL (1.5-8.5); NEUTROPHILS % 66.3 % (36.0-66.0); PLATELET COUNT, AUTOMATED 175 10^3/uL (150-450); RED BLOOD COUNT 3.92 10^6/uL (4.00-5.40); WHITE BLOOD COUNT 5.7 10^3/uL (4.0-10.0)
[2023-10-04 06:07] LABS: BLOOD UREA NITROGEN 10 MG/DL (9-23); CALCIUM LEVEL 8.1 MG/DL (8.3-10.6); CARBON DIOXIDE LEVEL 28 MMOL/L (20-31); CHLORIDE LEVEL 105 MMOL/L (98-107); CREATININE FOR GFR 0.59 MG/DL (0.55-1.30); GLOMERULAR FILTRATION RATE > 60.0 (>45); GLUCOSE, FASTING 113 MG/DL (74-106); POTASSIUM SERUM 3.6 MMOL/L (3.5-5.1); SODIUM LEVEL 139 MMOL/L (136-145)
[2023-10-04] MEDS: amLODIPine 5 MG TAB PO SCH (13:16)
[2023-10-04] MEDS ORDERED: MIRALAX *UNIT DOSE* 17GM PACKET PO PRN (17:20)
[2023-10-04] MEDS: LITHIUM CARBONATE 150 MG CAP PO SCH (21:05)
[2023-10-04] MEDS: FAMOTIDINE 20 MG TAB PO SCH (21:05)
[2023-10-04] MEDS: rOPINIRole 1MG TAB PO SCH (21:05)
[2023-10-04] MEDS: GABAPENTIN 300 MG CAP PO SCH (21:05)
[2023-10-04] MEDS: MEMANTINE 5MG TABLET (NAMENDA) PO SCH (21:05)
[2023-10-04] MEDS: BENZTROPINE 1 MG TAB PO SCH (21:06)
[2023-10-05 03:04] VITALS: BP 133/70; TEMP 97.3; O2SAT 94
[2023-10-05 07:43] VITALS: BP 161/70; TEMP 97.1; O2SAT 97
[2023-10-05] MEDS: DONEPEZIL 5 MG TAB PO SCH (09:55)
[2023-10-05] MEDS: buPROPion **XL** TABLET 150MG (WELLBUTRIN XL) PO SCH (09:55)
[2023-10-05] MEDS: LITHIUM CARBONATE 150 MG CAP PO SCH (09:56)
[2023-10-05] MEDS: CALCIUM/VITAMIN D 500 MG TAB PO SCH (09:56)
[2023-10-05] MEDS: lamoTRIgine 100MG TAB PO SCH (09:57)
[2023-10-05 12:12] VITALS: BP 152/78; TEMP 97.4; O2SAT 96
[2023-10-05 15:52] VITALS: BP 131/61; TEMP 97.2; O2SAT 95
[2023-10-05 18:57] VITALS: BP 144/68; TEMP 97.6; O2SAT 94
[2023-10-05 23:12] VITALS: BP 160/92; TEMP 97.3; O2SAT 97
[2023-10-06 03:06] VITALS: BP 141/77; TEMP 97.4; O2SAT 96
[2023-10-06 08:00] VITALS: BP 152/79; TEMP 97.1; O2SAT 96
[2023-10-06 15:39] VITALS: BP 137/68; TEMP 97.9; O2SAT 95
[2023-10-06] MEDS: ACETAMINOPHEN TAB 650MG DOSE (2X325MG) PO PRN (20:35)
[2023-10-06 22:00] VITALS: BP 119/65; TEMP 98.1; O2SAT 96
[2023-10-07 06:11] LABS: HEMATOCRIT 37.9 % (36.0-47.0); HEMOGLOBIN 12.7 g/dl (12.0-15.5); MEAN CORPUSCULAR HEMOGLOBIN 31.8 pg (27.0-33.0); MEAN CORPUSCULAR HGB CONC 33.5 g/dl (32.0-36.5); PLATELET COUNT, AUTOMATED 178 10^3/uL (150-450); RED BLOOD COUNT 3.99 10^6/uL (4.00-5.40); WHITE BLOOD COUNT 6.1 10^3/uL (4.0-10.0)
[2023-10-07 06:13] VITALS: BP 124/72; TEMP 97.7; O2SAT 97
[2023-10-07 06:41] LABS: BLOOD UREA NITROGEN 18 MG/DL (9-23); CALCIUM LEVEL 8.4 MG/DL (8.3-10.6); CARBON DIOXIDE LEVEL 31 MMOL/L (20-31); CHLORIDE LEVEL 108 MMOL/L (98-107); CREATININE FOR GFR 0.62 MG/DL (0.55-1.30); GLOMERULAR FILTRATION RATE > 60.0 (>45); GLUCOSE, FASTING 97 MG/DL (74-106); POTASSIUM SERUM 4.4 MMOL/L (3.5-5.1); SODIUM LEVEL 142 MMOL/L (136-145)
[2023-10-07 09:00] VITALS: BP 129/71
[2023-10-07] MEDS ORDERED: BENZ0.5T2 PO (10:27)
== END 2023-10-07 13:45 | disposition home health service (06) | DRG 92 ==
LOC: M ED 16:32 → EDBD 16:32 → M ED INP 19:39 → ENRESERV 22:58 → M PCU 23:48 → M MS5PR 10-06 15:20
PROVIDERS: ADMIT Internal Medicine; ATTEND Internal Medicine
DX: G92.8 Other toxic encephalopathy (principal); I69.354 Hemiplegia and hemiparesis following cerebral infarction affecting left non-dominant side; F31.9 Bipolar disorder, unspecified; I48.0 Paroxysmal atrial fibrillation; B18.2 Chronic viral hepatitis C; I10 Essential (primary) hypertension; K59.00 Constipation, unspecified; R82.71 Bacteriuria; G25.81 Restless legs syndrome; M79.18 Myalgia, other site; F20.9 Schizophrenia, unspecified; I27.20 Pulmonary hypertension, unspecified; F32.A Depression, unspecified; K21.9 Gastro-esophageal reflux disease without esophagitis; F41.9 Anxiety disorder, unspecified; T42.8X5A Adverse effect of antiparkinsonism drugs and other central muscle-tone depressants, initial encounter; Z79.01 Long term (current) use of anticoagulants; Z79.899 Other long term (current) drug therapy; Z87.891 Personal history of nicotine dependence

== ENCOUNTER 2023-10-16 11:50 | Emergency (ER) | payer MEDICARE, MEDICAID ==
[~2023-10-16] VITALS: Ht 162.6 cm; Wt 115.5 kg
[~2023-10-16 11:50] MED LIST changes: +BENZ0.5T2 PO; +BENZ2TAB48 PO; +BUPR300T92 PO; +CALCCAP4 PO; +DONE10TA90 PO; +FAMO20TA PO; +INVE156I IM; +LAMO200T94 PO; +MEMA1TAB3 PO; +ROPI1TAB73 PO; +THERTAB52 PO; +TREL1AER INH
[2023-10-16] MEDS: ACETAMINOPHEN 325 MG TAB PO ONE (12:42)
[2023-10-16 14:20] VITALS: BP 155/83; TEMP 97; O2SAT 96
== END 2023-10-16 14:22 | disposition home or self-care (01) ==
LOC: M ED 11:50
DX: J02.9 Acute pharyngitis, unspecified (principal); I10 Essential (primary) hypertension; F31.9 Bipolar disorder, unspecified; F41.9 Anxiety disorder, unspecified; Z91.09 Other allergy status, other than to drugs and biological substances; Z79.899 Other long term (current) drug therapy; Z79.810 Long term (current) use of selective estrogen receptor modulators (SERMs)

== ENCOUNTER 2023-11-03 19:34 | Inpatient (IN) | payer MEDICARE, MEDICAID ==
[~2023-11-03] VITALS: Ht 162.6 cm; Wt 115.8 kg
[2023-11-03 20:00] VITALS: BP 182/77; TEMP 98.1; O2SAT 98
[2023-11-03] MEDS ORDERED: ISOVUE-370 76% 100ML VIAL As Ordered ONE (20:04)
[2023-11-03 20:05] LABS: BASO % 0.2 % (0.0-1.0); EOS # 0.1 10^3/uL (0.0-0.5); EOS % 0.6 % (0.0-3.0); HEMATOCRIT 38.4 % (36.0-47.0); LYMPH # 0.8 10^3/uL (1.5-5.0); LYMPH % 7.4 % (24.0-44.0); MEAN CORPUSCULAR HGB CONC 33.9 g/dl (32.0-36.5); MEAN CORPUSCULAR VOLUME 94.6 fl (80.0-96.0); MONO # 0.6 10^3/uL (0.0-0.8); MONO % 5.6 % (2.0-8.0); NEUTROPHILS # 9.4 10^3/uL (1.5-8.5); NEUTROPHILS % 85.4 % (36.0-66.0); PLATELET COUNT, AUTOMATED 166 10^3/uL (150-450); RED BLOOD COUNT 4.06 10^6/uL (4.00-5.40)
[2023-11-03 20:20] LABS: INR 1.06; PARTIAL THROMBOPLASTIN TIME 32.9 SECONDS (24.8-34.2); PROTHROMBIN TIME 13.5 SECONDS (12.5-14.5)
[2023-11-03 20:30] LABS: BLOOD UREA NITROGEN 9 MG/DL (9-23); CALCIUM LEVEL 8.4 MG/DL (8.3-10.6); CARBON DIOXIDE LEVEL 29 MMOL/L (20-31); CHLORIDE LEVEL 104 MMOL/L (98-107); GLOMERULAR FILTRATION RATE > 60.0 (>45); GLUCOSE, FASTING 147 MG/DL (74-106); POTASSIUM SERUM 4.3 MMOL/L (3.5-5.1); SODIUM LEVEL 138 MMOL/L (136-145)
[2023-11-03 20:45] VITALS: TEMP 98.1
[2023-11-03 21:00] VITALS: BP 180/84; TEMP 98.1; O2SAT 94
[2023-11-03] MEDS: ASPIRIN 81MG CHEW TABLET PO ONE (22:16)
[2023-11-03] MEDS: ACETAMINOPHEN *IV* 1,000 MG in IV 1 EA IV ONE (23:17)
[2023-11-04] VITALS (42 sets, daily range): BP systolic 131–229; BP diastolic 67–97; TEMP 97.3–100; O2SAT 88–98
[2023-11-04] MEDS ORDERED: FLUT1BLS8 INH (02:17)
[2023-11-04] MEDS ORDERED: FAMO40TA3 PO (02:17)
[2023-11-04] MEDS ORDERED: MULTTAB61 PO (02:17)
[2023-11-04] MEDS: NS 1,000 ML IV SCH (03:04)
[2023-11-04] MEDS: cefTRIAXone SOD 1 GM in D5W MINI-BAG PLUS 50 ML IV SCH (04:26)
[2023-11-04] MEDS ORDERED: MED REC IN PROGRESS XX SCH (05:40)
[2023-11-04 05:51] LABS: LITHIUM LEVEL 0.34 MMOL/L (1.0-1.20)
[2023-11-04] MEDS ORDERED: MIRALAX *UNIT DOSE* 17GM PACKET PO PRN (06:30)
[2023-11-04] MEDS ORDERED: ALBUTEROL SULFATE 2.5MG/0.5ML INH NEB SOLN NEB PRN (07:10)
[2023-11-04] MEDS: TIOTROPIUM INHALER/CAPSULE (SPIRIVA) INH SCH (08:44)
[2023-11-04] MEDS: ADVAIR HFA 230/21MCG INHALER INH SCH (08:44)
[2023-11-04] MEDS: METOPROLOL TART 25 MG TABLET PO SCH (08:57)
[2023-11-04] MEDS: APIXABAN 5 MG TAB (ELIQUIS) PO SCH (08:57)
[2023-11-04] MEDS: buPROPion **XL** TABLET 150MG (WELLBUTRIN XL) PO SCH (08:57)
[2023-11-04] MEDS: GABAPENTIN 300 MG CAP PO SCH (08:58)
[2023-11-04] MEDS: MEMANTINE 5MG TABLET (NAMENDA) PO SCH (08:58)
[2023-11-04] MEDS: lamoTRIgine 100MG TAB PO SCH (08:58)
[2023-11-04] MEDS: PANTOPRAZOLE 40MG TAB (PROTONIX) PO SCH (08:58)
[2023-11-04] MEDS: CALCIUM/VITAMIN D 500 MG TAB PO SCH (08:58)
[2023-11-04] MEDS: DONEPEZIL 5 MG TAB PO SCH (08:58)
[2023-11-04] MEDS: amLODIPine 5 MG TAB PO ONE (08:59)
[2023-11-04] MEDS ORDERED: ADVAIR HFA 115/21MCG INHALER INH SCH (09:00)
[2023-11-04] MEDS ORDERED: HOME MED LIST COMPLETE! XX SCH (09:15)
[2023-11-04 10:27] LABS: BLOOD UREA NITROGEN 6 MG/DL (9-23); CALCIUM LEVEL 8.7 MG/DL (8.3-10.6); CARBON DIOXIDE LEVEL 28 MMOL/L (20-31); CHLORIDE LEVEL 106 MMOL/L (98-107); CREATININE FOR GFR 0.61 MG/DL (0.55-1.30); GLOMERULAR FILTRATION RATE > 60.0 (>45); GLUCOSE, FASTING 161 MG/DL (74-106); POTASSIUM SERUM 4.6 MMOL/L (3.5-5.1); SODIUM LEVEL 139 MMOL/L (136-145)
[2023-11-04 10:32] LABS: BASO % 0.2 % (0.0-1.0); HEMATOCRIT 38.9 % (36.0-47.0); HEMOGLOBIN 13.1 g/dl (12.0-15.5); LYMPH # 0.6 10^3/uL (1.5-5.0); LYMPH % 6.3 % (24.0-44.0); MEAN CORPUSCULAR HGB CONC 33.7 g/dl (32.0-36.5); MEAN CORPUSCULAR VOLUME 95.1 fl (80.0-96.0); MONO # 0.2 10^3/uL (0.0-0.8); MONO % 1.6 % (2.0-8.0); NEUTROPHILS # 8.5 10^3/uL (1.5-8.5); NEUTROPHILS % 90.7 % (36.0-66.0); PLATELET COUNT, AUTOMATED 189 10^3/uL (150-450); RED BLOOD COUNT 4.09 10^6/uL (4.00-5.40); WHITE BLOOD COUNT 9.4 10^3/uL (4.0-10.0)
[2023-11-04] MEDS: ACETAMINOPHEN TAB 650MG DOSE (2X325MG) PO PRN (12:27)
[2023-11-04] MEDS: **hydrALAZINE HCL** 25 MG TAB PO SCH (17:30)
[2023-11-04] MEDS: LITHIUM CARBONATE 150 MG CAP PO SCH (20:14)
[2023-11-04] MEDS: traZODone 50 MG TAB PO SCH (20:14)
[2023-11-04] MEDS: FAMOTIDINE 20 MG TAB PO SCH (20:15)
[2023-11-04] MEDS: amLODIPine 5 MG TAB PO SCH (20:15)
[2023-11-04] MEDS ORDERED: amLODIPine 5 MG TAB PO SCH (21:00)
[2023-11-05 00:36] VITALS: BP 132/55
[2023-11-05 05:50] VITALS: BP 130/55; TEMP 98.1; O2SAT 93
[2023-11-05 06:19] LABS: BASO % 0.2 % (0.0-1.0); EOS # 0.1 10^3/uL (0.0-0.5); EOS % 1.6 % (0.0-3.0); HEMATOCRIT 35.5 % (36.0-47.0); HEMOGLOBIN 11.9 g/dl (12.0-15.5); LYMPH # 1.4 10^3/uL (1.5-5.0); LYMPH % 16.8 % (24.0-44.0); MEAN CORPUSCULAR HEMOGLOBIN 31.2 pg (27.0-33.0); MEAN CORPUSCULAR HGB CONC 33.5 g/dl (32.0-36.5); MEAN CORPUSCULAR VOLUME 92.9 fl (80.0-96.0); MONO # 0.8 10^3/uL (0.0-0.8); MONO % 9.2 % (2.0-8.0); NEUTROPHILS # 5.9 10^3/uL (1.5-8.5); NEUTROPHILS % 71.7 % (36.0-66.0); PLATELET COUNT, AUTOMATED 194 10^3/uL (150-450); RED BLOOD COUNT 3.82 10^6/uL (4.00-5.40); WHITE BLOOD COUNT 8.3 10^3/uL (4.0-10.0)
[2023-11-05 06:53] LABS: BLOOD UREA NITROGEN 11 MG/DL (9-23); CALCIUM LEVEL 8.8 MG/DL (8.3-10.6); CARBON DIOXIDE LEVEL 31 MMOL/L (20-31); CHLORIDE LEVEL 106 MMOL/L (98-107); CREATININE FOR GFR 0.77 MG/DL (0.55-1.30); GLOMERULAR FILTRATION RATE > 60.0 (>45); GLUCOSE, FASTING 102 MG/DL (74-106); POTASSIUM SERUM 4.2 MMOL/L (3.5-5.1); SODIUM LEVEL 143 MMOL/L (136-145)
[2023-11-05] MEDS ORDERED: PILL CUTTER 1 EACH XX ONE (08:22)
[2023-11-05 11:46] VITALS: O2SAT 92
[2023-11-05 21:58] VITALS: BP 118/79; TEMP 97.3; O2SAT 93
[2023-11-06 00:16] VITALS: BP 147/77; TEMP 96.4; O2SAT 93
[2023-11-06 05:59] VITALS: BP 146/74; TEMP 97.7; O2SAT 93
[2023-11-06 06:54] LABS: BASO % 0.3 % (0.0-1.0); EOS # 0.3 10^3/uL (0.0-0.5); EOS % 4.5 % (0.0-3.0); HEMATOCRIT 37.6 % (36.0-47.0); HEMOGLOBIN 12.6 g/dl (12.0-15.5); LYMPH # 1.5 10^3/uL (1.5-5.0); LYMPH % 23.7 % (24.0-44.0); MEAN CORPUSCULAR HEMOGLOBIN 32.1 pg (27.0-33.0); MEAN CORPUSCULAR HGB CONC 33.5 g/dl (32.0-36.5); MEAN CORPUSCULAR VOLUME 95.7 fl (80.0-96.0); MONO # 0.6 10^3/uL (0.0-0.8); MONO % 10.3 % (2.0-8.0); NEUTROPHILS # 3.8 10^3/uL (1.5-8.5); NEUTROPHILS % 60.7 % (36.0-66.0); PLATELET COUNT, AUTOMATED 202 10^3/uL (150-450); RED BLOOD COUNT 3.93 10^6/uL (4.00-5.40); WHITE BLOOD COUNT 6.2 10^3/uL (4.0-10.0)
[2023-11-06 07:09] LABS: BLOOD UREA NITROGEN 11 MG/DL (9-23); CALCIUM LEVEL 8.5 MG/DL (8.3-10.6); CARBON DIOXIDE LEVEL 32 MMOL/L (20-31); CHLORIDE LEVEL 105 MMOL/L (98-107); CREATININE FOR GFR 0.73 MG/DL (0.55-1.30); GLOMERULAR FILTRATION RATE > 60.0 (>45); GLUCOSE, FASTING 96 MG/DL (74-106); POTASSIUM SERUM 4.2 MMOL/L (3.5-5.1); SODIUM LEVEL 141 MMOL/L (136-145)
[2023-11-06 07:10] LABS: VITAMIN B12 LEVEL 675 PG/ML (211-911)
[2023-11-06] MEDS: rOPINIRole 0.25 MG TAB(REQUIP) PO SCH (09:03)
[2023-11-06 11:56] VITALS: BP 144/65
[2023-11-06] MEDS ORDERED: ROPI0.5T33 PO (12:34)
[2023-11-06] MEDS ORDERED: AMLO1TAB24 PO (12:34)
[2023-11-06 14:00] VITALS: BP 140/67; TEMP 97.5; O2SAT 92
== END 2023-11-06 15:16 | disposition home or self-care (01) | DRG 57 ==
LOC: M ED 19:34 → M ED INP 19:35 → M ICU 11-04 02:56 → OBSVTOIN 11-04 10:58 → INTOOBSV 11-04 10:58 → M MSPAV 11-04 22:22
PROVIDERS: ADMIT Preventive Medicine Undersea and Hyperbaric Medicine; ATTEND Internal Medicine Nephrology
DX: G21.11 Neuroleptic induced parkinsonism (principal); Z68.41 Body mass index [BMI] 40.0-44.9, adult; G31.84 Mild cognitive impairment of uncertain or unknown etiology; I48.0 Paroxysmal atrial fibrillation; F31.9 Bipolar disorder, unspecified; F20.9 Schizophrenia, unspecified; G25.0 Essential tremor; E66.01 Morbid (severe) obesity due to excess calories; Z86.73 Personal history of transient ischemic attack (TIA), and cerebral infarction without residual deficits; Z79.01 Long term (current) use of anticoagulants; Z79.899 Other long term (current) drug therapy

== ENCOUNTER → 2024-07-20 | Outpatient (CLI) | payer MEDICARE, MEDICAID ==
[~2024-07-20] MED LIST changes: +AMLO1TAB24 PO; -AZEL0.055; +AZEL1SPR4; +BUPR-597 PO; -BUPR300T92 PO; +FAMO40TA3 PO; +FLUT1BLS8 INH; +GABA-1172 PO; +GABA-1490 PO; -GABA-282 PO; -GABA600T4 PO; +MULTTAB61 PO; +ROPI0.5T33 PO
[2024-07-20 11:04] LABS: BASO % 0.6 % (0.0-1.0); EOS # 0.2 10^3/uL (0.0-0.5); EOS % 2.9 % (0.0-3.0); HEMATOCRIT 42.6 % (36.0-47.0); LYMPH # 1.4 10^3/uL (1.5-5.0); LYMPH % 19.8 % (24.0-44.0); MEAN CORPUSCULAR HEMOGLOBIN 30.9 pg (27.0-33.0); MEAN CORPUSCULAR HGB CONC 32.9 g/dl (32.0-36.5); MONO # 0.6 10^3/uL (0.0-0.8); MONO % 8.3 % (2.0-8.0); NEUTROPHILS # 4.9 10^3/uL (1.5-8.5); NEUTROPHILS % 68.3 % (36.0-66.0); PLATELET COUNT, AUTOMATED 223 10^3/uL (150-450); RED BLOOD COUNT 4.53 10^6/uL (4.00-5.40); WHITE BLOOD COUNT 7.2 10^3/uL (4.0-10.0)
[2024-07-20 11:29] LABS: LIPASE 38 U/L (12-53)
[2024-07-20 11:31] LABS: ALBUMIN 3.9 G/DL (3.2-5.2); ALKALINE PHOSPHATASE 60 U/L (35-104); ALT/SGPT 10 U/L (7.0-40); AMYLASE 52 U/L (30-118); AST/SGOT 11 U/L (<34); BILIRUBIN,TOTAL 0.5 MG/DL (0.3-1.2); BLOOD UREA NITROGEN 10 MG/DL (9-23); CALCIUM LEVEL 9.4 MG/DL (8.3-10.6); CARBON DIOXIDE LEVEL 33 MMOL/L (20-31); CHLORIDE LEVEL 103 MMOL/L (98-107); CREATININE FOR GFR 0.79 MG/DL (0.55-1.30); GLOMERULAR FILTRATION RATE > 60.0 (>45); GLUCOSE, FASTING 91 MG/DL (74-106); POTASSIUM SERUM 4.7 MMOL/L (3.5-5.1); SODIUM LEVEL 141 MMOL/L (136-145); TOTAL PROTEIN 7.2 G/DL (5.7-8.2)
== END ==
LOC: M LAB 10:29
PROVIDERS: ATTEND Physician Assistant Medical
DX: R10.84 Generalized abdominal pain (principal)

== ENCOUNTER → 2024-07-22 | Outpatient (CLI) | payer MEDICARE, MEDICAID ==
[~2024-07-22] MED LIST changes: +ISOVUE-370 76% 100ML VIAL As Ordered ONE
== END ==
LOC: M RAD 08:30
PROVIDERS: ATTEND Physician Assistant Medical
DX: R11.0 Nausea (principal); K44.9 Diaphragmatic hernia without obstruction or gangrene; K40.20 Bilateral inguinal hernia, without obstruction or gangrene, not specified as recurrent; K42.9 Umbilical hernia without obstruction or gangrene
CPT/HCPCS: 74177; Q9967

== ENCOUNTER → 2024-09-03 | Outpatient (CLI) | payer MEDICARE, MEDICAID ==
[~2024-09-03] MED LIST changes: -ISOVUE-370 76% 100ML VIAL As Ordered ONE
== END ==
LOC: M RAD 08:39
PROVIDERS: ATTEND Physician Assistant Medical
DX: R11.0 Nausea (principal); R10.84 Generalized abdominal pain
CPT/HCPCS: 78264; A9541

== ENCOUNTER → 2024-09-08 | Outpatient (CLI) | payer MEDICARE, MEDICAID | LOC: M EKG 09:11 | PROVIDERS: ATTEND Physician Assistant | DX: I48.0 Paroxysmal atrial fibrillation (principal) ==

== ENCOUNTER → 2024-09-22 | Outpatient (CLI) | payer MEDICARE, MEDICAID ==
[2024-09-22 11:05] LABS: BLOOD UREA NITROGEN 14 MG/DL (9-23); CALCIUM LEVEL 8.6 MG/DL (8.3-10.6); CARBON DIOXIDE LEVEL 29 MMOL/L (20-31); CHLORIDE LEVEL 108 MMOL/L (98-107); CHOLESTEROL LEVEL 168 MG/DL (<200); CHOLESTEROL RISK RATIO 2.54 (<5); CREATININE FOR GFR 0.82 MG/DL (0.55-1.30); GLOMERULAR FILTRATION RATE > 60.0 (>45); GLUCOSE, FASTING 97 MG/DL (74-106); HDL CHOLESTEROL 66.1 MG/DL (>40); LDL CHOLESTEROL 84.9 MG/DL (<100); NON-HDL-C 101.9 MG/DL; POTASSIUM SERUM 4.6 MMOL/L (3.5-5.1); SODIUM LEVEL 144 MMOL/L (136-145); TRIGLYCERIDES LEVEL 85 MG/DL (<150)
== END ==
LOC: M LAB 09:11
PROVIDERS: ATTEND Physician Assistant
DX: R06.02 Shortness of breath (principal); I48.0 Paroxysmal atrial fibrillation; R94.31 Abnormal electrocardiogram [ECG] [EKG]; E78.00 Pure hypercholesterolemia, unspecified

== ENCOUNTER → 2024-10-11 | Outpatient (CLI) | payer MEDICARE, MEDICAID | LOC: M CARPUL 13:08 | PROVIDERS: ATTEND Physician Assistant | DX: I48.0 Paroxysmal atrial fibrillation (principal) ==

== ENCOUNTER → 2024-10-27 | Outpatient (CLI) | payer MEDICARE, MEDICAID ==
[2024-10-27 12:44] LABS: BLOOD UREA NITROGEN 11 MG/DL (9-23); CALCIUM LEVEL 8.9 MG/DL (8.3-10.6); CARBON DIOXIDE LEVEL 31 MMOL/L (20-31); CHLORIDE LEVEL 104 MMOL/L (98-107); GLOMERULAR FILTRATION RATE > 60.0 (>45); GLUCOSE, FASTING 87 MG/DL (74-106); SODIUM LEVEL 141 MMOL/L (136-145)
== END ==
LOC: M LAB 11:20
PROVIDERS: ATTEND Physician Assistant
DX: I10 Essential (primary) hypertension (principal)

== ENCOUNTER → 2024-12-03 | Outpatient (CLI) | payer MEDICARE, MEDICAID ==
[~2024-12-03] MED LIST changes: -BUPR-597 PO; +BUPR-766 PO; -SUCR1ORA2 PO; +SUCR1ORA20 PO
[2024-12-03 11:57] LABS: CALCIUM LEVEL 9.3 MG/DL (8.3-10.6); CREATININE FOR GFR 0.84 MG/DL (0.55-1.30); GLOMERULAR FILTRATION RATE 75.2 (>45); POTASSIUM SERUM 4.5 MMOL/L (3.5-5.1)
== END ==
LOC: M LAB 10:09
PROVIDERS: ATTEND Physician Assistant
DX: I10 Essential (primary) hypertension (principal)

== ENCOUNTER → 2025-02-03 | Outpatient (CLI) | payer MEDICARE, MEDICAID ==
[~2025-02-03] MED LIST changes: +ALBU8.5H INH; +AMLO1TAB25 PO; +BUSP15TA47 PO; +CHLO125TA PO; +FLON1SPR NARES; +HOLTER MONITOR XX; +ROSU10TA61 PO
[2025-02-03 14:03] LABS: BASO # 0.0 10^3/uL (0.0-0.2); BASO % 0.5 % (0.0-1.0); EOS # 0.1 10^3/uL (0.0-0.5); EOS % 1.7 % (0.0-3.0); LYMPH # 1.4 10^3/uL (1.5-5.0); LYMPH % 22.4 % (24.0-44.0); MONO # 0.5 10^3/uL (0.0-0.8); MONO % 8.4 % (2.0-8.0); NEUTROPHILS # 4.3 10^3/uL (1.5-8.5); NEUTROPHILS % 66.8 % (36.0-66.0); PLATELET COUNT, AUTOMATED 229 10^3/uL (150-450)
[2025-02-03 14:33] LABS: ALT/SGPT 24 U/L (7.0-40); AST/SGOT 32 U/L (<34); CALCIUM LEVEL 9.8 MG/DL (8.3-10.6); CARBON DIOXIDE LEVEL 33 MMOL/L (20-31); CHLORIDE LEVEL 95 MMOL/L (98-107); CREATININE FOR GFR 0.87 MG/DL (0.55-1.30); GLOMERULAR FILTRATION RATE 72.1 (>45); POTASSIUM SERUM 4.2 MMOL/L (3.5-5.1); SODIUM LEVEL 141 MMOL/L (136-145)
[2025-02-03 14:36] LABS: LITHIUM LEVEL < 0.10 MMOL/L (1.0-1.20)
== END ==
LOC: M PLALAB 11:57
PROVIDERS: ATTEND Student in an Organized Health Care Education/Training Program
DX: Z01.818 Encounter for other preprocedural examination (principal)

== ENCOUNTER → 2025-02-03 | Outpatient (CLI) | payer MEDICARE, MEDICAID ==
[2025-02-03 14:38] LABS: RHEUMATOID FACTOR QUANT 4.2 IU/ML (<14)
[2025-02-03 14:39] LABS: VITAMIN B12 LEVEL 687.0 PG/ML (211-911)
[2025-02-07 20:02] LABS: VITAMIN E(ALPHA TOCOPHEROL) 18.3 mg/L (5.7-19.9); VITAMIN E(GAMMA TOCOPHEROL) 1.5 mg/L (<=4.3)
[2025-02-08 03:07] LABS: VITAMIN B1 LEVEL WHOLE BLOOD 138 nmol/L (78-185)
[2025-02-09 12:56] LABS: VITAMIN B6,PYRIDOXAL PHOSPHATE 9.7 ng/mL (2.1-21.7)
== END ==
LOC: M PLALAB 11:56
PROVIDERS: ATTEND Psychiatry & Neurology Neurology
DX: Z01.818 Encounter for other preprocedural examination (principal); R41.3 Other amnesia; E53.8 Deficiency of other specified B group vitamins; E51.9 Thiamine deficiency, unspecified; E53.1 Pyridoxine deficiency; E56.0 Deficiency of vitamin E

== ENCOUNTER → 2025-03-21 | Outpatient (CLI) | payer MEDICARE, MEDICAID ==
[~2025-03-21] MED LIST changes: -VERA120C3 PO; +VERA120C9 PO
== END ==
LOC: M PLAIMG 13:29
PROVIDERS: ATTEND Student in an Organized Health Care Education/Training Program
DX: R01.1 Cardiac murmur, unspecified (principal)

== ENCOUNTER 2025-03-24 11:32 | Day surgery (SDC) | payer MEDICARE, MEDICAID ==
[~2025-03-24] VITALS: Ht 162.6 cm; Wt 117.6 kg
[2025-03-24 13:35] VITALS: TEMP 97.5
[2025-03-24 13:50] VITALS: BP 135/67; O2SAT 94
== END 2025-03-24 13:55 | disposition home or self-care (01) ==
LOC: M OPP 11:32
PROVIDERS: ATTEND Internal Medicine Gastroenterology
DX: D12.2 Benign neoplasm of ascending colon (principal); D12.0 Benign neoplasm of cecum; K57.30 Diverticulosis of large intestine without perforation or abscess without bleeding; K64.8 Other hemorrhoids; K59.00 Constipation, unspecified; R10.84 Generalized abdominal pain; R12 Heartburn; Z98.890 Other specified postprocedural states; G47.30 Sleep apnea, unspecified; Z91.048 Other nonmedicinal substance allergy status; Z79.01 Long term (current) use of anticoagulants; Z79.51 Long term (current) use of inhaled steroids; Z79.899 Other long term (current) drug therapy; J45.909 Unspecified asthma, uncomplicated; Z86.73 Personal history of transient ischemic attack (TIA), and cerebral infarction without residual deficits

== ENCOUNTER → 2025-06-09 | Outpatient (CLI) | payer MEDICARE, MEDICAID ==
[~2025-06-09] MED LIST changes: -ROSU10TA61 PO; +ROSU10TA90 PO; -ZOLP5TAB PO; +ZOLP5TAB9 PO
== END ==
LOC: M PLALAB 14:47
PROVIDERS: ATTEND Nurse Practitioner Family
DX: Z79.891 Long term (current) use of opiate analgesic (principal)
CPT/HCPCS: 36415; 80307; G0480